=== PATIENT | male | born 1970 | race Hispanic/Latino ===

== ENCOUNTER 2020-02-11 21:26 | Inpatient (IN) | payer OTHER, SELFPAY ==
--- NOTE | 2020-02-11 21:36 | Emergency Department Report ---
ED Shortness of Breath HPI - General Chief Complaint: Dyspnea/Respdistress Stated Complaint: CHF EXACERBATION Time Seen by Provider: 02/11/20 21:31 Source: patient, EMS Mode of arrival: Stretcher Limitations: Physical Limitation - History of Present Illness Initial Comments: Patient is a 49-year-old male that presents emergency room with complaints of s hortness of breath. Patient states that shortness of breath started last night. Patient states he was diagnosed with CHF 3 to 4 weeks ago. Patient states it has been difficult breathing since the diagnosis. Patient states that the shortness of breath is worse with laying flat, movement or exertion. Patient states the shortness of breath is better with rest and being upright. Patient denies chest pain. Patient denies fever and chills. Patient denies cough. Patient denies nausea and vomiting. Patient brought in by EMS. Report received from EMS. Patient denies recent travel. Patient denies recent international travel. Patient denies exposure to the novel coronavirus. Patient denies sick contacts. Patient denies fever and chills. Patient denies cough. Patient denies diarr hea. Patient denies coming in contact with anybody with symptoms of the novel coronavirus. MD Complaint: shortness of breath -: Sudden Severity: severe Consistency: constant Improves With: rest, upright position Worsens With: lying flat, exertion Known History Of: congestive heart failure Treatments Prior to Arrival: oxygen - Related Data Home Oxygen Therapy: No Home Medications Medication Instructions Recorded Confirmed Last Taken Citalopram Hydrobromide [Celexa] 40 mg PO DAILY 02/12/20 02/12/20 Unknown lisinopriL [Zestril TAB] 40 mg PO QDAY 02/12/20 02/12/20 Unknown Allergies Allergy/AdvReac Type Severity Reaction Status Date / Time No Known Allergies Allergy Unverified 02/11/20 21:33 ED Review of Systems ROS: Stated complaint: CHF EXACERBATION Other details as noted in HPI Constitutional: denies: chills, fever Eyes: denies: eye pain, eye discharge, vision change ENT: denies: ear pain, throat pain Respiratory: shortness of breath, SOB with exertion, SOB at rest. denies: cough, wheezing Cardiovascular: dyspnea on exertion, edema. denies: chest pain, palpitations Endocrine: no symptoms reported Gastrointestinal: denies: abdominal pain, nausea, diarrhea Genitourinary: denies: urgency, dysuria Musculoskeletal: denies: back pain, joint swelling, arthralgia Skin: denies: rash, lesions Neurological: denies: headache, weakness, paresthesias Psychiatric: denies: anxiety, depression Hematological/Lymphatic: denies: easy bleeding, easy bruising ED Past Medical Hx - Past Medical History Previous Medical History?: Yes Hx Hypertension: Yes Hx Congestive Heart Failure: Yes Hx Diabetes: No Hx Pulmonary Embolism: Yes (2019. ) Additional medical history: Morbid obesity - Surgical History Past Surgical History?: No - Family History Family history: no significant - Social History Smoking Status: Never Smoker Substance Use Type: None - Medications Home Medications: Home Medications Medication Instructions Recorded Confirmed Last Taken Type Citalopram Hydrobromide [Celexa] 40 mg PO DAILY 02/12/20 02/12/20 Unknown History lisinopriL [Zestril TAB] 40 mg PO QDAY 02/12/20 02/12/20 Unknown History ED Physical Exam - General Limitations: Physical Limitation General appearance: alert, in no apparent distress - Head Head exam: Present: atraumatic, normocephalic - Eye Eye exam: Present: normal appearance - ENT ENT exam: Present: mucous membranes moist - Neck Neck exam: Present: normal inspection - Respiratory Respiratory exam: Present: rales, decreased breath sounds - Cardiovascular Cardiovascular Exam: Present: regular rate, normal rhythm, normal heart sounds. Absent: systolic murmur, diastolic murmur, rubs, gallop - GI/Abdominal GI/Abdominal exam: Present: soft, normal bowel sounds - Rectal Rectal exam: Present: deferred - Extremities Exam Extremities exam: Present: normal capillary refill, pedal edema. Absent: calf tenderness - Back Exam Back exam: Present: normal inspection - Neurological Exam Neurological exam: Present: alert, oriented X3 - Psychiatric Psychiatric exam: Present: normal affect, normal mood - Skin Skin exam: Present: warm, dry, intact, normal color. Absent: rash ED Course Vital Signs 02/11/20 02/11/20 02/11/20 21:38 21:45 22:00 Temperature 98.1 F Pulse Rate 108 H 107 H 106 H Respiratory 23 24 37 H Rate Blood Pressure 157/82 174/90 Blood Pressure 157/82 [Right] O2 Sat by Pulse 100 100 100 Oximetry - Reevaluation(s) Reevaluation #1: Patient on oxygen and he states he is feeling better. 02/11/20 22:35 Reevaluation #2: Patient given Lasix. I discussed all results with patient. I discussed plan of care with patient. Patient agrees with plan of care and admission. Patient to be admitted to the hospitalist service. 02/11/20 23:35 - Consultations Consultation #1: Patient has an elevated d-dimer. And will need a CTA to rule out a PE. We will start consulting the local hospitals. 02/11/20 22:32 The patient is either too big in weight or in circumference for all of the local hospitals or the hospitals are on diversion. I am unable to find a hospital that can accept the patient to care for the patient. So the patient will be admitted to this hospital and a PE will have to be ruled out with ultrasound and echo. 02/11/20 23:34 Consultation #2: Hospitalist consulted for admission. Hospitalist to admit patient. 02/11/20 23:36 Consultation #3: Vascular surgery consult placed 02/11/20 23:47 ED Medical Decision Making - Lab Data Result diagrams: 02/11/20 21:38 02/11/20 21:38 - EKG Data -: EKG Interpreted by Me EKG shows normal: sinus rhythm, axis, intervals, QRS complexes, ST-T waves Rate: tachycardia - Radiology Data Radiology results: report reviewed, image reviewed interpreted by me: Chest x-ray: No pneumonia, no pneumothorax, no foreign body, no osseous findings, CHF changes noted. Cardiomegaly CHEST 1 VIEW 02/11/2020 9:35 PM INDICATION / CLINICAL INFORMATION: Dyspnea. COMPARISON: None available. FINDINGS: SUPPORT DEVICES: None. HEART / MEDIASTINUM: Mild cardiomegaly. LUNGS / PLEURA: Mild pulmonary vascular congestion. No pneumothorax. ADDITIONAL FINDINGS: No significant additional findings. IMPRESSION: 1. Mild cardiomegaly and mild pulmonary vascular congestion likely reflecting CHF. DUPLEX DOPPLER LOWER EXTREMITY VEINS, BILATERAL INDICATION / CLINICAL INFORMATION: elevated d-dimer.. TECHNIQUE: Duplex doppler imaging was performed through the veins of both lower extremities using venous compression and other maneuvers. COMPARISON: None available. FINDINGS: RIGHT COMMON FEMORAL VEIN: Negative. RIGHT FEMORAL VEIN: Negative. RIGHT POPLITEAL VEIN: Negative. RIGHT CALF VEINS: Negative. LEFT COMMON FEMORAL VEIN: Negative. LEFT FEMORAL VEIN: Negative. LEFT POPLITEAL VEIN: Negative. LEFT CALF VEINS: Negative. ADDITIONAL FINDINGS: None. IMPRESSION: 1. No sonographic evidence for DVT in either lower extremity. - Medical Decision Making Patient is a 49-year-old male that presents emergency room with complaints of shortness of breath and orthopnea. Patient had labs done which shows elevated BNP. Patient had a chest x-ray done which showed CHF changes. Patient given Lasix in the ER. Patient also found to have an elevated d-dimer. Due to the patient's need for CTA I attempted to transfer the patient however all of the hospitals in the critical access hospital were unable to care for the patient due to the patient's girth, circumference and weight. Patient was admitted to this hospital and the hospitalist will have to rule out a PE with the vascular surgery. Vascular surgery consulted. Patient admitted to the hospitalist service. Since the patient has a history of a PE in 2019, I will place the patient on a heparin drip until the risk can be quantified by the vascular surgeon and the hospitalist team. - Differential Diagnosis CHF exacerbation, shortness of breath, PE, ACS, pneumonia Critical Care Time: Yes Critical care time in (mins) excluding proc time.: 35 Critical care attestation.: If time is entered above; I have spent that time in minutes in the direct care of this critically ill patient, excluding procedure time. Critical Care Time: 35 minutes ED Disposition Clinical Impression: SOB (shortness of breath), MANN (dyspnea on exertion), Leg edema Acute exacerbation of CHF (congestive heart failure) Qualifiers: Heart failure type: unspecified Qualified Code(s): I50.9 - Heart failure, unspecified Disposition: OP ADMIT IP TO THIS HOSP Is pt being admited?: Yes Does the pt Need Aspirin: No Condition: Critical Time of Disposition: 23:48
[2020-02-11 22:00] LABS: Basophils % (Auto) 0.2 % (0.0-1.8); Eosinophils # (Auto) 0.2 K/mm3 (0.0-0.4); Eosinophils % (Auto) 1.6 % (0.0-4.3); Hematocrit 34.5 % (35.5-45.6); Hemoglobin 11.5 gm/dl (11.8-15.2); Lymphocytes # (Auto) 0.9 K/mm3 (1.2-5.4); Lymphocytes % (Auto) 8.3 % (13.4-35.0); Mean Corpuscular HGB Conc 33 % (32-34); Mean Corpuscular Volume 91 fl (84-94); Monocytes # (Auto) 0.7 K/mm3 (0.0-0.8); Monocytes % (Auto) 6.7 % (0.0-7.3); Platelet Count 387 K/mm3 (140-440); Red Blood Count 3.81 M/mm3 (3.65-5.03); Red Cell Distribution Width 17.5 % (13.2-15.2)
[2020-02-11 22:21] LABS: Creatine Kinase MB 1.3 ng/mL (0.0-4.0)
[2020-02-11 22:37] LABS: Alanine Aminotransferase 14 units/L (7-56); Albumin 2.8 g/dL (3.9-5); Blood Urea Nitrogen 14 mg/dL (9-20); Hemolysis Index 152
--- NOTE | 2020-02-11 22:39 | XRay Report ---
CHEST 1 VIEW 02/11/2020 9:35 PM INDICATION / CLINICAL INFORMATION: Dyspnea. COMPARISON: None available. FINDINGS: SUPPORT DEVICES: None. HEART / MEDIASTINUM: Mild cardiomegaly. LUNGS / PLEURA: Mild pulmonary vascular congestion. No pneumothorax. ADDITIONAL FINDINGS: No significant additional findings. IMPRESSION: 1. Mild cardiomegaly and mild pulmonary vascular congestion likely reflecting CHF. Signer Name: Krishna Marmolejo MD Signed: 02/11/2020 10:35 PM Workstation Name: [id number]
[2020-02-11 22:42] LABS: BUN/Creatinine Ratio 35
[2020-02-11] MEDS ORDERED: ACETAMINOPHEN 500 MG TAB ONE (22:58)
[2020-02-11] MEDS ORDERED: ACETAMINOPHEN 500 MG TAB PO ONE (23:00)
[2020-02-11] MEDS ORDERED: FUROSEMIDE 40 MG/4 ML INJ IV ONE (23:35)
[2020-02-11] MEDS ORDERED: HEPARIN 10,000 UNITS/10 ML VIAL IV ONE (23:58)
[2020-02-12] MEDS ORDERED: MORPHINE 2 MG/1 ML INJ IV PRN (00:23)
[2020-02-12] MEDS ORDERED: ONDANSETRON 4 MG/2 ML INJ IV PRN (00:23)
[2020-02-12] MEDS ORDERED: MAGNESIUM HYDROXIDE (MOM) ORAL LIQD UDC PO PRN (00:23)
--- NOTE | 2020-02-12 00:34 | History and Physical Report ---
History of Present Illness Date of examination: 02/12/20 Date of admission: 02/11/20 23:48 Chief complaint: Shortness of Breath History of present illness: 49-year-old white male with known history of hypertension, recently diagnosed congestive heart failure, pulmonary embolism in 2019 and morbid obesity presented to the emergency room today complaining of shortness of breath which started within the last 24 to 48 hours. He was brought in by EMS. Patient states he was diagnosed with congestive heart failure about 4 weeks ago and in the last 2 days has been getting short of breath especially on minimal exertion. He has had difficulty lying down flat. He had occasional chest discomfort especially in the substernal area. He denies any nausea or vomiting. He denies any headache or dizziness, no nausea or vomiting and no diarrhea. He has had some mild cough which is nonproductive. Patient states he has been bedbound lately and hardly ambulates. He has been having progressive swelling of his lower extremities. He denies any recent travel. Denies any sick contacts and no contact with anyone with COVID-19. He was treated with some antibiotics for lower extremity cellulitis some weeks ago but has noticed some redness over the right lower extremity. Upon evaluation in the emergency room patient was found to have elevated BNP, elevated d-dimer, chest x-ray reveals: Mild cardiomegaly and mild pulmonary vascular congestion likely reflecting CHF. Ultrasound of the lower extremities did not reveal any DVT. Patient has been started on diuretics for CHF exacerbation. CT angiogram could not be done because of patient's size and weight. [facility] was unable to transfer to an outside facility. Past History Past Medical History: heart failure, hypertension, other (H/O PE in 2019, Morbid Obesity,Depression/PTSD) Past Surgical History: Other (Nasal abscess drainage in the distant past.) Social history: no significant social history Medications and Allergies Allergies Allergy/AdvReac Type Severity Reaction Status Date / Time No Known Allergies Allergy Unverified 02/11/20 21:33 Home Medications Medication Instructions Recorded Confirmed Last Taken Type Citalopram Hydrobromide [Celexa] 40 mg PO DAILY 02/12/20 02/12/20 Unknown History lisinopriL [Zestril TAB] 40 mg PO QDAY 02/12/20 02/12/20 Unknown History Active Meds: Active Medications Heparin Sodium/Sodium Chloride (Heparin/ 0.45% Nacl-25,000 Unit/500 Ml) 25,000 unit in 500 mls @ 30 mls/hr IV TITR MICHAEL; Protocol Review of Systems Constitutional: no fever, no chills Ears, nose, mouth and throat: no nasal congestion, no sore throat Cardiovascular: chest pain, no palpitations Respiratory: cough, shortness of breath, no wheezing Gastrointestinal: no abdominal pain, no nausea, no vomiting, no diarrhea Genitourinary Male: no dysuria, no hematuria, no flank pain Musculoskeletal: no neck pain, no low back pain Integumentary: no rash, no pruritis Neurological: no headaches, no confusion Psychiatric: no anxiety, no depression Exam - Constitutional Vitals: Temp Pulse Resp BP Pulse Ox 98.1 F 106 H 37 H 174/90 100 02/11/20 21:38 02/11/20 22:00 02/11/20 22:00 02/11/20 22:00 02/11/20 22:00 General appearance: Present: no acute distress, well-nourished, obese (Morbidly obese.) - EENT Eyes: Present: PERRL, EOM intact ENT: hearing intact, clear oral mucosa, dentition normal - Neck Neck: Present: supple, normal ROM - Respiratory Respiratory effort: normal Respiratory: bilateral: diminished - Cardiovascular Rhythm: regular Heart Sounds: Present: S1 & S2. Absent: gallop, systolic murmur, diastolic murmur, rub - Extremities Extremities: no ischemia, pulses intact, pulses symmetrical, Full ROM, abnormal (redness and warmth on lower 1/3 of right leg.) Extremity abnormal: edema (2+ bilateral lower extremity edema) Peripheral Pulses: within normal limits - Abdominal General gastrointestinal: Present: soft, non-tender, distended, normal bowel sounds. Absent: mass - Integumentary Integumentary: Present: clear, warm, dry. Absent: rash - Musculoskeletal Musculoskeletal: strength equal bilaterally - Psychiatric Psychiatric: appropriate mood/affect, intact judgment & insight, memory intact, cooperative - Neurologic Neurologic: CNII-XII intact, no focal deficits, moves all extremities HEART Score - HEART Score Troponin: Troponin T < 0.010 ng/mL (0.00-0.029) 02/11/20 21:38 Results - Labs CBC & Chem 7: 02/11/20 21:38 02/11/20 21:38 Labs: Abnormal lab results 02/11/20 02/11/20 02/11/20 Range/Units 21:38 21:38 21:38 Hgb 11.5 L (11.8-15.2) gm/dl Hct 34.5 L (35.5-45.6) % RDW 17.5 H (13.2-15.2) % Lymph % (Auto) 8.3 L (13.4-35.0) % Lymph # (Auto) 0.9 L (1.2-5.4) K/mm3 Seg Neutrophils % 83.2 H (40.0-70.0) % Seg Neutrophils # 8.8 H (1.8-7.7) K/mm3 D-Dimer 684.16 H (0-234) ng/mlDDU Chloride 97.3 L (98-107) mmol/L Carbon Dioxide 32 H (22-30) mmol/L Creatinine 0.4 L (0.8-1.3) mg/dL Glucose 115 H (75-100) mg/dL Albumin 2.8 L (3.9-5) g/dL Assessment and Plan - Patient Problems (1) Acute exacerbation of CHF (congestive heart failure) Current Visit: Yes Status: Acute Qualifiers: Heart failure type: unspecified Qualified Code(s): I50.9 - Heart failure, unspecified Plan to address problem: Patient placed on diuretics. Will monitor inputs and output and also monitor daily weights. Patient will be scheduled for echocardiogram. We will place a consult to cardiology for evaluation. (2) Elevated d-dimer Current Visit: Yes Status: Acute Plan to address problem: Ultrasound of the lower extremities were negative for DVT. However patient is unable to undergo his CT angiogram because of his size and weight. He has known history of PE in 2019. He has had some mild chest discomfort over the past few days. Patient has been placed on anticoagulation meanwhile. We will appreciate inputs from vascular surgery. (3) Morbid obesity with BMI of 70 and over, adult Current Visit: Yes Status: Acute Plan to address problem: We will appreciate dietary evaluation. (4) Hypertension Current Visit: Yes Status: Acute Plan to address problem: Blood pressure stable we will continue routine home medications. Monitor vital signs (5) History of major depression Current Visit: Yes Status: Acute Plan to address problem: Patient on citalopram. (6) Cellulitis of lower extremity Current Visit: Yes Status: Acute Plan to address problem: Patient placed on empiric IV antibiotics. (7) DVT prophylaxis Current Visit: Yes Status: Acute Plan to address problem: Patient on anticoagulation. (8) Full code status Current Visit: Yes Status: Acute
[2020-02-12 00:58] LABS: INR 0.77 (0.87-1.13)
[2020-02-12] MEDS ORDERED: HEPARIN 10,000 UNITS/10 ML VIAL ONE (00:58)
[2020-02-12 00:59] LABS: Partial Thromboplastin Time 20.7 Sec. (24.2-36.6)
--- NOTE | 2020-02-12 01:04 | Vascular Lab Report ---
DUPLEX DOPPLER LOWER EXTREMITY VEINS, BILATERAL INDICATION / CLINICAL INFORMATION: elevated d-dimer.. TECHNIQUE: Duplex doppler imaging was performed through the veins of both lower extremities using venous francie tanisha and other maneuvers. COMPARISON: None available. FINDINGS: RIGHT COMMON FEMORAL VEIN: Negative. RIGHT FEMORAL VEIN: Negative. RIGHT POPLITEAL VEIN: Negative. RIGHT CALF VEINS: Negative. LEFT COMMON FEMORAL VEIN: Negative. LEFT FEMORAL VEIN: Negative. LEFT POPLITEAL VEIN: Negative. LEFT CALF VEINS: Negative. ADDITIONAL FINDINGS: None. IMPRESSION: 1. No sonographic evidence for DVT in either lower extremity. Signer Name: Krishna Marmolejo MD Signed: 02/12/2020 12:59 AM Workstation Name: [id number]
[2020-02-12] MEDS ORDERED: VANCOMYCIN PHARMACY TO DOSE IV SCH (02:00)
[2020-02-12] MEDS: HEPARIN/ 0.45% NACL DRIP 25,000 UNIT/500 ML BAG IV SCH ×2 (02:44→13:18)
[2020-02-12] MEDS ORDERED: VANCOMYCIN 2,000 MG in SODIUM CHLORIDE 0.9% 500 ML 500 ML IV ONE (04:00)
[2020-02-12] MEDS ORDERED: POTASSIUM CHLORIDE ER 20 MEQ TAB PO ONE (04:19)
[2020-02-12] MEDS: FUROSEMIDE 40 MG/4 ML INJ IV SCH ×2 (05:28→18:00)
[2020-02-12] MEDS: ACETAMINOPHEN 325 MG TAB PO PRN ×2 (05:30→16:06)
--- NOTE | 2020-02-12 10:15 | Consultation ---
History of Present Illness Consult date: 02/12/20 Requesting physician: STELLA DE PAZ Consult reason: congestive heart failure History of present illness: The pt is a 49-year-old morbidly obese male with a past medical history of HTN, HF, bilateral pulmonary embolism diagnosed at [facility] in 05/2018, suicide attempt via Coumadin overdose last year and thus has not been taking oral anticoagulation, depression, leg cellulitis. He is previously unknown to our practice. He reports he usually receives his medical care at [facility]. He presented with c/o progressively worsening SOB, orthopnea, BLE swelling, abdominal swelling for several days prior to arrival. Patient states he was diagnosed with congestive heart failure about 4 weeks ago at [facility]. Patient states he has been bedbound lately and hardly ambulates. He denies any chest pain, palpitations, n/v, diaphoresis, dizziness or syncope. Following arrival, pt found to have elevated d-dimer, CXR with mild cardiomegaly and mild pulmonary vascular congestion likely reflecting CHF. Ultrasound of the lower extremities did not reveal any DVT. Patient has been started on diuretics for CHF exacerbation and heparin gtt given h/o PE. CT angiogram could not be done because of patient's size and weight. ER physician was unable to transfer to an outside facility. Past History Past Medical History: heart failure, hypertension, other (H/O PE in 2019, Morbid Obesity,Depression/PTSD) Past Surgical History: Other (Nasal abscess drainage in the distant past.) Social history: no significant social history Medications and Allergies Allergies Allergy/AdvReac Type Severity Reaction Status Date / Time No Known Allergies Allergy Unverified 02/11/20 21:33 Home Medications Medication Instructions Recorded Confirmed Last Taken Type Citalopram Hydrobromide [Celexa] 40 mg PO DAILY 02/12/20 02/12/20 Unknown History lisinopriL [Zestril TAB] 40 mg PO QDAY 02/12/20 02/12/20 Unknown History Active Meds: Active Medications Acetaminophen (Tylenol) 650 mg PO Q4H PRN PRN Reason: Pain MILD(1-3)/Fever >100.5/LUIS Last Admin: 02/12/20 05:30 Dose: 650 mg Documented by: Furosemide (Lasix) 40 mg IV BID@0600,1800 MICHAEL Last Admin: 02/12/20 05:28 Dose: 40 mg Documented by: Heparin Sodium/Sodium Chloride (Heparin/ 0.45% Nacl-25,000 Unit/500 Ml) 25,000 unit in 500 mls @ 30 mls/hr IV TITR MICHAEL; Protocol Last Admin: 02/12/20 02:44 Dose: 1,500 units/hr, 30 mls/hr Documented by: Vancomycin HCl 2,000 mg/ (Sodium Chloride) 540 mls @ 250 mls/hr IV Q8H MICHAEL Magnesium Hydroxide (Milk Of Magnesia) 30 ml PO Q4H PRN PRN Reason: Constipation Morphine Sulfate (Morphine) 2 mg IV Q4H PRN PRN Reason: Pain, Moderate (4-6) Ondansetron HCl (Zofran) 4 mg IV Q8H PRN PRN Reason: Nausea And Vomiting Sodium Chloride (Sodium Chloride Flush Syringe 10 Ml) 10 ml IV BID MICHAEL Sodium Chloride (Sodium Chloride Flush Syringe 10 Ml) 10 ml IV PRN PRN PRN Reason: LINE FLUSH Review of Systems Constitutional: no fever, no chills, no sweats Ears, nose, mouth and throat: no ear pain, no nose pain, no sinus pressure, no sinus pain Cardiovascular: orthopnea, edema, shortness of breath, dyspnea on exertion, paroxysmal nocturnal dyspnea, high blood pressure, leg edema, decreased exercise tolerance, no chest pain, no palpitations, no rapid/irregular heart beat, no syncope, no lightheadedness Respiratory: shortness of breath, dyspnea on exertion, no cough, no congestion, no wheezing, no pain on inspiration Gastrointestinal: other (abdominal swelling), no abdominal pain, no nausea, no vomiting, no diarrhea, no constipation, no change in bowel habits Genitourinary Male: no dysuria, no hematuria, no flank pain, no discharge, no urinary frequency, no urinary hesitancy Musculoskeletal: no neck stiffness, no neck pain, no shooting arm pain, no arm numbness/tingling, no low back pain, no shooting leg pain Integumentary: no rash, no pruritis, no wounds Neurological: no head injury, no paralysis, no weakness, no parathesias, no numbness, no tingling, no seizures, no syncope Psychiatric: depression Endocrine: no cold intolerance, no heat intolerance Hematologic/Lymphatic: no easy bruising, no easy bleeding Allergic/Immunologic: no urticaria Physical Examination Vital Signs Temp Pulse Resp BP Pulse Ox 98.1 F 108 H 23 157/82 100 02/11/20 21:38 02/11/20 21:38 02/11/20 21:38 02/11/20 21:38 02/11/20 21:38 General appearance: no acute distress HEENT: Positive: PERRL, Normocephaly, Mucus Membranes Moist Neck: Positive: neck supple, trachea midline Cardiac: Positive: Reg Rate and Rhythm, S1/S2 Lungs: Positive: Decreased Breath Sounds Neuro: Positive: Grossly Intact Abdomen: Positive: Other (edematous abdomen). Negative: Tender Skin: Negative: Rash Extremities: Present: +3 Edema (BLE), Other (? BLE lymphedema) Results 02/11/20 21:38 02/11/20 21:38 Cardiac Enzymes 02/11/20 02/11/20 Range/Units 21:38 21:38 AST 24 (5-40) units/L CK-MB (CK-2) 1.3 (0.0-4.0) ng/mL Coagulation 02/12/20 Range/Units 00:16 PT 10.9 L (12.2-14.9) Sec. INR 0.77 L (0.87-1.13) APTT 20.7 L (24.2-36.6) Sec. CBC 02/11/20 Range/Units 21:38 WBC 10.6 (4.5-11.0) K/mm3 RBC 3.81 (3.65-5.03) M/mm3 Hgb 11.5 L (11.8-15.2) gm/dl Hct 34.5 L (35.5-45.6) % Plt Count 387 (140-440) K/mm3 Lymph # (Auto) 0.9 L (1.2-5.4) K/mm3 Johnston # (Auto) 0.7 (0.0-0.8) K/mm3 Eos # (Auto) 0.2 (0.0-0.4) K/mm3 Baso # (Auto) 0.0 (0.0-0.1) K/mm3 Comprehensive Metabolic Panel 02/11/20 Range/Units 21:38 Sodium 137 (137-145) mmol/L Potassium 5.0 (3.6-5.0) mmol/L Chloride 97.3 L (98-107) mmol/L Carbon Dioxide 32 H (22-30) mmol/L BUN 14 (9-20) mg/dL Creatinine 0.4 L (0.8-1.3) mg/dL Glucose 115 H (75-100) mg/dL Calcium 9.0 (8.4-10.2) mg/dL AST 24 (5-40) units/L ALT 14 (7-56) units/L Alkaline Phosphatase 86 (35-129) units/L Total Protein 6.6 (6.3-8.2) g/dL Albumin 2.8 L (3.9-5) g/dL - Imaging and Cardiology Echo: pending EKG: report reviewed, image reviewed EKG interpretations - Telemetry EKG Rhythm: Sinus Rhythm - EKG Sinus rhythms and dysrhythmias: sinus rhythm Assessment and Plan Agree with IV lasix. Pt was noted to have 15 beat run SVT on telemetry overnight - initiate BB. DDimer is elevated - Unable to proceed with chest CTA due to body habitus. Pt currently receiving heparin gtt due to h/o bilateral PE, consider conversion to NOAC per primary team. Additionally, unable to proceed with stress testing due to body habitus. ECG wiht NAF, Carissa negative for AMI x 1 set. Cont to trend Carissa and obtain echo. Will attempt to obtain medical records from [facility], although transfer to [facility] or another tertiary care facility is recommended as pt may require additional imaging/management which cannot be accomplished at [facility] due to body habitus. D/w primary team. Will follow. The patient has been seen in conjunction with Dr. Wright who agrees with the assessment and plan of care. - Patient Problems (1) Acute heart failure Current Visit: Yes Status: Acute (2) Morbid obesity with BMI of 70 and over, adult Current Visit: Yes Status: Chronic (3) Hypertension Current Visit: Yes Status: Chronic (4) Elevated d-dimer Current Visit: Yes Status: Acute (5) History of pulmonary embolism Current Visit: Yes Status: Chronic (6) History of major depression Current Visit: Yes Status: Chronic (7) SVT (supraventricular tachycardia) Current Visit: Yes Status: Acute Plan to address problem: transient episode x 1
[2020-02-12] MEDS: VANCOMYCIN 2,000 MG in SODIUM CHLORIDE 0.9% 500 ML 500 ML IV SCH ×2 (12:49→21:46)
[2020-02-12] MEDS ORDERED: HEPARIN 10,000 UNITS/10 ML VIAL IV NR (13:30)
--- NOTE | 2020-02-12 14:13 | Consultation ---
History of Present Illness - Reason for Consult Consult date: 02/12/20 Rule out Pulmonary Embolism Requesting physician: SAUNDRA SANABRIA III - History of Present Illness The patient is a 49-year-old male with a history of morbid obesity and bilateral submassive pulmonary emboli in 2019 for which he was treated with Coumadin therapy for 6 months. He states at the time he did not undergo any endovascular intervention to resolve the pulmonary emboli. He has been doing well until approximately 5 weeks ago when he began experiencing shortness of breath and presented to [facility] where he was diagnosed with pulmonary edema and congestive heart failure. He states that despite the diagnosis he was not started on any new medications and was discharged after a couple of days in the hospital. He presented to [facility] emergency department with complaints of continued shortness of breath that is no different to his complaints that led him to [place]. He denies any chest pain or new leg swelling. Upon arrival his labs revealed a slightly elevated BNP and a d-dimer that is slightly elevated in the 600 range. His oxygen saturations have been maintaining in the 90s on 2 L of nasal cannula. He had bilateral lower extremit y venous duplex that revealed no evidence of DVT. He is unable to have a CTA of his chest due to his size. Other than his shortness of breath he has been treated, with antibiotics, for cellulitis of bilateral lower extremities. He has no additional complaints at this time. Past History Past Medical History: heart failure, hypertension, other (Morbid obesity, PTSD, bilateral submassive pulmonary emboli in 2019) Past Surgical History: Other (Nasal abscess drainage in the distant past.) Social history: no significant social history Medications and Allergies Allergies Allergy/AdvReac Type Severity Reaction Status Date / Time No Known Allergies Allergy Unverified 02/11/20 21:33 Home Medications Medication Instructions Recorded Confirmed Last Taken Type Citalopram Hydrobromide [Celexa] 40 mg PO DAILY 02/12/20 02/12/20 Unknown History lisinopriL [Zestril TAB] 40 mg PO QDAY 02/12/20 02/12/20 Unknown History Active Meds: Active Medications Acetaminophen (Tylenol) 650 mg PO Q4H PRN PRN Reason: Pain MILD(1-3)/Fever >100.5/LUIS Last Admin: 02/12/20 05:30 Dose: 650 mg Documented by: Furosemide (Lasix) 40 mg IV BID@0600,1800 [facility] Last Admin: 02/12/20 05:28 Dose: 40 mg Documented by: Heparin Sodium (Porcine) (Heparin 10,000 Units/10 Ml) 10,000 unit IV ONCE NR Stop: 02/12/20 14:40 Last Admin: 02/12/20 13:23 Dose: 10,000 unit Documented by: Heparin Sodium/Sodium Chloride (Heparin/ 0.45% Nacl-25,000 Unit/500 Ml) 25,000 unit in 500 mls @ 30 mls/hr IV TITR MICHAEL; Protocol Last Admin: 02/12/20 13:18 Dose: 1,500 units/hr, 30 mls/hr Documented by: Vancomycin HCl 2,000 mg/ (Sodium Chloride) 540 mls @ 250 mls/hr IV Q8H [facility] Last Admin: 02/12/20 12:49 Dose: 250 mls/hr Documented by: Magnesium Hydroxide (Milk Of Magnesia) 30 ml PO Q4H PRN PRN Reason: Constipation Metoprolol Tartrate (Metoprolol) 25 mg PO BID MICHAEL Morphine Sulfate (Morphine) 2 mg IV Q4H PRN PRN Reason: Pain, Moderate (4-6) Ondansetron HCl (Zofran) 4 mg IV Q8H PRN PRN Reason: Nausea And Vomiting Sodium Chloride (Sodium Chloride Flush Syringe 10 Ml) 10 ml IV BID [facility] Sodium Chloride (Sodium Chloride Flush Syringe 10 Ml) 10 ml IV PRN PRN PRN Reason: LINE FLUSH Review of Systems All systems: negative Exam - Constitutional Vitals: Temp Pulse Resp BP Pulse Ox 98.0 F 89 20 131/71 96 02/12/20 11:38 02/12/20 11:38 02/12/20 11:38 02/12/20 11:38 02/12/20 11:38 General appearance: Present: no acute distress, obese - Neck Neck: Present: supple - Respiratory Respiratory effort: labored (With speaking) - Cardiovascular Rhythm: regular - Extremities Extremity abnormal: edema (Erythema of bilateral lower legs) - Abdominal General gastrointestinal: Present: soft, tender, other (Protuberant) - Rectal Rectal Exam: deferred Results - Labs CBC & Chem 7: 02/11/20 21:38 02/11/20 21:38 Labs: Abnormal lab results 02/11/20 02/11/20 02/11/20 Range/Units 21:38 21:38 21:38 Hgb 11.5 L (11.8-15.2) gm/dl Hct 34.5 L (35.5-45.6) % RDW 17.5 H (13.2-15.2) % Lymph % (Auto) 8.3 L (13.4-35.0) % Lymph # (Auto) 0.9 L (1.2-5.4) K/mm3 Seg Neutrophils % 83.2 H (40.0-70.0) % Seg Neutrophils # 8.8 H (1.8-7.7) K/mm3 PT (12.2-14.9) Sec. INR (0.87-1.13) APTT (24.2-36.6) Sec. D-Dimer 684.16 H (0-234) ng/mlDDU Heparin Anti-Xa Level (0.3-0.7) U.I./ml Chloride 97.3 L (98-107) mmol/L Carbon Dioxide 32 H (22-30) mmol/L Creatinine 0.4 L (0.8-1.3) mg/dL Glucose 115 H (75-100) mg/dL POC Glucose (70-105) Albumin 2.8 L (3.9-5) g/dL 02/12/20 02/12/20 02/12/20 Range/Units 00:16 11:16 11:53 Hgb (11.8-15.2) gm/dl Hct (35.5-45.6) % RDW (13.2-15.2) % Lymph % (Auto) (13.4-35.0) % Lymph # (Auto) (1.2-5.4) K/mm3 Seg Neutrophils % (40.0-70.0) % Seg Neutrophils # (1.8-7.7) K/mm3 PT 10.9 L (12.2-14.9) Sec. INR 0.77 L (0.87-1.13) APTT 20.7 L (24.2-36.6) Sec. D-Dimer (0-234) ng/mlDDU Heparin Anti-Xa Level < 0.10 L (0.3-0.7) U.I./ml Chloride (98-107) mmol/L Carbon Dioxide (22-30) mmol/L Creatinine (0.8-1.3) mg/dL Glucose (75-100) mg/dL POC Glucose 114 H (70-105) Albumin (3.9-5) g/dL - Imaging and Cardiology Chest x-ray: image reviewed Assessment and Plan The patient is a 49-year-old male with a history of bilateral submassive pulmonary emboli that was treated with 6 months of oral anticoagulation. He presents with a 5-week history of shortness of breath and a diagnosis of conge stive heart failure from an outside hospital. He has a mildly elevated d-dimer in the 600s range and a bilateral lower extremity venous duplex that is negative for DVT. D-dimer has a high sensitivity but low specificity for pulmonary embolism. The mildly elevated d-dimer could be secondary to his CHF, the bilateral lower extremity cellulitis, or the fact that he is morbidly obese and likely very sedentary. I suspect that his shortness of breath is due to his pulmonary edema and CHF which is a result of his untreated past pulmonary emboli resulting in right heart failure. It is very unlikely that the patient has a new pulmonary embolus causing his symptoms however if it is felt that the patient requires imaging to rule this out he should be transferred to a facility that could image him or if he is optimized to the point that he could be discharged he could be discharged on oral anticoagulation and have imaging performed on an outpatient basis and have his anticoagulation stopped if it is found that he does not have an acute pulmonary embolus. I do not feel that he would benefit from performing any vascular surgery procedures to attempt to diagnose or treat presumed pulmonary emboli.
--- NOTE | 2020-02-12 15:08 | Progress Note ---
Assessment and Plan -- Acute exacerbation of CHF (congestive heart failure) Patient placed on diuretics. Will monitor inputs and output and also monitor daily weights. Patient will be scheduled for echocardiogram. Cardiology consulted, continue to follow recommendation -- Elevated d-dimer Ultrasound of the lower extremities were negative for DVT. However patient is unable to undergo his CT angiogram because of his size and weight. He has known history of PE in 2019. He has had some mild chest discomfort over the past few days. Patient has been placed on anticoagulation meanwhile with IV heparin. Vascular surgery consulted for input and recommended that patient is likely negative for pulmonary embolism considering the lab work-up. But as we cannot rule out pulmonary embolism and patient is high risks we can continue to treat with anticoagulation, patient can get CTA chest at [place] or [place] following discharge to confirm the diagnosis -- Morbid obesity with BMI of 70 and over, adult Dietary consulted, continue cardiac diet for now --Acute respiratory failure due to CHF exacerbation and obesity hypoventilation syndrome Continue supplemental O2 and CPAP at bedtime -- Hypertension Blood pressure stable we will continue routine home medications. Monitor vital signs -- History of major depression Patient on citalopram. -- Cellulitis of lower extremity Patient placed on empiric IV antibiotics. -- DVT prophylaxis Patient on anticoagulation. -- Full code status Brief History; 49-year-old white male with known history of hypertension, recently diagnosed congestive heart failure, pulmonary embolism in 2019 and morbid obesity presented to the emergency room today complaining of shortness of breath which started in last 2 days. Patient states he has been bedbound lately and hardly ambulates. He has been having progressive swelling of his lower extremities. Upon evaluation in the emergency room patient was found to have elevated BNP, elevated d-dimer, chest x-ray reveals: Mild cardiomegaly and mild pulmonary vascular congestion likely reflecting CHF. Ultrasound of the lower extremities did not reveal any DVT. Patient has been started on diuretics for CHF exacerbation. CT angiogram could not be done because of patient's size and weight. ER physician was unable to transfer to an outside facility. 02/11; stop heparin drip, appreciate vascular surgery recommendation. will start on eliquis for now. Continue IV Lasix, monitor daily weight and ins and outs, follow 2D echo, cardiology following. Order for CPAP at bedtime Subjective Date of service: 02/12/20 Interval history: Patient seen and examined. Medical records and medication list reviewed. No acute event overnight noted by the RN. Morbidly obese patient complains of difficulty breathing even when speaking Discussed plan of care at bedside with patient. Objective - Exam Narrative Exam: General appearance: Present: no acute distress, well-nourished, obese (Morbidly obese.) - EENT Eyes: Present: PERRL, EOM intact ENT: hearing intact, clear oral mucosa, dentition normal - Neck Neck: Present: supple, normal ROM - Respiratory Respiratory effort: normal Respiratory: bilateral: diminished - Cardiovascular Rhythm: regular Heart Sounds: Present: S1 & S2. Absent: gallop, systolic murmur, diastolic murmur, rub - Extremities Extremities: no ischemia, pulses intact, pulses symmetrical, Full ROM, abnormal (redness and warmth on lower 1/3 of right leg.) Extremity abnormal: edema (2+ bilateral lower extremity edema) Peripheral Pulses: within normal limits - Abdominal General gastrointestinal: Present: soft, non-tender, distended, normal bowel sounds. Absent: mass - Integumentary Integumentary: Present: clear, warm, dry. Absent: rash - Musculoskeletal Musculoskeletal: strength equal bilaterally - Psychiatric Psychiatric: appropriate mood/affect, intact judgment & insight, memory intact, cooperative - Neurologic Neurologic: CNII-XII intact, no focal deficits, moves all extremities - Constitutional Vitals: Vital Signs - 12hr 02/12/20 02/12/20 02/12/20 03:58 04:29 07:30 Temperature 98.8 F 99.6 F Pulse Rate 98 H 101 H 94 H Respiratory 20 18 Rate Blood Pressure 123/55 128/64 O2 Sat by Pulse 96 96 Oximetry 02/12/20 02/12/20 07:50 11:38 Temperature 98.0 F Pulse Rate 89 Respiratory 20 Rate Blood Pressure 131/71 O2 Sat by Pulse 95 96 Oximetry - Labs CBC & Chem 7: 02/13/20 06:48 02/13/20 06:48 Labs: Abnormal lab results 02/11/20 02/11/20 02/11/20 Range/Units 21:38 21:38 21:38 Hgb 11.5 L (11.8-15.2) gm/dl Hct 34.5 L (35.5-45.6) % RDW 17.5 H (13.2-15.2) % Lymph % (Auto) 8.3 L (13.4-35.0) % Lymph # (Auto) 0.9 L (1.2-5.4) K/mm3 Seg Neutrophils % 83.2 H (40.0-70.0) % Seg Neutrophils # 8.8 H (1.8-7.7) K/mm3 PT (12.2-14.9) Sec. INR (0.87-1.13) APTT (24.2-36.6) Sec. D-Dimer 684.16 H (0-234) ng/mlDDU Heparin Anti-Xa Level (0.3-0.7) U.I./ml Chloride 97.3 L (98-107) mmol/L Carbon Dioxide 32 H (22-30) mmol/L Creatinine 0.4 L (0.8-1.3) mg/dL Glucose 115 H (75-100) mg/dL POC Glucose (70-105) Albumin 2.8 L (3.9-5) g/dL 02/12/20 02/12/20 02/12/20 Range/Units 00:16 11:16 11:53 Hgb (11.8-15.2) gm/dl Hct (35.5-45.6) % RDW (13.2-15.2) % Lymph % (Auto) (13.4-35.0) % Lymph # (Auto) (1.2-5.4) K/mm3 Seg Neutrophils % (40.0-70.0) % Seg Neutrophils # (1.8-7.7) K/mm3 PT 10.9 L (12.2-14.9) Sec. INR 0.77 L (0.87-1.13) APTT 20.7 L (24.2-36.6) Sec. D-Dimer (0-234) ng/mlDDU Heparin Anti-Xa Level < 0.10 L (0.3-0.7) U.I./ml Chloride (98-107) mmol/L Carbon Dioxide (22-30) mmol/L Creatinine (0.8-1.3) mg/dL Glucose (75-100) mg/dL POC Glucose 114 H (70-105) Albumin (3.9-5) g/dL HEART Score - HEART Score Troponin: Troponin T < 0.010 ng/mL (0.00-0.029) 02/11/20 21:38
[2020-02-12] MEDS: APIXABAN 5 MG TAB PO SCH ×2 (16:06→21:51)
[2020-02-12] MEDS: METOPROLOL TARTRATE 25 MG TAB PO SCH (21:47)
[2020-02-13] MEDS: ACETAMINOPHEN 325 MG TAB PO PRN ×2 (00:02→10:18)
[2020-02-13] MEDS ORDERED: ALPRAZolam 0.25 MG TAB PO ONE (00:15)
[2020-02-13] MEDS: VANCOMYCIN 2,000 MG in SODIUM CHLORIDE 0.9% 500 ML 500 ML IV SCH ×3 (05:19→21:30)
[2020-02-13] MEDS: FUROSEMIDE 40 MG/4 ML INJ IV SCH ×2 (05:19→18:27)
[2020-02-13 07:34] LABS: Basophils % (Auto) 0.1 % (0.0-1.8); Eosinophils # (Auto) 0.3 K/mm3 (0.0-0.4); Hematocrit 33.1 % (35.5-45.6); Hemoglobin 11.1 gm/dl (11.8-15.2); Lymphocytes % (Auto) 11.3 % (13.4-35.0); Mean Corpuscular HGB Conc 34 % (32-34); Mean Corpuscular Volume 90 fl (84-94); Monocytes # (Auto) 0.6 K/mm3 (0.0-0.8); Monocytes % (Auto) 6.8 % (0.0-7.3); Platelet Count 393 K/mm3 (140-440); Red Blood Count 3.69 M/mm3 (3.65-5.03); Red Cell Distribution Width 17.3 % (13.2-15.2)
[2020-02-13 07:55] LABS: INR 1.11 (0.87-1.13)
[2020-02-13 07:58] LABS: Blood Urea Nitrogen 13 mg/dL (9-20); Calcium 8.6 mg/dL (8.4-10.2); Hemolysis Index 2
[2020-02-13 08:00] LABS: BUN/Creatinine Ratio 26
[2020-02-13] MEDS: APIXABAN 5 MG TAB PO SCH ×2 (10:15→21:19)
[2020-02-13] MEDS: METOPROLOL TARTRATE 25 MG TAB PO SCH ×2 (10:15→21:20)
--- NOTE | 2020-02-13 11:43 | Progress Note ---
Assessment and Plan clinically improving recommend pulm eval - needs cpap/bipap cont iv lasix (likely net neg fluid balance, but not clear from charting) tte reviewed w/ pt cont systemic anticoagulation - Patient Problems (1) (HFpEF) heart failure with preserved ejection fraction Current Visit: Yes Status: Acute (2) Leg edema Current Visit: Yes Status: Acute (3) SOB (shortness of breath) Current Visit: Yes Status: Acute (4) History of major depression Current Visit: Yes Status: Chronic (5) History of pulmonary embolism Current Visit: Yes Status: Chronic (6) Hypertension Current Visit: Yes Status: Chronic (7) Morbid obesity with BMI of 70 and over, adult Current Visit: Yes Status: Chronic Subjective Date of service: 02/13/20 Interval history: feels better Objective Vital Signs Temp Pulse Resp BP BP Pulse Ox 02/13/20 10:58 99.9 F H 89 18 134/60 97 02/13/20 10:00 91 H 20 95 02/13/20 08:53 98.0 F 90 18 120/68 96 02/13/20 03:53 99.1 F 91 H 32 H 113/63 93 02/13/20 00:02 20 02/12/20 23:58 100.6 F H 85 28 H 142/71 99 02/12/20 21:08 98 02/12/20 20:00 91 H 02/12/20 19:45 98.2 F 92 H 28 H 147/69 96 02/12/20 15:37 98.6 F 91 H 20 153/65 96 - Physical Examination HEENT: Positive: PERRL, Normocephaly, Mucus Membranes Moist Neck: Positive: neck supple, trachea midline Neuro: Positive: Grossly Intact Abdomen: Positive: Other (edematous abdomen). Negative: Tender Skin: Negative: Rash Extremities: Present: +3 Edema (BLE), Other (? BLE lymphedema) - Labs and Meds Coagulation 02/13/20 Range/Units 06:48 PT 14.5 (12.2-14.9) Sec. INR 1.11 (0.87-1.13) CBC 02/13/20 Range/Units 06:48 WBC 8.7 (4.5-11.0) K/mm3 RBC 3.69 (3.65-5.03) M/mm3 Hgb 11.1 L (11.8-15.2) gm/dl Hct 33.1 L (35.5-45.6) % Plt Count 393 (140-440) K/mm3 Lymph # (Auto) 1.0 L (1.2-5.4) K/mm3 Esmeralda # (Auto) 0.6 (0.0-0.8) K/mm3 Eos # (Auto) 0.3 (0.0-0.4) K/mm3 Baso # (Auto) 0.0 (0.0-0.1) K/mm3 Comprehensive Metabolic Panel 02/13/20 Range/Units 06:48 Sodium 141 (137-145) mmol/L Potassium 3.8 D (3.6-5.0) mmol/L Chloride 96.6 L (98-107) mmol/L Carbon Dioxide 37 H (22-30) mmol/L BUN 13 (9-20) mg/dL Creatinine 0.5 L (0.8-1.3) mg/dL Glucose 95 (75-100) mg/dL Calcium 8.6 (8.4-10.2) mg/dL - Imaging and Cardiology EKG: report reviewed, image reviewed Echo: pending - EKG Sinus rhythms and dysrhythmias: sinus rhythm
--- NOTE | 2020-02-13 18:51 | Progress Note ---
Assessment and Plan -- Acute exacerbation of CHF (congestive heart failure) Patient placed on diuretics. Will monitor inputs and output and also monitor daily weights. Patient will be scheduled for echocardiogram. Cardiology consulted, continue to follow recommendation -- Elevated d-dimer Ultrasound of the lower extremities were negative for DVT. However patient is unable to undergo his CT angiogram because of his size and weight. He has known history of PE in 2019. He has had some mild chest discomfort over the past few days. Patient has been placed on anticoagulation meanwhile with IV heparin. Vascular surgery consulted for input and recommended that patient is likely negative for pulmonary embolism considering the lab work-up. But as we cannot rule out pulmonary embolism and patient is high risks we can continue to treat with anticoagulation, patient can get CTA chest at [place] or [place] following discharge to confirm the diagnosis -- Morbid obesity with BMI of 70 and over, adult Dietary consulted, continue cardiac diet for now --Acute respiratory failure due to CHF exacerbation and obesity hypoventilation syndrome Continue supplemental O2 and CPAP at bedtime Start on empiric nebulizer breathing treatment -- Hypertension Blood pressure stable we will continue routine home medications. Monitor vital signs -- History of major depression Patient on citalopram. -- Cellulitis of lower extremity Patient placed on empiric IV antibiotics. -- DVT prophylaxis Patient on anticoagulation. -- Full code status Brief History; 49-year-old white male with known history of hypertension, recently diagnosed congestive heart failure, pulmonary embolism in 2019 and morbid obesity presented to the emergency room today complaining of shortness of breath which started in last 2 days. Patient states he has been bedbound lately and hardly ambulates. He has been having progressive swelling of his lower extremities. Upon evaluation in the emergency room patient was found to have elevated BNP, elevated d-dimer, chest x-ray reveals: Mild cardiomegaly and mild pulmonary vascular congestion likely reflecting CHF. Ultrasound of the lower extremities did not reveal any DVT. Patient has been started on diuretics for CHF exacerbation. CT angiogram could not be done because of patient's size and weight. ER physician was unable to transfer to an outside facility. 02/11; stop heparin drip, appreciate vascular surgery recommendation. will start on eliquis for now. Continue IV Lasix, monitor daily weight and ins and outs, follow 2D echo, cardiology following. Order for CPAP at bedtime 02/12: Remains extensively short of breath even with resting. Continue IV Lasix supplemental oxygen and CPAP at bedtime. Also start on nebulizer breathing treatment. Subjective Date of service: 02/13/20 Interval history: Patient seen and examined. Medical records and medication list reviewed. No acute event overnight noted by the RN. Morbidly obese patient complains of difficulty breathing even when speaking Discussed plan of care at bedside with patient. Objective - Exam Narrative Exam: General appearance: Present: no acute distress, well-nourished, obese (Morbidly obese.) - EENT Eyes: Present: PERRL, EOM intact ENT: hearing intact, clear oral mucosa, dentition normal - Neck Neck: Present: supple, normal ROM - Respiratory Respiratory effort: normal Respiratory: bilateral: diminished - Cardiovascular Rhythm: regular Heart Sounds: Present: S1 & S2. Absent: gallop, systolic murmur, diastolic murmur, rub - Extremities Extremities: no ischemia, pulses intact, pulses symmetrical, Full ROM, abnormal (redness and warmth on lower 1/3 of right leg.) Extremity abnormal: edema (2+ bilateral lower extremity edema) Peripheral Pulses: within normal limits - Abdominal General gastrointestinal: Present: soft, non-tender, distended, normal bowel sounds. Absent: mass - Integumentary Integumentary: Present: clear, warm, dry. Absent: rash - Musculoskeletal Musculoskeletal: strength equal bilaterally - Psychiatric Psychiatric: appropriate mood/affect, intact judgment & insight, memory intact, cooperative - Neurologic Neurologic: CNII-XII intact, no focal deficits, moves all extremities - Constitutional Vitals: Vital Signs - 12hr 02/13/20 02/13/20 02/13/20 08:53 10:00 10:58 Temperature 98.0 F 99.9 F H Pulse Rate 90 91 H 89 Respiratory 18 20 18 Rate Blood Pressure 134/60 Blood Pressure 120/68 [Right] O2 Sat by Pulse 96 95 97 Oximetry 02/13/20 18:02 Temperature 98.4 F Pulse Rate 90 Respiratory 18 Rate Blood Pressure Blood Pressure 120/70 [Right] O2 Sat by Pulse 96 Oximetry - Labs CBC & Chem 7: 02/15/20 07:36 02/15/20 07:36 Labs: Abnormal lab results 02/12/20 02/12/20 02/13/20 Range/Units 15:50 19:04 06:48 Hgb 11.1 L (11.8-15.2) gm/dl Hct 33.1 L (35.5-45.6) % RDW 17.3 H (13.2-15.2) % Lymph % (Auto) 11.3 L (13.4-35.0) % Lymph # (Auto) 1.0 L (1.2-5.4) K/mm3 Seg Neutrophils % 77.8 H (40.0-70.0) % Heparin Anti-Xa Level 1.44 H (0.3-0.7) U.I./ml Chloride (98-107) mmol/L Carbon Dioxide (22-30) mmol/L Creatinine (0.8-1.3) mg/dL POC Glucose 135 H (70-105) 02/13/20 Range/Units 06:48 Hgb (11.8-15.2) gm/dl Hct (35.5-45.6) % RDW (13.2-15.2) % Lymph % (Auto) (13.4-35.0) % Lymph # (Auto) (1.2-5.4) K/mm3 Seg Neutrophils % (40.0-70.0) % Heparin Anti-Xa Level (0.3-0.7) U.I./ml Chloride 96.6 L (98-107) mmol/L Carbon Dioxide 37 H (22-30) mmol/L Creatinine 0.5 L (0.8-1.3) mg/dL POC Glucose (70-105) HEART Score - HEART Score Troponin: Troponin T < 0.010 ng/mL (0.00-0.029) 02/13/20 06:48
[2020-02-13] MEDS: IPRATROPIUM/ALBUTEROL SULFATE 3 ML AMPUL.NEB IH SCH (20:01)
[2020-02-14] MEDS: IPRATROPIUM/ALBUTEROL SULFATE 3 ML AMPUL.NEB IH SCH ×4 (02:20→21:34)
[2020-02-14] MEDS: VANCOMYCIN 2,000 MG in SODIUM CHLORIDE 0.9% 500 ML 500 ML IV SCH ×3 (05:56→21:14)
[2020-02-14] MEDS: FUROSEMIDE 40 MG/4 ML INJ IV SCH ×2 (05:56→17:39)
[2020-02-14] MEDS: ACETAMINOPHEN 325 MG TAB PO PRN (08:01)
[2020-02-14] MEDS: METOPROLOL TARTRATE 25 MG TAB PO SCH ×2 (10:06→21:14)
[2020-02-14] MEDS: APIXABAN 5 MG TAB PO SCH ×2 (10:06→21:13)
--- NOTE | 2020-02-14 10:14 | Progress Note ---
Assessment and Plan clinically improving cpap last night was helpful per pt cont iv lasix (likely net neg fluid balance, but not clear from charting) tte reviewed w/ pt cont systemic anticoagulation likely will need 3-5 days of diuresis - Patient Problems (1) (HFpEF) heart failure with preserved ejection fraction Current Visit: Yes Status: Acute (2) Leg edema Current Visit: Yes Status: Acute (3) SOB (shortness of breath) Current Visit: Yes Status: Acute (4) History of major depression Current Visit: Yes Status: Chronic (5) History of pulmonary embolism Current Visit: Yes Status: Chronic (6) Hypertension Current Visit: Yes Status: Chronic (7) Morbid obesity with BMI of 70 and over, adult Current Visit: Yes Status: Chronic Subjective Date of service: 02/14/20 Interval history: feels better Objective Vital Signs Temp Pulse Pulse Resp Resp BP BP 02/14/20 08:12 02/14/20 08:11 92 H 20 02/14/20 08:10 98.6 F 90 20 121/69 02/14/20 07:52 02/14/20 06:00 79 02/14/20 04:32 98.7 F 82 24 149/75 02/14/20 02:21 72 75 32 H 32 H 02/13/20 23:58 99.0 F 75 22 120/58 02/13/20 23:51 75 24 02/13/20 21:59 18 02/13/20 20:06 02/13/20 20:04 88 20 02/13/20 19:54 99.2 F 89 28 H 116/59 02/13/20 18:02 98.4 F 90 18 120/70 02/13/20 10:58 99.9 F H 89 18 134/60 Pulse Ox 02/14/20 08:12 96 02/14/20 08:11 02/14/20 08:10 96 02/14/20 07:52 97 02/14/20 06:00 02/14/20 04:32 99 02/14/20 02:21 98 02/13/20 23:58 97 02/13/20 23:51 99 02/13/20 21:59 98 02/13/20 20:06 97 02/13/20 20:04 02/13/20 19:54 95 02/13/20 18:02 96 02/13/20 10:58 97 - Physical Examination HEENT: Positive: PERRL, Normocephaly, Mucus Membranes Moist Neck: Positive: neck supple, trachea midline Neuro: Positive: Grossly Intact Abdomen: Positive: Other (edematous abdomen). Negative: Tender Skin: Negative: Rash Extremities: Present: +3 Edema (BLE), Other (? BLE lymphedema) - Imaging and Cardiology EKG: report reviewed, image reviewed Echo: pending - EKG Sinus rhythms and dysrhythmias: sinus rhythm
[2020-02-15] MEDS: FUROSEMIDE 40 MG/4 ML INJ IV SCH ×2 (05:43→17:45)
[2020-02-15] MEDS: VANCOMYCIN 2,000 MG in SODIUM CHLORIDE 0.9% 500 ML 500 ML IV SCH ×2 (05:43→13:46)
[2020-02-15] MEDS: ACETAMINOPHEN 325 MG TAB PO PRN ×2 (07:48→17:45)
[2020-02-15 08:08] LABS: Hematocrit 34.9 % (35.5-45.6); Hemoglobin 11.4 gm/dl (11.8-15.2)
[2020-02-15 08:20] LABS: Blood Urea Nitrogen 14 mg/dL (9-20); Calcium 8.4 mg/dL (8.4-10.2); Hemolysis Index 10
[2020-02-15 08:24] LABS: BUN/Creatinine Ratio 35
[2020-02-15] MEDS: IPRATROPIUM/ALBUTEROL SULFATE 3 ML AMPUL.NEB IH SCH ×3 (08:33→20:24)
--- NOTE | 2020-02-15 09:19 | Progress Note ---
Assessment and Plan -- Acute exacerbation of CHF (congestive heart failure) Patient placed on diuretics. Will monitor inputs and output and also monitor daily weights. Patient will be scheduled for echocardiogram. Cardiology consulted, continue to follow recommendation -- Elevated d-dimer Ultrasound of the lower extremities were negative for DVT. However patient is unable to undergo his CT angiogram because of his size and weight. He has known history of PE in 2019. He has had some mild chest discomfort over the past few days. Patient has been placed on anticoagulation meanwhile with IV heparin. Vascular surgery consulted for input and recommended that patient is likely negative for pulmonary embolism considering the lab work-up. But as we cannot rule out pulmonary embolism and patient is high risks we can continue to treat with anticoagulation, patient can get CTA chest at [place] or [place] following discharge to confirm the diagnosis -- Morbid obesity with BMI of 70 and over, adult Dietary consulted, continue cardiac diet for now --Acute respiratory failure due to CHF exacerbation and obesity hypoventilation syndrome Continue supplemental O2 and CPAP at bedtime Start on empiric nebulizer breathing treatment -- Hypertension Blood pressure stable we will continue routine home medications. Monitor vital signs -- History of major depression Patient on citalopram. -- Cellulitis of lower extremity and lower abdominal wall Patient placed on empiric IV antibiotics. -- DVT prophylaxis Patient on anticoagulation. -- Full code status Brief History; 49-year-old white male with known history of hypertension, recently diagnosed congestive heart failure, pulmonary embolism in 2019 and morbid obesity pr esented to the emergency room today complaining of shortness of breath which started in last 2 days. Patient states he has been bedbound lately and hardly ambulates. He has been having progressive swelling of his lower extremities. Upon evaluation in the emergency room patient was found to have elevated BNP, elevated d-dimer, chest x-ray reveals: Mild cardiomegaly and mild pulmonary vascular congestion likely reflecting CHF. Ultrasound of the lower extremities did not reveal any DVT. Patient has been started on diuretics for CHF exacerbation. CT angiogram could not be done because of patient's size and weight. ER physician was unable to transfer to an outside facility. 02/11; stop heparin drip, appreciate vascular surgery recommendation. will start on eliquis for now. Continue IV Lasix, monitor daily weight and ins and outs, follow 2D echo, cardiology following. Order for CPAP at bedtime 02/12: Remains extensively short of breath even with resting. Continue IV Lasix supplemental oxygen and CPAP at bedtime. Also start on nebulizer breathing treatment. 02/13: cont diuresis, follow 2d echo. PT consulted Subjective Date of service: 02/14/20 Interval history: Patient seen and examined. Medical records and medication list reviewed. No acute event overnight noted by the RN. Morbidly obese patient complains of difficulty breathing even when speaking Discussed plan of care at bedside with patient. Objective - Exam Narrative Exam: General appearance: Present: no acute distress, well-nourished, obese (Morbidly obese.) - EENT Eyes: Present: PERRL, EOM intact ENT: hearing intact, clear oral mucosa, dentition normal - Neck Neck: Present: supple, normal ROM - Respiratory Respiratory effort: normal Respiratory: bilateral: diminished - Cardiovascular Rhythm: regular Heart Sounds: Present: S1 & S2. Absent: gallop, systolic murmur, diastolic murmur, rub - Extremities Extremities: no ischemia, pulses intact, pulses symmetrical, Full ROM, abnormal (redness and warmth on lower 1/3 of right leg.) Extremity abnormal: edema (2+ bilateral lower extremity edema) Peripheral Pulses: within normal limits - Abdominal General gastrointestinal: Present: soft, non-tender, distended, normal bowel sounds. Absent: mass + erythema, + tenderness over the lowe abdominal wall - Integumentary Integumentary: Present: clear, warm, dry. Absent: rash - Musculoskeletal Musculoskeletal: strength equal bilaterally - Psychiatric Psychiatric: appropriate mood/affect, intact judgment & insight, memory intact, cooperative - Neurologic Neurologic: CNII-XII intact, no focal deficits, moves all extremities - Constitutional Vitals: Vital Signs - 12hr 02/14/20 02/14/20 02/14/20 21:36 21:38 23:07 Temperature 98.4 F Pulse Rate 74 Pulse Rate [ Apical] Pulse Rate [ 82 Bilateral Throughout] Pulse Rate [ From Monitor] Respiratory 22 Rate Respiratory 20 Rate [Bilateral Throughout] Blood Pressure 128/54 O2 Sat by Pulse 97 97 96 Oximetry 02/15/20 02/15/20 02/15/20 03:42 05:52 07:22 Temperature 98.7 F 99.1 F Pulse Rate 86 96 H 90 Pulse Rate [ Apical] Pulse Rate [ Bilateral Throughout] Pulse Rate [ From Monitor] Respiratory 24 20 Rate Respiratory Rate [Bilateral Throughout] Blood Pressure 132/57 151/71 O2 Sat by Pulse 95 95 Oximetry 02/15/20 02/15/20 07:48 08:14 Temperature Pulse Rate Pulse Rate [ 79 Apical] Pulse Rate [ Bilateral Throughout] Pulse Rate [ 79 From Monitor] Respiratory 0 L 17 Rate Respiratory Rate [Bilateral Throughout] Blood Pressure O2 Sat by Pulse 96 Oximetry - Labs CBC & Chem 7: 02/15/20 07:36 02/15/20 07:36 Labs: Abnormal lab results 02/15/20 02/15/20 Range/Units 07:36 07:36 Hgb 11.4 L (11.8-15.2) gm/dl Hct 34.9 L (35.5-45.6) % Chloride 95.9 L (98-107) mmol/L Carbon Dioxide 38 H (22-30) mmol/L Creatinine 0.4 L (0.8-1.3) mg/dL Glucose 126 H (75-100) mg/dL HEART Score - HEART Score Troponin: Troponin T < 0.010 ng/mL (0.00-0.029) 02/13/20 06:48
[2020-02-15] MEDS: METOPROLOL TARTRATE 25 MG TAB PO SCH ×2 (10:03→21:30)
[2020-02-15] MEDS: APIXABAN 5 MG TAB PO SCH ×2 (10:03→21:31)
--- NOTE | 2020-02-15 14:24 | Progress Note ---
Assessment and Plan tte reviewed - EF 50-55%, impaired relaxation, mild LVH. cont present cardiac management. The patient has been seen in conjunction with Dr. Inman who agrees with the assessment and plan of care. - Patient Problems (1) (HFpEF) heart failure with preserved ejection fraction Current Visit: Yes Status: Acute (2) Morbid obesity with BMI of 70 and over, adult Current Visit: Yes Status: Chronic (3) Hypertension Current Visit: Yes Status: Chronic (4) Elevated d-dimer Current Visit: Yes Status: Acute (5) History of pulmonary embolism Current Visit: Yes Status: Chronic (6) History of major depression Current Visit: Yes Status: Chronic (7) SVT (supraventricular tachycardia) Current Visit: Yes Status: Acute Plan to address problem: transient episode x 1 (8) GURPREET (obstructive sleep apnea) Current Visit: Yes Status: Suspected Subjective Date of service: 02/15/20 Principal diagnosis: HF Interval history: pt resting in bed, feeling a little better. in SR on tele HR 90s. Objective Last Vital Signs Temp 98.9 F 02/15/20 11:26 Pulse 86 02/15/20 11:26 Resp 20 02/15/20 11:26 BP 156/71 02/15/20 11:26 Pulse Ox 94 02/15/20 11:26 - Physical Examination General: No Apparent Distress HEENT: Positive: PERRL, Normocephaly, Mucus Membranes Moist Neck: Positive: neck supple, trachea midline Cardiac: Positive: Reg Rate and Rhythm, S1/S2 Lungs: Positive: Decreased Breath Sounds Neuro: Positive: Grossly Intact Abdomen: Positive: Other (edematous abdomen). Negative: Tender Skin: Negative: Rash Extremities: Present: +3 Edema (BLE), Other (? BLE lymphedema) - Labs and Meds CBC 02/15/20 Range/Units 07:36 Hgb 11.4 L (11.8-15.2) gm/dl Hct 34.9 L (35.5-45.6) % Plt Count 407 (140-440) K/mm3 Comprehensive Metabolic Panel 02/15/20 Range/Units 07:36 Sodium 140 (137-145) mmol/L Potassium 3.6 (3.6-5.0) mmol/L Chloride 95.9 L (98-107) mmol/L Carbon Dioxide 38 H (22-30) mmol/L BUN 14 (9-20) mg/dL Creatinine 0.4 L (0.8-1.3) mg/dL Glucose 126 H (75-100) mg/dL Calcium 8.4 (8.4-10.2) mg/dL - Imaging and Cardiology EKG: report reviewed, image reviewed Echo: pending - EKG Sinus rhythms and dysrhythmias: sinus rhythm
--- NOTE | 2020-02-15 16:08 | Progress Note ---
Assessment and Plan -- Acute exacerbation of CHF (congestive heart failure) Patient placed on diuretics. Will monitor inputs and output and also monitor daily weights. Patient will be scheduled for echocardiogram. Cardiology consulted, continue to follow recommendation -- Elevated d-dimer Ultrasound of the lower extremities were negative for DVT. However patient is unable to undergo his CT angiogram because of his size and weight. He has known history of PE in 2019. He has had some mild chest discomfort over the past few days. Patient has been placed on anticoagulation meanwhile with IV heparin. Vascular surgery consulted for input and recommended that patient is likely negative for pulmonary embolism considering the lab work-up. But as we cannot rule out pulmonary embolism and patient is high risks we can continue to treat with anticoagulation, patient can get CTA chest at [place] or [place] following discharge to confirm the diagnosis -- Morbid obesity with BMI of 70 and over, adult Dietary consulted, continue cardiac diet for now --Acute respiratory failure due to CHF exacerbation and obesity hypoventilation syndrome Continue supplemental O2 and CPAP at bedtime Start on empiric nebulizer breathing treatment -- Hypertension Blood pressure stable we will continue routine home medications. Monitor vital signs -- History of major depression Patient on citalopram. -- Cellulitis of lower extremity and lower abdominal wall Patient placed on empiric IV antibiotics. -- DVT prophylaxis Patient on anticoagulation. -- Full code status Brief History; 49-year-old white male with known history of hypertension, recently diagnosed congestive heart failure, pulmonary embolism in 2019 and morbid obesity pr esented to the emergency room today complaining of shortness of breath which started in last 2 days. Patient states he has been bedbound lately and hardly ambulates. He has been having progressive swelling of his lower extremities. Upon evaluation in the emergency room patient was found to have elevated BNP, elevated d-dimer, chest x-ray reveals: Mild cardiomegaly and mild pulmonary vascular congestion likely reflecting CHF. Ultrasound of the lower extremities did not reveal any DVT. Patient has been started on diuretics for CHF exacerbation. CT angiogram could not be done because of patient's size and weight. ER physician was unable to transfer to an outside facility. 02/11; stop heparin drip, appreciate vascular surgery recommendation. will start on eliquis for now. Continue IV Lasix, monitor daily weight and ins and outs, follow 2D echo, cardiology following. Order for CPAP at bedtime 02/12: Remains extensively short of breath even with resting. Continue IV Lasix supplemental oxygen and CPAP at bedtime. Also start on nebulizer breathing treatment. 02/13: cont diuresis, follow 2d echo. PT consulted 02/14: cont supportive care, patient unable to get out of bed, pending PT eval. cont current mx. follow pulmonary recommendation Subjective Date of service: 02/15/20 Principal diagnosis: HF Interval history: Patient seen and examined. Medical records and medication list reviewed. No acute event overnight noted by the RN. Morbidly obese patient complains of difficulty breathing even when speaking Discussed plan of care at bedside with patient. Objective - Exam Narrative Exam: General appearance: Present: no acute distress, well-nourished, obese (Morbidly obese.) - EENT Eyes: Present: PERRL, EOM intact ENT: hearing intact, clear oral mucosa, dentition normal - Neck Neck: Present: supple, normal ROM - Respiratory Respiratory effort: normal Respiratory: bilateral: diminished - Cardiovascular Rhythm: regular Heart Sounds: Present: S1 & S2. Absent: gallop, systolic murmur, diastolic murmur, rub - Extremities Extremities: no ischemia, pulses intact, pulses symmetrical, Full ROM, abnormal (redness and warmth on lower 1/3 of right leg.) Extremity abnormal: edema (2+ bilateral lower extremity edema) Peripheral Pulses: within normal limits - Abdominal General gastrointestinal: Present: soft, non-tender, distended, normal bowel sounds. Absent: mass + erythema, + tenderness over the lowe abdominal wall - Integumentary Integumentary: Present: clear, warm, dry. Absent: rash - Musculoskeletal Musculoskeletal: strength equal bilaterally - Psychiatric Psychiatric: appropriate mood/affect, intact judgment & insight, memory intact, cooperative - Neurologic Neurologic: CNII-XII intact, no focal deficits, moves all extremities - Constitutional Vitals: Vital Signs - 12hr 02/15/20 02/15/20 02/15/20 05:52 07:22 07:48 Temperature 99.1 F Pulse Rate 96 H 90 Pulse Rate [ Apical] Pulse Rate [ From Monitor] Respiratory 20 0 L Rate Blood Pressure 151/71 O2 Sat by Pulse 95 Oximetry 02/15/20 02/15/20 02/15/20 08:14 08:48 10:03 Temperature Pulse Rate 91 H Pulse Rate [ 79 Apical] Pulse Rate [ 79 From Monitor] Respiratory 17 0 L Rate Blood Pressure 141/70 O2 Sat by Pulse 96 Oximetry 02/15/20 11:26 Temperature 98.9 F Pulse Rate 86 Pulse Rate [ Apical] Pulse Rate [ From Monitor] Respiratory 20 Rate Blood Pressure 156/71 O2 Sat by Pulse 94 Oximetry - Labs CBC & Chem 7: 02/15/20 07:36 02/16/20 10:51 Labs: Abnormal lab results 02/15/20 02/15/20 Range/Units 07:36 07:36 Hgb 11.4 L (11.8-15.2) gm/dl Hct 34.9 L (35.5-45.6) % Chloride 95.9 L (98-107) mmol/L Carbon Dioxide 38 H (22-30) mmol/L Creatinine 0.4 L (0.8-1.3) mg/dL Glucose 126 H (75-100) mg/dL HEART Score - HEART Score Troponin: Troponin T < 0.010 ng/mL (0.00-0.029) 02/13/20 06:48
--- NOTE | 2020-02-15 19:18 | Consultation ---
History of Present Illness Consult date: 02/15/20 Reason for consult: dyspnea, other (CHF) History of present illness: Patient is a 49-year-old male that presents emergency room with complaints of shortness of breath. Patient states that shortness of breath started last night. Patient states he was diagnosed with CHF 3 to 4 weeks ago. Patient states it has been difficult breathing since the diagnosis. Patient states that the shortness of breath is worse with laying flat, movement or exertion. Patient states the shortness of breath is better with rest and being upright. Patient denies chest pain. Patient denies fever and chills. Patient denies cough. Patient denies nausea and vomiting. Patient brought in by EMS. Report received from EMS. Patient denies recent travel. Patient denies recent international travel. Patient denies exposure to the novel coronavirus. Patient denies sick contacts. Patient denies fever and chills. Patient denies diarrhea. Patient denies coming in contact with anybody with symptoms of the novel coronavirus. Patient awake and is on 4 litres O2. O2 saturation 96%. Patient complaining some shortness of breath and non productive cough. Patient has history of CHF , and Pulmonary edema. Patient worked for [employer] before retired. No known drug allergies. Patient has no history of smoking, alcohol or drug abuse. Patient not , Children 1. Patient afebrile. No leukocytosis. Chest xray 02/11/20 reported Mild cardiomegaly and mild pulmonary vascular congestion likely reflecting CHF. Recommend ABGs on room air. Patient morbidly Obese. Recommend sleep study as out patient. BIPAP during night time. Past History Past Medical History: heart failure, hypertension, other (Morbid obesity, PTSD, bilateral submassive pulmonary emboli in 2019) Past Surgical History: Other (Nasal abscess drainage in the distant past.) Social history: no significant social history Medications and Allergies Allergies Allergy/AdvReac Type Severity Reaction Status Date / Time No Known Allergies Allergy Unverified 02/11/20 21:33 Home Medications Medication Instructions Recorded Confirmed Last Taken Type Citalopram Hydrobromide [Celexa] 40 mg PO DAILY 02/12/20 02/12/20 Unknown History lisinopriL [Zestril TAB] 40 mg PO QDAY 02/12/20 02/12/20 Unknown History Active Meds: Active Medications Acetaminophen (Tylenol) 650 mg PO Q4H PRN PRN Reason: Pain MILD(1-3)/Fever >100.5/LUIS Last Admin: 02/15/20 17:45 Dose: 650 mg Documented by: Albuterol/Ipratropium (Duoneb *Not For Prn Use*) 1 ampul IH TIDRT [facility] Last Admin: 02/15/20 15:16 Dose: 1 ampul Documented by: Apixaban (Eliquis) 10 mg PO Q12HR [facility]; Protocol Stop: 02/18/20 22:01 Last Admin: 02/15/20 10:03 Dose: 10 mg Documented by: Apixaban (Eliquis) 5 mg PO Q12HR [facility] Furosemide (Lasix) 40 mg IV BID@0600,1800 [facility] Last Admin: 02/15/20 17:45 Dose: 40 mg Documented by: Ceftriaxone Sodium (Rocephin/Ns 1 Gm/50 Ml) 1 gm in 50 mls @ 100 mls/hr IV Q24HR [facility]; Protocol Magnesium Hydroxide (Milk Of Magnesia) 30 ml PO Q4H PRN PRN Reason: Constipation Metoprolol Tartrate (Metoprolol) 25 mg PO BID [facility] Last Admin: 02/15/20 10:03 Dose: 25 mg Documented by: Morphine Sulfate (Morphine) 2 mg IV Q4H PRN PRN Reason: Pain, Moderate (4-6) Ondansetron HCl (Zofran) 4 mg IV Q8H PRN PRN Reason: Nausea And Vomiting Sodium Chloride (Sodium Chloride Flush Syringe 10 Ml) 10 ml IV BID [facility] Last Admin: 02/15/20 10:04 Dose: 10 ml Documented by: Sodium Chloride (Sodium Chloride Flush Syringe 10 Ml) 10 ml IV PRN PRN PRN Reason: LINE FLUSH Review of Systems All systems: negative Physical Examination Vital signs: Vital Signs Temp Pulse Resp BP Pulse Ox 98.1 F 108 H 23 157/82 100 02/11/20 21:38 02/11/20 21:38 02/11/20 21:38 02/11/20 21:38 02/11/20 21:38 General appearance: no acute distress, alert, appears uncomfortable Eyes: non-icteric ENT: oropharynx moist Neck: supple, no JVD Effort: mildly labored Ascultation: Bilateral: rales Cardiovascular: regular rate and rhythm Gastrointestinal: normoactive bowel sounds, soft, non-tender Integumentary: normal Extremities: no cyanosis, no edema Musculoskeletal: no deformities Gait: other (Patient Morbidly Obese. Patient is in Bed.) normal mental status, non-focal exam, pupils equal and round, CN II-XII normal mood appropriate Results - Laboratory Findings CBC and BMP: 02/15/20 07:36 02/15/20 07:36 PT/INR, D-dimer PT 14.5 Sec. (12.2-14.9) 02/13/20 06:48 INR 1.11 (0.87-1.13) 02/13/20 06:48 D-Dimer 684.16 ng/mlDDU (0-234) H 02/11/20 21:38 Abnormal lab findings: Abnormal Labs 02/11/20 02/11/20 02/11/20 21:38 21:38 21:38 Hgb 11.5 L Hct 34.5 L RDW 17.5 H Lymph % (Auto) 8.3 L Lymph # (Auto) 0.9 L Seg Neutrophils % 83.2 H Seg Neutrophils # 8.8 H PT INR APTT D-Dimer 684.16 H Heparin Anti-Xa Level Chloride 97.3 L Carbon Dioxide 32 H Creatinine 0.4 L Glucose 115 H POC Glucose Albumin 2.8 L 02/12/20 02/12/20 02/12/20 00:16 11:16 11:53 Hgb Hct RDW Lymph % (Auto) Lymph # (Auto) Seg Neutrophils % Seg Neutrophils # PT 10.9 L INR 0.77 L APTT 20.7 L D-Dimer Heparin Anti-Xa Level < 0.10 L Chloride Carbon Dioxide Creatinine Glucose POC Glucose 114 H Albumin 02/12/20 02/12/20 02/13/20 15:50 19:04 06:48 Hgb 11.1 L Hct 33.1 L RDW 17.3 H Lymph % (Auto) 11.3 L Lymph # (Auto) 1.0 L Seg Neutrophils % 77.8 H Seg Neutrophils # PT INR APTT D-Dimer Heparin Anti-Xa Level 1.44 H Chloride Carbon Dioxide Creatinine Glucose POC Glucose 135 H Albumin 02/13/20 02/15/20 02/15/20 06:48 07:36 07:36 Hgb 11.4 L Hct 34.9 L RDW Lymph % (Auto) Lymph # (Auto) Seg Neutrophils % Seg Neutrophils # PT INR APTT D-Dimer Heparin Anti-Xa Level Chloride 96.6 L 95.9 L Carbon Dioxide 37 H 38 H Creatinine 0.5 L 0.4 L Glucose 126 H POC Glucose Albumin - Diagnostic Findings Chest x-ray: report reviewed, image reviewed Additional studies: CHEST 1 VIEW 02/11/2020 9:35 PM INDICATION / CLINICAL INFORMATION: Dyspnea. COMPARISON: None available. FINDINGS: SUPPORT DEVICES: None. HEART / MEDIASTINUM: Mild cardiomegaly. LUNGS / PLEURA: Mild pulmonary vascular congestion. No pneumothorax. ADDITIONAL FINDINGS: No significant additional findings. IMPRESSION: 1. Mild cardiomegaly and mild pulmonary vascular congestion likely reflecting CHF. Assessment and Plan Patient is a 49-year-old male that presents emergency room with complaints of shortness of breath. Patient states that shortness of breath started last night. Patient states he was diagnosed with CHF 3 to 4 weeks ago. Patient states it has been difficult breathing since the diagnosis. Patient states that the shortness of breath is worse with laying flat, movement or exertion. Patient states the shortness of breath is better with rest and being upright. Patient denies chest pain. Patient denies fever and chills. Patient denies cough. Patient denies nausea and vomiting. Patient brought in by EMS. Report received from EMS. Patient denies recent travel. Patient denies recent international travel. Patient denies exposure to the novel coronavirus. Patient denies sick contacts. Patient denies fever and chills. Patient denies diarrhea. Patient denies coming in contact with anybody with symptoms of the novel coronavirus. Patient awake and is on 4 litres O2. O2 saturation 96%. Patient complaining some shortness of breath and non productive cough. Patient has history of CHF , and Pulmonary edema. Patient worked for [employer] before retired. No known drug allergies. Patient has no history of smoking, alcohol or drug abuse. Patient not , Children 1. Patient afebrile. No leukocytosis. Chest xray 02/11/20 reported Mild cardiomegaly and mild pulmonary vascular congestion likely r eflecting CHF. Recommend ABGs on room air. Patient morbidly Obese. Recommend sleep study as out patient. BIPAP during night time. I spent critical care time of 45 minutes on this patient, reviewing the chart, examining the patient, review labs, chest xray, talking to the nursing staff and respiratory therapy and work out plan of treatment in this critically ill patient. - Patient Problems (1) Acute exacerbation of CHF (congestive heart failure) Current Visit: Yes Status: Acute Qualifiers: Heart failure type: unspecified Qualified Code(s): I50.9 - Heart failure, unspecified Plan to address problem: Patient is on Lasix. Management as per cardiology. (2) Cellulitis of lower extremity Current Visit: Yes Status: Acute Plan to address problem: Patient is on ceftriaxone. Management as per Primary care and infectious diseases. (3) Elevated d-dimer Current Visit: Yes Status: Acute Plan to address problem: Patient is on APIXABAN (4) History of pulmonary embolism Current Visit: Yes Status: Chronic Plan to address problem: Patient is on APIXABAN. (5) Hypertension Current Visit: Yes Status: Chronic Plan to address problem: Management as per primary care. (6) Morbid obesity with BMI of 70 and over, adult Current Visit: Yes Status: Chronic Plan to address problem: Recommend to loose weight. Diet and exercise. Recommend sleep study as out patient. (7) GURPREET (obstructive sleep apnea) Current Visit: Yes Status: Suspected Plan to address problem: BIPAP during night time. ABGs on room air.
[2020-02-16] MEDS: FUROSEMIDE 40 MG/4 ML INJ IV SCH ×2 (06:19→18:12)
[2020-02-16] MEDS: IPRATROPIUM/ALBUTEROL SULFATE 3 ML AMPUL.NEB IH SCH ×3 (09:01→22:21)
[2020-02-16] MEDS: APIXABAN 5 MG TAB PO SCH ×2 (09:20→21:30)
[2020-02-16] MEDS: ACETAMINOPHEN 325 MG TAB PO PRN (09:21)
[2020-02-16] MEDS: METOPROLOL TARTRATE 25 MG TAB PO SCH ×2 (09:21→21:30)
[2020-02-16] MEDS: cefTRIAXone/NS 1 GM/50 ML 1 GM/50 ML BAG IV SCH (09:21)
[2020-02-16] MEDS: CITALOPRAM 20 MG TAB PO SCH (10:29)
[2020-02-16 11:38] LABS: Blood Urea Nitrogen 12 mg/dL (9-20); Calcium 8.6 mg/dL (8.4-10.2); Hemolysis Index 9
[2020-02-16 11:42] LABS: BUN/Creatinine Ratio 30
--- NOTE | 2020-02-16 12:05 | Progress Note ---
Assessment and Plan Patient is a 49-year-old male that presents emergency room with complaints of shortness of breath. Patient states that shortness of breath started last night. Patient states he was diagnosed with CHF 3 to 4 weeks ago. Patient states it has been difficult breathing since the diagnosis. Patient states that the shortness of breath is worse with laying flat, movement or exertion. Patient states the shortness of breath is better with rest and being upright. Patient denies chest pain. Patient denies fever and chills. Patient denies cough. Patient denies nausea and vomiting. Patient brought in by EMS. Report received from EMS. Patient denies recent travel. Patient denies recent international travel. Patient denies exposure to the novel coronavirus. Patient denies sick contacts. Patient denies fever and chills. Patient denies diarrhea. Patient denies coming in contact with anybody with symptoms of the novel coronavirus. Patient awake and is on 4 litres O2. O2 saturation 96%. Patient complaining some shortness of breath and non productive cough. Patient has history of CHF , and Pulmonary edema. Patient worked for [employer] before retired. No known drug allergies. Patient has no history of smoking, alcohol or drug abuse. Patient not , Children 1. Patient afebrile. No leukocytosis. Chest xray 02/11/20 r eported Mild cardiomegaly and mild pulmonary vascular congestion likely reflecting CHF. Recommend ABGs on room air. Patient morbidly Obese. Recommend sleep study as out patient. BIPAP during night time. 02/16/20. Patient sleeping at this time on CPAP, 8 cm H2O pressure and 40% FIO2. O2 saturation 98%. Patient tolerating CPAP good. Patient afebrile. No leukocytosis. Patient is on ceftriaxone. Patient also on APIXABAN. - Patient Problems (1) Acute exacerbation of CHF (congestive heart failure) Current Visit: Yes Status: Acute Qualifiers: Heart failure type: unspecified Qualified Code(s): I50.9 - Heart failure, unspecified Plan to address problem: Patient is on Lasix. Management as per cardiology. (2) Cellulitis of lower extremity Current Visit: Yes Status: Acute Plan to address problem: Patient is on ceftriaxone. Management as per Primary care and infectious diseases. (3) Elevated d-dimer Current Visit: Yes Status: Acute Plan to address problem: Patient is on APIXABAN (4) History of pulmonary embolism Current Visit: Yes Status: Chronic Plan to address problem: Patient is on APIXABAN. (5) Hypertension Current Visit: Yes Status: Chronic Plan to address problem: Management as per primary care. (6) Morbid obesity with BMI of 70 and over, adult Current Visit: Yes Status: Chronic Plan to address problem: Recommend to loose weight. Diet and exercise. Recommend sleep study as out patient. (7) GURPREET (obstructive sleep apnea) Current Visit: Yes Status: Suspected Plan to address problem: BIPAP during night time. ABGs on room air. Subjective Date of service: 02/16/20 Principal diagnosis: HF Interval history: Patient sleeping at this time on CPAP, 8 cm H2O pressure and 40% FIO2. O2 saturation 98%. Patient tolerating CPAP good. Patient afebrile. No leukocytosis. Patient is on ceftriaxone. Patient also on APIXABAN. Objective Vital Signs - 12hr 02/16/20 02/16/20 02/16/20 01:59 03:56 07:28 Temperature 97.4 F L 98.5 F Pulse Rate 87 77 91 H Pulse Rate [ Apical] Pulse Rate [ Bilateral Throughout] Pulse Rate [ From Monitor] Respiratory 24 20 Rate Respiratory Rate [Bilateral Throughout] Blood Pressure 138/55 133/65 O2 Sat by Pulse 97 90 94 Oximetry 02/16/20 02/16/20 02/16/20 08:15 08:18 09:01 Temperature Pulse Rate 86 Pulse Rate [ 79 Apical] Pulse Rate [ 94 H Bilateral Throughout] Pulse Rate [ 79 From Monitor] Respiratory 17 Rate Respiratory 22 Rate [Bilateral Throughout] Blood Pressure O2 Sat by Pulse 96 Oximetry 02/16/20 09:07 Temperature Pulse Rate Pulse Rate [ Apical] Pulse Rate [ Bilateral Throughout] Pulse Rate [ From Monitor] Respiratory Rate Respiratory Rate [Bilateral Throughout] Blood Pressure O2 Sat by Pulse 96 Oximetry Constitutional: no acute distress, alert, appears uncomfortable Eyes: non-icteric ENT: oropharynx moist Neck: supple, no JVD Effort: mildly labored Ascultation: Bilateral: rales Cardiovascular: regular rate and rhythm Gastrointestinal: normoactive bowel sounds, soft, non-tender Integumentary: normal Extremities: no cyanosis, no edema Neurologic: normal mental status, non-focal exam, pupils equal and round, CN II- XII normal Psychiatric: mood appropriate CBC and BMP: 02/15/20 07:36 02/16/20 10:51 ABG, PT/INR, D-dimer: PT/INR, D-dimer PT 14.5 Sec. (12.2-14.9) 02/13/20 06:48 INR 1.11 (0.87-1.13) 02/13/20 06:48 D-Dimer 684.16 ng/mlDDU (0-234) H 02/11/20 21:38 Abnormal lab findings: Abnormal Labs 02/11/20 02/11/20 02/11/20 21:38 21:38 21:38 Hgb 11.5 L Hct 34.5 L RDW 17.5 H Lymph % (Auto) 8.3 L Lymph # (Auto) 0.9 L Seg Neutrophils % 83.2 H Seg Neutrophils # 8.8 H PT INR APTT D-Dimer 684.16 H Heparin Anti-Xa Level Chloride 97.3 L Carbon Dioxide 32 H Creatinine 0.4 L Glucose 115 H POC Glucose Albumin 2.8 L 02/12/20 02/12/20 02/12/20 00:16 11:16 11:53 Hgb Hct RDW Lymph % (Auto) Lymph # (Auto) Seg Neutrophils % Seg Neutrophils # PT 10.9 L INR 0.77 L APTT 20.7 L D-Dimer Heparin Anti-Xa Level < 0.10 L Chloride Carbon Dioxide Creatinine Glucose POC Glucose 114 H Albumin 02/12/20 02/12/20 02/13/20 15:50 19:04 06:48 Hgb 11.1 L Hct 33.1 L RDW 17.3 H Lymph % (Auto) 11.3 L Lymph # (Auto) 1.0 L Seg Neutrophils % 77.8 H Seg Neutrophils # PT INR APTT D-Dimer Heparin Anti-Xa Level 1.44 H Chloride Carbon Dioxide Creatinine Glucose POC Glucose 135 H Albumin 02/13/20 02/15/20 02/15/20 06:48 07:36 07:36 Hgb 11.4 L Hct 34.9 L RDW Lymph % (Auto) Lymph # (Auto) Seg Neutrophils % Seg Neutrophils # PT INR APTT D-Dimer Heparin Anti-Xa Level Chloride 96.6 L 95.9 L Carbon Dioxide 37 H 38 H Creatinine 0.5 L 0.4 L Glucose 126 H POC Glucose Albumin 02/16/20 10:51 Hgb Hct RDW Lymph % (Auto) Lymph # (Auto) Seg Neutrophils % Seg Neutrophils # PT INR APTT D-Dimer Heparin Anti-Xa Level Chloride 95.4 L Carbon Dioxide 37 H Creatinine 0.4 L Glucose POC Glucose Albumin Prior PFT's, U/S of legs: report reviewed, image reviewed Additional Studies: Ultrasound of legs 02/11/20 reported No sonographic evidence of DVT.
--- NOTE | 2020-02-16 13:57 | Progress Note ---
Assessment and Plan tte reviewed - EF 50-55%, impaired relaxation, mild LVH. Currently stable cardiac status. Pt may discharge from cardiology standpoint. At discharge, recommend PO lasix 40mg daily. Cont all other present cardiac management. Recommend pt follow up with [facility] within 2 weeks of discharge. The patient has been seen in conjunction with Dr. Inman who agrees with the assessment and plan of care. - Patient Problems (1) (HFpEF) heart failure with preserved ejection fraction Current Visit: Yes Status: Acute (2) Morbid obesity with BMI of 70 and over, adult Current Visit: Yes Status: Chronic (3) Hypertension Current Visit: Yes Status: Chronic (4) Elevated d-dimer Current Visit: Yes Status: Acute (5) History of pulmonary embolism Current Visit: Yes Status: Chronic (6) History of major depression Current Visit: Yes Status: Chronic (7) SVT (supraventricular tachycardia) Current Visit: Yes Status: Acute (8) GURPREET (obstructive sleep apnea) Current Visit: Yes Status: Suspected Subjective Date of service: 02/16/20 Principal diagnosis: HF Interval history: pt resting in bed, feeling a little better. in SR on tele HR 90s. Objective Last Vital Signs Temp 98.9 F 02/16/20 12:30 Pulse 87 02/16/20 12:30 Resp 20 02/16/20 12:30 BP 139/59 02/16/20 12:30 Pulse Ox 95 02/16/20 12:30 - Physical Examination General: No Apparent Distress HEENT: Positive: PERRL, Normocephaly, Mucus Membranes Moist Neck: Positive: neck supple, trachea midline Cardiac: Positive: Reg Rate and Rhythm, S1/S2 Lungs: Positive: Decreased Breath Sounds Neuro: Positive: Grossly Intact Abdomen: Positive: Other (edematous abdomen). Negative: Tender Skin: Negative: Rash Extremities: Present: +3 Edema (BLE), Other (? BLE lymphedema) - Labs and Meds Comprehensive Metabolic Panel 02/16/20 Range/Units 10:51 Sodium 143 (137-145) mmol/L Potassium 4.4 D (3.6-5.0) mmol/L Chloride 95.4 L (98-107) mmol/L Carbon Dioxide 37 H (22-30) mmol/L BUN 12 (9-20) mg/dL Creatinine 0.4 L (0.8-1.3) mg/dL Glucose 98 (75-100) mg/dL Calcium 8.6 (8.4-10.2) mg/dL - Imaging and Cardiology EKG: report reviewed, image reviewed Echo: report reviewed (EF 50-55%, impaired relaxation, mild LVH.) - Telemetry EKG Rhythm: Sinus Rhythm - EKG Sinus rhythms and dysrhythmias: sinus rhythm
--- NOTE | 2020-02-16 15:07 | Progress Note ---
Assessment and Plan -- Acute exacerbation of CHF (congestive heart failure) Patient placed on diuretics. Will monitor inputs and output and also monitor daily weights. Patient will be scheduled for echocardiogram. Cardiology consulted, continue to follow recommendation -- Elevated d-dimer Ultrasound of the lower extremities were negative for DVT. However patient is unable to undergo his CT angiogram because of his size and weight. He has known history of PE in 2019. He has had some mild chest discomfort over the past few days. Patient has been placed on anticoagulation meanwhile with IV heparin. Vascular surgery consulted for input and recommended that patient is likely negative for pulmonary embolism considering the lab work-up. But as we cannot rule out pulmonary embolism and patient is high risks we can continue to treat with anticoagulation, patient can get CTA chest at [place] or [facility] following discharge to confirm the diagnosis. started on eliquis -- Morbid obesity with BMI of 70 and over, adult Dietary consulted, continue cardiac diet for now --Acute respiratory failure due to CHF exacerbation and obesity hypoventilation syndrome Continue supplemental O2 and CPAP at bedtime Start on empiric nebulizer breathing treatment -- Hypertension Blood pressure stable we will continue routine home medications. Monitor vital signs -- History of major depression Patient on citalopram. -- Cellulitis of lower extremity and lower abdominal wall Patient placed on empiric IV antibiotics. -- DVT prophylaxis Patient on anticoagulation. -- Full code status Brief History; 49-year-old white male with known history of hypertension, recently diagnosed congestive heart failure, pulmonary embolism in 2019 and morbid obesity presented to the emergency room today complaining of shortness of breath which started in last 2 days. Patient states he has been bedbound lately and hardly ambulates. He has been having progressive swelling of his lower extremities. Upon evaluation in the emergency room patient was found to have elevated BNP, elevated d-dimer, chest x-ray reveals: Mild cardiomegaly and mild pulmonary vascular congestion likely reflecting CHF. Ultrasound of the lower extremities did not reveal any DVT. Patient has been started on diuretics for CHF exacerbation. CT angiogram could not be done because of patient's size and weight. ER physician was unable to transfer to an outside facility. 02/11; stop heparin drip, appreciate vascular surgery recommendation. will start on eliquis for now. Continue IV Lasix, monitor daily weight and ins and outs, follow 2D echo, cardiology following. Order for CPAP at bedtime 10/03: Remains extensively short of breath even with resting. Continue IV Lasix supplemental oxygen and CPAP at bedtime. Also start on nebulizer breathing treatment. 02/13: cont diuresis, follow 2d echo. PT consulted 02/14: cont supportive care, patient unable to get out of bed, pending PT eval. cont current mx. follow pulmonary recommendation. Preserved Ef on 2d echo 02/15: Pt recommended HH, wheel chair, patient also need home O2 before d/c - CM notified Subjective Date of service: 02/16/20 Principal diagnosis: HF Interval history: Patient seen and examined. Medical records and medication list reviewed. No acute event overnight noted by the RN. Morbidly obese patient complains of difficulty breathing on minimal exertion Discussed plan of care at bedside with patient. Objective - Exam Narrative Exam: General appearance: Present: no acute distress, well-nourished, obese (Morbidly obese.) - EENT Eyes: Present: PERRL, EOM intact ENT: hearing intact, clear oral mucosa, dentition normal - Neck Neck: Present: supple, normal ROM - Respiratory Respiratory effort: normal Respiratory: bilateral: diminished - Cardiovascular Rhythm: regular Heart Sounds: Present: S1 & S2. Absent: gallop, systolic murmur, diastolic murmur, rub - Extremities Extremities: no ischemia, pulses intact, pulses symmetrical, Full ROM, abnormal (redness and warmth on lower 1/3 of right leg.) Extremity abnormal: edema (2+ bilateral lower extremity edema) Peripheral Pulses: within normal limits - Abdominal General gastrointestinal: Present: soft, non-tender, distended, normal bowel sounds. Absent: mass + erythema, + tenderness over the lowe abdominal wall - Integumentary Integumentary: Present: clear, warm, dry. Absent: rash - Musculoskeletal Musculoskeletal: strength equal bilaterally - Psychiatric Psychiatric: appropriate mood/affect, intact judgment & insight, memory intact, cooperative - Neurologic Neurologic: CNII-XII intact, no focal deficits, moves all extremities - Constitutional Vitals: Vital Signs - 12hr 02/16/20 02/16/20 02/16/20 03:56 07:28 08:15 Temperature 97.4 F L 98.5 F Pulse Rate 77 91 H 86 Pulse Rate [ Apical] Pulse Rate [ Bilateral Throughout] Pulse Rate [ From Monitor] Respiratory 24 20 Rate Respiratory Rate [Bilateral Throughout] Blood Pressure 138/55 133/65 O2 Sat by Pulse 90 94 Oximetry 02/16/20 02/16/20 02/16/20 08:18 09:01 09:07 Temperature Pulse Rate Pulse Rate [ 79 Apical] Pulse Rate [ 94 H Bilateral Throughout] Pulse Rate [ 79 From Monitor] Respiratory 17 Rate Respiratory 22 Rate [Bilateral Throughout] Blood Pressure O2 Sat by Pulse 96 96 Oximetry 02/16/20 02/16/20 12:30 14:35 Temperature 98.9 F Pulse Rate 87 Pulse Rate [ Apical] Pulse Rate [ 92 H Bilateral Throughout] Pulse Rate [ From Monitor] Respiratory 20 Rate Respiratory 18 Rate [Bilateral Throughout] Blood Pressure 139/59 O2 Sat by Pulse 95 Oximetry - Labs CBC & Chem 7: 02/17/20 05:49 02/16/20 10:51 Labs: Abnormal lab results 02/16/20 Range/Units 10:51 Chloride 95.4 L (98-107) mmol/L Carbon Dioxide 37 H (22-30) mmol/L Creatinine 0.4 L (0.8-1.3) mg/dL HEART Score - HEART Score Troponin: Troponin T < 0.010 ng/mL (0.00-0.029) 02/13/20 06:48
[2020-02-17 06:36] LABS: Hematocrit 34.7 % (35.5-45.6); Hemoglobin 11.4 gm/dl (11.8-15.2)
[2020-02-17] MEDS: FUROSEMIDE 40 MG/4 ML INJ IV SCH ×2 (06:38→18:43)
[2020-02-17] MEDS: cefTRIAXone/NS 1 GM/50 ML 1 GM/50 ML BAG IV SCH (09:08)
[2020-02-17] MEDS: METOPROLOL TARTRATE 25 MG TAB PO SCH ×2 (09:09→21:59)
[2020-02-17] MEDS: APIXABAN 5 MG TAB PO SCH ×2 (09:10→21:59)
[2020-02-17] MEDS: CITALOPRAM 20 MG TAB PO SCH (09:11)
[2020-02-17] MEDS: IPRATROPIUM/ALBUTEROL SULFATE 3 ML AMPUL.NEB IH SCH ×3 (09:56→21:43)
--- NOTE | 2020-02-17 10:37 | Discharge Summary ---
Providers - Providers Date of Admission: 02/11/20 23:48 Date of discharge: 02/17/20 Attending physician: MARIA DEL ROSARIO RODRIGES 02/11/20 23:47 Consult to Physician [CONS] Routine Comment: Consulting Provider: MARILEE MEDINA Physician Instructions: Reason For Exam: sob. el dimer 02/12/20 03:58 Consult to Wound/ET Nurse [CONS] Routine Reason For Exam: wound eval 02/12/20 04:10 Consult to Physician [CONS] Routine Comment: Consulting Provider: JOHANNA DUMONT Physician Instructions: Reason For Exam: CHF exacerbation 02/14/20 11:20 Physical Therapy Evaluation and Treat [CONS] Routine Comment: Reason For Exam: placement 02/15/20 14:26 Consult to Physician [CONS] Routine Comment: Consulting Provider: HENRIETTA BUSTAMANTE Physician Instructions: Reason For Exam: possible PE Primary care physician: [employer] Hospitalization Condition: Critical Disposition: [id number]/[place]-06 HOME UNDER [facility] Time spent for discharge: 34 minutes Core Measure Documentation - Palliative Care Palliative Care/ Comfort Measures: Not Applicable - Core Measures Any of the following diagnoses?: none Exam - Physical Exam Narrative exam: General appearance: Present: no acute distress, well-nourished, obese (Morbidly obese.) - EENT Eyes: Present: PERRL, EOM intact ENT: hearing intact, clear oral mucosa, dentition normal - Neck Neck: Present: supple, normal ROM - Respiratory Respiratory effort: normal Respiratory: bilateral: diminished - Cardiovascular Rhythm: regular Heart Sounds: Present: S1 & S2. Absent: gallop, systolic murmur, diastolic murmur, rub - Extremities Extremities: no ischemia, pulses intact, pulses symmetrical, Full ROM, abnormal (redness and warmth on lower 1/3 of right leg.) Extremity abnormal: edema (2+ bilateral lower extremity edema) Peripheral Pulses: within normal limits - Abdominal General gastrointestinal: Present: soft, non-tender, distended, normal bowel sounds. Absent: mass + erythema, + tenderness over the lowe abdominal wall - Integumentary Integumentary: Present: clear, warm, dry. Absent: rash - Musculoskeletal Musculoskeletal: strength equal bilaterally - Psychiatric Psychiatric: appropriate mood/affect, intact judgment & insight, memory intact, cooperative - Neurologic Neurologic: CNII-XII intact, no focal deficits, moves all extremities - Constitutional Vitals: Temp Pulse Resp BP Pulse Ox 98.5 F 84 24 135/68 98 02/17/20 07:23 02/17/20 09:09 02/17/20 07:23 02/17/20 09:09 02/17/20 07:23 Plan Activity: fall precautions Weight Bearing Status: Weight Bear as Tolerated Diet: low fat, low salt Special Instructions: home oxygen via (4L n/c) Follow up with: PRIMARY CARE, [Primary Care Provider] - 7 Days Prescriptions: Apixaban [Eliquis] 5 mg PO Q12HR #60 tablet Potassium Chloride [K-Dur] 10 meq PO QDAY #30 tablet Furosemide [Lasix TAB] 40 mg PO QDAY #30 tablet Metoprolol [Lopressor TAB] 25 mg PO BID #60 tablet Ipratropium/Albuterol Sulfate [DUONEB *Not for PRN Use*] 1 ampul IH TIDRT #30 ampul.neb
--- NOTE | 2020-02-17 13:47 | Progress Note ---
Assessment and Plan Patient alert, awake . Resting on 3 litres O2 and O2 saturation running 96%. Patient goes on CPAP during night time.. Patient afebrile. No leukocytosis. Patient is on ceftriaxone. Patient also on APIXABAN. - Patient Problems (1) Acute exacerbation of CHF (congestive heart failure) Current Visit: Yes Status: Acute Qualifiers: Heart failure type: unspecified Qualified Code(s): I50.9 - Heart failure, unspecified Plan to address problem: Patient is on Lasix. Management as per cardiology. (2) Cellulitis of lower extremity Current Visit: Yes Status: Acute Plan to address problem: Patient is on ceftriaxone. Management as per Primary care and infectious diseases. (3) Elevated d-dimer Current Visit: Yes Status: Acute Plan to address problem: Patient is on APIXABAN (4) History of pulmonary embolism Current Visit: Yes Status: Chronic Plan to address problem: Patient is on APIXABAN. (5) Hypertension Current Visit: Yes Status: Chronic Plan to address problem: Management as per primary care. (6) Morbid obesity with BMI of 70 and over, adult Current Visit: Yes Status: Chronic Plan to address problem: Recommend to loose weight. Diet and exercise. Recommend sleep study as out patient. (7) GURPREET (obstructive sleep apnea) Current Visit: Yes Status: Suspected Plan to address problem: BIPAP during night time. ABGs on room air. Subjective Date of service: 02/17/20 Principal diagnosis: HF Interval history: Patient alert, awake . Resting on 3 litres O2 and O2 saturation running 96%. Patient goes on CPAP during night time.. Patient afebrile. No leukocytosis. Patient is on ceftriaxone. Patient also on APIXABAN. Objective Vital Signs - 12hr 02/17/20 02/17/20 02/17/20 03:24 07:23 09:09 Temperature 98.0 F 98.5 F Pulse Rate 75 77 84 Respiratory 18 24 Rate Blood Pressure 143/59 149/62 135/68 O2 Sat by Pulse 95 98 Oximetry 02/17/20 10:46 Temperature 97.2 F L Pulse Rate 75 Respiratory 20 Rate Blood Pressure 125/60 O2 Sat by Pulse 96 Oximetry Constitutional: no acute distress, alert Eyes: non-icteric ENT: oropharynx moist Neck: supple, no JVD Effort: mildly labored Ascultation: Bilateral: rales Cardiovascular: regular rate and rhythm Gastrointestinal: normoactive bowel sounds, soft, non-tender Integumentary: normal Extremities: no cyanosis, no edema Neurologic: normal mental status, non-focal exam, pupils equal and round, CN II- XII normal Psychiatric: mood appropriate CBC and BMP: 02/17/20 05:49 02/16/20 10:51 ABG, PT/INR, D-dimer: PT/INR, D-dimer PT 14.5 Sec. (12.2-14.9) 02/13/20 06:48 INR 1.11 (0.87-1.13) 02/13/20 06:48 D-Dimer 684.16 ng/mlDDU (0-234) H 02/11/20 21:38 Abnormal lab findings: Abnormal Labs 02/11/20 02/11/20 02/11/20 21:38 21:38 21:38 Hgb 11.5 L Hct 34.5 L RDW 17.5 H Plt Count Lymph % (Auto) 8.3 L Lymph # (Auto) 0.9 L Seg Neutrophils % 83.2 H Seg Neutrophils # 8.8 H PT INR APTT D-Dimer 684.16 H Heparin Anti-Xa Level Chloride 97.3 L Carbon Dioxide 32 H Creatinine 0.4 L Glucose 115 H POC Glucose Albumin 2.8 L 02/12/20 02/12/20 02/12/20 00:16 11:16 11:53 Hgb Hct RDW Plt Count Lymph % (Auto) Lymph # (Auto) Seg Neutrophils % Seg Neutrophils # PT 10.9 L INR 0.77 L APTT 20.7 L D-Dimer Heparin Anti-Xa Level < 0.10 L Chloride Carbon Dioxide Creatinine Glucose POC Glucose 114 H Albumin 02/12/20 02/12/20 02/13/20 15:50 19:04 06:48 Hgb 11.1 L Hct 33.1 L RDW 17.3 H Plt Count Lymph % (Auto) 11.3 L Lymph # (Auto) 1.0 L Seg Neutrophils % 77.8 H Seg Neutrophils # PT INR APTT D-Dimer Heparin Anti-Xa Level 1.44 H Chloride Carbon Dioxide Creatinine Glucose POC Glucose 135 H Albumin 02/13/20 02/15/20 02/15/20 06:48 07:36 07:36 Hgb 11.4 L Hct 34.9 L RDW Plt Count Lymph % (Auto) Lymph # (Auto) Seg Neutrophils % Seg Neutrophils # PT INR APTT D-Dimer Heparin Anti-Xa Level Chloride 96.6 L 95.9 L Carbon Dioxide 37 H 38 H Creatinine 0.5 L 0.4 L Glucose 126 H POC Glucose Albumin 02/16/20 02/17/20 10:51 05:49 Hgb 11.4 L Hct 34.7 L RDW Plt Count 445 H Lymph % (Auto) Lymph # (Auto) Seg Neutrophils % Seg Neutrophils # PT INR APTT D-Dimer Heparin Anti-Xa Level Chloride 95.4 L Carbon Dioxide 37 H Creatinine 0.4 L Glucose POC Glucose Albumin
[2020-02-17] MEDS: ACETAMINOPHEN 325 MG TAB PO PRN (21:59)
--- NOTE | 2020-02-18 00:58 | Progress Note ---
Assessment and Plan -- Acute exacerbation of CHFpEF (congestive heart failure) Patient placed on diuretics. Will monitor inputs and output and also monitor d aily weights. echocardiogram showed preserved EF Cardiology consulted, continue to follow recommendation -- Elevated d-dimer Ultrasound of the lower extremities were negative for DVT. However patient is unable to undergo his CT angiogram because of his size and weight. He has known history of PE in 2019. He has had some mild chest discomfort over the past few days. Patient has been placed on anticoagulation meanwhile with IV heparin. Vascular surgery consulted for input and recommended that patient is likely negative for pulmonary embolism considering the lab work-up. But as we cannot rule out pulmonary embolism and patient is high risks we can continue to treat with anticoagulation, patient can get CTA chest at [place] or [place] following discharge to confirm the diagnosis. started on eliquis -- Morbid obesity with BMI of 70 and over, adult Dietary consulted, continue cardiac diet for now --Acute respiratory failure due to CHF exacerbation and obesity hypoventilation syndrome Continue supplemental O2 and BiPAP at bedtime Start on empiric nebulizer breathing treatment -- Hypertension Blood pressure stable we will continue routine home medications. Monitor vital signs -- History of major depression Patient on citalopram. -- Cellulitis of lower extremity and lower abdominal wall Patient placed on empiric IV antibiotics. -- DVT prophylaxis Patient on anticoagulation. -- Full code status Brief History; 49-year-old white male with known history of hypertension, recently diagnosed congestive heart failure, pulmonary embolism in 2019 and morbid obesity presented to the emergency room complaining of shortness of breath which started in last 2 days. Patient states he has been bedbound lately and hardly ambulates. He has been having progressive swelling of his lower extremities. Upon evaluation in the emergency room patient was found to have elevated BNP, elevated d-dimer, chest x-ray reveals: Mild cardiomegaly and mild pulmonary vasc ular congestion likely reflecting CHF. Ultrasound of the lower extremities did not reveal any DVT. Patient has been started on diuretics for CHF exacerbation. CT angiogram could not be done because of patient's size and weight. ER physician was unable to transfer to an outside facility. 02/11; stop heparin drip, appreciate vascular surgery recommendation. will start on eliquis for now. Continue IV Lasix, monitor daily weight and ins and outs, follow 2D echo, cardiology following. Order for CPAP at bedtime 02/12: Remains extensively short of breath even with resting. Continue IV Lasix supplemental oxygen and CPAP at bedtime. Also start on nebulizer breathing treatment. 02/13: cont diuresis, follow 2d echo. PT consulted 02/14: cont supportive care, patient unable to get out of bed, pending PT eval. cont current mx. follow pulmonary recommendation. Preserved Ef on 2d echo 02/15: Pt recommended HH, wheel chair, patient also need home O2 before d/c - CM notified 02/16: planned for d/c but patient currently homeless and staying in hotel, he is unfunded w/o any income. need home O2 and wheel chair on discharge - CM following Subjective Date of service: 02/17/20 Principal diagnosis: HF Interval history: Patient seen and examined. Medical records and medication list reviewed. No acute event overnight noted by the RN. Morbidly obese patient complains of difficulty breathing on minimal exertion Discussed plan of care at bedside with patient. Objective - Exam Narrative Exam: General appearance: Present: no acute distress, well-nourished, obese (Morbidly obese.) - EENT Eyes: Present: PERRL, EOM intact ENT: hearing intact, clear oral mucosa, dentition normal - Neck Neck: Present: supple, normal ROM - Respiratory Respiratory effort: normal Respiratory: bilateral: diminished - Cardiovascular Rhythm: regular Heart Sounds: Present: S1 & S2. Absent: gallop, systolic murmur, diastolic murmur, rub - Extremities Extremities: no ischemia, pulses intact, pulses symmetrical, Full ROM, abnormal (redness and warmth on lower 1/3 of right leg.) Extremity abnormal: edema (2+ bilateral lower extremity edema) Peripheral Pulses: within normal limits - Abdominal General gastrointestinal: Present: soft, non-tender, distended, normal bowel sounds. Absent: mass + erythema, + tenderness over the lowe abdominal wall - Integumentary Integumentary: Present: clear, warm, dry. Absent: rash - Musculoskeletal Musculoskeletal: strength equal bilaterally - Psychiatric Psychiatric: appropriate mood/affect, intact judgment & insight, memory intact, cooperative - Neurologic Neurologic: CNII-XII intact, no focal deficits, moves all extremities - Constitutional Vitals: Vital Signs - 12hr 02/17/20 02/17/20 02/17/20 13:35 15:23 20:02 Temperature 98.9 F 98.8 F Pulse Rate 78 86 Pulse Rate [ 96 H Bilateral Throughout] Pulse Rate [ From Monitor] Respiratory 30 H 20 Rate Respiratory 18 Rate [Bilateral Throughout] Blood Pressure 118/54 129/59 O2 Sat by Pulse 96 93 Oximetry 02/17/20 02/17/20 21:46 22:00 Temperature Pulse Rate Pulse Rate [ 88 Bilateral Throughout] Pulse Rate [ 78 From Monitor] Respiratory Rate Respiratory 18 Rate [Bilateral Throughout] Blood Pressure O2 Sat by Pulse 98 Oximetry - Labs CBC & Chem 7: 02/17/20 05:49 02/16/20 10:51 Labs: Abnormal lab results 02/17/20 Range/Units 05:49 Hgb 11.4 L (11.8-15.2) gm/dl Hct 34.7 L (35.5-45.6) % Plt Count 445 H (140-440) K/mm3 HEART Score - HEART Score Troponin: Troponin T < 0.010 ng/mL (0.00-0.029) 02/13/20 06:48
[2020-02-18] MEDS: FUROSEMIDE 40 MG/4 ML INJ IV SCH ×2 (05:04→18:01)
[2020-02-18] MEDS: cefTRIAXone/NS 1 GM/50 ML 1 GM/50 ML BAG IV SCH (09:20)
[2020-02-18] MEDS: APIXABAN 5 MG TAB PO SCH ×2 (09:21→21:19)
[2020-02-18] MEDS: CITALOPRAM 20 MG TAB PO SCH (09:21)
[2020-02-18] MEDS: METOPROLOL TARTRATE 25 MG TAB PO SCH ×2 (09:21→21:19)
[2020-02-18] MEDS: IPRATROPIUM/ALBUTEROL SULFATE 3 ML AMPUL.NEB IH SCH ×3 (09:27→21:48)
--- NOTE | 2020-02-18 09:28 | Progress Note ---
Assessment and Plan Assessment and plan: -- Acute exacerbation of CHFpEF (congestive heart failure) Patient placed on diuretics. Will monitor inputs and output and also monitor daily weights. echocardiogram showed preserved EF Cardiology consulted, continue to follow recommendation -- Elevated d-dimer Ultrasound of the lower extremities were negative for DVT. However patient is unable to undergo his CT angiogram because of his size and weight. He has known history of PE in 2019. He has had some mild chest discomfort over the past few days. Patient has been placed on anticoagulation meanwhile with IV heparin. Vascular surgery consulted for input and recommended that patient is likely negative for pulmonary embolism considering the lab work-up. But as we cannot rule out pulmonary embolism and patient is high risks we can continue to treat with anticoagulation, patient can get CTA chest at [place] or [place] following discharge to confirm the diagnosis. started on eliquis -- Morbid obesity with BMI of 70 and over, adult Dietary consulted, continue cardiac diet for now --Acute respiratory failure due to CHF exacerbation and obesity hypoventilation syndrome Continue supplemental O2 and BiPAP at bedtime Start on empiric nebulizer breathing treatment -- Hypertension Blood pressure stable we will continue routine home medications. Monitor vital signs -- History of major depression Patient on citalopram. -- Cellulitis of lower extremity and lower abdominal wall Patient placed on empiric IV antibiotics. -- DVT prophylaxis Patient on anticoagulation. -- Full code status Brief History; 49-year-old white male with known history of hypertension, recently diagnosed congestive heart failure, pulmonary embolism in 2019 and morbid obesity presented to the emergency room complaining of shortness of breath which started in last 2 days. Patient states he has been bedbound lately and hardly am bulates. He has been having progressive swelling of his lower extremities. Upon evaluation in the emergency room patient was found to have elevated BNP, elevated d-dimer, chest x-ray reveals: Mild cardiomegaly and mild pulmonary vascular congestion likely reflecting CHF. Ultrasound of the lower extremities did not reveal any DVT. Patient has been started on diuretics for CHF exacerbation. CT angiogram could not be done because of patient's size and weight. ER physician was unable to transfer to an outside facility. 02/11; stop heparin drip, appreciate vascular surgery recommendation. will start on eliquis for now. Continue IV Lasix, monitor daily weight and ins and outs, follow 2D echo, cardiology following. Order for CPAP at bedtime 02/12: Remains extensively short of breath even with resting. Continue IV Lasix supplemental oxygen and CPAP at bedtime. Also start on nebulizer breathing treatment. 02/13: cont diuresis, follow 2d echo. PT consulted 02/14: cont supportive care, patient unable to get out of bed, pending PT eval. cont current mx. follow pulmonary recommendation. Preserved Ef on 2d echo 02/15: Pt recommended HH, wheel chair, patient also need home O2 before d/c - CM notified 02/16: planned for d/c but patient currently homeless and staying in hotel, he is unfunded w/o any income. need home O2 and wheel chair on discharge - CM following 02/17: planned for d/c but patient currently homeless and staying in hotel, he is unfunded w/o any income. need home O2 and wheel chair on discharge - CM following. Patient with complaints of shortness of breath today. History Interval history: Patient was seen and evaluated this morning Patient is complaining some shortness of breath Hospitalist Physical - Physical exam Narrative exam: Not in cardiopulmonary distress. The patient is morbidly obese. Vital signs as documented. Head exam is unremarkable. No scleral icterus . Neck is without jugular venous distension, thyromegaly, or carotid bruits. Lungs are clear to auscultation. Cardiac exam reveals regular rate and Rhythm. Abdominal exam reveals normal bowel sounds, nontender, no organomegaly. Extremities are nonedematous and both femoral and pedal pulses are normal. [employer] AD[employer]ISING [employer]ING [employer]ENT: Alert and oriented 3. No focal weakness. - Constitutional Vitals: Temp Pulse Resp BP Pulse Ox 98.9 F 82 20 123/65 95 02/18/20 09:09 02/18/20 09:21 02/18/20 09:09 02/18/20 09:21 02/18/20 09:09 General appearance: Present: no acute distress, obese HEART Score - HEART Score Troponin: Troponin T < 0.010 ng/mL (0.00-0.029) 02/13/20 06:48 Results - Labs CBC & Chem 7: 02/17/20 05:49 02/16/20 10:51 Labs: Laboratory Last Values WBC 8.7 K/mm3 (4.5-11.0) 02/13/20 06:48 RBC 3.69 M/mm3 (3.65-5.03) 02/13/20 06:48 Hgb 11.4 gm/dl (11.8-15.2) L 02/17/20 05:49 Hct 34.7 % (35.5-45.6) L 02/17/20 05:49 MCV 90 fl (84-94) 02/13/20 06:48 MCH 30 pg (28-32) 02/13/20 06:48 MCHC 34 % (32-34) 02/13/20 06:48 RDW 17.3 % (13.2-15.2) H 02/13/20 06:48 Plt Count 445 K/mm3 (140-440) H 02/17/20 05:49 Lymph % (Auto) 11.3 % (13.4-35.0) L 02/13/20 06:48 [place] % (Auto) 6.8 % (0.0-7.3) 02/13/20 06:48 Eos % (Auto) 4.0 % (0.0-4.3) 02/13/20 06:48 Baso % (Auto) 0.1 % (0.0-1.8) 02/13/20 06:48 Lymph # (Auto) 1.0 K/mm3 (1.2-5.4) L 02/13/20 06:48 [place] # (Auto) 0.6 K/mm3 (0.0-0.8) 02/13/20 06:48 Eos # (Auto) 0.3 K/mm3 (0.0-0.4) 02/13/20 06:48 Baso # (Auto) 0.0 K/mm3 (0.0-0.1) 02/13/20 06:48 Seg Neutrophils % 77.8 % (40.0-70.0) H 02/13/20 06:48 Seg Neutrophils # 6.7 K/mm3 (1.8-7.7) 02/13/20 06:48 PT 14.5 Sec. (12.2-14.9) 02/13/20 06:48 INR 1.11 (0.87-1.13) 02/13/20 06:48 APTT 20.7 Sec. (24.2-36.6) L 02/12/20 00:16 D-Dimer 684.16 ng/mlDDU (0-234) H 02/11/20 21:38 Heparin Anti-Xa Level 1.44 U.I./ml (0.3-0.7) H 02/12/20 19:04 Sodium 143 mmol/L (137-145) 02/16/20 10:51 Potassium 4.4 mmol/L (3.6-5.0) D 02/16/20 10:51 Chloride 95.4 mmol/L (98-107) L 02/16/20 10:51 Carbon Dioxide 37 mmol/L (22-30) H 02/16/20 10:51 Anion Gap 15 mmol/L 02/16/20 10:51 BUN 12 mg/dL (9-20) 02/16/20 10:51 Creatinine 0.4 mg/dL (0.8-1.3) L 02/16/20 10:51 Estimated GFR > 60 ml/min 02/16/20 10:51 BUN/Creatinine Ratio 30 % 02/16/20 10:51 Glucose 98 mg/dL (75-100) 02/16/20 10:51 POC Glucose 135 (70-105) H 02/12/20 15:50 Calcium 8.6 mg/dL (8.4-10.2) 02/16/20 10:51 Total Bilirubin 0.20 mg/dL (0.1-1.2) 02/11/20 21:38 AST 24 units/L (5-40) 02/11/20 21:38 ALT 14 units/L (7-56) 02/11/20 21:38 Alkaline Phosphatase 86 units/L (35-129) 02/11/20 21:38 Total Creatine Kinase 71 units/L (55-170) 02/11/20 21:38 CK-MB (CK-2) 1.3 ng/mL (0.0-4.0) 02/11/20 21:38 CK-MB (CK-2) Rel Index 1.8 (0-4) 02/11/20 21:38 Troponin T < 0.010 ng/mL (0.00-0.029) 02/13/20 06:48 NT-Pro-B Natriuret Pep 464.7 pg/mL (0-900) 02/11/20 21:38 Total Protein 6.6 g/dL (6.3-8.2) 02/11/20 21:38 Albumin 2.8 g/dL (3.9-5) L 02/11/20 21:38 Albumin/Globulin Ratio 0.7 % 02/11/20 21:38 Vancomycin Trough 12.3 ug/mL (5.0-20.0) 02/13/20 13:16 - Diagnostic Impressions Diagnostic Impressions: Echocardiogram 02/12/20 00:26 Transthoracic Echocardiogram Indication: SOB BP: 128/64 HR: 88 Conclusions *Mild concentric left ventricular hypertrophy is observed. *Global left ventricular wall motion and contractility are within normal limits. *The estimated ejection fraction is 50-55%. *Abnormal left ventricular diastolic filling is observed, consistent with impaired relaxation. *There is no pericardial effusion. Findings Left Ventricle: The left ventricular chamber size is normal. Mild concentric left ventricular hypertrophy is observed. Global left ventricular wall motion and contractility are within normal limits. Global left ventricular systolic function is normal. The estimated ejection fraction is 50-55%. Abnormal left ventricular diastolic filling is observed, consistent with impaired relaxation. Right Ventricle: The right ventricle is not well visualized. Right Atrium: The right atrium is not well visualized. Aortic Valve: The aortic valve structure is normal. Mitral Valve: The mitral valve leaflets are mildly thickened. There is no evidence of mitral regurgitation. Tricuspid Valve: The tricuspid valve leaflets are normal. There is trace tricuspid regurgitation. The right ventricular systolic pressure is calculated at 30 mmHg. Pulmonic Valve: The pulmonic valve appears normal. Pericardium: There is no pericardial effusion. Aorta: The aorta appears normal. Venous: The inferior vena cava is not visualized. Contrast: Intravenous contrast was used to enhance endocardial border definition. Measurements Chambers 2D Name Value Normal Range IVSd (2D) 1.32 cm (0.6 - 1.1) LVPWd (2D) 1.37 cm (0.6 - 1.1) LVIDd (2D) 4.95 cm (3.7 - 5.6) LVIDs (2D) 3.75 cm (2 - 3.8) LV FS (2D) 24.3 % - EF Teichholz (2D) 48.13 % - Ao root diameter (2D) 3.62 cm (2 - 3.7) Diastolic/Systolic Function Name Value Normal Range MV E-wave Vmax 0.91 m/sec - MV deceleration time 174.88 msec - MV A-wave Vmax 0.54 m/sec - MV E:A ratio 1.7 ratio - Aortic Valve Name Value Normal Range AV Vmax 1.62 m/sec - AV VTI 35.52 cm - AV peak gradient 10.49 mmHg - AV mean gradient 7.64 mmHg - LVOT diameter 2.16 cm - LVOT Vmax 1.42 m/sec - LVOT VTI 23.46 cm - LVOT peak gradient 8.11 mmHg - LVOT mean gradient 5.79 mmHg - SV LVOT 86.16 ml - IRENE (continuity Vmax) 3.23 cm2 - IRENE (continuity VTI) 2.43 cm2 - Tricuspid Valve Name Value Normal Range TR Vmax 2.62 m/sec - TR peak gradient 27 mmHg - RAP 3 mmHg - RVSP 30 mmHg - Pulmonic Valve/Qp:Qs Name Value Normal Range PV Vmax 1.23 m/sec - PV peak gradient 6 mmHg - PV acceleration time 91.34 msec - Peral[place]/IV: Voiding Method External Female Catheter IV Catheter Type [Left Forearm INT / Saline Lock ] IV Catheter Type [Left Upper INT / Saline Lock arm] Active Medications - Current Medications Current Medications: Generic Name Dose Route Start Last Admin Trade Name Freq PRN Reason Stop Dose Admin Acetaminophen 650 mg 02/12/20 00:23 02/17/20 21:59 Tylenol PO 650 mg Q4H PRN Administration Pain MILD(1-3)/Fever >100.5/LUIS Albuterol/Ipratropium 1 ampul 02/15/20 08:00 02/17/20 21:43 Duoneb *Not For Prn Use* IH 1 ampul TIDRT MICHAEL Administration Apixaban 10 mg 02/12/20 16:00 02/18/20 09:21 Eliquis PO 02/18/20 22:01 10 mg Q12HR MICHAEL Administration Protocol Apixaban 5 mg 02/19/20 10:00 Eliquis PO Q12HR MICHAEL Citalopram Hydrobromide 40 mg 02/16/20 11:00 02/18/20 09:21 Celexa PO 40 mg QDAY MICHAEL Administration Furosemide 40 mg 02/12/20 06:00 02/18/20 05:04 Lasix IV 40 mg BID@0600,1800 MICHAEL Administration Ceftriaxone Sodium 1 gm in 50 mls @ 100 mls/hr 02/16/20 10:00 02/18/20 09:20 Rocephin/Ns 1 Gm/50 Ml IV 100 mls/hr Q24HR MICHAEL Administration Protocol Magnesium Hydroxide 30 ml 02/12/20 00:23 Milk Of Magnesia PO Q4H PRN Constipation Metoprolol Tartrate 25 mg 02/12/20 22:00 02/18/20 09:21 Metoprolol PO 25 mg BID MICHAEL Administration Morphine Sulfate 2 mg 02/12/20 00:23 Morphine IV Q4H PRN Pain, Moderate (4-6) Ondansetron HCl 4 mg 02/12/20 00:23 Zofran IV Q8H PRN Nausea And Vomiting Sodium Chloride 10 ml 02/12/20 10:00 02/18/20 09:26 Sodium Chloride Flush Syringe 10 Ml IV 10 ml BID MICHAEL Administration Sodium Chloride 10 ml 02/12/20 00:23 02/17/20 06:38 Sodium Chloride Flush Syringe 10 Ml IV 10 ml PRN PRN Administration LINE FLUSH Nutrition/Malnutrition Assess - Dietary Evaluation Nutrition/Malnutrition Findings: Nutrition Notes Start: 02/12/20 13: 57 Freq: Status: Active Protocol: Document 02/17/20 13:52 CARLOS (Rec: 02/17/20 14:46 CARLOS [id number]) Co-Sign 02/17/20 13:52 NHALL Nutrition Notes Initial or Follow up Reassessment Current Diagnosis Hypertension,Heart Failure Other Pertinent Diagnosis obstructive sleep apnea Current Diet Cardiac Labs/Tests Reviewed Pertinent Medications Lasix Height 6 ft Weight 193.18 kg Usual Body Weight 193.18 kg [place] Body Weight (kg) 80.90 BMI 57.7 Weight change and time frame Pt reported UBW 425lb (193. 18kg). Pt may weigh more during adm due to volume overload. Weight Status Morbidly Obese Subjective/Other Information F/u full assessment and wt. Pt had no nutritional questions but complained of dry mouth. Noted fluid restriction. Discussed ways to keep mouth moist without adding more fluid intake. TRAIN BRAKEMAN, pt reports eating normally and uses Boost as needed if exhausted. Burn Absent Trauma Absent GI Symptoms None Current % PO Good (75-100%) Minimum of two criteria No Fluid Accumulation Moderate to Severe (severe) #1 Nutrition Diagnosis Increased nutrient needs ( specify in comment below) As Evidenced by Signs and Symptoms WOC noted lower extremity erythema and stasis dermatitis . Diagnosis Progress(for reassessment Resolved documentation) Is patient on ventilator? No Is Patient Ambulatory and/or Out of Bed No REE-([place]-St. Jeor-confined to bed) 3392.340 Kcal/Kg value to use for calculation 11 Approximate Energy Requirements Using 2125 kcal/Kg Calculation Used for Recommendations Kcal/kg Additional Notes Protein using 0.8-1g/kg of AdBW 137k-137g Fluid 1500ml (MD order) Nutrition Intervention Change Diet Order: continue Anticipated Discharge Needs: cardiac diet with fluid monitoring Revisit per MD consult or patient Sign Off request:
[2020-02-18 10:49] LABS: ABG Base Excess 11.9 mmol/L (-2.0-3.0); ABG HCO3 38.8 mmol/L (20.0-26.0); ABG Methemoglobin 0.4 % (0.0-1.5); ABG Oxygen Saturation 95.9 % (95.0-99.0); ABG PCO2 62.7 mm Hg; ABG PH 7.409 pH Units (7.350-7.450); ABG PO2 69.3 mm Hg (80.0-90.0)
[2020-02-19 06:41] LABS: Hematocrit 34.1 % (35.5-45.6); Hemoglobin 11.5 gm/dl (11.8-15.2)
[2020-02-19] MEDS: FUROSEMIDE 40 MG/4 ML INJ IV SCH ×2 (06:44→18:00)
[2020-02-19] MEDS: IPRATROPIUM/ALBUTEROL SULFATE 3 ML AMPUL.NEB IH SCH ×3 (08:14→20:57)
--- NOTE | 2020-02-19 08:23 | Progress Note ---
Assessment and Plan Assessment and plan: -- Acute exacerbation of CHFpEF (congestive heart failure) Patient placed on diuretics. Will monitor inputs and output and also monitor daily weights. echocardiogram showed preserved EF Cardiology consulted, continue to follow recommendation -- Elevated d-dimer Ultrasound of the lower extremities were negative for DVT. However patient is unable to undergo his CT angiogram because of his size and weight. He has known history of PE in 2019. He has had some mild chest discomfort over the past few days. Patient has been placed on anticoagulation meanwhile with IV heparin. Vascular surgery consulted for input and recommended that patient is likely negative for pulmonary embolism considering the lab work-up. But as we cannot rule out pulmonary embolism and patient is high risks we can continue to treat with anticoagulation, patient can get CTA chest at [facility] or [place] following discharge to confirm the diagnosis. started on eliquis -- Morbid obesity with BMI of 70 and over, adult Dietary consulted, continue cardiac diet for now --Acute respiratory failure due to CHF exacerbation and obesity hypoventilation syndrome Continue supplemental O2 and BiPAP at bedtime Start on empiric nebulizer breathing treatment -- Hypertension Blood pressure stable we will continue routine home medications. Monitor vital signs -- History of major depression Patient on citalopram. -- Cellulitis of lower extremity and lower abdominal wall Patient placed on empiric IV antibiotics. -- DVT prophylaxis Patient on anticoagulation. -- Full code status Brief History; 49-year-old white male with known history of hypertension, recently diagnosed congestive heart failure, pulmonary embolism in 2019 and morbid obesity presented to the emergency room complaining of shortness of breath which started in last 2 days. Patient states he has been bedbound lately and hardly am bulates. He has been having progressive swelling of his lower extremities. Upon evaluation in the emergency room patient was found to have elevated BNP, elevated d-dimer, chest x-ray reveals: Mild cardiomegaly and mild pulmonary vascular congestion likely reflecting CHF. Ultrasound of the lower extremities did not reveal any DVT. Patient has been started on diuretics for CHF exacerbation. CT angiogram could not be done because of patient's size and weight. ER physician was unable to transfer to an outside facility. 02/11; stop heparin drip, appreciate vascular surgery recommendation. will start on eliquis for now. Continue IV Lasix, monitor daily weight and ins and outs, follow 2D echo, cardiology following. Order for CPAP at bedtime 02/12: Remains extensively short of breath even with resting. Continue IV Lasix supplemental oxygen and CPAP at bedtime. Also start on nebulizer breathing treatment. 02/13: cont diuresis, follow 2d echo. PT consulted 02/14: cont supportive care, patient unable to get out of bed, pending PT eval. cont current mx. follow pulmonary recommendation. Preserved Ef on 2d echo 02/15: Pt recommended HH, wheel chair, patient also need home O2 before d/c - CM notified 02/16: planned for d/c but patient currently homeless and staying in hotel, he is unfunded w/o any income. need home O2 and wheel chair on discharge - CM following 02/17: planned for d/c but patient currently homeless and staying in hotel, he is unfunded w/o any income. need home O2 and wheel chair on discharge - CM following. Patient with complaints of shortness of breath today. 02/18: planned for d/c but patient currently homeless and staying in hotel, he is unfunded w/o any income. need home O2 and wheel chair on discharge - CM following. Patient with complaints of shortness of breath today. History Interval history: Patient was seen and evaluated this morning Patient is complaining some shortness of breath Hospitalist Physical - Physical exam Narrative exam: Not in cardiopulmonary distress. The patient is morbidly obese. Vital signs as documented. Head exam is unremarkable. No scleral icterus . Neck is without jugular venous distension, thyromegaly, or carotid bruits. Lungs are clear to auscultation. Cardiac exam reveals regular rate and Rhythm. Abdominal exam reveals normal bowel sounds, nontender, no organomegaly. Extremities are nonedematous and both femoral and pedal pulses are normal. ORTHOPEDICS PEDIATRIC PHYSICIAN: Alert and oriented 3. No focal weakness. - Constitutional Vitals: Temp Pulse Resp BP Pulse Ox 97.9 F 69 18 126/53 97 02/19/20 04:22 02/19/20 04:22 02/19/20 04:22 02/19/20 04:22 02/19/20 04:22 General appearance: Present: no acute distress, obese HEART Score - HEART Score Troponin: Troponin T < 0.010 ng/mL (0.00-0.029) 02/13/20 06:48 Results - Labs CBC & Chem 7: 02/19/20 04:44 02/16/20 10:51 Labs: Laboratory Last Values WBC 8.7 K/mm3 (4.5-11.0) 02/13/20 06:48 RBC 3.69 M/mm3 (3.65-5.03) 02/13/20 06:48 Hgb 11.5 gm/dl (11.8-15.2) L 02/19/20 04:44 Hct 34.1 % (35.5-45.6) L 02/19/20 04:44 MCV 90 fl (84-94) 02/13/20 06:48 MCH 30 pg (28-32) 02/13/20 06:48 MCHC 34 % (32-34) 02/13/20 06:48 RDW 17.3 % (13.2-15.2) H 02/13/20 06:48 Plt Count 415 K/mm3 (140-440) 02/19/20 04:44 Lymph % (Auto) 11.3 % (13.4-35.0) L 02/13/20 06:48 [place] % (Auto) 6.8 % (0.0-7.3) 02/13/20 06:48 Eos % (Auto) 4.0 % (0.0-4.3) 02/13/20 06:48 Baso % (Auto) 0.1 % (0.0-1.8) 02/13/20 06:48 Lymph # (Auto) 1.0 K/mm3 (1.2-5.4) L 02/13/20 06:48 [place] # (Auto) 0.6 K/mm3 (0.0-0.8) 02/13/20 06:48 Eos # (Auto) 0.3 K/mm3 (0.0-0.4) 02/13/20 06:48 Baso # (Auto) 0.0 K/mm3 (0.0-0.1) 02/13/20 06:48 Seg Neutrophils % 77.8 % (40.0-70.0) H 02/13/20 06:48 Seg Neutrophils # 6.7 K/mm3 (1.8-7.7) 02/13/20 06:48 PT 14.5 Sec. (12.2-14.9) 02/13/20 06:48 INR 1.11 (0.87-1.13) 02/13/20 06:48 APTT 20.7 Sec. (24.2-36.6) L 02/12/20 00:16 D-Dimer 684.16 ng/mlDDU (0-234) H 02/11/20 21:38 Heparin Anti-Xa Level 1.44 U.I./ml (0.3-0.7) H 02/12/20 19:04 ABG pH 7.409 pH Units (7.350-7.450) 02/18/20 10:10 ABG pCO2 62.7 mm Hg 02/18/20 10:10 ABG pO2 69.3 mm Hg (80.0-90.0) L 02/18/20 10:10 ABG HCO3 38.8 mmol/L (20.0-26.0) H 02/18/20 10:10 ABG O2 Saturation 95.9 % (95.0-99.0) 02/18/20 10:10 ABG O2 Content 15.7 (0.0-44) 02/18/20 10:10 ABG Base Excess 11.9 mmol/L (-2.0-3.0) H 02/18/20 10:10 ABG Hemoglobin 11.9 gm/dl (14.0-18.0) L 02/18/20 10:10 ABG Carboxyhemoglobin 1.7 % (0.0-5.0) 02/18/20 10:10 ABG Methemoglobin 0.4 % (0.0-1.5) 02/18/20 10:10 Oxyhemoglobin 93.9 % (95.0-99.0) L 02/18/20 10:10 FiO2 21 % 02/18/20 10:10 Sodium 143 mmol/L (137-145) 02/16/20 10:51 Potassium 4.4 mmol/L (3.6-5.0) D 02/16/20 10:51 Chloride 95.4 mmol/L (98-107) L 02/16/20 10:51 Carbon Dioxide 37 mmol/L (22-30) H 02/16/20 10:51 Anion Gap 15 mmol/L 02/16/20 10:51 BUN 12 mg/dL (9-20) 02/16/20 10:51 Creatinine 0.4 mg/dL (0.8-1.3) L 02/16/20 10:51 Estimated GFR > 60 ml/min 02/16/20 10:51 BUN/Creatinine Ratio 30 % 02/16/20 10:51 Glucose 98 mg/dL (75-100) 02/16/20 10:51 POC Glucose 135 (70-105) H 02/12/20 15:50 Calcium 8.6 mg/dL (8.4-10.2) 02/16/20 10:51 Total Bilirubin 0.20 mg/dL (0.1-1.2) 02/11/20 21:38 AST 24 units/L (5-40) 02/11/20 21:38 ALT 14 units/L (7-56) 02/11/20 21:38 Alkaline Phosphatase 86 units/L (35-129) 02/11/20 21:38 Total Creatine Kinase 71 units/L (55-170) 02/11/20 21:38 CK-MB (CK-2) 1.3 ng/mL (0.0-4.0) 02/11/20 21:38 CK-MB (CK-2) Rel Index 1.8 (0-4) 02/11/20 21:38 Troponin T < 0.010 ng/mL (0.00-0.029) 02/13/20 06:48 NT-Pro-B Natriuret Pep 464.7 pg/mL (0-900) 02/11/20 21:38 Total Protein 6.6 g/dL (6.3-8.2) 02/11/20 21:38 Albumin 2.8 g/dL (3.9-5) L 02/11/20 21:38 Albumin/Globulin Ratio 0.7 % 02/11/20 21:38 Vancomycin Trough 12.3 ug/mL (5.0-20.0) 02/13/20 13:16 - Diagnostic Impressions Diagnostic Impressions: Echocardiogram 02/12/20 00:26 Transthoracic Echocardiogram Indication: SOB BP: 128/64 HR: 88 Conclusions *Mild concentric left ventricular hypertrophy is observed. *Global left ventricular wall motion and contractility are within normal limits. *The estimated ejection fraction is 50-55%. *Abnormal left ventricular diastolic filling is observed, consistent with impaired relaxation. *There is no pericardial effusion. Findings Left Ventricle: The left ventricular chamber size is normal. Mild concentric left ventricular hypertrophy is observed. Global left ventricular wall motion and contractility are within normal limits. Global left ventricular systolic function is normal. The estimated ejection fraction is 50-55%. Abnormal left ventricular diastolic filling is observed, consistent with impaired relaxation. Right Ventricle: The right ventricle is not well visualized. Right Atrium: The right atrium is not well visualized. Aortic Valve: The aortic valve structure is normal. Mitral Valve: The mitral valve leaflets are mildly thickened. There is no evidence of mitral regurgitation. Tricuspid Valve: The tricuspid valve leaflets are normal. There is trace tricuspid regurgitation. The right ventricular systolic pressure is calculated at 30 mmHg. Pulmonic Valve: The pulmonic valve appears normal. Pericardium: There is no pericardial effusion. Aorta: The aorta appears normal. Venous: The inferior vena cava is not visualized. Contrast: Intravenous contrast was used to enhance endocardial border definition. Measurements Chambers 2D Name Value Normal Range IVSd (2D) 1.32 cm (0.6 - 1.1) LVPWd (2D) 1.37 cm (0.6 - 1.1) LVIDd (2D) 4.95 cm (3.7 - 5.6) LVIDs (2D) 3.75 cm (2 - 3.8) LV FS (2D) 24.3 % - EF Teichholz (2D) 48.13 % - Ao root diameter (2D) 3.62 cm (2 - 3.7) Diastolic/Systolic Function Name Value Normal Range MV E-wave Vmax 0.91 m/sec - MV deceleration time 174.88 msec - MV A-wave Vmax 0.54 m/sec - MV E:A ratio 1.7 ratio - Aortic Valve Name Value Normal Range AV Vmax 1.62 m/sec - AV VTI 35.52 cm - AV peak gradient 10.49 mmHg - AV mean gradient 7.64 mmHg - LVOT diameter 2.16 cm - LVOT Vmax 1.42 m/sec - LVOT VTI 23.46 cm - LVOT peak gradient 8.11 mmHg - LVOT mean gradient 5.79 mmHg - SV LVOT 86.16 ml - IRENE (continuity Vmax) 3.23 cm2 - IRENE (continuity VTI) 2.43 cm2 - Tricuspid Valve Name Value Normal Range TR Vmax 2.62 m/sec - TR peak gradient 27 mmHg - RAP 3 mmHg - RVSP 30 mmHg - Pulmonic Valve/Qp:Qs Name Value Normal Range PV Vmax 1.23 m/sec - PV peak gradient 6 mmHg - PV acceleration time 91.34 msec - [place]/IV: Voiding Method External Female Catheter IV Catheter Type [Left Forearm INT / Saline Lock ] IV Catheter Type [Left Upper INT / Saline Lock arm] Active Medications - Current Medications Current Medications: Generic Name Dose Route Start Last Admin Trade Name Freq PRN Reason Stop Dose Admin Acetaminophen 650 mg 02/12/20 00:23 10 21:59 Tylenol PO 650 mg Q4H PRN Administration Pain MILD(1-3)/Fever >100.5/LUIS Albuterol/Ipratropium 1 ampul 02/15/20 08:00 02/19/20 08:14 Duoneb *Not For Prn Use* IH 1 ampul TIDRT MICHAEL Administration Apixaban 5 mg 02/19/20 10:00 Eliquis PO Q12HR MICHAEL Citalopram Hydrobromide 40 mg 02/16/20 11:00 02/18/20 09:21 Celexa PO 40 mg QDAY MICHAEL Administration Furosemide 40 mg 02/12/20 06:00 02/19/20 06:44 Lasix IV 40 mg BID@0600,1800 MICHAEL Administration Ceftriaxone Sodium 1 gm in 50 mls @ 100 mls/hr 02/16/20 10:00 02/18/20 09:20 Rocephin/Ns 1 Gm/50 Ml IV 100 mls/hr Q24HR MICHAEL Administration Protocol Magnesium Hydroxide 30 ml 02/12/20 00:23 Milk Of Magnesia PO Q4H PRN Constipation Metoprolol Tartrate 25 mg 02/12/20 22:00 02/18/20 21:19 Metoprolol PO 25 mg BID MICHAEL Administration Morphine Sulfate 2 mg 02/12/20 00:23 Morphine IV Q4H PRN Pain, Moderate (4-6) Ondansetron HCl 4 mg 02/12/20 00:23 Zofran IV Q8H PRN Nausea And Vomiting Sodium Chloride 10 ml 02/12/20 10:00 02/18/20 21:20 Sodium Chloride Flush Syringe 10 Ml IV 10 ml BID MICHAEL Administration Sodium Chloride 10 ml 02/12/20 00:23 02/19/20 06:47 Sodium Chloride Flush Syringe 10 Ml IV 10 ml PRN PRN Administration LINE FLUSH Nutrition/Malnutrition Assess - Dietary Evaluation Nutrition/Malnutrition Findings: Nutrition Notes Start: 02/12/20 13:57 Freq: Status: Active Protocol: Document 02/18/20 07:25 LP (Rec: 02/19/20 07:26 LP [email or web address]) Nutrition Notes Need for Assessment generated from: LOS Initial or Follow up Brief Note Subjective/Other Information Screen for LOS. Pt consuming 100% of meals. Nutrition Intervention Revisit per MD consult or patient Sign Off request:
[2020-02-19] MEDS: CITALOPRAM 20 MG TAB PO SCH (09:33)
[2020-02-19] MEDS: APIXABAN 5 MG TAB PO SCH ×2 (09:33→21:39)
[2020-02-19] MEDS: METOPROLOL TARTRATE 25 MG TAB PO SCH ×2 (09:33→21:39)
[2020-02-19] MEDS: cefTRIAXone/NS 1 GM/50 ML 1 GM/50 ML BAG IV SCH (09:34)
--- NOTE | 2020-02-19 10:40 | Discharge Summary ---
Providers - Providers Date of Admission: 02/11/20 23:48 Date of discharge: 02/19/20 Attending physician: TAE WELLS MD 02/11/20 23:47 Consult to Physician [CONS] Routine Comment: Consulting Provider: MARILEE MEDINA Physician Instructions: Reason For Exam: sob. el dimer 02/12/20 03:58 Consult to Wound/ET Nurse [CONS] Routine Reason For Exam: wound eval 02/14/20 11:20 Physical Therapy Evaluation and Treat [CONS] Routine Comment: Reason For Exam: placement 02/15/20 14:26 Consult to Physician [CONS] Routine Comment: Consulting Provider: HENRIETTA BUSTAMANTE Physician Instructions: Reason For Exam: possible PE Primary care physician: MICHAEL MADDEN MD Hospitalization Condition: Fair Disposition: DC/[place]-06 HOME UNDER HOME HL[facility] Time spent for discharge: 32 minutes - Discharge Diagnoses (1) (HFpEF) heart failure with preserved ejection fraction Status: Acute (2) Acute exacerbation of CHF (congestive heart failure) Status: Acute Qualifiers: Heart failure type: unspecified Qualified Code(s): I50.9 - Heart failure, unspecified (3) Cellulitis of lower extremity Status: Acute (4) MANN (dyspnea on exertion) Status: Acute (5) Elevated d-dimer Status: Acute Core Measure Documentation - Palliative Care Palliative Care/ Comfort Measures: Not Applicable - Core Measures Any of the following diagnoses?: none Exam - Physical Exam Narrative exam: Not in cardiopulmonary distress. The patient is morbidly obese. Vital signs as documented. Head exam is unremarkable. No scleral icterus . Neck is without jugular venous distension, thyromegaly, or carotid bruits. Lungs are clear to auscultation. Cardiac exam reveals regular rate and Rhythm. Abdominal exam reveals normal bowel sounds, nontender, no organomegaly. Extremities are nonedematous and both femoral and pedal pulses are normal. CO OP: Alert and oriented 3. No focal weakness. - Constitutional Vitals: Temp Pulse Resp BP Pulse Ox 98.0 F 86 20 129/62 96 02/19/20 08:57 02/19/20 08:57 02/19/20 08:57 02/19/20 08:57 02/19/20 09:08 Plan Activity: no restrictions Weight Bearing Status: Full Weight Bearing Diet: regular Follow up with: MICHAEL MADDEN MD [Primary Care Provider] - 7 Days Prescriptions: Apixaban [Eliquis] 5 mg PO Q12HR #60 tablet Potassium Chloride [K-Dur] 10 meq PO QDAY #30 tablet cephALEXin [Keflex] 500 mg PO Q12HR #10 cap Furosemide [Lasix TAB] 40 mg PO QDAY #30 tablet Metoprolol [Lopressor TAB] 25 mg PO BID #60 tablet Ipratropium/Albuterol Sulfate [DUONEB *Not for PRN Use*] 1 ampul IH TIDRT #30 ampul.neb
--- NOTE | 2020-02-19 20:14 | Event Note ---
Date: 02/19/20 Patient was stablw for discharge for the last few days. He was saying he will go to the hotel, the yesterday he changed the story and said he will go to friends house and claimed he will pick him up at 2PM today when it is 2 pm the friend didn't show up and when the patient was told he has to go he is medically cleared he claimed he is suicidal. Need psych clearance before discharge.
[2020-02-20] MEDS: FUROSEMIDE 40 MG/4 ML INJ IV SCH ×2 (06:10→17:48)
--- NOTE | 2020-02-20 08:11 | Progress Note ---
Assessment and Plan Assessment and plan: -- Acute exacerbation of CHFpEF (congestive heart failure) Patient placed on diuretics. Will monitor inputs and output and also monitor daily weights. echocardiogram showed preserved EF Cardiology consulted, continue to follow recommendation -- Elevated d-dimer Ultrasound of the lower extremities were negative for DVT. However patient is unable to undergo his CT angiogram because of his size and weight. He has known history of PE in 2019. He has had some mild chest discomfort over the past few days. Patient has been placed on anticoagulation meanwhile with IV heparin. Vascular surgery consulted for input and recommended that patient is likely negative for pulmonary embolism considering the lab work-up. But as we cannot rule out pulmonary embolism and patient is high risks we can continue to treat with anticoagulation, patient can get CTA chest at [place] or [place] following discharge to confirm the diagnosis. started on eliquis -- Morbid obesity with BMI of 70 and over, adult Dietary consulted, continue cardiac diet for now --Acute respiratory failure due to CHF exacerbation and obesity hypoventilation syndrome Continue supplemental O2 and BiPAP at bedtime Start on empiric nebulizer breathing treatment -- Hypertension Blood pressure stable we will continue routine home medications. Monitor vital signs -- History of major depression Patient on citalopram. -- Cellulitis of lower extremity and lower abdominal wall Patient placed on empiric IV antibiotics. -- DVT prophylaxis Patient on anticoagulation. -- Full code status Brief History; 49-year-old white male with known history of hypertension, recently diagnosed congestive heart failure, pulmonary embolism in 2019 and morbid obesity presented to the emergency room complaining of shortness of breath which started in last 2 days. Patient states he has been bedbound lately and hardly am bulates. He has been having progressive swelling of his lower extremities. Upon evaluation in the emergency room patient was found to have elevated BNP, elevated d-dimer, chest x-ray reveals: Mild cardiomegaly and mild pulmonary vascular congestion likely reflecting CHF. Ultrasound of the lower extremities did not reveal any DVT. Patient has been started on diuretics for CHF exacerbation. CT angiogram could not be done because of patient's size and weight. ER physician was unable to transfer to an outside facility. 02/11; stop heparin drip, appreciate vascular surgery recommendation. will start on eliquis for now. Continue IV Lasix, monitor daily weight and ins and outs, follow 2D echo, cardiology following. Order for CPAP at bedtime 02/12: Remains extensively short of breath even with resting. Continue IV Lasix supplemental oxygen and CPAP at bedtime. Also start on nebulizer breathing treatment. 02/13: cont diuresis, follow 2d echo. PT consulted 02/14: cont supportive care, patient unable to get out of bed, pending PT eval. cont current mx. follow pulmonary recommendation. Preserved Ef on 2d echo 02/15: Pt recommended HH, wheel chair, patient also need home O2 before d/c - CM notified 02/16: planned for d/c but patient currently homeless and staying in hotel, he is unfunded w/o any income. need home O2 and wheel chair on discharge - CM following 02/17: planned for d/c but patient currently homeless and staying in hotel, he is unfunded w/o any income. need home O2 and wheel chair on discharge - CM following. Patient with complaints of shortness of breath today. 02/18: planned for d/c but patient currently homeless and staying in hotel, he is unfunded w/o any income. need home O2 and wheel chair on discharge - CM following. Patient with complaints of shortness of breath today. 02/19; patient was ready to discharge yesterday but after everything is ready; patient claims that he has suicidal thoughts. Patient stated he is suicidal patient currently. Will follow psych recommendation. - Patient Problems (1) (HFpEF) heart failure with preserved ejection fraction Current Visit: Yes Status: Acute (2) Acute exacerbation of CHF (congestive heart failure) Current Visit: Yes Status: Acute Qualifiers: Heart failure type: unspecified Qualified Code(s): I50.9 - Heart failure, unspecified (3) Cellulitis of lower extremity Current Visit: Yes Status: Acute (4) MANN (dyspnea on exertion) Current Visit: Yes Status: Acute (5) Elevated d-dimer Current Visit: Yes Status: Acute History Interval history: Patient was seen and evaluated this morning Patient stated he has previous history of suicidal attempt and currently he has suicidal ideation Hospitalist Physical - Physical exam Narrative exam: Not in cardiopulmonary distress. The patient is morbidly obese. Vital signs as documented. Head exam is unremarkable. No scleral icterus . Neck is without jugular venous distension, thyromegaly, or carotid bruits. Lungs are clear to auscultation. Cardiac exam reveals regular rate and Rhythm. Abdominal exam reveals normal bowel sounds, nontender, no organomegaly. Extremities are nonedematous and both femoral and pedal pulses are normal. STRIP POLISHER: Alert and oriented 3. No focal weakness. - Constitutional Vitals: Temp Pulse Resp BP Pulse Ox 98.2 F 72 20 104/47 95 02/20/20 07:33 02/20/20 07:33 02/20/20 07:33 02/20/20 07:33 02/20/20 07:33 General appearance: Present: no acute distress, obese HEART Score - HEART Score Troponin: Troponin T < 0.010 ng/mL (0.00-0.029) 02/13/20 06:48 Results - Labs CBC & Chem 7: 02/19/20 04:44 02/16/20 10:51 Labs: Laboratory Last Values WBC 8.7 K/mm3 (4.5-11.0) 02/13/20 06:48 RBC 3.69 M/mm3 (3.65-5.03) 02/13/20 06:48 Hgb 11.5 gm/dl (11.8-15.2) L 02/19/20 04:44 Hct 34.1 % (35.5-45.6) L 02/19/20 04:44 MCV 90 fl (84-94) 02/13/20 06:48 MCH 30 pg (28-32) 02/13/20 06:48 MCHC 34 % (32-34) 02/13/20 06:48 RDW 17.3 % (13.2-15.2) H 02/13/20 06:48 Plt Count 415 K/mm3 (140-440) 02/19/20 04:44 Lymph % (Auto) 11.3 % (13.4-35.0) L 02/13/20 06:48 [place] % (Auto) 6.8 % (0.0-7.3) 02/13/20 06:48 Eos % (Auto) 4.0 % (0.0-4.3) 02/13/20 06:48 Baso % (Auto) 0.1 % (0.0-1.8) 02/13/20 06:48 Lymph # (Auto) 1.0 K/mm3 (1.2-5.4) L 02/13/20 06:48 [place] # (Auto) 0.6 K/mm3 (0.0-0.8) 02/13/20 06:48 Eos # (Auto) 0.3 K/mm3 (0.0-0.4) 02/13/20 06:48 Baso # (Auto) 0.0 K/mm3 (0.0-0.1) 02/13/20 06:48 Seg Neutrophils % 77.8 % (40.0-70.0) H 02/13/20 06:48 Seg Neutrophils # 6.7 K/mm3 (1.8-7.7) 02/13/20 06:48 PT 14.5 Sec. (12.2-14.9) 02/13/20 06:48 INR 1.11 (0.87-1.13) 02/13/20 06:48 APTT 20.7 Sec. (24.2-36.6) L 02/12/20 00:16 D-Dimer 684.16 ng/mlDDU (0-234) H 02/11/20 21:38 Heparin Anti-Xa Level 1.44 U.I./ml (0.3-0.7) H 02/12/20 19:04 ABG pH 7.409 pH Units (7.350-7.450) 02/18/20 10:10 ABG pCO2 62.7 mm Hg 02/18/20 10:10 ABG pO2 69.3 mm Hg (80.0-90.0) L 02/18/20 10:10 ABG HCO3 38.8 mmol/L (20.0-26.0) H 02/18/20 10:10 ABG O2 Saturation 95.9 % (95.0-99.0) 02/18/20 10:10 ABG O2 Content 15.7 (0.0-44) 02/18/20 10:10 ABG Base Excess 11.9 mmol/L (-2.0-3.0) H 02/18/20 10:10 ABG Hemoglobin 11.9 gm/dl (14.0-18.0) L 02/18/20 10:10 ABG Carboxyhemoglobin 1.7 % (0.0-5.0) 02/18/20 10:10 ABG Methemoglobin 0.4 % (0.0-1.5) 02/18/20 10:10 Oxyhemoglobin 93.9 % (95.0-99.0) L 02/18/20 10:10 FiO2 21 % 02/18/20 10:10 Sodium 143 mmol/L (137-145) 02/16/20 10:51 Potassium 4.4 mmol/L (3.6-5.0) D 02/16/20 10:51 Chloride 95.4 mmol/L (98-107) L 02/16/20 10:51 Carbon Dioxide 37 mmol/L (22-30) H 02/16/20 10:51 Anion Gap 15 mmol/L 02/16/20 10:51 BUN 12 mg/dL (9-20) 02/16/20 10:51 Creatinine 0.4 mg/dL (0.8-1.3) L 02/16/20 10:51 Estimated GFR > 60 ml/min 02/16/20 10:51 BUN/Creatinine Ratio 30 % 02/16/20 10:51 Glucose 98 mg/dL (75-100) 02/16/20 10:51 POC Glucose 135 (70-105) H 02/12/20 15:50 Calcium 8.6 mg/dL (8.4-10.2) 02/16/20 10:51 Total Bilirubin 0.20 mg/dL (0.1-1.2) 02/11/20 21:38 AST 24 units/L (5-40) 02/11/20 21:38 ALT 14 units/L (7-56) 02/11/20 21:38 Alkaline Phosphatase 86 units/L (35-129) 02/11/20 21:38 Total Creatine Kinase 71 units/L (55-170) 02/11/20 21:38 CK-MB (CK-2) 1.3 ng/mL (0.0-4.0) 02/11/20 21:38 CK-MB (CK-2) Rel Index 1.8 (0-4) 02/11/20 21:38 Troponin T < 0.010 ng/mL (0.00-0.029) 02/13/20 06:48 NT-Pro-B Natriuret Pep 464.7 pg/mL (0-900) 02/11/20 21:38 Total Protein 6.6 g/dL (6.3-8.2) 02/11/20 21:38 Albumin 2.8 g/dL (3.9-5) L 02/11/20 21:38 Albumin/Globulin Ratio 0.7 % 02/11/20 21:38 Vancomycin Trough 12.3 ug/mL (5.0-20.0) 02/13/20 13:16 - Diagnostic Impressions Diagnostic Impressions: Echocardiogram 02/12/20 00:26 Transthoracic Echocardiogram Indication: SOB BP: 128/64 HR: 88 Conclusions *Mild concentric left ventricular hypertrophy is observed. *Global left ventricular wall motion and contractility are within normal limits. *The estimated ejection fraction is 50-55%. *Abnormal left ventricular diastolic filling is observed, consistent with impaired relaxation. *There is no pericardial effusion. Findings Left Ventricle: The left ventricular chamber size is normal. Mild concentric left ventricular hypertrophy is observed. Global left ventricular wall motion and contractility are within normal limits. Global left ventricular systolic function is normal. The estimated ejection fraction is 50-55%. Abnormal left ventricular diastolic filling is observed, consistent with impaired relaxation. Right Ventricle: The right ventricle is not well visualized. Right Atrium: The right atrium is not well visualized. Aortic Valve: The aortic valve structure is normal. Mitral Valve: The mitral valve leaflets are mildly thickened. There is no evidence of mitral regurgitation. Tricuspid Valve: The tricuspid valve leaflets are normal. There is trace tricuspid regurgitation. The right ventricular systolic pressure is calculated at 30 mmHg. Pulmonic Valve: The pulmonic valve appears normal. Pericardium: There is no pericardial effusion. Aorta: The aorta appears normal. Venous: The inferior vena cava is not visualized. Contrast: Intravenous contrast was used to enhance endocardial border definition. Measurements Chambers 2D Name Value Normal Range IVSd (2D) 1.32 cm (0.6 - 1.1) LVPWd (2D) 1.37 cm (0.6 - 1.1) LVIDd (2D) 4.95 cm (3.7 - 5.6) LVIDs (2D) 3.75 cm (2 - 3.8) LV FS (2D) 24.3 % - EF Teichholz (2D) 48.13 % - Ao root diameter (2D) 3.62 cm (2 - 3.7) Diastolic/Systolic Function Name Value Normal Range MV E-wave Vmax 0.91 m/sec - MV deceleration time 174.88 msec - MV A-wave Vmax 0.54 m/sec - MV E:A ratio 1.7 ratio - Aortic Valve Name Value Normal Range AV Vmax 1.62 m/sec - AV VTI 35.52 cm - AV peak gradient 10.49 mmHg - AV mean gradient 7.64 mmHg - LVOT diameter 2.16 cm - LVOT Vmax 1.42 m/sec - LVOT VTI 23.46 cm - LVOT peak gradient 8.11 mmHg - LVOT mean gradient 5.79 mmHg - SV LVOT 86.16 ml - IRENE (continuity Vmax) 3.23 cm2 - IRENE (continuity VTI) 2.43 cm2 - Tricuspid Valve Name Value Normal Range TR Vmax 2.62 m/sec - TR peak gradient 27 mmHg - RAP 3 mmHg - RVSP 30 mmHg - Pulmonic Valve/Qp:Qs Name Value Normal Range PV Vmax 1.23 m/sec - PV peak gradient 6 mmHg - PV acceleration time 91.34 msec - Peralta/IV: Voiding Method External Female Catheter IV Catheter Type [Left Forearm INT / Saline Lock ] IV Catheter Type [Left Upper INT / Saline Lock arm] Active Medications - Current Medications Current Medications: Generic Name Dose Route Start Last Admin Trade Name Freq PRN Reason Stop Dose Admin Acetaminophen 650 mg 02/12/20 00:23 02/17/20 21:59 Tylenol PO 650 mg Q4H PRN Administration Pain MILD(1-3)/Fever >100.5/LUIS Albuterol/Ipratropium 1 ampul 02/15/20 08:00 02/19/20 20:57 Duoneb *Not For Prn Use* IH 1 ampul TIDRT MICHAEL Administration Apixaban 5 mg 02/19/20 10:00 02/19/20 21:39 Eliquis PO 5 mg Q12HR MICHAEL Administration Citalopram Hydrobromide 40 mg 02/16/20 11:00 02/19/20 09:33 Celexa PO 40 mg QDAY MICHAEL Administration Furosemide 40 mg 02/12/20 06:00 02/20/20 06:10 Lasix IV 40 mg BID@0600,1800 MICHAEL Administration Ceftriaxone Sodium 1 gm in 50 mls @ 100 mls/hr 02/16/20 10:00 02/19/20 09:34 Rocephin/Ns 1 Gm/50 Ml IV 02/22/20 12:00 100 mls/hr Q24HR MICHAEL Administration Protocol Magnesium Hydroxide 30 ml 02/12/20 00:23 Milk Of Magnesia PO Q4H PRN Constipation Metoprolol Tartrate 25 mg 02/12/20 22:00 02/19/20 21:39 Metoprolol PO 25 mg BID MICHAEL Administration Ondansetron HCl 4 mg 02/12/20 00:23 Zofran IV Q8H PRN Nausea And Vomiting Sodium Chloride 10 ml 02/12/20 10:00 02/19/20 21:39 Sodium Chloride Flush Syringe 10 Ml IV 10 ml BID MICHAEL Administration Sodium Chloride 10 ml 02/12/20 00:23 02/20/20 06:10 Sodium Chloride Flush Syringe 10 Ml IV 10 ml PRN PRN Administration LINE FLUSH Nutrition/Malnutrition Assess - Dietary Evaluation Nutrition/Malnutrition Findings: Nutrition Notes Start: 02/12/20 13:57 Freq: Status: Active Protocol: Document 02/18/20 07:25 LP (Rec: 02/19/20 07:26 LP [email or web address]) Nutrition Notes Need for Assessment generated from: LOS Initial or Follow up Brief Note Subjective/Other Information Screen for LOS. Pt consuming 100% of meals. Nutrition Intervention Revisit per MD consult or patient Sign Off request:
[2020-02-20] MEDS: METOPROLOL TARTRATE 25 MG TAB PO SCH ×2 (09:09→21:15)
[2020-02-20] MEDS: APIXABAN 5 MG TAB PO SCH ×2 (09:09→21:15)
[2020-02-20] MEDS: cefTRIAXone/NS 1 GM/50 ML 1 GM/50 ML BAG IV SCH (09:09)
[2020-02-20] MEDS: CITALOPRAM 20 MG TAB PO SCH (09:09)
[2020-02-20] MEDS: IPRATROPIUM/ALBUTEROL SULFATE 3 ML AMPUL.NEB IH SCH ×3 (09:27→20:57)
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
[2020-02-20] MEDS ORDERED: CITALOPRAM 20 MG TAB PO SCH (14:00)
[2020-02-21] MEDS: FUROSEMIDE 40 MG/4 ML INJ IV SCH ×2 (05:48→21:34)
[2020-02-21] MEDS: IPRATROPIUM/ALBUTEROL SULFATE 3 ML AMPUL.NEB IH SCH ×3 (09:48→20:04)
--- NOTE | 2020-02-21 10:59 | Progress Note ---
Subjective - Reason for Consult Consult date: 02/21/20 Reason for consult: MHE Requesting physician: TAE WELLS - Chief Complaint Chief complaint: Psych Progress Patient seen this AM, says is suicidal but admits to social issues being his number 1 priority such as getting SSI processed, and getting placed in a personal [facility]. Patient needs were relayed to nurse and patient agrees that if those situation were addressed, his suicidal thoughts would be resolved. REVIEW OF SYSTEMS Constitutional: Negative for weight loss ENT: Negative for stridor Respiratory: Negative for cough or hemoptysis All other systems reviewed and are negative MENTAL STATUS EXAMINATION General Appearance and Behavior: Age appropriate, good hygiene, wearing appropriate clothes, lying in bed, good eye contact, cooperative polite with questioning. Cooperation: Participating/engaged Psychomotor Behavior: unremarkable and within normal limits Mood: Depressed Affect and affective range: decreased range, depressed, Thought Process: Fluent/Logical Thought Content: Hopelessness, Helplessness Speech: Normal volume, Regular rate and rhythm, Intellectual Functioning: Average Suicidal Ideation: Suicidal Homicidal Ideation: Denies HI Impulse Control: Unimpaired Insight and Judgment: Normal insight and judgment Memory: Normal Attention: Normal Orientation: Alert, oriented Assessment and Plan - Psychiatric problem (1) Major depression Current Visit: Yes Status: Acute Treatment Plan MEDICATIONS: Risks, benefits and alternatives of medications discussed with the patient, questions answered and consent obtained from patient. PSYCHOTHERAPY: Supportive psychotherapy provided MEDICAL: Per primary team DELIRIUM PRECAUTIONS: Please re-orient patient frequently, keep lights on during the day, and minimize benzodiazepines and opiates as these medications could worsen patient's confusion. PYTHON DEVELOPER: DISPOSITION: Do Recommend acute inpatient psychiatric hospitalization at this time LEGAL STATUS: 1013 FOLLOW-UP: Will follow Thank you for the consult. Please contact with any questions and/or concerns. Mental Status Exam - Vital signs Last Vital Signs Temp 98.5 F 02/21/20 04:03 Pulse 74 02/21/20 09:48 Resp 20 02/21/20 09:48 BP 111/52 02/21/20 04:03 Pulse Ox 96 02/21/20 09:47 Assessment and Plan - Patient Problems (1) Major depression Current Visit: Yes Status: Acute
[2020-02-21] MEDS: METOPROLOL TARTRATE 25 MG TAB PO SCH ×2 (11:25→21:30)
[2020-02-21] MEDS: cefTRIAXone/NS 1 GM/50 ML 1 GM/50 ML BAG IV SCH (11:26)
[2020-02-21] MEDS: APIXABAN 5 MG TAB PO SCH ×2 (11:26→21:30)
[2020-02-21] MEDS: CITALOPRAM 20 MG TAB PO SCH (11:26)
--- NOTE | 2020-02-21 14:17 | Progress Note ---
Assessment and Plan [place] exacerbation of CHFpEF (congestive heart failure) Patient placed on diuretics. Will monitor inputs and output and also monitor daily weights. echocardiogram showed preserved EF Pt breathing much better exacerbation hs resolved Cardiology consulted, continue to follow recommendation -- Elevated d-dimer Ultrasound of the lower extremities were negative for DVT. However patient is unable to undergo his CT angiogram because of his size and weight. He has known history of PE in 2019. He has had some mild chest discomfort over the past few days. Patient has been placed on anticoagulation meanwhile with IV heparin. Vascular surgery consulted for input and recommended that patient is likely negative for pulmonary embolism considering the lab work-up. But as we cannot rule out pulmonary embolism and patient is high risks we can continue to treat with anticoagulation, patient can get CTA chest at [place] or [place] following disc harge to confirm the diagnosis. started on eliquis -- Morbid obesity with BMI of 70 and over, adult Dietary consulted, continue cardiac diet for now. pt is willing to change diet --Acute respiratory failure due to CHF exacerbation and obesity hypoventilation syndrome Continue supplemental O2 and BiPAP at bedtime Start on empiric nebulizer breathing treatment -- Hypertension Blood pressure stable with metoprolol 25 bid vital signs stable -- History of major depression Patient on citalopram. remains depreesed psych following -- Cellulitis of lower extremity and lower abdominal wall Patient placed on empiric IV antibiotics. -- DVT prophylaxis Patient on anticoagulation. -- Full code status Subjective Date of service: 02/21/20 Principal diagnosis: HF Interval history: 49-year-old white male with known history of hypertension, recently diagnosed congestive heart failure, pulmonary embolism in 2019 and morbid obesity presented to the emergency room complaining of shortness of breath which started in last 2 days. Patient states he has been bedbound lately and hardly ambulates. He has been having progressive swelling of his lower extremities. Upon evaluation in the emergency room patient was found to have elevated BNP, elevated d-dimer, chest x-ray reveals: Mild cardiomegaly and mild pulmonary vascular congestion likely reflecting CHF. Ultrasound of the lower extremities did not reveal any DVT. Patient has been started on diuretics for CHF exacerbation. CT angiogram could not be done because of patient's size and weight. ER physician was unable to transfer to an outside facility. 02/11; stop heparin drip, appreciate vascular surgery recommendation. will start on eliquis for now. Continue IV Lasix, monitor daily weight and ins and outs, follow 2D echo, cardiology following. Order for CPAP at bedtime 02/12: Remains extensively short of breath even with resting. Continue IV Lasix supplemental oxygen and CPAP at bedtime. Also start on nebulizer breathing treatment. 02/13: cont diuresis, follow 2d echo. PT consulted 02/14: cont supportive care, patient unable to get out of bed, pending PT eval. cont current mx. follow pulmonary recommendation. Preserved Ef on 2d echo 02/15: Pt recommended HH, wheel chair, patient also need home O2 before d/c - CM notified 02/16: planned for d/c but patient currently homeless and staying in hotel, he is unfunded w/o any income. need home O2 and wheel chair on discharge - CM following 02/17: planned for d/c but patient currently homeless and staying in hotel, he is unfunded w/o any income. need home O2 and wheel chair on discharge - CM following. Patient with complaints of shortness of breath today. 02/18: planned for d/c but patient currently homeless and staying in hotel, he is unfunded w/o any income. need home O2 and wheel chair on discharge - CM following. Patient with complaints of shortness of breath today. 02/19; patient was ready to discharge yesterday but after everything is ready; patient claims that he has suicidal thoughts. Patient stated he is suicidal patient currently. Will follow psych recommendation. patient was evaluated by psychiatry. There were thoughts that he did not have a safe discharge plan. Patient was homeless. Stated he no longer had his whole tail. Plans will be made by case management. Patient wants placement in personal skilled nursing. Objective - Constitutional Vitals: Vital Signs - 12hr 02/21/20 02/21/20 02/21/20 04:03 09:47 09:48 Temperature 98.5 F Pulse Rate 67 Pulse Rate [ 74 Bilateral Throughout] Respiratory 20 Rate Respiratory 20 Rate [Bilateral Throughout] Blood Pressure 111/52 O2 Sat by Pulse 96 96 Oximetry General appearance: Present: no acute distress - EENT Eyes: PERRL, EOM intact ENT: hearing intact, clear oral mucosa - Respiratory Respiratory: bilateral: diminished (Obese) - Cardiovascular Rhythm: regular Heart Sounds: Present: S1 & S2. Absent: gallop, rub Extremity abnormal: other (Limited range of motion secondary to morbid obesity) - Gastrointestinal General gastrointestinal: Present: soft, non-tender, normal bowel sounds, other (Morbidly obese) - Musculoskeletal Musculoskeletal: generalized weakness - Neurologic Neurologic: moves all extremities - Psychiatric Psychiatric: appropriate mood/affect, intact judgment & insight, memory intact - Labs CBC & Chem 7: 02/19/20 04:44 02/16/20 10:51 HEART Score - HEART Score Troponin: Troponin T < 0.010 ng/mL (0.00-0.029) 02/13/20 06:48
[2020-02-21] MEDS: ACETAMINOPHEN 325 MG TAB PO PRN (21:30)
[2020-02-22] MEDS: FUROSEMIDE 40 MG/4 ML INJ IV SCH ×2 (05:45→17:41)
[2020-02-22] MEDS: IPRATROPIUM/ALBUTEROL SULFATE 3 ML AMPUL.NEB IH SCH ×3 (08:14→22:02)
[2020-02-22] MEDS: CITALOPRAM 20 MG TAB PO SCH (10:24)
[2020-02-22] MEDS: APIXABAN 5 MG TAB PO SCH ×2 (10:24→21:27)
[2020-02-22] MEDS: METOPROLOL TARTRATE 25 MG TAB PO SCH ×2 (10:24→21:27)
[2020-02-22] MEDS: cefTRIAXone/NS 1 GM/50 ML 1 GM/50 ML BAG IV SCH (10:24)
--- NOTE | 2020-02-22 12:09 | Progress Note ---
Subjective - Reason for Consult Consult date: 02/22/20 Reason for consult: SI - Chief Complaint Chief complaint: During my interview with the patient this morning, he is lying in bed, awake. A sitter is at bedside. The patient is a/o x 3. He reports feeling suicidal, and states "I feel like no one care." He says "I've been there for everyone but no one has been there for me." The patient says "when I tell my cousins, and aunts that I'm depressed they say, we all get down." He denies hallucinations of any kind. The patient "I just started back on my celexa, I hope that helps me." REVIEW OF SYSTEMS Constitutional: Negative for weight loss ENT: Negative for stridor Respiratory: Negative for cough or hemoptysis All other systems reviewed and are negative MENTAL STATUS EXAMINATION General Appearance and Behavior: Age appropriate, good hygiene, wearing appropriate clothes, lying in bed, good eye contact, cooperative polite with questioning. Cooperation: Participating/engaged Psychomotor Behavior: unremarkable and within normal limits Mood: Depressed Affect and affective range: decreased range, depressed, Thought Process: Fluent/Logical Thought Content: Hopelessness, Helplessness Speech: Normal volume, Regular rate and rhythm, Intellectual Functioning: Average Suicidal Ideation: Denies Homicidal Ideation: Denies HI Impulse Control: Unimpaired Insight and Judgment: Normal insight and judgment Memory: Normal Attention: Normal Orientation: Alert, oriented Assessment and Plan (1) Major depression Current Visit: Yes Status: Acute Treatment Plan MEDICATIONS: Start abilify 5mg po daily Risks, benefits and alternatives of medications discussed with the patient, questions answered and consent obtained from patient. PSYCHOTHERAPY: Supportive psychotherapy provided MEDICAL: Per primary team DELIRIUM PRECAUTIONS: Please re-orient patient frequently, keep lights on during the day, and minimize benzodiazepines and opiates as these medications could worsen patient's confusion. 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 Please contact with any questions and/or concerns. Mental Status Exam - Vital signs Last Vital Signs Temp 98.0 F 02/21/20 18:45 Pulse 72 02/22/20 08:10 Resp 14 02/22/20 08:10 BP 119/46 02/21/20 21:30 Pulse Ox 99 02/22/20 09:55
[2020-02-22] MEDS: ARIPiprazole 5 MG TAB PO SCH (13:02)
[2020-02-22] MEDS ORDERED: HYDROCORTISONE 1% CREAM 28.4GM TP ONE (14:00)
--- NOTE | 2020-02-22 14:00 | Progress Note ---
Assessment and Plan [place] exacerbation of CHFpEF (congestive heart failure) Patient placed on diuretics. Will monitor inputs and output and also monitor daily weights. echocardiogram showed preserved EF Pt breathing much better exacerbation hs resolved Cardiology consulted, continue to follow recommendation -- Elevated d-dimer Ultrasound of the lower extremities were negative for DVT. However patient is unable to undergo his CT angiogram because of his size and weight. He has known history of PE in 2019. He has had some mild chest discomfort over the past few days. Patient has been placed on anticoagulation meanwhile with IV heparin. Vascular surgery consulted for input and recommended that patient is likely negative for pulmonary embolism considering the lab work-up. But as we cannot rule out pulmonary embolism and patient is high risks we can continue to treat with anticoagulation, patient can get CTA chest at [place] or [place] following disc harge to confirm the diagnosis. started on eliquis -- Morbid obesity with BMI of 70 and over, adult Dietary consulted, continue cardiac diet for now. pt is willing to change diet --Acute respiratory failure due to CHF exacerbation and obesity hypoventilation syndrome Continue supplemental O2 and BiPAP at bedtime Start on empiric nebulizer breathing treatment -- Hypertension Blood pressure stable with metoprolol 25 bid vital signs stable -- History of major depression Patient on citalopram. remains depreesed psych following -- Cellulitis of lower extremity and lower abdominal wall Patient placed on empiric IV antibiotics. -- DVT prophylaxis Patient on anticoagulation. Pruritus will give hydrocortisone cream. Disposition social service evaluating patient for possible transfer to inpatient psychiatry versus personal prison depending on further psychiatric evaluation. -- Full code status Subjective Date of service: 02/22/20 Principal diagnosis: HF Interval history: 49-year-old white male with known history of hypertension, recently diagnosed congestive heart failure, pulmonary embolism in 2019 and morbid obesity presented to the emergency room complaining of shortness of breath which started in last 2 days. Patient states he has been bedbound lately and hardly ambulates. He has been having progressive swelling of his lower extremities. Upon evaluation in the emergency room patient was found to have elevated BNP, elevated d-dimer, chest x-ray reveals: Mild cardiomegaly and mild pulmonary vascular congestion likely reflecting CHF. Ultrasound of the lower extremities d id not reveal any DVT. Patient has been started on diuretics for CHF exacerbation. CT angiogram could not be done because of patient's size and weight. ER physician was unable to transfer to an outside facility. 02/11; stop heparin drip, appreciate vascular surgery recommendation. will start on eliquis for now. Continue IV Lasix, monitor daily weight and ins and outs, follow 2D echo, cardiology following. Order for CPAP at bedtime 02/12: Remains extensively short of breath even with resting. Continue IV Lasix supplemental oxygen and CPAP at bedtime. Also start on nebulizer breathing perry atment. 02/13: cont diuresis, follow 2d echo. PT consulted 02/14: cont supportive care, patient unable to get out of bed, pending PT eval. cont current mx. follow pulmonary recommendation. Preserved Ef on 2d echo 02/15: Pt recommended HH, wheel chair, patient also need home O2 before d/c - CM notified 02/16: planned for d/c but patient currently homeless and staying in hotel, he is unfunded w/o any income. need home O2 and wheel chair on discharge - CM following 02/17: planned for d/c but patient currently homeless and staying in hotel, he is unfunded w/o any income. need home O2 and wheel chair on discharge - CM following. Patient with complaints of shortness of breath today. 02/18: planned for d/c but patient currently homeless and staying in hotel, he is unfunded w/o any income. need home O2 and wheel chair on discharge - CM following. Patient with complaints of shortness of breath today. 02/19; patient was ready to discharge yesterday but after everything is ready; patient claims that he has suicidal thoughts. Patient stated he is suicidal patient currently. Will follow psych recommendation. patient was evaluated by psychiatry. There were thoughts that he did not have a safe discharge plan. Patient was homeless. Stated he no longer had his whole tail. Plans will be made by case management. Patient wants placement in personal prison. February 22, 2020. Patient complains of suicidal ideations. Being seen by psychiatry. Patient also complains today of itching pruritus. Will awaiting case management evaluation for discharge planning to potential personal prison. Objective - Constitutional Vitals: Vital Signs - 12hr 02/22/20 02/22/20 02/22/20 03:58 08:10 09:55 Temperature 96.6 F L Pulse Rate Pulse Rate [ 72 Bilateral Throughout] Respiratory 20 Rate Respiratory 14 Rate [Bilateral Throughout] Blood Pressure 131/51 Blood Pressure [Right] O2 Sat by Pulse 99 Oximetry 02/22/20 12:48 Temperature 98.1 F Pulse Rate 74 Pulse Rate [ Bilateral Throughout] Respiratory 20 Rate Respiratory Rate [Bilateral Throughout] Blood Pressure Blood Pressure 152/63 [Right] O2 Sat by Pulse 98 Oximetry General appearance: Present: obese - EENT Eyes: PERRL, EOM intact ENT: hearing intact, clear oral mucosa, hearing decreased, other (Decreased hearing in left ear.) - Neck Neck: supple, normal ROM, other (Obese) - Respiratory Respiratory: bilateral: diminished, negative: rhonchi - Breasts Breasts: normal, other (Obese nontender.) - Cardiovascular Rhythm: regular - Gastrointestinal General gastrointestinal: Present: soft, non-tender, non-distended, normal bowel sounds - Musculoskeletal Musculoskeletal: generalized weakness, other (Morbidly obese.) - Neurologic Neurologic: moves all extremities - Psychiatric Psychiatric: appropriate mood/affect, intact judgment & insight, memory intact, depressed - Labs CBC & Chem 7: 02/19/20 04:44 02/16/20 10:51 HEART Score - HEART Score Troponin: Troponin T < 0.010 ng/mL (0.00-0.029) 02/13/20 06:48
--- NOTE | 2020-02-22 16:28 | Progress Note ---
Assessment and Plan Patient alert, awake . Resting on 3 litres O2 and O2 saturation running 98%. Patient goes on CPAP during night time.. Patient afebrile. No leukocytosis. Patient is on APIXABAN. Patient finished course of ceftriaxone to day. - Patient Problems (1) Acute exacerbation of CHF (congestive heart failure) Current Visit: Yes Status: Acute Qualifiers: Heart failure type: unspecified Qualified Code(s): I50.9 - Heart failure, unspecified Plan to address problem: Patient is on Lasix. Management as per cardiology. (2) Cellulitis of lower extremity Current Visit: Yes Status: Acute Plan to address problem: Patient finished couse of ceftriaxone to day. Management as per Primary care and infectious diseases. (3) Elevated d-dimer Current Visit: Yes Status: Acute Plan to address problem: Patient is on APIXABAN (4) History of pulmonary embolism Current Visit: Yes Status: Chronic Plan to address problem: Patient is on APIXABAN. (5) Hypertension Current Visit: Yes Status: Chronic Plan to address problem: Management as per primary care. (6) Morbid obesity with BMI of 70 and over, adult Current Visit: Yes Status: Chronic Plan to address problem: Recommend to loose weight. Diet and exercise. Recommend sleep study as out patient. (7) GURPREET (obstructive sleep apnea) Current Visit: Yes Status: Suspected Plan to address problem: BIPAP during night time. Subjective Date of service: 02/22/20 Principal diagnosis: HF Interval history: Patient alert, awake . Resting on 3 litres O2 and O2 saturation running 98%. Patient goes on CPAP during night time.. Patient afebrile. No leukocytosis. Patient is on APIXABAN. Patient finished course of ceftriaxone to day. Objective Vital Signs - 12hr 02/22/20 02/22/20 02/22/20 08:10 09:55 12:48 Temperature 98.1 F Pulse Rate 74 Pulse Rate [ 72 Bilateral Throughout] Respiratory 20 Rate Respiratory 14 Rate [Bilateral Throughout] Blood Pressure 152/63 [Right] O2 Sat by Pulse 99 98 Oximetry 02/22/20 14:27 Temperature Pulse Rate Pulse Rate [ 75 Bilateral Throughout] Respiratory Rate Respiratory 20 Rate [Bilateral Throughout] Blood Pressure [Right] O2 Sat by Pulse Oximetry Constitutional: no acute distress, alert Eyes: non-icteric ENT: oropharynx moist Neck: supple, no JVD Effort: mildly labored Ascultation: Bilateral: rales Cardiovascular: regular rate and rhythm Gastrointestinal: normoactive bowel sounds, soft, non-tender Integumentary: normal Extremities: no cyanosis, no edema Neurologic: normal mental status, non-focal exam, pupils equal and round, CN II- XII normal Psychiatric: mood appropriate CBC and BMP: 02/19/20 04:44 02/16/20 10:51 ABG, PT/INR, D-dimer: ABG ABG pH 7.409 pH Units (7.350-7.450) 02/18/20 10:10 ABG pCO2 62.7 mm Hg 02/18/20 10:10 ABG pO2 69.3 mm Hg (80.0-90.0) L 02/18/20 10:10 ABG O2 Saturation 95.9 % (95.0-99.0) 02/18/20 10:10 PT/INR, D-dimer PT 14.5 Sec. (12.2-14.9) 02/13/20 06:48 INR 1.11 (0.87-1.13) 02/13/20 06:48 D-Dimer 684.16 ng/mlDDU (0-234) H 02/11/20 21:38 Abnormal lab findings: Abnormal Labs 02/11/20 02/11/20 02/11/20 21:38 21:38 21:38 Hgb 11.5 L Hct 34.5 L RDW 17.5 H Plt Count Lymph % (Auto) 8.3 L Lymph # (Auto) 0.9 L Seg Neutrophils % 83.2 H Seg Neutrophils # 8.8 H PT INR APTT D-Dimer 684.16 H Heparin Anti-Xa Level ABG pO2 ABG HCO3 ABG Base Excess ABG Hemoglobin Oxyhemoglobin Chloride 97.3 L Carbon Dioxide 32 H Creatinine 0.4 L Glucose 115 H POC Glucose Albumin 2.8 L 02/12/20 02/12/20 02/12/20 00:16 11:16 11:53 Hgb Hct RDW Plt Count Lymph % (Auto) Lymph # (Auto) Seg Neutrophils % Seg Neutrophils # PT 10.9 L INR 0.77 L APTT 20.7 L D-Dimer Heparin Anti-Xa Level < 0.10 L ABG pO2 ABG HCO3 ABG Base Excess ABG Hemoglobin Oxyhemoglobin Chloride Carbon Dioxide Creatinine Glucose POC Glucose 114 H Albumin 02/12/20 02/12/20 02/13/20 15:50 19:04 06:48 Hgb 11.1 L Hct 33.1 L RDW 17.3 H Plt Count Lymph % (Auto) 11.3 L Lymph # (Auto) 1.0 L Seg Neutrophils % 77.8 H Seg Neutrophils # PT INR APTT D-Dimer Heparin Anti-Xa Level 1.44 H ABG pO2 ABG HCO3 ABG Base Excess ABG Hemoglobin Oxyhemoglobin Chloride Carbon Dioxide Creatinine Glucose POC Glucose 135 H Albumin 02/13/20 02/15/20 02/15/20 06:48 07:36 07:36 Hgb 11.4 L Hct 34.9 L RDW Plt Count Lymph % (Auto) Lymph # (Auto) Seg Neutrophils % Seg Neutrophils # PT INR APTT D-Dimer Heparin Anti-Xa Level ABG pO2 ABG HCO3 ABG Base Excess ABG Hemoglobin Oxyhemoglobin Chloride 96.6 L 95.9 L Carbon Dioxide 37 H 38 H Creatinine 0.5 L 0.4 L Glucose 126 H POC Glucose Albumin 02/16/20 02/17/20 02/18/20 10:51 05:49 10:10 Hgb 11.4 L Hct 34.7 L RDW Plt Count 445 H Lymph % (Auto) Lymph # (Auto) Seg Neutrophils % Seg Neutrophils # PT INR APTT D-Dimer Heparin Anti-Xa Level ABG pO2 69.3 L ABG HCO3 38.8 H ABG Base Excess 11.9 H ABG Hemoglobin 11.9 L Oxyhemoglobin 93.9 L Chloride 95.4 L Carbon Dioxide 37 H Creatinine 0.4 L Glucose POC Glucose Albumin 02/19/20 04:44 Hgb 11.5 L Hct 34.1 L RDW Plt Count Lymph % (Auto) Lymph # (Auto) Seg Neutrophils % Seg Neutrophils # PT INR APTT D-Dimer Heparin Anti-Xa Level ABG pO2 ABG HCO3 ABG Base Excess ABG Hemoglobin Oxyhemoglobin Chloride Carbon Dioxide Creatinine Glucose POC Glucose Albumin
[2020-02-23] MEDS: FUROSEMIDE 40 MG/4 ML INJ IV SCH ×3 (05:51→18:12)
[2020-02-23] MEDS: IPRATROPIUM/ALBUTEROL SULFATE 3 ML AMPUL.NEB IH SCH ×3 (08:09→21:17)
--- NOTE | 2020-02-23 10:41 | Progress Note ---
Assessment and Plan Patient alert, awake . Resting on 2 litres O2 and O2 saturation running 94%. Patient goes on CPAP during night time. Patient afebrile. No leukocytosis. Patient is on APIXABAN. Patient finished course of ceftriaxone . - Patient Problems (1) Acute exacerbation of CHF (congestive heart failure) Current Visit: Yes Status: Acute Qualifiers: Heart failure type: unspecified Qualified Code(s): I50.9 - Heart failure, unspecified Plan to address problem: Patient is on Lasix. Management as per cardiology. (2) Cellulitis of lower extremity Current Visit: Yes Status: Acute Plan to address problem: Patient finished couse of ceftriaxone . Management as per Primary care and infectious diseases. (3) Elevated d-dimer Current Visit: Yes Status: Acute Plan to address problem: Patient is on APIXABAN (4) History of pulmonary embolism Current Visit: Yes Status: Chronic Plan to address problem: Patient is on APIXABAN. (5) Hypertension Current Visit: Yes Status: Chronic Plan to address problem: Management as per primary care. (6) Morbid obesity with BMI of 70 and over, adult Current Visit: Yes Status: Chronic Plan to address problem: Recommend to loose weight. Diet and exercise. Recommend sleep study as out patient. (7) GURPREET (obstructive sleep apnea) Current Visit: Yes Status: Suspected Plan to address problem: BIPAP during night time. Subjective Date of service: 02/23/20 Principal diagnosis: HF Interval history: Patient alert, awake . Resting on 2 litres O2 and O2 saturation running 94%. Patient goes on CPAP during night time. Patient afebrile. No leukocytosis. Patient is on APIXABAN. Patient finished course of ceftriaxone . Objective Vital Signs - 12hr 02/22/20 02/23/20 02/23/20 23:04 00:49 04:07 Temperature 98.6 F 98.6 F Pulse Rate 77 86 68 Pulse Rate [ Bilateral Throughout] Respiratory 18 23 18 Rate Respiratory Rate [Bilateral Throughout] Blood Pressure 130/50 126/57 O2 Sat by Pulse 94 98 91 Oximetry 02/23/20 02/23/20 02/23/20 08:08 08:09 08:30 Temperature 98.4 F Pulse Rate 76 Pulse Rate [ 75 Bilateral Throughout] Respiratory 18 Rate Respiratory 18 Rate [Bilateral Throughout] Blood Pressure 124/49 O2 Sat by Pulse 96 94 Oximetry Constitutional: no acute distress, alert Eyes: non-icteric ENT: oropharynx moist Neck: supple, no JVD Effort: mildly labored Ascultation: Bilateral: rales Cardiovascular: regular rate and rhythm Gastrointestinal: normoactive bowel sounds, soft, non-tender Integumentary: normal Extremities: no cyanosis, no edema Neurologic: normal mental status, non-focal exam, pupils equal and round, CN II- XII normal Psychiatric: mood appropriate CBC and BMP: 02/19/20 04:44 02/16/20 10:51 ABG, PT/INR, D-dimer: ABG ABG pH 7.409 pH Units (7.350-7.450) 02/18/20 10:10 ABG pCO2 62.7 mm Hg 02/18/20 10:10 ABG pO2 69.3 mm Hg (80.0-90.0) L 02/18/20 10:10 ABG O2 Saturation 95.9 % (95.0-99.0) 02/18/20 10:10 PT/INR, D-dimer PT 14.5 Sec. (12.2-14.9) 02/13/20 06:48 INR 1.11 (0.87-1.13) 02/13/20 06:48 D-Dimer 684.16 ng/mlDDU (0-234) H 02/11/20 21:38 Abnormal lab findings: Abnormal Labs 02/11/20 02/11/20 02/11/20 21:38 21:38 21:38 Hgb 11.5 L Hct 34.5 L RDW 17.5 H Plt Count Lymph % (Auto) 8.3 L Lymph # (Auto) 0.9 L Seg Neutrophils % 83.2 H Seg Neutrophils # 8.8 H PT INR APTT D-Dimer 684.16 H Heparin Anti-Xa Level ABG pO2 ABG HCO3 ABG Base Excess ABG Hemoglobin Oxyhemoglobin Chloride 97.3 L Carbon Dioxide 32 H Creatinine 0.4 L Glucose 115 H POC Glucose Albumin 2.8 L 02/12/20 02/12/20 02/12/20 00:16 11:16 11:53 Hgb Hct RDW Plt Count Lymph % (Auto) Lymph # (Auto) Seg Neutrophils % Seg Neutrophils # PT 10.9 L INR 0.77 L APTT 20.7 L D-Dimer Heparin Anti-Xa Level < 0.10 L ABG pO2 ABG HCO3 ABG Base Excess ABG Hemoglobin Oxyhemoglobin Chloride Carbon Dioxide Creatinine Glucose POC Glucose 114 H Albumin 02/12/20 02/12/20 02/13/20 15:50 19:04 06:48 Hgb 11.1 L Hct 33.1 L RDW 17.3 H Plt Count Lymph % (Auto) 11.3 L Lymph # (Auto) 1.0 L Seg Neutrophils % 77.8 H Seg Neutrophils # PT INR APTT D-Dimer Heparin Anti-Xa Level 1.44 H ABG pO2 ABG HCO3 ABG Base Excess ABG Hemoglobin Oxyhemoglobin Chloride Carbon Dioxide Creatinine Glucose POC Glucose 135 H Albumin 02/13/20 02/15/20 02/15/20 06:48 07:36 07:36 Hgb 11.4 L Hct 34.9 L RDW Plt Count Lymph % (Auto) Lymph # (Auto) Seg Neutrophils % Seg Neutrophils # PT INR APTT D-Dimer Heparin Anti-Xa Level ABG pO2 ABG HCO3 ABG Base Excess ABG Hemoglobin Oxyhemoglobin Chloride 96.6 L 95.9 L Carbon Dioxide 37 H 38 H Creatinine 0.5 L 0.4 L Glucose 126 H POC Glucose Albumin 02/16/20 02/17/20 02/18/20 10:51 05:49 10:10 Hgb 11.4 L Hct 34.7 L RDW Plt Count 445 H Lymph % (Auto) Lymph # (Auto) Seg Neutrophils % Seg Neutrophils # PT INR APTT D-Dimer Heparin Anti-Xa Level ABG pO2 69.3 L ABG HCO3 38.8 H ABG Base Excess 11.9 H ABG Hemoglobin 11.9 L Oxyhemoglobin 93.9 L Chloride 95.4 L Carbon Dioxide 37 H Creatinine 0.4 L Glucose POC Glucose Albumin 02/19/20 04:44 Hgb 11.5 L Hct 34.1 L RDW Plt Count Lymph % (Auto) Lymph # (Auto) Seg Neutrophils % Seg Neutrophils # PT INR APTT D-Dimer Heparin Anti-Xa Level ABG pO2 ABG HCO3 ABG Base Excess ABG Hemoglobin Oxyhemoglobin Chloride Carbon Dioxide Creatinine Glucose POC Glucose Albumin
--- NOTE | 2020-02-23 10:45 | Progress Note ---
Assessment and Plan Assessment and plan: Acute exacerbation of HFpEF Continue on diuretics. Will monitor inputs and output and also monitor daily weights. echocardiogram showed preserved EF Cardiology consulted, continue to follow recommendation -- Elevated d-dimer Ultrasound of the lower extremities were negative for DVT. However patient is unable to undergo his CT angiogram because of his size and weight. He has known history of PE in 2019. He has had some mild chest discomfort over the past few days. Patient has been placed on anticoagulation meanwhile with IV heparin. Vascular surgery consulted for input and recommended that patient is likely negative for pulmonary embolism considering the lab work-up. But as we cannot rule out pulmonary embolism and patient is high risks we can continue to treat with anticoagulation, patient can get CTA chest at [facility] or [place] following discharge to confirm the diagnosis. started on eliquis -- Morbid obesity with BMI of 70 and over, adult Dietary consulted, continue cardiac diet for now. pt is willing to change diet --Acute hypoxic respiratory failure Etiology secondary to CHF exacerbation and obesity hypoventilation syndrome Continue supplemental O2 and BiPAP at bedtime Start on empiric nebulizer breathing treatment -- Hypertension Blood pressure stable with metoprolol 25 bid vital signs stable -- History of major depression Patient on citalopram. remains depressed psych following -- Cellulitis of lower extremity and lower abdominal wall Patient placed on empiric IV antibiotics. -- DVT prophylaxis Patient on anticoagulation. -- Disposition social service evaluating patient for possible transfer to inpatient psychiatry versus personal half-way depending on further psychiatric evaluation. -- Full code status History Interval history: No new issues overnight. Hospitalist Physical - Constitutional Vitals: Temp Pulse Resp BP Pulse Ox 98.4 F 76 18 124/49 94 02/23/20 08:30 02/23/20 08:30 02/23/20 08:30 02/23/20 08:30 02/23/20 08:30 General appearance: Present: obese - EENT Eyes: Present: PERRL, EOM intact ENT: hearing intact, clear oral mucosa, dentition normal - Neck Neck: Present: supple, normal ROM - Respiratory Respiratory effort: normal Respiratory: bilateral: CTA - Cardiovascular Rhythm: regular Heart Sounds: Present: S1 & S2. Absent: gallop, rub - Extremities Extremities: no ischemia, No edema, Full ROM - Abdominal General gastrointestinal: soft, non-tender, non-distended, normal bowel sounds - Integumentary Integumentary: Present: clear, warm, dry - Neurologic Neurologic: CNII-XII intact, moves all extremities HEART Score - HEART Score Troponin: Troponin T < 0.010 ng/mL (0.00-0.029) 02/13/20 06:48 Results - Labs CBC & Chem 7: 02/19/20 04:44 02/16/20 10:51 Labs: Laboratory Last Values WBC 8.7 K/mm3 (4.5-11.0) 02/13/20 06:48 RBC 3.69 M/mm3 (3.65-5.03) 02/13/20 06:48 Hgb 11.5 gm/dl (11.8-15.2) L 02/19/20 04:44 Hct 34.1 % (35.5-45.6) L 02/19/20 04:44 MCV 90 fl (84-94) 02/13/20 06:48 MCH 30 pg (28-32) 02/13/20 06:48 MCHC 34 % (32-34) 02/13/20 06:48 RDW 17.3 % (13.2-15.2) H 02/13/20 06:48 Plt Count 415 K/mm3 (140-440) 02/19/20 04:44 Lymph % (Auto) 11.3 % (13.4-35.0) L 02/13/20 06:48 Bates % (Auto) 6.8 % (0.0-7.3) 02/13/20 06:48 Eos % (Auto) 4.0 % (0.0-4.3) 02/13/20 06:48 Baso % (Auto) 0.1 % (0.0-1.8) 02/13/20 06:48 Lymph # (Auto) 1.0 K/mm3 (1.2-5.4) L 02/13/20 06:48 Bates # (Auto) 0.6 K/mm3 (0.0-0.8) 02/13/20 06:48 Eos # (Auto) 0.3 K/mm3 (0.0-0.4) 02/13/20 06:48 Baso # (Auto) 0.0 K/mm3 (0.0-0.1) 02/13/20 06:48 Seg Neutrophils % 77.8 % (40.0-70.0) H 02/13/20 06:48 Seg Neutrophils # 6.7 K/mm3 (1.8-7.7) 02/13/20 06:48 PT 14.5 Sec. (12.2-14.9) 02/13/20 06:48 INR 1.11 (0.87-1.13) 02/13/20 06:48 APTT 20.7 Sec. (24.2-36.6) L 02/12/20 00:16 D-Dimer 684.16 ng/mlDDU (0-234) H 02/11/20 21:38 Heparin Anti-Xa Level 1.44 U.I./ml (0.3-0.7) H 02/12/20 19:04 ABG pH 7.409 pH Units (7.350-7.450) 02/18/20 10:10 ABG pCO2 62.7 mm Hg 02/18/20 10:10 ABG pO2 69.3 mm Hg (80.0-90.0) L 02/18/20 10:10 ABG HCO3 38.8 mmol/L (20.0-26.0) H 02/18/20 10:10 ABG O2 Saturation 95.9 % (95.0-99.0) 02/18/20 10:10 ABG O2 Content 15.7 (0.0-44) 02/18/20 10:10 ABG Base Excess 11.9 mmol/L (-2.0-3.0) H 02/18/20 10:10 ABG Hemoglobin 11.9 gm/dl (14.0-18.0) L 02/18/20 10:10 ABG Carboxyhemoglobin 1.7 % (0.0-5.0) 02/18/20 10:10 ABG Methemoglobin 0.4 % (0.0-1.5) 02/18/20 10:10 Oxyhemoglobin 93.9 % (95.0-99.0) L 02/18/20 10:10 FiO2 21 % 02/18/20 10:10 Sodium 143 mmol/L (137-145) 02/16/20 10:51 Potassium 4.4 mmol/L (3.6-5.0) D 02/16/20 10:51 Chloride 95.4 mmol/L (98-107) L 02/16/20 10:51 Carbon Dioxide 37 mmol/L (22-30) H 02/16/20 10:51 Anion Gap 15 mmol/L 02/16/20 10:51 BUN 12 mg/dL (9-20) 02/16/20 10:51 Creatinine 0.4 mg/dL (0.8-1.3) L 02/16/20 10:51 Estimated GFR > 60 ml/min 02/16/20 10:51 BUN/Creatinine Ratio 30 % 02/16/20 10:51 Glucose 98 mg/dL (75-100) 02/16/20 10:51 POC Glucose 135 (70-105) H 02/12/20 15:50 Calcium 8.6 mg/dL (8.4-10.2) 02/16/20 10:51 Total Bilirubin 0.20 mg/dL (0.1-1.2) 02/11/20 21:38 AST 24 units/L (5-40) 02/11/20 21:38 ALT 14 units/L (7-56) 02/11/20 21:38 Alkaline Phosphatase 86 units/L (35-129) 02/11/20 21:38 Total Creatine Kinase 71 units/L (55-170) 02/11/20 21:38 CK-MB (CK-2) 1.3 ng/mL (0.0-4.0) 02/11/20 21:38 CK-MB (CK-2) Rel Index 1.8 (0-4) 02/11/20 21:38 Troponin T < 0.010 ng/mL (0.00-0.029) 02/13/20 06:48 NT-Pro-B Natriuret Pep 464.7 pg/mL (0-900) 02/11/20 21:38 Total Protein 6.6 g/dL (6.3-8.2) 02/11/20 21:38 Albumin 2.8 g/dL (3.9-5) L 02/11/20 21:38 Albumin/Globulin Ratio 0.7 % 02/11/20 21:38 Vancomycin Trough 12.3 ug/mL (5.0-20.0) 02/13/20 13:16 - Diagnostic Impressions Diagnostic Impressions: Echocardiogram 02/12/20 00:26 Transthoracic Echocardiogram Indication: SOB BP: 128/64 HR: 88 Conclusions *Mild concentric left ventricular hypertrophy is observed. *Global left ventricular wall motion and contractility are within normal limits. *The estimated ejection fraction is 50-55%. *Abnormal left ventricular diastolic filling is observed, consistent with impaired relaxation. *There is no pericardial effusion. Findings Left Ventricle: The left ventricular chamber size is normal. Mild concentric left ventricular hypertrophy is observed. Global left ventricular wall motion and contractility are within normal limits. Global left ventricular systolic function is normal. The estimated ejection fraction is 50-55%. Abnormal left ventricular diastolic filling is observed, consistent with impaired relaxation. Right Ventricle: The right ventricle is not well visualized. Right Atrium: The right atrium is not well visualized. Aortic Valve: The aortic valve structure is normal. Mitral Valve: The mitral valve leaflets are mildly thickened. There is no evidence of mitral regurgitation. Tricuspid Valve: The tricuspid valve leaflets are normal. There is trace tricuspid regurgitation. The right ventricular systolic pressure is calculated at 30 mmHg. Pulmonic Valve: The pulmonic valve appears normal. Pericardium: There is no pericardial effusion. Aorta: The aorta appears normal. Venous: The inferior vena cava is not visualized. Contrast: Intravenous contrast was used to enhance endocardial border definition. Measurements Chambers 2D Name Value Normal Range IVSd (2D) 1.32 cm (0.6 - 1.1) LVPWd (2D) 1.37 cm (0.6 - 1.1) LVIDd (2D) 4.95 cm (3.7 - 5.6) LVIDs (2D) 3.75 cm (2 - 3.8) LV FS (2D) 24.3 % - EF Teichholz (2D) 48.13 % - Ao root diameter (2D) 3.62 cm (2 - 3.7) Diastolic/Systolic Function Name Value Normal Range MV E-wave Vmax 0.91 m/sec - MV deceleration time 174.88 msec - MV A-wave Vmax 0.54 m/sec - MV E:A ratio 1.7 ratio - Aortic Valve Name Value Normal Range AV Vmax 1.62 m/sec - AV VTI 35.52 cm - AV peak gradient 10.49 mmHg - AV mean gradient 7.64 mmHg - LVOT diameter 2.16 cm - LVOT Vmax 1.42 m/sec - LVOT VTI 23.46 cm - LVOT peak gradient 8.11 mmHg - LVOT mean gradient 5.79 mmHg - SV LVOT 86.16 ml - IRENE (continuity Vmax) 3.23 cm2 - IRENE (continuity VTI) 2.43 cm2 - Tricuspid Valve Name Value Normal Range TR Vmax 2.62 m/sec - TR peak gradient 27 mmHg - RAP 3 mmHg - RVSP 30 mmHg - Pulmonic Valve/Qp:Qs Name Value Normal Range PV Vmax 1.23 m/sec - PV peak gradient 6 mmHg - PV acceleration time 91.34 msec - Peralta/IV: Voiding Method External Female Catheter IV Catheter Type [Left Forearm INT / Saline Lock ] IV Catheter Type [Left Upper INT / Saline Lock arm] Active Medications - Current Medications Current Medications: Generic Name Dose Route Start Last Admin Trade Name Freq PRN Reason Stop Dose Admin Acetaminophen 650 mg 02/12/20 00:23 02/21/20 21:30 Tylenol PO 650 mg Q4H PRN Administration Pain MILD(1-3)/Fever >100.5/LUIS Albuterol/Ipratropium 1 ampul 02/15/20 08:00 02/23/20 08:09 Duoneb *Not For Prn Use* IH 1 ampul TIDRT MICHAEL Administration Apixaban 5 mg 02/19/20 10:00 02/22/20 21:27 Eliquis PO 5 mg Q12HR MICHAEL Administration Aripiprazole 5 mg 02/22/20 13:00 02/22/20 13:02 Aripiprazole PO 5 mg QDAY MICHAEL Administration Citalopram Hydrobromide 40 mg 02/16/20 11:00 02/22/20 10:24 Celexa PO 40 mg QDAY MICHAEL Administration Furosemide 40 mg 02/12/20 06:00 02/23/20 05:51 Lasix IV 40 mg BID@0600,1800 MICHAEL Administration Magnesium Hydroxide 30 ml 02/12/20 00:23 Milk Of Magnesia PO Q4H PRN Constipation Metoprolol Tartrate 25 mg 02/12/20 22:00 02/22/20 21:27 Metoprolol PO 25 mg BID MICHAEL Administration Ondansetron HCl 4 mg 02/12/20 00:23 Zofran IV Q8H PRN Nausea And Vomiting Sodium Chloride 10 ml 10/02/20 10:00 02/22/20 21:27 Sodium Chloride Flush Syringe 10 Ml IV 10 ml BID MICHAEL Administration Sodium Chloride 10 ml 02/12/20 00:23 02/22/20 05:45 Sodium Chloride Flush Syringe 10 Ml IV 10 ml PRN PRN Administration LINE FLUSH Nutrition/Malnutrition Assess - Dietary Evaluation Nutrition/Malnutrition Findings: Nutrition Notes Start: 02/12/20 13:57 Freq: Status: Active Protocol: Document 02/18/20 07:25 LP (Rec: 02/19/20 07:26 LP [id number]) Nutrition Notes Need for Assessment generated from: LOS Initial or Follow up Brief Note Subjective/Other Information Screen for LOS. Pt consuming 100% of meals. Nutrition Intervention Revisit per MD consult or patient Sign Off request:
[2020-02-23] MEDS: APIXABAN 5 MG TAB PO SCH ×2 (10:47→21:37)
[2020-02-23] MEDS: ARIPiprazole 5 MG TAB PO SCH (10:47)
[2020-02-23] MEDS: METOPROLOL TARTRATE 25 MG TAB PO SCH ×2 (10:47→21:36)
[2020-02-23] MEDS: CITALOPRAM 20 MG TAB PO SCH (10:47)
--- NOTE | 2020-02-23 11:25 | Progress Note ---
Subjective - Reason for Consult Consult date: 02/23/20 Reason for consult: SI - Chief Complaint Chief complaint: During my interview with the patient this morning, he is lying in bed, awake. A sitter is at bedside. The patient is a/o x 3. The patient states he is "feeling no different than yesterday." He says, "I'm just hopeless and done with everything." He says, "I'm just struggling with it all and I don't like feeling like this." REVIEW OF SYSTEMS Constitutional: Negative for weight loss ENT: Negative for stridor Respiratory: Negative for cough or hemoptysis All other systems reviewed and are negative MENTAL STATUS EXAMINATION General Appearance and Behavior: Age appropriate, good hygiene, wearing appropriate clothes, lying in bed, good eye contact, cooperative polite with questioning. Cooperation: Participating/engaged Psychomotor Behavior: unremarkable and within normal limits Mood: Depressed Affect and affective range: Restricted Thought Process: Fluent/Logical Thought Content: Hopelessness, Helplessness Speech: Normal volume, Regular rate and rhythm, Intellectual Functioning: Average Suicidal Ideation: Denies Homicidal Ideation: Denies HI Impulse Control: Unimpaired Insight and Judgment: Normal insight and judgment Memory: Normal Attention: Normal Orientation: Alert, oriented Assessment and Plan (1) Major depression Current Visit: Yes Status: Acute Treatment Plan MEDICATIONS: Increase abilify 10mg po daily Risks, benefits and alternatives of medications discussed with the patient, questions answered and consent obtained from patient. PSYCHOTHERAPY: Supportive psychotherapy provided MEDICAL: Per primary team DELIRIUM PRECAUTIONS: Please re-orient patient frequently, keep lights on during the day, and minimize benzodiazepines and opiates as these medications could worsen patient's confusion. ADMINISTRATIVE SUPPORT TECHNICIAN: DISPOSITION: Recommend acute inpatient psychiatric hospitalization LEGAL STATUS: 1013 FOLLOW-UP: Will follow Thank you for the consult. Please contact with any questions and/or concerns. Mental Status Exam - Vital signs Last Vital Signs Temp 98.4 F 02/23/20 08:30 Pulse 76 02/23/20 10:47 Resp 18 02/23/20 08:30 BP 124/49 02/23/20 10:47 Pulse Ox 94 02/23/20 08:30
[2020-02-24] MEDS: FUROSEMIDE 40 MG/4 ML INJ IV SCH ×2 (05:21→18:37)
--- NOTE | 2020-02-24 09:13 | Progress Note ---
Assessment and Plan Assessment and plan: Acute exacerbation of HFpEF Continue on diuretics. Will monitor inputs and output and also monitor daily weights. echocardiogram showed preserved EF Cardiology consulted, continue to follow recommendation -- Elevated d-dimer Ultrasound of the lower extremities were negative for DVT. However patient is unable to undergo his CT angiogram because of his size and weight. He has known history of PE in 2019. He has had some mild chest discomfort over the past few days. Patient has been placed on anticoagulation meanwhile with IV heparin. Vascular surgery consulted for input and recommended that patient is likely negative for pulmonary embolism considering the lab work-up. But as we cannot rule out pulmonary embolism and patient is high risks we can continue to treat with anticoagulation, patient can get CTA chest at [facility] [place] or [facility] following discharge to confirm the diagnosis. started on eliquis -- Morbid obesity with BMI of 70 and over, adult Dietary consulted, continue cardiac diet for now. pt is willing to change diet --Acute hypoxic respiratory failure Etiology secondary to CHF exacerbation and obesity hypoventilation syndrome Continue supplemental O2 and BiPAP at bedtime Start on empiric nebulizer breathing treatment -- Hypertension Blood pressure stable with metoprolol 25 bid vital signs stable -- History of major depression Patient on citalopram. remains depressed psych following -- Cellulitis of lower extremity and lower abdominal wall Patient placed on empiric IV antibiotics. -- DVT prophylaxis Patient on anticoagulation. -- Disposition social service evaluating patient for possible transfer to inpatient psychiatry versus personal group home depending on further psychiatric evaluation. -- Full code status 02/24/2020. Continue to evaluate for possible inpatient psychiatry per recommendations. Continue 1013. History Interval history: No new issues overnight. Hospitalist Physical - Constitutional Vitals: Temp Pulse Resp BP Pulse Ox 98.1 F 72 18 117/61 96 02/24/20 08:06 02/24/20 08:06 02/24/20 08:06 02/24/20 08:06 02/24/20 08:06 General appearance: Present: obese - EENT Eyes: Present: PERRL, EOM intact ENT: hearing intact, clear oral mucosa, dentition normal - Neck Neck: Present: supple, normal ROM - Respiratory Respiratory effort: normal Respiratory: bilateral: CTA - Cardiovascular Rhythm: regular Heart Sounds: Present: S1 & S2. Absent: gallop, rub - Extremities Extremities: no ischemia, No edema, Full ROM - Abdominal General gastrointestinal: soft, non-tender, non-distended, normal bowel sounds - Integumentary Integumentary: Present: clear, warm, dry - Neurologic Neurologic: CNII-XII intact, moves all extremities HEART Score - HEART Score Troponin: Troponin T < 0.010 ng/mL (0.00-0.029) 02/13/20 06:48 Results - Labs CBC & Chem 7: 02/19/20 04:44 02/16/20 10:51 Labs: Laboratory Last Values WBC 8.7 K/mm3 (4.5-11.0) 02/13/20 06:48 RBC 3.69 M/mm3 (3.65-5.03) 02/13/20 06:48 Hgb 11.5 gm/dl (11.8-15.2) L 02/19/20 04:44 Hct 34.1 % (35.5-45.6) L 02/19/20 04:44 MCV 90 fl (84-94) 02/13/20 06:48 MCH 30 pg (28-32) 02/13/20 06:48 MCHC 34 % (32-34) 02/13/20 06:48 RDW 17.3 % (13.2-15.2) H 02/13/20 06:48 Plt Count 415 K/mm3 (140-440) 02/19/20 04:44 Lymph % (Auto) 11.3 % (13.4-35.0) L 02/13/20 06:48 [place] % (Auto) 6.8 % (0.0-7.3) 02/13/20 06:48 Eos % (Auto) 4.0 % (0.0-4.3) 02/13/20 06:48 Baso % (Auto) 0.1 % (0.0-1.8) 02/13/20 06:48 Lymph # (Auto) 1.0 K/mm3 (1.2-5.4) L 02/13/20 06:48 [place] # (Auto) 0.6 K/mm3 (0.0-0.8) 02/13/20 06:48 Eos # (Auto) 0.3 K/mm3 (0.0-0.4) 02/13/20 06:48 Baso # (Auto) 0.0 K/mm3 (0.0-0.1) 02/13/20 06:48 Seg Neutrophils % 77.8 % (40.0-70.0) H 02/13/20 06:48 Seg Neutrophils # 6.7 K/mm3 (1.8-7.7) 02/13/20 06:48 PT 14.5 Sec. (12.2-14.9) 02/13/20 06:48 INR 1.11 (0.87-1.13) 02/13/20 06:48 APTT 20.7 Sec. (24.2-36.6) L 02/12/20 00:16 D-Dimer 684.16 ng/mlDDU (0-234) H 02/11/20 21:38 Heparin Anti-Xa Level 1.44 U.I./ml (0.3-0.7) H 02/12/20 19:04 ABG pH 7.409 pH Units (7.350-7.450) 02/18/20 10:10 ABG pCO2 62.7 mm Hg 02/18/20 10:10 ABG pO2 69.3 mm Hg (80.0-90.0) L 02/18/20 10:10 ABG HCO3 38.8 mmol/L (20.0-26.0) H 02/18/20 10:10 ABG O2 Saturation 95.9 % (95.0-99.0) 02/18/20 10:10 ABG O2 Content 15.7 (0.0-44) 02/18/20 10:10 ABG Base Excess 11.9 mmol/L (-2.0-3.0) H 02/18/20 10:10 ABG Hemoglobin 11.9 gm/dl (14.0-18.0) L 02/18/20 10:10 ABG Carboxyhemoglobin 1.7 % (0.0-5.0) 02/18/20 10:10 ABG Methemoglobin 0.4 % (0.0-1.5) 02/18/20 10:10 Oxyhemoglobin 93.9 % (95.0-99.0) L 02/18/20 10:10 FiO2 21 % 02/18/20 10:10 Sodium 143 mmol/L (137-145) 02/16/20 10:51 Potassium 4.4 mmol/L (3.6-5.0) D 02/16/20 10:51 Chloride 95.4 mmol/L (98-107) L 02/16/20 10:51 Carbon Dioxide 37 mmol/L (22-30) H 02/16/20 10:51 Anion Gap 15 mmol/L 02/16/20 10:51 BUN 12 mg/dL (9-20) 02/16/20 10:51 Creatinine 0.4 mg/dL (0.8-1.3) L 02/16/20 10:51 Estimated GFR > 60 ml/min 02/16/20 10:51 BUN/Creatinine Ratio 30 % 02/16/20 10:51 Glucose 98 mg/dL (75-100) 02/16/20 10:51 POC Glucose 135 (70-105) H 02/12/20 15:50 Calcium 8.6 mg/dL (8.4-10.2) 02/16/20 10:51 Total Bilirubin 0.20 mg/dL (0.1-1.2) 02/11/20 21:38 AST 24 units/L (5-40) 02/11/20 21:38 ALT 14 units/L (7-56) 02/11/20 21:38 Alkaline Phosphatase 86 units/L (35-129) 02/11/20 21:38 Total Creatine Kinase 71 units/L (55-170) 02/11/20 21:38 CK-MB (CK-2) 1.3 ng/mL (0.0-4.0) 02/11/20 21:38 CK-MB (CK-2) Rel Index 1.8 (0-4) 02/11/20 21:38 Troponin T < 0.010 ng/mL (0.00-0.029) 02/13/20 06:48 NT-Pro-B Natriuret Pep 464.7 pg/mL (0-900) 02/11/20 21:38 Total Protein 6.6 g/dL (6.3-8.2) 02/11/20 21:38 Albumin 2.8 g/dL (3.9-5) L 02/11/20 21:38 Albumin/Globulin Ratio 0.7 % 02/11/20 21:38 Vancomycin Trough 12.3 ug/mL (5.0-20.0) 02/13/20 13:16 - Diagnostic Impressions Diagnostic Impressions: Echocardiogram 02/12/20 00:26 Transthoracic Echocardiogram Indication: SOB BP: 128/64 HR: 88 Conclusions *Mild concentric left ventricular hypertrophy is observed. *Global left ventricular wall motion and contractility are within normal limits. *The estimated ejection fraction is 50-55%. *Abnormal left ventricular diastolic filling is observed, consistent with impaired relaxation. *There is no pericardial effusion. Findings Left Ventricle: The left ventricular chamber size is normal. Mild concentric left ventricular hypertrophy is observed. Global left ventricular wall motion and contractility are within normal limits. Global left ventricular systolic function is normal. The estimated ejection fraction is 50-55%. Abnormal left ventricular diastolic filling is observed, consistent with impaired relaxation. Right Ventricle: The right ventricle is not well visualized. Right Atrium: The right atrium is not well visualized. Aortic Valve: The aortic valve structure is normal. Mitral Valve: The mitral valve leaflets are mildly thickened. There is no evidence of mitral regurgitation. Tricuspid Valve: The tricuspid valve leaflets are normal. There is trace tricuspid regurgitation. The right ventricular systolic pressure is calculated at 30 mmHg. Pulmonic Valve: The pulmonic valve appears normal. Pericardium: There is no pericardial effusion. Aorta: The aorta appears normal. Venous: The inferior vena cava is not visualized. Contrast: Intravenous contrast was used to enhance endocardial border definition. Measurements Chambers 2D Name Value Normal Range IVSd (2D) 1.32 cm (0.6 - 1.1) LVPWd (2D) 1.37 cm (0.6 - 1.1) LVIDd (2D) 4.95 cm (3.7 - 5.6) LVIDs (2D) 3.75 cm (2 - 3.8) LV FS (2D) 24.3 % - EF Teichholz (2D) 48.13 % - Ao root diameter (2D) 3.62 cm (2 - 3.7) Diastolic/Systolic Function Name Value Normal Range MV E-wave Vmax 0.91 m/sec - MV deceleration time 174.88 msec - MV A-wave Vmax 0.54 m/sec - MV E:A ratio 1.7 ratio - Aortic Valve Name Value Normal Range AV Vmax 1.62 m/sec - AV VTI 35.52 cm - AV peak gradient 10.49 mmHg - AV mean gradient 7.64 mmHg - LVOT diameter 2.16 cm - LVOT Vmax 1.42 m/sec - LVOT VTI 23.46 cm - LVOT peak gradient 8.11 mmHg - LVOT mean gradient 5.79 mmHg - SV LVOT 86.16 ml - IRENE (continuity Vmax) 3.23 cm2 - IRENE (continuity VTI) 2.43 cm2 - Tricuspid Valve Name Value Normal Range TR Vmax 2.62 m/sec - TR peak gradient 27 mmHg - RAP 3 mmHg - RVSP 30 mmHg - Pulmonic Valve/Qp:Qs Name Value Normal Range PV Vmax 1.23 m/sec - PV peak gradient 6 mmHg - PV acceleration time 91.34 msec - [place]/IV: Voiding Method Incontinent IV Catheter Type [Left Forearm INT / Saline Lock ] IV Catheter Type [Left Upper INT / Saline Lock arm] Active Medications - Current Medications Current Medications: Generic Name Dose Route Start Last Admin Trade Name Freq PRN Reason Stop Dose Admin Acetaminophen 650 mg 02/12/20 00:23 02/21/20 21:30 Tylenol PO 650 mg Q4H PRN Administration Pain MILD(1-3)/Fever >100.5/LUIS Albuterol/Ipratropium 1 ampul 02/15/20 08:00 02/23/20 21:17 Duoneb *Not For Prn Use* IH 1 ampul TIDRT MICHAEL Administration Apixaban 5 mg 02/19/20 10:00 02/23/20 21:37 Eliquis PO 5 mg Q12HR MICHAEL Administration Aripiprazole 10 mg 02/24/20 10:00 Aripiprazole PO QDAY MICHAEL Citalopram Hydrobromide 40 mg 02/16/20 11:00 02/23/20 10:47 Celexa PO 40 mg QDAY MICHAEL Administration Furosemide 40 mg 02/12/20 06:00 02/24/20 05:21 Lasix IV 40 mg BID@0600,1800 MICHAEL Administration Magnesium Hydroxide 30 ml 02/12/20 00:23 Milk Of Magnesia PO Q4H PRN Constipation Metoprolol Tartrate 25 mg 02/12/20 22:00 02/23/20 21:36 Metoprolol PO 25 mg BID MICHAEL Administration Ondansetron HCl 4 mg 02/12/20 00:23 Zofran IV Q8H PRN Nausea And Vomiting Sodium Chloride 10 ml 02/12/20 10:00 02/23/20 21:37 Sodium Chloride Flush Syringe 10 Ml IV 10 ml BID MICHAEL Administration Sodium Chloride 10 ml 02/12/20 00:23 02/22/20 05:45 Sodium Chloride Flush Syringe 10 Ml IV 10 ml PRN PRN Administration LINE FLUSH Nutrition/Malnutrition Assess - Dietary Evaluation Nutrition/Malnutrition Findings: Nutrition Notes Start: 02/12/20 13:57 Freq: Status: Active Protocol: Document 02/18/20 07:25 LP (Rec: 02/19/20 07:26 LP [id number]) Nutrition Notes Need for Assessment generated from: LOS Initial or Follow up Brief Note Subjective/Other Information Screen for LOS. Pt consuming 100% of meals. Nutrition Intervention Revisit per MD consult or patient Sign Off request:
[2020-02-24] MEDS: APIXABAN 5 MG TAB PO SCH ×2 (10:05→21:46)
[2020-02-24] MEDS: ARIPiprazole 10 MG TAB PO SCH (10:05)
[2020-02-24] MEDS: CITALOPRAM 20 MG TAB PO SCH (10:05)
[2020-02-24] MEDS: METOPROLOL TARTRATE 25 MG TAB PO SCH ×2 (10:05→21:46)
[2020-02-24] MEDS: IPRATROPIUM/ALBUTEROL SULFATE 3 ML AMPUL.NEB IH SCH ×3 (10:35→20:59)
--- NOTE | 2020-02-24 14:28 | Progress Note ---
Subjective - Reason for Consult Consult date: 02/24/20 Reason for consult: SI - Chief Complaint Chief complaint: During my interview with the patient this morning, he is lying in bed, awake. A sitter is at bedside. The patient is a/o x 3. The patient says he feels "better." He says "I'm coming to terms with everything." He says "I'm nowhere as near depressed as I was." The patient is talking about his family going on with their lives and how lonely he gets sometimes. Advised the patient to call his family and tell them how he feels. The patient says that made him feel better because he never thought about that. He says his social issues are the biggest reason for his depression. REVIEW OF SYSTEMS Constitutional: Negative for weight loss ENT: Negative for stridor Respiratory: Negative for cough or hemoptysis All other systems reviewed and are negative MENTAL STATUS EXAMINATION General Appearance and Behavior: Age appropriate, good hygiene, wearing appropriate clothes, lying in bed, good eye contact, cooperative polite with questioning. Cooperation: Participating/engaged Psychomotor Behavior: unremarkable and within normal limits Mood: "better" Affect and affective range: [place] Thought Process: Goal directed Thought Content: Speech: Normal volume, Regular rate and rhythm, Intellectual Functioning: Average Suicidal Ideation: Denies Homicidal Ideation: Denies HI Delusions: None elicited Impulse Control: Unimpaired Insight and Judgment: Normal insight and judgment Memory: Normal Attention: Normal Orientation: Alert, oriented Assessment and Plan (1) Major depression Current Visit: Yes Status: Acute Treatment Plan D/c 1013 MEDICATIONS: Continue current meds Risks, benefits and alternatives of medications discussed with the patient, questions answered and consent obtained from patient. PSYCHOTHERAPY: Supportive psychotherapy provided MEDICAL: Per primary team DELIRIUM PRECAUTIONS: Please re-orient patient frequently, keep lights on during the day, and minimize benzodiazepines and opiates as these medications could worsen patient's confusion. UNDERWRITING INTERN: per primary DISPOSITION: Do not recommend acute psychiatric inpatient treatment at this time. The patient understands that if he becomes suicidal at any point to seek immediate assistance. Electrical Engineering Professor to further discuss safety plan, and give resources for outpatient services, and cognitive behavior therapy The patient is to follow up with outpatient psych in 7 to 14 days upon discharge FOLLOW-UP: sign off. Please re-consult if needed in the future. Thank you for the consult. Please contact with any questions and/or concerns. Mental Status Exam - Vital signs Last Vital Signs Temp 98.4 F 02/24/20 12:25 Pulse 70 02/24/20 12:25 Resp 18 02/24/20 12:25 BP 126/69 02/24/20 12:25 Pulse Ox 95 02/24/20 12:25
--- NOTE | 2020-02-24 17:10 | Progress Note ---
Assessment and Plan Patient alert, awake . Resting on 3 litres O2 and O2 saturation running 97%. Patient goes on CPAP during night time. Patient afebrile. No leukocytosis. Patient chest tightness is better. Patient is on APIXABAN. Patient finished course of ceftriaxone . - Patient Problems (1) Acute exacerbation of CHF (congestive heart failure) Current Visit: Yes Status: Acute Qualifiers: Heart failure type: unspecified Qualified Code(s): I50.9 - Heart failure, unspecified Plan to address problem: Patient is on Lasix. Management as per cardiology. (2) Cellulitis of lower extremity Current Visit: Yes Status: Acute Plan to address problem: Patient finished couse of ceftriaxone . Management as per Primary care and infectious diseases. (3) Elevated d-dimer Current Visit: Yes Status: Acute Plan to address problem: Patient is on APIXABAN (4) History of pulmonary embolism Current Visit: Yes Status: Chronic Plan to address problem: Patient is on APIXABAN. (5) Hypertension Current Visit: Yes Status: Chronic Plan to address problem: Management as per primary care. (6) Morbid obesity with BMI of 70 and over, adult Current Visit: Yes Status: Chronic Plan to address problem: Recommend to loose weight. Diet and exercise. Recommend sleep study as out patient. (7) GURPREET (obstructive sleep apnea) Current Visit: Yes Status: Suspected Plan to address problem: BIPAP during night time. Subjective Date of service: 02/24/20 Principal diagnosis: HF Interval history: Patient alert, awake . Resting on 3 litres O2 and O2 saturation running 97%. Patient goes on CPAP during night time. Patient afebrile. No leukocytosis. Patient says chest tightness is better. Patient is on APIXABAN. Patient finished course of ceftriaxone . Objective Vital Signs - 12hr 02/24/20 02/24/20 02/24/20 08:06 12:25 16:08 Temperature 98.1 F 98.4 F 98.1 F Pulse Rate 72 70 69 Respiratory 18 18 18 Rate Blood Pressure 117/61 126/69 118/61 O2 Sat by Pulse 96 95 95 Oximetry Constitutional: no acute distress, alert Eyes: non-icteric ENT: oropharynx moist Neck: supple, no JVD Effort: mildly labored Ascultation: Bilateral: rales Cardiovascular: regular rate and rhythm Gastrointestinal: normoactive bowel sounds, soft, non-tender Integumentary: normal Extremities: no cyanosis, no edema Neurologic: normal mental status, non-focal exam, pupils equal and round, CN II- XII normal Psychiatric: mood appropriate CBC and BMP: 02/19/20 04:44 02/16/20 10:51 ABG, PT/INR, D-dimer: ABG ABG pH 7.409 pH Units (7.350-7.450) 02/18/20 10:10 ABG pCO2 62.7 mm Hg 02/18/20 10:10 ABG pO2 69.3 mm Hg (80.0-90.0) L 02/18/20 10:10 ABG O2 Saturation 95.9 % (95.0-99.0) 02/18/20 10:10 PT/INR, D-dimer PT 14.5 Sec. (12.2-14.9) 02/13/20 06:48 INR 1.11 (0.87-1.13) 02/13/20 06:48 D-Dimer 684.16 ng/mlDDU (0-234) H 02/11/20 21:38 Abnormal lab findings: Abnormal Labs 02/11/20 02/11/20 02/11/20 21:38 21:38 21:38 Hgb 11.5 L Hct 34.5 L RDW 17.5 H Plt Count Lymph % (Auto) 8.3 L Lymph # (Auto) 0.9 L Seg Neutrophils % 83.2 H Seg Neutrophils # 8.8 H PT INR APTT D-Dimer 684.16 H Heparin Anti-Xa Level ABG pO2 ABG HCO3 ABG Base Excess ABG Hemoglobin Oxyhemoglobin Chloride 97.3 L Carbon Dioxide 32 H Creatinine 0.4 L Glucose 115 H POC Glucose Albumin 2.8 L 02/12/20 02/12/20 02/12/20 00:16 11:16 11:53 Hgb Hct RDW Plt Count Lymph % (Auto) Lymph # (Auto) Seg Neutrophils % Seg Neutrophils # PT 10.9 L INR 0.77 L APTT 20.7 L D-Dimer Heparin Anti-Xa Level < 0.10 L ABG pO2 ABG HCO3 ABG Base Excess ABG Hemoglobin Oxyhemoglobin Chloride Carbon Dioxide Creatinine Glucose POC Glucose 114 H Albumin 02/12/20 02/12/20 02/13/20 15:50 19:04 06:48 Hgb 11.1 L Hct 33.1 L RDW 17.3 H Plt Count Lymph % (Auto) 11.3 L Lymph # (Auto) 1.0 L Seg Neutrophils % 77.8 H Seg Neutrophils # PT INR APTT D-Dimer Heparin Anti-Xa Level 1.44 H ABG pO2 ABG HCO3 ABG Base Excess ABG Hemoglobin Oxyhemoglobin Chloride Carbon Dioxide Creatinine Glucose POC Glucose 135 H Albumin 02/13/20 02/15/20 02/15/20 06:48 07:36 07:36 Hgb 11.4 L Hct 34.9 L RDW Plt Count Lymph % (Auto) Lymph # (Auto) Seg Neutrophils % Seg Neutrophils # PT INR APTT D-Dimer Heparin Anti-Xa Level ABG pO2 ABG HCO3 ABG Base Excess ABG Hemoglobin Oxyhemoglobin Chloride 96.6 L 95.9 L Carbon Dioxide 37 H 38 H Creatinine 0.5 L 0.4 L Glucose 126 H POC Glucose Albumin 02/16/20 02/17/20 02/18/20 10:51 05:49 10:10 Hgb 11.4 L Hct 34.7 L RDW Plt Count 445 H Lymph % (Auto) Lymph # (Auto) Seg Neutrophils % Seg Neutrophils # PT INR APTT D-Dimer Heparin Anti-Xa Level ABG pO2 69.3 L ABG HCO3 38.8 H ABG Base Excess 11.9 H ABG Hemoglobin 11.9 L Oxyhemoglobin 93.9 L Chloride 95.4 L Carbon Dioxide 37 H Creatinine 0.4 L Glucose POC Glucose Albumin 02/19/20 04:44 Hgb 11.5 L Hct 34.1 L RDW Plt Count Lymph % (Auto) Lymph # (Auto) Seg Neutrophils % Seg Neutrophils # PT INR APTT D-Dimer Heparin Anti-Xa Level ABG pO2 ABG HCO3 ABG Base Excess ABG Hemoglobin Oxyhemoglobin Chloride Carbon Dioxide Creatinine Glucose POC Glucose Albumin
[2020-02-25] MEDS: FUROSEMIDE 40 MG/4 ML INJ IV SCH ×2 (05:47→18:04)
[2020-02-25] MEDS: IPRATROPIUM/ALBUTEROL SULFATE 3 ML AMPUL.NEB IH SCH ×3 (07:53→21:30)
--- NOTE | 2020-02-25 08:30 | Progress Note ---
Assessment and Plan Assessment and plan: Acute exacerbation of HFpEF Continue on diuretics. Will monitor inputs and output and also monitor daily weights. echocardiogram showed preserved EF Cardiology consulted, continue to follow recommendation -- Elevated d-dimer Ultrasound of the lower extremities were negative for DVT. However patient is unable to undergo his CT angiogram because of his size and weight. He has known history of PE in 2019. He has had some mild chest discomfort over the past few days. Patient has been placed on anticoagulation meanwhile with IV heparin. Vascular surgery consulted for input and recommended that patient is likely negative for pulmonary embolism considering the lab work-up. But as we cannot rule out pulmonary embolism and patient is high risks we can continue to treat with anticoagulation, patient can get CTA chest at [place] or [place] following discharge to confirm the diagnosis. started on eliquis -- Morbid obesity with BMI of 70 and over, adult Dietary consulted, continue cardiac diet for now. pt is willing to change diet --Acute hypoxic respiratory failure Etiology secondary to CHF exacerbation and obesity hypoventilation syndrome Continue supplemental O2 and BiPAP at bedtime Start on empiric nebulizer breathing treatment -- Hypertension Blood pressure stable with metoprolol 25 bid vital signs stable -- History of major depression Patient on citalopram. remains depressed psych following -- Cellulitis of lower extremity and lower abdominal wall Patient placed on empiric IV antibiotics. -- DVT prophylaxis Patient on anticoagulation. -- Disposition social service evaluating patient for possible transfer to inpatient psychiatry versus personal long term depending on further psychiatric evaluation. -- Full code status 02/24/2020. Continue to evaluate for possible inpatient psychiatry per recommendations. Continue 1013. 02/25/2020. Psychiatry discontinued 1013 yesterday and does not recommend acute psychiatric inpatient treatment at this time. The patient understands that if he becomes suicidal at any point to seek immediate assistance. The patient is to follow up with outpatient psych in 7 to 14 days upon discharge. Case management to arrange for discharge planning ? Personal-long term History Interval history: No new issues overnight. Hospitalist Physical - Constitutional Vitals: Temp Pulse Resp BP Pulse Ox 97.9 F 69 18 136/67 99 02/24/20 23:33 02/24/20 23:40 02/24/20 23:33 02/24/20 23:33 02/24/20 23:40 General appearance: Present: obese - EENT Eyes: Present: PERRL, EOM intact ENT: hearing intact, clear oral mucosa, dentition normal - Neck Neck: Present: supple, normal ROM - Respiratory Respiratory effort: normal Respiratory: bilateral: CTA - Cardiovascular Rhythm: regular Heart Sounds: Present: S1 & S2. Absent: gallop, rub - Extremities Extremities: no ischemia, No edema, Full ROM - Abdominal General gastrointestinal: soft, non-tender, non-distended, normal bowel sounds - Integumentary Integumentary: Present: clear, warm, dry - Neurologic Neurologic: CNII-XII intact, moves all extremities HEART Score - HEART Score Troponin: Troponin T < 0.010 ng/mL (0.00-0.029) 02/13/20 06:48 Results - Labs CBC & Chem 7: 02/19/20 04:44 02/16/20 10:51 Labs: Laboratory Last Values WBC 8.7 K/mm3 (4.5-11.0) 02/13/20 06:48 RBC 3.69 M/mm3 (3.65-5.03) 02/13/20 06:48 Hgb 11.5 gm/dl (11.8-15.2) L 02/19/20 04:44 Hct 34.1 % (35.5-45.6) L 02/19/20 04:44 MCV 90 fl (84-94) 02/13/20 06:48 MCH 30 pg (28-32) 02/13/20 06:48 MCHC 34 % (32-34) 02/13/20 06:48 RDW 17.3 % (13.2-15.2) H 02/13/20 06:48 Plt Count 415 K/mm3 (140-440) 02/19/20 04:44 Lymph % (Auto) 11.3 % (13.4-35.0) L 02/13/20 06:48 [place] % (Auto) 6.8 % (0.0-7.3) 02/13/20 06:48 Eos % (Auto) 4.0 % (0.0-4.3) 02/13/20 06:48 Baso % (Auto) 0.1 % (0.0-1.8) 02/13/20 06:48 Lymph # (Auto) 1.0 K/mm3 (1.2-5.4) L 02/13/20 06:48 [place] # (Auto) 0.6 K/mm3 (0.0-0.8) 02/13/20 06:48 Eos # (Auto) 0.3 K/mm3 (0.0-0.4) 02/13/20 06:48 Baso # (Auto) 0.0 K/mm3 (0.0-0.1) 02/13/20 06:48 Seg Neutrophils % 77.8 % (40.0-70.0) H 02/13/20 06:48 Seg Neutrophils # 6.7 K/mm3 (1.8-7.7) 02/13/20 06:48 PT 14.5 Sec. (12.2-14.9) 02/13/20 06:48 INR 1.11 (0.87-1.13) 02/13/20 06:48 APTT 20.7 Sec. (24.2-36.6) L 02/12/20 00:16 D-Dimer 684.16 ng/mlDDU (0-234) H 02/11/20 21:38 Heparin Anti-Xa Level 1.44 U.I./ml (0.3-0.7) H 02/12/20 19:04 ABG pH 7.409 pH Units (7.350-7.450) 02/18/20 10:10 ABG pCO2 62.7 mm Hg 02/18/20 10:10 ABG pO2 69.3 mm Hg (80.0-90.0) L 02/18/20 10:10 ABG HCO3 38.8 mmol/L (20.0-26.0) H 02/18/20 10:10 ABG O2 Saturation 95.9 % (95.0-99.0) 02/18/20 10:10 ABG O2 Content 15.7 (0.0-44) 02/18/20 10:10 ABG Base Excess 11.9 mmol/L (-2.0-3.0) H 02/18/20 10:10 ABG Hemoglobin 11.9 gm/dl (14.0-18.0) L 02/18/20 10:10 ABG Carboxyhemoglobin 1.7 % (0.0-5.0) 02/18/20 10:10 ABG Methemoglobin 0.4 % (0.0-1.5) 02/18/20 10:10 Oxyhemoglobin 93.9 % (95.0-99.0) L 02/18/20 10:10 FiO2 21 % 02/18/20 10:10 Sodium 143 mmol/L (137-145) 02/16/20 10:51 Potassium 4.4 mmol/L (3.6-5.0) D 02/16/20 10:51 Chloride 95.4 mmol/L (98-107) L 02/16/20 10:51 Carbon Dioxide 37 mmol/L (22-30) H 02/16/20 10:51 Anion Gap 15 mmol/L 02/16/20 10:51 BUN 12 mg/dL (9-20) 02/16/20 10:51 Creatinine 0.4 mg/dL (0.8-1.3) L 02/16/20 10:51 Estimated GFR > 60 ml/min 02/16/20 10:51 BUN/Creatinine Ratio 30 % 02/16/20 10:51 Glucose 98 mg/dL (75-100) 02/16/20 10:51 POC Glucose 135 (70-105) H 02/12/20 15:50 Calcium 8.6 mg/dL (8.4-10.2) 02/16/20 10:51 Total Bilirubin 0.20 mg/dL (0.1-1.2) 02/11/20 21:38 AST 24 units/L (5-40) 02/11/20 21:38 ALT 14 units/L (7-56) 02/11/20 21:38 Alkaline Phosphatase 86 units/L (35-129) 02/11/20 21:38 Total Creatine Kinase 71 units/L (55-170) 02/11/20 21:38 CK-MB (CK-2) 1.3 ng/mL (0.0-4.0) 02/11/20 21:38 CK-MB (CK-2) Rel Index 1.8 (0-4) 02/11/20 21:38 Troponin T < 0.010 ng/mL (0.00-0.029) 02/13/20 06:48 NT-Pro-B Natriuret Pep 464.7 pg/mL (0-900) 02/11/20 21:38 Total Protein 6.6 g/dL (6.3-8.2) 02/11/20 21:38 Albumin 2.8 g/dL (3.9-5) L 02/11/20 21:38 Albumin/Globulin Ratio 0.7 % 02/11/20 21:38 Vancomycin Trough 12.3 ug/mL (5.0-20.0) 02/13/20 13:16 - Diagnostic Impressions Diagnostic Impressions: Echocardiogram 02/12/20 00:26 Transthoracic Echocardiogram Indication: SOB BP: 128/64 HR: 88 Conclusions *Mild concentric left ventricular hypertrophy is observed. *Global left ventricular wall motion and contractility are within normal limits. *The estimated ejection fraction is 50-55%. *Abnormal left ventricular diastolic filling is observed, consistent with impaired relaxation. *There is no pericardial effusion. Findings Left Ventricle: The left ventricular chamber size is normal. Mild concentric left ventricular hypertrophy is observed. Global left ventricular wall motion and contractility are within normal limits. Global left ventricular systolic function is normal. The estimated ejection fraction is 50-55%. Abnormal left ventricular diastolic filling is observed, consistent with impaired relaxation. Right Ventricle: The right ventricle is not well visualized. Right Atrium: The right atrium is not well visualized. Aortic Valve: The aortic valve structure is normal. Mitral Valve: The mitral valve leaflets are mildly thickened. There is no evidence of mitral regurgitation. Tricuspid Valve: The tricuspid valve leaflets are normal. There is trace tricuspid regurgitation. The right ventricular systolic pressure is calculated at 30 mmHg. Pulmonic Valve: The pulmonic valve appears normal. Pericardium: There is no pericardial effusion. Aorta: The aorta appears normal. Venous: The inferior vena cava is not visualized. Contrast: Intravenous contrast was used to enhance endocardial border definition. Measurements Chambers 2D Name Value Normal Range IVSd (2D) 1.32 cm (0.6 - 1.1) LVPWd (2D) 1.37 cm (0.6 - 1.1) LVIDd (2D) 4.95 cm (3.7 - 5.6) LVIDs (2D) 3.75 cm (2 - 3.8) LV FS (2D) 24.3 % - EF Teichholz (2D) 48.13 % - Ao root diameter (2D) 3.62 cm (2 - 3.7) Diastolic/Systolic Function Name Value Normal Range MV E-wave Vmax 0.91 m/sec - MV deceleration time 174.88 msec - MV A-wave Vmax 0.54 m/sec - MV E:A ratio 1.7 ratio - Aortic Valve Name Value Normal Range AV Vmax 1.62 m/sec - AV VTI 35.52 cm - AV peak gradient 10.49 mmHg - AV mean gradient 7.64 mmHg - LVOT diameter 2.16 cm - LVOT Vmax 1.42 m/sec - LVOT VTI 23.46 cm - LVOT peak gradient 8.11 mmHg - LVOT mean gradient 5.79 mmHg - SV LVOT 86.16 ml - IRENE (continuity Vmax) 3.23 cm2 - IRENE (continuity VTI) 2.43 cm2 - Tricuspid Valve Name Value Normal Range TR Vmax 2.62 m/sec - TR peak gradient 27 mmHg - RAP 3 mmHg - RVSP 30 mmHg - Pulmonic Valve/Qp:Qs Name Value Normal Range PV Vmax 1.23 m/sec - PV peak gradient 6 mmHg - PV acceleration time 91.34 msec - [place]/IV: Voiding Method Incontinent IV Catheter Type [Left Forearm INT / Saline Lock ] IV Catheter Type [Left Upper INT / Saline Lock arm] Active Medications - Current Medications Current Medications: Generic Name Dose Route Start Last Admin Trade Name Freq PRN Reason Stop Dose Admin Acetaminophen 650 mg 02/12/20 00:23 02/21/20 21:30 Tylenol PO 650 mg Q4H PRN Administration Pain MILD(1-3)/Fever >100.5/LUIS Albuterol/Ipratropium 1 ampul 02/15/20 08:00 02/25/20 07:53 Duoneb *Not For Prn Use* IH 1 ampul TIDRT MICHAEL Administration Apixaban 5 mg 02/19/20 10:00 02/24/20 21:46 Eliquis PO 5 mg Q12HR MICHAEL Administration Aripiprazole 10 mg 02/24/20 10:00 02/24/20 10:05 Aripiprazole PO 10 mg QDAY MICHAEL Administration Citalopram Hydrobromide 40 mg 02/16/20 11:00 02/24/20 10:05 Celexa PO 40 mg QDAY MICHAEL Administration Furosemide 40 mg 02/12/20 06:00 02/25/20 05:47 Lasix IV 40 mg BID@0600,1800 MICHAEL Administration Magnesium Hydroxide 30 ml 02/12/20 00:23 Milk Of Magnesia PO Q4H PRN Constipation Metoprolol Tartrate 25 mg 02/12/20 22:00 02/24/20 21:46 Metoprolol PO 25 mg BID MICHAEL Administration Ondansetron HCl 4 mg 02/12/20 00:23 Zofran IV Q8H PRN Nausea And Vomiting Sodium Chloride 10 ml 02/12/20 10:00 02/24/20 21:46 Sodium Chloride Flush Syringe 10 Ml IV 10 ml BID MICHAEL Administration Sodium Chloride 10 ml 02/12/20 00:23 02/22/20 05:45 Sodium Chloride Flush Syringe 10 Ml IV 10 ml PRN PRN Administration LINE FLUSH Nutrition/Malnutrition Assess - Dietary Evaluation Nutrition/Malnutrition Findings: Nutrition Notes Start: 02/12/20 13:57 Freq: Status: Active Protocol: Document 02/18/20 07:25 LP (Rec: 02/19/20 07:26 LP [id number]) Nutrition Notes Need for Assessment generated from: LOS Initial or Follow up Brief Note Subjective/Other Information Screen for LOS. Pt consuming 100% of meals. Nutrition Intervention Revisit per MD consult or patient Sign Off request:
[2020-02-25] MEDS: APIXABAN 5 MG TAB PO SCH ×2 (10:24→21:19)
[2020-02-25] MEDS: CITALOPRAM 20 MG TAB PO SCH (10:24)
[2020-02-25] MEDS: ARIPiprazole 10 MG TAB PO SCH (10:24)
[2020-02-25] MEDS: METOPROLOL TARTRATE 25 MG TAB PO SCH ×2 (10:25→21:19)
[2020-02-26] MEDS: FUROSEMIDE 40 MG/4 ML INJ IV SCH ×2 (05:55→17:02)
[2020-02-26] MEDS: ARIPiprazole 10 MG TAB PO SCH (09:11)
[2020-02-26] MEDS: CITALOPRAM 20 MG TAB PO SCH (09:11)
[2020-02-26] MEDS: METOPROLOL TARTRATE 25 MG TAB PO SCH ×2 (09:11→21:00)
[2020-02-26] MEDS: APIXABAN 5 MG TAB PO SCH ×2 (09:11→21:00)
[2020-02-26] MEDS: IPRATROPIUM/ALBUTEROL SULFATE 3 ML AMPUL.NEB IH SCH ×4 (10:06→23:31)
--- NOTE | 2020-02-26 12:25 | Progress Note ---
Assessment and Plan Assessment and plan: Acute exacerbation of HFpEF Continue on diuretics. Will monitor inputs and output and also monitor daily weights. echocardiogram showed preserved EF Cardiology consulted, continue to follow recommendation -- Elevated d-dimer Ultrasound of the lower extremities were negative for DVT. However patient is unable to undergo his CT angiogram because of his size and weight. He has known history of PE in 2019. He has had some mild chest discomfort over the past few days. Patient has been placed on anticoagulation meanwhile with IV heparin. Vascular surgery consulted for input and recommended that patient is likely negative for pulmonary embolism considering the lab work-up. But as we cannot rule out pulmonary embolism and patient is high risks we can continue to treat with anticoagulation, patient can get CTA chest at [place] or [place] following discharge to confirm the diagnosis. started on eliquis -- Morbid obesity with BMI of 70 and over, adult Dietary consulted, continue cardiac diet for now. pt is willing to change diet --Acute hypoxic respiratory failure Etiology secondary to CHF exacerbation and obesity hypoventilation syndrome Continue supplemental O2 and BiPAP at bedtime Start on empiric nebulizer breathing treatment -- Hypertension Blood pressure stable with metoprolol 25 bid vital signs stable -- History of major depression Patient on citalopram. remains depressed psych following -- Cellulitis of lower extremity and lower abdominal wall Patient placed on empiric IV antibiotics. -- DVT prophylaxis Patient on anticoagulation. -- Disposition social service evaluating patient for possible transfer to inpatient psychiatry versus personal nursing home depending on further psychiatric evaluation. -- Full code status 02/24/2020. Continue to evaluate for possible inpatient psychiatry per recommendations. Continue 1013. 02/25/2020. Psychiatry discontinued 1013 yesterday and does not recommend acute psychiatric inpatient treatment at this time. The patient understands that if he becomes suicidal at any point to seek immediate assistance. The patient is to follow up with outpatient psych in 7 to 14 days upon discharge. Case management to arrange for discharge planning ? Personal-nursing home 02/26/2020. Await physical therapy evaluation for discharge planning. History Interval history: No new issues overnight. Hospitalist Physical - Constitutional Vitals: Temp Pulse Resp BP Pulse Ox 96.9 F L 64 19 130/51 98 02/26/20 11:12 02/26/20 11:12 02/26/20 11:12 02/26/20 11:12 02/26/20 11:12 General appearance: Present: obese - EENT Eyes: Present: PERRL, EOM intact ENT: hearing intact, clear oral mucosa, dentition normal - Neck Neck: Present: supple, normal ROM - Respiratory Respiratory effort: normal Respiratory: bilateral: CTA - Cardiovascular Rhythm: regular Heart Sounds: Present: S1 & S2. Absent: gallop, rub - Extremities Extremities: no ischemia, No edema, Full ROM - Abdominal General gastrointestinal: soft, non-tender, non-distended, normal bowel sounds - Integumentary Integumentary: Present: clear, warm, dry - Neurologic Neurologic: CNII-XII intact, moves all extremities HEART Score - HEART Score Troponin: Troponin T < 0.010 ng/mL (0.00-0.029) 02/13/20 06:48 Results - Labs CBC & Chem 7: 02/19/20 04:44 02/16/20 10:51 Labs: Laboratory Last Values WBC 8.7 K/mm3 (4.5-11.0) 02/13/20 06:48 RBC 3.69 M/mm3 (3.65-5.03) 02/13/20 06:48 Hgb 11.5 gm/dl (11.8-15.2) L 02/19/20 04:44 Hct 34.1 % (35.5-45.6) L 02/19/20 04:44 MCV 90 fl (84-94) 02/13/20 06:48 MCH 30 pg (28-32) 02/13/20 06:48 MCHC 34 % (32-34) 02/13/20 06:48 RDW 17.3 % (13.2-15.2) H 02/13/20 06:48 Plt Count 415 K/mm3 (140-440) 02/19/20 04:44 Lymph % (Auto) 11.3 % (13.4-35.0) L 02/13/20 06:48 [place] % (Auto) 6.8 % (0.0-7.3) 02/13/20 06:48 Eos % (Auto) 4.0 % (0.0-4.3) 02/13/20 06:48 Baso % (Auto) 0.1 % (0.0-1.8) 02/13/20 06:48 Lymph # (Auto) 1.0 K/mm3 (1.2-5.4) L 02/13/20 06:48 [place] # (Auto) 0.6 K/mm3 (0.0-0.8) 02/13/20 06:48 Eos # (Auto) 0.3 K/mm3 (0.0-0.4) 02/13/20 06:48 Baso # (Auto) 0.0 K/mm3 (0.0-0.1) 02/13/20 06:48 Seg Neutrophils % 77.8 % (40.0-70.0) H 02/13/20 06:48 Seg Neutrophils # 6.7 K/mm3 (1.8-7.7) 02/13/20 06:48 PT 14.5 Sec. (12.2-14.9) 02/13/20 06:48 INR 1.11 (0.87-1.13) 02/13/20 06:48 APTT 20.7 Sec. (24.2-36.6) L 02/12/20 00:16 D-Dimer 684.16 ng/mlDDU (0-234) H 02/11/20 21:38 Heparin Anti-Xa Level 1.44 U.I./ml (0.3-0.7) H 02/12/20 19:04 ABG pH 7.409 pH Units (7.350-7.450) 02/18/20 10:10 ABG pCO2 62.7 mm Hg 02/18/20 10:10 ABG pO2 69.3 mm Hg (80.0-90.0) L 02/18/20 10:10 ABG HCO3 38.8 mmol/L (20.0-26.0) H 02/18/20 10:10 ABG O2 Saturation 95.9 % (95.0-99.0) 02/18/20 10:10 ABG O2 Content 15.7 (0.0-44) 02/18/20 10:10 ABG Base Excess 11.9 mmol/L (-2.0-3.0) H 02/18/20 10:10 ABG Hemoglobin 11.9 gm/dl (14.0-18.0) L 02/18/20 10:10 ABG Carboxyhemoglobin 1.7 % (0.0-5.0) 02/18/20 10:10 ABG Methemoglobin 0.4 % (0.0-1.5) 02/18/20 10:10 Oxyhemoglobin 93.9 % (95.0-99.0) L 02/18/20 10:10 FiO2 21 % 02/18/20 10:10 Sodium 143 mmol/L (137-145) 02/16/20 10:51 Potassium 4.4 mmol/L (3.6-5.0) D 02/16/20 10:51 Chloride 95.4 mmol/L (98-107) L 02/16/20 10:51 Carbon Dioxide 37 mmol/L (22-30) H 02/16/20 10:51 Anion Gap 15 mmol/L 02/16/20 10:51 BUN 12 mg/dL (9-20) 02/16/20 10:51 Creatinine 0.4 mg/dL (0.8-1.3) L 02/16/20 10:51 Estimated GFR > 60 ml/min 02/16/20 10:51 BUN/Creatinine Ratio 30 % 02/16/20 10:51 Glucose 98 mg/dL (75-100) 02/16/20 10:51 POC Glucose 135 (70-105) H 02/12/20 15:50 Calcium 8.6 mg/dL (8.4-10.2) 02/16/20 10:51 Total Bilirubin 0.20 mg/dL (0.1-1.2) 02/11/20 21:38 AST 24 units/L (5-40) 02/11/20 21:38 ALT 14 units/L (7-56) 02/11/20 21:38 Alkaline Phosphatase 86 units/L (35-129) 02/11/20 21:38 Total Creatine Kinase 71 units/L (55-170) 02/11/20 21:38 CK-MB (CK-2) 1.3 ng/mL (0.0-4.0) 02/11/20 21:38 CK-MB (CK-2) Rel Index 1.8 (0-4) 02/11/20 21:38 Troponin T < 0.010 ng/mL (0.00-0.029) 02/13/20 06:48 NT-Pro-B Natriuret Pep 464.7 pg/mL (0-900) 02/11/20 21:38 Total Protein 6.6 g/dL (6.3-8.2) 02/11/20 21:38 Albumin 2.8 g/dL (3.9-5) L 02/11/20 21:38 Albumin/Globulin Ratio 0.7 % 02/11/20 21:38 Vancomycin Trough 12.3 ug/mL (5.0-20.0) 02/13/20 13:16 - Diagnostic Impressions Diagnostic Impressions: Echocardiogram 02/12/20 00:26 Transthoracic Echocardiogram Indication: SOB BP: 128/64 HR: 88 Conclusions *Mild concentric left ventricular hypertrophy is observed. *Global left ventricular wall motion and contractility are within normal limits. *The estimated ejection fraction is 50-55%. *Abnormal left ventricular diastolic filling is observed, consistent with impaired relaxation. *There is no pericardial effusion. Findings Left Ventricle: The left ventricular chamber size is normal. Mild concentric left ventricular hypertrophy is observed. Global left ventricular wall motion and contractility are within normal limits. Global left ventricular systolic function is normal. The estimated ejection fraction is 50-55%. Abnormal left ventricular diastolic filling is observed, consistent with impaired relaxation. Right Ventricle: The right ventricle is not well visualized. Right Atrium: The right atrium is not well visualized. Aortic Valve: The aortic valve structure is normal. Mitral Valve: The mitral valve leaflets are mildly thickened. There is no evidence of mitral regurgitation. Tricuspid Valve: The tricuspid valve leaflets are normal. There is trace tricuspid regurgitation. The right ventricular systolic pressure is calculated at 30 mmHg. Pulmonic Valve: The pulmonic valve appears normal. Pericardium: There is no pericardial effusion. Aorta: The aorta appears normal. Venous: The inferior vena cava is not visualized. Contrast: Intravenous contrast was used to enhance endocardial border definition. Measurements Chambers 2D Name Value Normal Range IVSd (2D) 1.32 cm (0.6 - 1.1) LVPWd (2D) 1.37 cm (0.6 - 1.1) LVIDd (2D) 4.95 cm (3.7 - 5.6) LVIDs (2D) 3.75 cm (2 - 3.8) LV FS (2D) 24.3 % - EF Teichholz (2D) 48.13 % - Ao root diameter (2D) 3.62 cm (2 - 3.7) Diastolic/Systolic Function Name Value Normal Range MV E-wave Vmax 0.91 m/sec - MV deceleration time 174.88 msec - MV A-wave Vmax 0.54 m/sec - MV E:A ratio 1.7 ratio - Aortic Valve Name Value Normal Range AV Vmax 1.62 m/sec - AV VTI 35.52 cm - AV peak gradient 10.49 mmHg - AV mean gradient 7.64 mmHg - LVOT diameter 2.16 cm - LVOT Vmax 1.42 m/sec - LVOT VTI 23.46 cm - LVOT peak gradient 8.11 mmHg - LVOT mean gradient 5.79 mmHg - SV LVOT 86.16 ml - IRENE (continuity Vmax) 3.23 cm2 - IRENE (continuity VTI) 2.43 cm2 - Tricuspid Valve Name Value Normal Range TR Vmax 2.62 m/sec - TR peak gradient 27 mmHg - RAP 3 mmHg - RVSP 30 mmHg - Pulmonic Valve/Qp:Qs Name Value Normal Range PV Vmax 1.23 m/sec - PV peak gradient 6 mmHg - PV acceleration time 91.34 msec - [place]/IV: Voiding Method Incontinent IV Catheter Type [Left Forearm INT / Saline Lock ] IV Catheter Type [Left Upper INT / Saline Lock arm] Active Medications - Current Medications Current Medications: Generic Name Dose Route Start Last Admin Trade Name Freq PRN Reason Stop Dose Admin Acetaminophen 650 mg 02/12/20 00:23 02/21/20 21:30 Tylenol PO 650 mg Q4H PRN Administration Pain MILD(1-3)/Fever >100.5/LUIS Albuterol/Ipratropium 1 ampul 02/15/20 08:00 02/26/20 10:06 Duoneb *Not For Prn Use* IH 1 ampul TIDRT MICHAEL Administration Apixaban 5 mg 02/19/20 10:00 02/26/20 09:11 Eliquis PO 5 mg Q12HR MICHAEL Administration Aripiprazole 10 mg 02/24/20 10:00 02/26/20 09:11 Aripiprazole PO 10 mg QDAY MICHAEL Administration Citalopram Hydrobromide 40 mg 02/16/20 11:00 02/26/20 09:11 Celexa PO 40 mg QDAY MICHAEL Administration Furosemide 40 mg 02/12/20 06:00 02/26/20 05:55 Lasix IV 40 mg BID@0600,1800 MICHAEL Administration Magnesium Hydroxide 30 ml 02/12/20 00:23 Milk Of Magnesia PO Q4H PRN Constipation Metoprolol Tartrate 25 mg 02/12/20 22:00 02/26/20 09:11 Metoprolol PO 25 mg BID MICHAEL Administration Ondansetron HCl 4 mg 02/12/20 00:23 Zofran IV Q8H PRN Nausea And Vomiting Sodium Chloride 10 ml 02/12/20 10:00 02/26/20 09:11 Sodium Chloride Flush Syringe 10 Ml IV 10 ml BID MICHAEL Administration Sodium Chloride 10 ml 02/12/20 00:23 02/22/20 05:45 Sodium Chloride Flush Syringe 10 Ml IV 10 ml PRN PRN Administration LINE FLUSH Nutrition/Malnutrition Assess - Dietary Evaluation Nutrition/Malnutrition Findings: Nutrition Notes Start: 02/12/20 13:57 Freq: Status: Active Protocol: Document 02/18/20 07:25 LP (Rec: 02/19/20 07:26 LP [id number]) Nutrition Notes Need for Assessment generated from: LOS Initial or Follow up Brief Note Subjective/Other Information Screen for LOS. Pt consuming 100% of meals. Nutrition Intervention Revisit per MD consult or patient Sign Off request:
[2020-02-26] MEDS: ACETAMINOPHEN 325 MG TAB PO PRN (12:58)
--- NOTE | 2020-02-26 14:06 | Progress Note ---
Assessment and Plan Patient alert, awake . Resting on 3 litres O2 and O2 saturation running 95%. Patient goes on CPAP during night time. Patient afebrile. No leukocytosis. Patient chest still has tightness . Patient is on APIXABAN. Patient finished course of ceftriaxone . - Patient Problems (1) Acute exacerbation of CHF (congestive heart failure) Current Visit: Yes Status: Acute Qualifiers: Heart failure type: unspecified Qualified Code(s): I50.9 - Heart failure, unspecified Plan to address problem: Patient is on Lasix. Management as per cardiology. (2) Cellulitis of lower extremity Current Visit: Yes Status: Acute Plan to address problem: Patient finished couse of ceftriaxone . Management as per Primary care and infectious diseases. (3) Elevated d-dimer Current Visit: Yes Status: Acute Plan to address problem: Patient is on APIXABAN (4) History of pulmonary embolism Current Visit: Yes Status: Chronic Plan to address problem: Patient is on APIXABAN. (5) Hypertension Current Visit: Yes Status: Chronic Plan to address problem: Management as per primary care. (6) Morbid obesity with BMI of 70 and over, adult Current Visit: Yes Status: Chronic Plan to address problem: Recommend to loose weight. Diet and exercise. Recommend sleep study as out patient. (7) GURPREET (obstructive sleep apnea) Current Visit: Yes Status: Suspected Plan to address problem: BIPAP during night time. Subjective Date of service: 02/26/20 Principal diagnosis: HF Interval history: Patient alert, awake . Resting on 2 litres O2 and O2 saturation running 95%. Patient goes on CPAP during night time. Patient afebrile. No leukocytosis. Patient says still has chest tightness . Patient is on APIXABAN. Patient finished course of ceftriaxone . Objective Vital Signs - 12hr 02/26/20 02/26/20 02/26/20 02:30 03:44 08:00 Temperature 98.2 F 97.1 F L Pulse Rate 74 62 69 Respiratory 22 16 19 Rate Blood Pressure 123/60 Blood Pressure 116/56 [Right] O2 Sat by Pulse 99 97 99 Oximetry 02/26/20 11:12 Temperature 96.9 F L Pulse Rate 64 Respiratory 19 Rate Blood Pressure Blood Pressure 130/51 [Right] O2 Sat by Pulse 98 Oximetry Constitutional: no acute distress, alert Eyes: non-icteric ENT: oropharynx moist Neck: supple, no JVD Effort: mildly labored Ascultation: Bilateral: rales Cardiovascular: regular rate and rhythm Gastrointestinal: normoactive bowel sounds, soft, non-tender Integumentary: normal Extremities: no cyanosis, no edema Neurologic: normal mental status, non-focal exam, pupils equal and round, CN II- XII normal Psychiatric: mood appropriate CBC and BMP: 02/19/20 04:44 02/16/20 10:51 ABG, PT/INR, D-dimer: ABG ABG pH 7.409 pH Units (7.350-7.450) 02/18/20 10:10 ABG pCO2 62.7 mm Hg 02/18/20 10:10 ABG pO2 69.3 mm Hg (80.0-90.0) L 02/18/20 10:10 ABG O2 Saturation 95.9 % (95.0-99.0) 02/18/20 10:10 PT/INR, D-dimer PT 14.5 Sec. (12.2-14.9) 02/13/20 06:48 INR 1.11 (0.87-1.13) 02/13/20 06:48 D-Dimer 684.16 ng/mlDDU (0-234) H 02/11/20 21:38 Abnormal lab findings: Abnormal Labs 02/11/20 02/11/20 02/11/20 21:38 21:38 21:38 Hgb 11.5 L Hct 34.5 L RDW 17.5 H Plt Count Lymph % (Auto) 8.3 L Lymph # (Auto) 0.9 L Seg Neutrophils % 83.2 H Seg Neutrophils # 8.8 H PT INR APTT D-Dimer 684.16 H Heparin Anti-Xa Level ABG pO2 ABG HCO3 ABG Base Excess ABG Hemoglobin Oxyhemoglobin Chloride 97.3 L Carbon Dioxide 32 H Creatinine 0.4 L Glucose 115 H POC Glucose Albumin 2.8 L 02/12/20 02/12/20 02/12/20 00:16 11:16 11:53 Hgb Hct RDW Plt Count Lymph % (Auto) Lymph # (Auto) Seg Neutrophils % Seg Neutrophils # PT 10.9 L INR 0.77 L APTT 20.7 L D-Dimer Heparin Anti-Xa Level < 0.10 L ABG pO2 ABG HCO3 ABG Base Excess ABG Hemoglobin Oxyhemoglobin Chloride Carbon Dioxide Creatinine Glucose POC Glucose 114 H Albumin 02/12/20 02/12/20 02/13/20 15:50 19:04 06:48 Hgb 11.1 L Hct 33.1 L RDW 17.3 H Plt Count Lymph % (Auto) 11.3 L Lymph # (Auto) 1.0 L Seg Neutrophils % 77.8 H Seg Neutrophils # PT INR APTT D-Dimer Heparin Anti-Xa Level 1.44 H ABG pO2 ABG HCO3 ABG Base Excess ABG Hemoglobin Oxyhemoglobin Chloride Carbon Dioxide Creatinine Glucose POC Glucose 135 H Albumin 02/13/20 02/15/20 02/15/20 06:48 07:36 07:36 Hgb 11.4 L Hct 34.9 L RDW Plt Count Lymph % (Auto) Lymph # (Auto) Seg Neutrophils % Seg Neutrophils # PT INR APTT D-Dimer Heparin Anti-Xa Level ABG pO2 ABG HCO3 ABG Base Excess ABG Hemoglobin Oxyhemoglobin Chloride 96.6 L 95.9 L Carbon Dioxide 37 H 38 H Creatinine 0.5 L 0.4 L Glucose 126 H POC Glucose Albumin 02/16/20 02/17/20 02/18/20 10:51 05:49 10:10 Hgb 11.4 L Hct 34.7 L RDW Plt Count 445 H Lymph % (Auto) Lymph # (Auto) Seg Neutrophils % Seg Neutrophils # PT INR APTT D-Dimer Heparin Anti-Xa Level ABG pO2 69.3 L ABG HCO3 38.8 H ABG Base Excess 11.9 H ABG Hemoglobin 11.9 L Oxyhemoglobin 93.9 L Chloride 95.4 L Carbon Dioxide 37 H Creatinine 0.4 L Glucose POC Glucose Albumin 02/19/20 04:44 Hgb 11.5 L Hct 34.1 L RDW Plt Count Lymph % (Auto) Lymph # (Auto) Seg Neutrophils % Seg Neutrophils # PT INR APTT D-Dimer Heparin Anti-Xa Level ABG pO2 ABG HCO3 ABG Base Excess ABG Hemoglobin Oxyhemoglobin Chloride Carbon Dioxide Creatinine Glucose POC Glucose Albumin
[2020-02-27] MEDS: FUROSEMIDE 40 MG/4 ML INJ IV SCH ×2 (05:32→17:54)
[2020-02-27] MEDS: IPRATROPIUM/ALBUTEROL SULFATE 3 ML AMPUL.NEB IH SCH ×2 (07:41→20:10)
--- NOTE | 2020-02-27 09:29 | Progress Note ---
Assessment and Plan Assessment and plan: Acute exacerbation of HFpEF Continue on diuretics. Will monitor inputs and output and also monitor daily weights. echocardiogram showed preserved EF Cardiology consulted, continue to follow recommendation -- Elevated d-dimer Ultrasound of the lower extremities were negative for DVT. However patient is unable to undergo his CT angiogram because of his size and weight. He has known history of PE in 2019. He has had some mild chest discomfort over the past few days. Patient has been placed on anticoagulation meanwhile with IV heparin. Vascular surgery consulted for input and recommended that patient is likely negative for pulmonary embolism considering the lab work-up. But as we cannot rule out pulmonary embolism and patient is high risks we can continue to treat with anticoagulation, patient can get CTA chest at [place] or [place] following discharge to confirm the diagnosis. started on eliquis -- Morbid obesity with BMI of 70 and over, adult Dietary consulted, continue cardiac diet for now. pt is willing to change diet --Acute hypoxic respiratory failure Etiology secondary to CHF exacerbation and obesity hypoventilation syndrome Continue supplemental O2 and BiPAP at bedtime Start on empiric nebulizer breathing treatment -- Hypertension Blood pressure stable with metoprolol 25 bid vital signs stable -- History of major depression Patient on citalopram. remains depressed psych following -- Cellulitis of lower extremity and lower abdominal wall Patient placed on empiric IV antibiotics. -- DVT prophylaxis Patient on anticoagulation. -- Disposition social service evaluating patient for possible transfer to inpatient psychiatry versus personal retirement depending on further psychiatric evaluation. -- Full code status 02/24/2020. Continue to evaluate for possible inpatient psychiatry per recommendations. Continue 1013. 02/25/2020. Psychiatry discontinued 1013 yesterday and does not recommend acute psychiatric inpatient treatment at this time. The patient understands that if he becomes suicidal at any point to seek immediate assistance. The patient is to follow up with outpatient psych in 7 to 14 days upon discharge. Case management to arrange for discharge planning ? Personal-retirement 02/26/2020. Await physical therapy evaluation for discharge planning. 02/27/2020. Patient had a PT/OT evaluation yesterday and was recommended for home health PT. Patient reports he is able to discharge with a friend but needs a negative Covid test. Anticipate discharge in 1 to 2 days. History Interval history: No new issues overnight. Hospitalist Physical - Constitutional Vitals: Temp Pulse Resp BP Pulse Ox 98.0 F 75 20 154/65 98 10/17/20 08:05 02/27/20 08:05 02/27/20 08:05 02/27/20 08:05 02/27/20 08:05 General appearance: Present: obese - EENT Eyes: Present: PERRL, EOM intact ENT: hearing intact, clear oral mucosa, dentition normal - Neck Neck: Present: supple, normal ROM - Respiratory Respiratory effort: normal Respiratory: bilateral: CTA - Cardiovascular Rhythm: regular Heart Sounds: Present: S1 & S2. Absent: gallop, rub - Extremities Extremities: no ischemia, No edema, Full ROM - Abdominal General gastrointestinal: soft, non-tender, non-distended, normal bowel sounds - Integumentary Integumentary: Present: clear, warm, dry - Neurologic Neurologic: CNII-XII intact, moves all extremities HEART Score - HEART Score Troponin: Troponin T < 0.010 ng/mL (0.00-0.029) 02/13/20 06:48 Results - Labs CBC & Chem 7: 02/19/20 04:44 02/16/20 10:51 Labs: Laboratory Last Values WBC 8.7 K/mm3 (4.5-11.0) 02/13/20 06:48 RBC 3.69 M/mm3 (3.65-5.03) 02/13/20 06:48 Hgb 11.5 gm/dl (11.8-15.2) L 02/19/20 04:44 Hct 34.1 % (35.5-45.6) L 02/19/20 04:44 MCV 90 fl (84-94) 02/13/20 06:48 MCH 30 pg (28-32) 02/13/20 06:48 MCHC 34 % (32-34) 02/13/20 06:48 RDW 17.3 % (13.2-15.2) H 02/13/20 06:48 Plt Count 415 K/mm3 (140-440) 02/19/20 04:44 Lymph % (Auto) 11.3 % (13.4-35.0) L 02/13/20 06:48 [place] % (Auto) 6.8 % (0.0-7.3) 02/13/20 06:48 Eos % (Auto) 4.0 % (0.0-4.3) 02/13/20 06:48 Baso % (Auto) 0.1 % (0.0-1.8) 02/13/20 06:48 Lymph # (Auto) 1.0 K/mm3 (1.2-5.4) L 02/13/20 06:48 [place] # (Auto) 0.6 K/mm3 (0.0-0.8) 02/13/20 06:48 Eos # (Auto) 0.3 K/mm3 (0.0-0.4) 02/13/20 06:48 Baso # (Auto) 0.0 K/mm3 (0.0-0.1) 02/13/20 06:48 Seg Neutrophils % 77.8 % (40.0-70.0) H 02/13/20 06:48 Seg Neutrophils # 6.7 K/mm3 (1.8-7.7) 02/13/20 06:48 PT 14.5 Sec. (12.2-14.9) 02/13/20 06:48 INR 1.11 (0.87-1.13) 02/13/20 06:48 APTT 20.7 Sec. (24.2-36.6) L 02/12/20 00:16 D-Dimer 684.16 ng/mlDDU (0-234) H 02/11/20 21:38 Heparin Anti-Xa Level 1.44 U.I./ml (0.3-0.7) H 02/12/20 19:04 ABG pH 7.409 pH Units (7.350-7.450) 02/18/20 10:10 ABG pCO2 62.7 mm Hg 02/18/20 10:10 ABG pO2 69.3 mm Hg (80.0-90.0) L 02/18/20 10:10 ABG HCO3 38.8 mmol/L (20.0-26.0) H 02/18/20 10:10 ABG O2 Saturation 95.9 % (95.0-99.0) 02/18/20 10:10 ABG O2 Content 15.7 (0.0-44) 02/18/20 10:10 ABG Base Excess 11.9 mmol/L (-2.0-3.0) H 02/18/20 10:10 ABG Hemoglobin 11.9 gm/dl (14.0-18.0) L 02/18/20 10:10 ABG Carboxyhemoglobin 1.7 % (0.0-5.0) 02/18/20 10:10 ABG Methemoglobin 0.4 % (0.0-1.5) 02/18/20 10:10 Oxyhemoglobin 93.9 % (95.0-99.0) L 02/18/20 10:10 FiO2 21 % 02/18/20 10:10 Sodium 143 mmol/L (137-145) 02/16/20 10:51 Potassium 4.4 mmol/L (3.6-5.0) D 02/16/20 10:51 Chloride 95.4 mmol/L (98-107) L 02/16/20 10:51 Carbon Dioxide 37 mmol/L (22-30) H 02/16/20 10:51 Anion Gap 15 mmol/L 02/16/20 10:51 BUN 12 mg/dL (9-20) 02/16/20 10:51 Creatinine 0.4 mg/dL (0.8-1.3) L 02/16/20 10:51 Estimated GFR > 60 ml/min 02/16/20 10:51 BUN/Creatinine Ratio 30 % 02/16/20 10:51 Glucose 98 mg/dL (75-100) 02/16/20 10:51 POC Glucose 135 (70-105) H 02/12/20 15:50 Calcium 8.6 mg/dL (8.4-10.2) 02/16/20 10:51 Total Bilirubin 0.20 mg/dL (0.1-1.2) 02/11/20 21:38 AST 24 units/L (5-40) 02/11/20 21:38 ALT 14 units/L (7-56) 02/11/20 21:38 Alkaline Phosphatase 86 units/L (35-129) 02/11/20 21:38 Total Creatine Kinase 71 units/L (55-170) 02/11/20 21:38 CK-MB (CK-2) 1.3 ng/mL (0.0-4.0) 02/11/20 21:38 CK-MB (CK-2) Rel Index 1.8 (0-4) 10/01/20 21:38 Troponin T < 0.010 ng/mL (0.00-0.029) 02/13/20 06:48 NT-Pro-B Natriuret Pep 464.7 pg/mL (0-900) 02/11/20 21:38 Total Protein 6.6 g/dL (6.3-8.2) 02/11/20 21:38 Albumin 2.8 g/dL (3.9-5) L 02/11/20 21:38 Albumin/Globulin Ratio 0.7 % 02/11/20 21:38 Vancomycin Trough 12.3 ug/mL (5.0-20.0) 02/13/20 13:16 - Diagnostic Impressions Diagnostic Impressions: Echocardiogram 02/12/20 00:26 Transthoracic Echocardiogram Indication: SOB BP: 128/64 HR: 88 Conclusions *Mild concentric left ventricular hypertrophy is observed. *Global left ventricular wall motion and contractility are within normal limits. *The estimated ejection fraction is 50-55%. *Abnormal left ventricular diastolic filling is observed, consistent with impaired relaxation. *There is no pericardial effusion. Findings Left Ventricle: The left ventricular chamber size is normal. Mild concentric left ventricular hypertrophy is observed. Global left ventricular wall motion and contractility are within normal limits. Global left ventricular systolic function is normal. The estimated ejection fraction is 50-55%. Abnormal left ventricular diastolic filling is observed, consistent with impaired relaxation. Right Ventricle: The right ventricle is not well visualized. Right Atrium: The right atrium is not well visualized. Aortic Valve: The aortic valve structure is normal. Mitral Valve: The mitral valve leaflets are mildly thickened. There is no evidence of mitral regurgitation. Tricuspid Valve: The tricuspid valve leaflets are normal. There is trace tricuspid regurgitation. The right ventricular systolic pressure is calculated at 30 mmHg. Pulmonic Valve: The pulmonic valve appears normal. Pericardium: There is no pericardial effusion. Aorta: The aorta appears normal. Venous: The inferior vena cava is not visualized. Contrast: Intravenous contrast was used to enhance endocardial border definition. Measurements Chambers 2D Name Value Normal Range IVSd (2D) 1.32 cm (0.6 - 1.1) LVPWd (2D) 1.37 cm (0.6 - 1.1) LVIDd (2D) 4.95 cm (3.7 - 5.6) LVIDs (2D) 3.75 cm (2 - 3.8) LV FS (2D) 24.3 % - EF Teichholz (2D) 48.13 % - Ao root diameter (2D) 3.62 cm (2 - 3.7) Diastolic/Systolic Function Name Value Normal Range MV E-wave Vmax 0.91 m/sec - MV deceleration time 174.88 msec - MV A-wave Vmax 0.54 m/sec - MV E:A ratio 1.7 ratio - Aortic Valve Name Value Normal Range AV Vmax 1.62 m/sec - AV VTI 35.52 cm - AV peak gradient 10.49 mmHg - AV mean gradient 7.64 mmHg - LVOT diameter 2.16 cm - LVOT Vmax 1.42 m/sec - LVOT VTI 23.46 cm - LVOT peak gradient 8.11 mmHg - LVOT mean gradient 5.79 mmHg - SV LVOT 86.16 ml - IRENE (continuity Vmax) 3.23 cm2 - IRENE (continuity VTI) 2.43 cm2 - Tricuspid Valve Name Value Normal Range TR Vmax 2.62 m/sec - TR peak gradient 27 mmHg - RAP 3 mmHg - RVSP 30 mmHg - Pulmonic Valve/Qp:Qs Name Value Normal Range PV Vmax 1.23 m/sec - PV peak gradient 6 mmHg - PV acceleration time 91.34 msec - [place]/IV: Voiding Method Incontinent IV Catheter Type [Left Forearm INT / Saline Lock ] IV Catheter Type [Left Upper INT / Saline Lock arm] Active Medications - Current Medications Current Medications: Generic Name Dose Route Start Last Admin Trade Name Woodyq PRN Reason Stop Dose Admin Acetaminophen 650 mg 02/12/20 00:23 02/26/20 12:58 Tylenol PO 650 mg Q4H PRN Administration Pain MILD(1-3)/Fever >100.5/LUIS Albuterol/Ipratropium 1 ampul 02/27/20 20:00 Duoneb *Not For Prn Use* IH BIDRT MICHAEL Apixaban 5 mg 02/19/20 10:00 02/26/20 21:00 Eliquis PO 5 mg Q12HR MICHAEL Administration Aripiprazole 10 mg 02/24/20 10:00 02/26/20 09:11 Aripiprazole PO 10 mg QDAY MICHAEL Administration Citalopram Hydrobromide 40 mg 02/16/20 11:00 02/26/20 09:11 Celexa PO 40 mg QDAY MICHAEL Administration Furosemide 40 mg 02/12/20 06:00 02/27/20 05:32 Lasix IV 40 mg BID@0600,1800 MICHAEL Administration Magnesium Hydroxide 30 ml 02/12/20 00:23 Milk Of Magnesia PO Q4H PRN Constipation Metoprolol Tartrate 25 mg 02/12/20 22:00 02/26/20 21:00 Metoprolol PO 25 mg BID MICHAEL Administration Ondansetron HCl 4 mg 02/12/20 00:23 Zofran IV Q8H PRN Nausea And Vomiting Sodium Chloride 10 ml 02/12/20 10:00 02/26/20 21:01 Sodium Chloride Flush Syringe 10 Ml IV 10 ml BID MICHAEL Administration Sodium Chloride 10 ml 02/12/20 00:23 02/22/20 05:45 Sodium Chloride Flush Syringe 10 Ml IV 10 ml PRN PRN Administration LINE FLUSH Nutrition/Malnutrition Assess - Dietary Evaluation Nutrition/Malnutrition Findings: Nutrition Notes Start: 02/12/20 13:57 Freq: Status: Active Protocol: Document 02/18/20 07:25 LP (Rec: 02/19/20 07:26 LP [email or web address]) Nutrition Notes Need for Assessment generated from: LOS Initial or Follow up Brief Note Subjective/Other Information Screen for LOS. Pt consuming 100% of meals. Nutrition Intervention Revisit per MD consult or patient Sign Off request:
[2020-02-27] MEDS: ARIPiprazole 10 MG TAB PO SCH (10:01)
[2020-02-27] MEDS: CITALOPRAM 20 MG TAB PO SCH (10:01)
[2020-02-27] MEDS: METOPROLOL TARTRATE 25 MG TAB PO SCH ×2 (10:02→21:10)
[2020-02-27] MEDS: APIXABAN 5 MG TAB PO SCH ×2 (10:02→21:10)
--- NOTE | 2020-02-27 21:20 | Progress Note ---
Assessment and Plan Patient alert, awake . Resting on 3 litres O2 and O2 saturation running 95%. Patient goes on CPAP during night time. Patient afebrile. No leukocytosis. Patient still has some chest tightness . Patient is on APIXABAN. Patient finished course of ceftriaxone . - Patient Problems (1) Acute exacerbation of CHF (congestive heart failure) Current Visit: Yes Status: Acute Qualifiers: Heart failure type: unspecified Qualified Code(s): I50.9 - Heart failure, unspecified Plan to address problem: Patient is on Lasix. Management as per cardiology. (2) Cellulitis of lower extremity Current Visit: Yes Status: Acute Plan to address problem: Patient finished couse of ceftriaxone . Management as per Primary care and infectious diseases. (3) Elevated d-dimer Current Visit: Yes Status: Acute Plan to address problem: Patient is on APIXABAN (4) History of pulmonary embolism Current Visit: Yes Status: Chronic Plan to address problem: Patient is on APIXABAN. (5) Hypertension Current Visit: Yes Status: Chronic Plan to address problem: Management as per primary care. (6) Morbid obesity with BMI of 70 and over, adult Current Visit: Yes Status: Chronic Plan to address problem: Recommend to loose weight. Diet and exercise. Recommend sleep study as out patient. (7) GURPREET (obstructive sleep apnea) Current Visit: Yes Status: Suspected Plan to address problem: BIPAP during night time. Subjective Date of service: 02/27/20 Principal diagnosis: HF Interval history: Patient alert, awake . Resting on 3 litres O2 and O2 saturation running 95%. Patient goes on CPAP during night time. Patient afebrile. No leukocytosis. Patient says still has some chest tightness . Patient is on APIXABAN. Patient finished course of ceftriaxone . Objective Vital Signs - 12hr 02/27/20 02/27/20 02/27/20 09:59 10:00 10:02 Temperature Pulse Rate 75 70 Pulse Rate [ Bilateral Throughout] Pulse Rate [ 75 Left Dorsalis Pedis] Pulse Rate [ 75 Right Dorsalis Pedis] Pulse Rate [ 75 Right Posterior Tibial] Respiratory 21 Rate Respiratory Rate [Bilateral Throughout] Blood Pressure 135/64 135/64 O2 Sat by Pulse 96 Oximetry 02/27/20 02/27/20 02/27/20 11:22 15:46 19:11 Temperature 97.9 F 98.1 F 98.7 F Pulse Rate 73 67 66 Pulse Rate [ Bilateral Throughout] Pulse Rate [ Left Dorsalis Pedis] Pulse Rate [ Right Dorsalis Pedis] Pulse Rate [ Right Posterior Tibial] Respiratory 20 20 20 Rate Respiratory Rate [Bilateral Throughout] Blood Pressure 149/66 137/63 132/55 O2 Sat by Pulse 98 96 94 Oximetry 02/27/20 02/27/20 20:11 20:12 Temperature Pulse Rate Pulse Rate [ 75 Bilateral Throughout] Pulse Rate [ Left Dorsalis Pedis] Pulse Rate [ Right Dorsalis Pedis] Pulse Rate [ Right Posterior Tibial] Respiratory Rate Respiratory 18 Rate [Bilateral Throughout] Blood Pressure O2 Sat by Pulse 95 Oximetry Constitutional: no acute distress, alert Eyes: non-icteric ENT: oropharynx moist Neck: supple, no JVD Effort: mildly labored Ascultation: Bilateral: rales Cardiovascular: regular rate and rhythm Gastrointestinal: normoactive bowel sounds, soft, non-tender Integumentary: normal Extremities: no cyanosis, no edema Neurologic: normal mental status, non-focal exam, pupils equal and round, CN II- XII normal Psychiatric: mood appropriate CBC and BMP: 02/19/20 04:44 02/16/20 10:51 ABG, PT/INR, D-dimer: ABG ABG pH 7.409 pH Units (7.350-7.450) 02/18/20 10:10 ABG pCO2 62.7 mm Hg 02/18/20 10:10 ABG pO2 69.3 mm Hg (80.0-90.0) L 02/18/20 10:10 ABG O2 Saturation 95.9 % (95.0-99.0) 02/18/20 10:10 PT/INR, D-dimer PT 14.5 Sec. (12.2-14.9) 02/13/20 06:48 INR 1.11 (0.87-1.13) 02/13/20 06:48 D-Dimer 684.16 ng/mlDDU (0-234) H 02/11/20 21:38 Abnormal lab findings: Abnormal Labs 02/11/20 02/11/20 02/11/20 21:38 21:38 21:38 Hgb 11.5 L Hct 34.5 L RDW 17.5 H Plt Count Lymph % (Auto) 8.3 L Lymph # (Auto) 0.9 L Seg Neutrophils % 83.2 H Seg Neutrophils # 8.8 H PT INR APTT D-Dimer 684.16 H Heparin Anti-Xa Level ABG pO2 ABG HCO3 ABG Base Excess ABG Hemoglobin Oxyhemoglobin Chloride 97.3 L Carbon Dioxide 32 H Creatinine 0.4 L Glucose 115 H POC Glucose Albumin 2.8 L 02/12/20 02/12/20 02/12/20 00:16 11:16 11:53 Hgb Hct RDW Plt Count Lymph % (Auto) Lymph # (Auto) Seg Neutrophils % Seg Neutrophils # PT 10.9 L INR 0.77 L APTT 20.7 L D-Dimer Heparin Anti-Xa Level < 0.10 L ABG pO2 ABG HCO3 ABG Base Excess ABG Hemoglobin Oxyhemoglobin Chloride Carbon Dioxide Creatinine Glucose POC Glucose 114 H Albumin 02/12/20 02/12/20 02/13/20 15:50 19:04 06:48 Hgb 11.1 L Hct 33.1 L RDW 17.3 H Plt Count Lymph % (Auto) 11.3 L Lymph # (Auto) 1.0 L Seg Neutrophils % 77.8 H Seg Neutrophils # PT INR APTT D-Dimer Heparin Anti-Xa Level 1.44 H ABG pO2 ABG HCO3 ABG Base Excess ABG Hemoglobin Oxyhemoglobin Chloride Carbon Dioxide Creatinine Glucose POC Glucose 135 H Albumin 02/13/20 02/15/20 02/15/20 06:48 07:36 07:36 Hgb 11.4 L Hct 34.9 L RDW Plt Count Lymph % (Auto) Lymph # (Auto) Seg Neutrophils % Seg Neutrophils # PT INR APTT D-Dimer Heparin Anti-Xa Level ABG pO2 ABG HCO3 ABG Base Excess ABG Hemoglobin Oxyhemoglobin Chloride 96.6 L 95.9 L Carbon Dioxide 37 H 38 H Creatinine 0.5 L 0.4 L Glucose 126 H POC Glucose Albumin 02/16/20 02/17/20 02/18/20 10:51 05:49 10:10 Hgb 11.4 L Hct 34.7 L RDW Plt Count 445 H Lymph % (Auto) Lymph # (Auto) Seg Neutrophils % Seg Neutrophils # PT INR APTT D-Dimer Heparin Anti-Xa Level ABG pO2 69.3 L ABG HCO3 38.8 H ABG Base Excess 11.9 H ABG Hemoglobin 11.9 L Oxyhemoglobin 93.9 L Chloride 95.4 L Carbon Dioxide 37 H Creatinine 0.4 L Glucose POC Glucose Albumin 02/19/20 04:44 Hgb 11.5 L Hct 34.1 L RDW Plt Count Lymph % (Auto) Lymph # (Auto) Seg Neutrophils % Seg Neutrophils # PT INR APTT D-Dimer Heparin Anti-Xa Level ABG pO2 ABG HCO3 ABG Base Excess ABG Hemoglobin Oxyhemoglobin Chloride Carbon Dioxide Creatinine Glucose POC Glucose Albumin
[2020-02-28] MEDS: FUROSEMIDE 40 MG/4 ML INJ IV SCH ×2 (05:05→18:06)
[2020-02-28] MEDS: IPRATROPIUM/ALBUTEROL SULFATE 3 ML AMPUL.NEB IH SCH ×2 (07:35→20:50)
--- NOTE | 2020-02-28 09:30 | Progress Note ---
Assessment and Plan Assessment and plan: Acute exacerbation of HFpEF Continue on diuretics. Will monitor inputs and output and also monitor daily weights. echocardiogram showed preserved EF Cardiology consulted, continue to follow recommendation -- Elevated d-dimer Ultrasound of the lower extremities were negative for DVT. However patient is unable to undergo his CT angiogram because of his size and weight. He has known history of PE in 2019. He has had some mild chest discomfort over the past few days. Patient has been placed on anticoagulation meanwhile with IV heparin. Vascular surgery consulted for input and recommended that patient is likely negative for pulmonary embolism considering the lab work-up. But as we cannot rule out pulmonary embolism and patient is high risks we can continue to treat with anticoagulation, patient can get CTA chest at [place] or [place] following discharge to confirm the diagnosis. started on eliquis -- Morbid obesity with BMI of 70 and over, adult Dietary consulted, continue cardiac diet for now. pt is willing to change diet --Acute hypoxic respiratory failure Etiology secondary to CHF exacerbation and obesity hypoventilation syndrome Continue supplemental O2 and BiPAP at bedtime Start on empiric nebulizer breathing treatment -- Hypertension Blood pressure stable with metoprolol 25 bid vital signs stable -- History of major depression Patient on citalopram. remains depressed psych following -- Cellulitis of lower extremity and lower abdominal wall Patient placed on empiric IV antibiotics. -- DVT prophylaxis Patient on anticoagulation. -- Disposition social service evaluating patient for possible transfer to inpatient psychiatry versus personal retirement depending on further psychiatric evaluation. -- Full code status 02/24/2020. Continue to evaluate for possible inpatient psychiatry per recommendations. Continue 1013. 02/25/2020. Psychiatry discontinued 1013 yesterday and does not recommend acute psychiatric inpatient treatment at this time. The patient understands that if he becomes suicidal at any point to seek immediate assistance. The patient is to follow up with outpatient psych in 7 to 14 days upon discharge. Case management to arrange for discharge planning ? Personal-retirement 02/26/2020. Await physical therapy evaluation for discharge planning. 02/27/2020. Patient had a PT/OT evaluation yesterday and was recommended for home health PT. Patient reports he is able to discharge with a friend but needs a negative Covid test. Anticipate discharge in 1 to 2 days. 02/28/2020. Patient will discharge to a friend's home. Covid testing negative. Physical therapy recommends home health PT. Patient will need home O2 assessment prior to discharge. Anticipate discharge later today or in a.m. History Interval history: No new issues overnight. Hospitalist Physical - Constitutional Vitals: Temp Pulse Resp BP Pulse Ox 97.6 F 71 20 148/56 100 02/28/20 07:50 02/28/20 07:50 02/28/20 07:50 02/28/20 07:50 02/28/20 07:50 General appearance: Present: obese - EENT Eyes: Present: PERRL, EOM intact ENT: hearing intact, clear oral mucosa, dentition normal - Neck Neck: Present: supple, normal ROM - Respiratory Respiratory effort: normal Respiratory: bilateral: CTA - Cardiovascular Rhythm: regular Heart Sounds: Present: S1 & S2. Absent: gallop, rub - Extremities Extremities: no ischemia, No edema, Full ROM - Abdominal General gastrointestinal: soft, non-tender, non-distended, normal bowel sounds - Integumentary Integumentary: Present: clear, warm, dry - Neurologic Neurologic: CNII-XII intact, moves all extremities HEART Score - HEART Score Troponin: Troponin T < 0.010 ng/mL (0.00-0.029) 02/13/20 06:48 Results - Labs CBC & Chem 7: 02/19/20 04:44 02/16/20 10:51 Labs: Laboratory Last Values WBC 8.7 K/mm3 (4.5-11.0) 02/13/20 06:48 RBC 3.69 M/mm3 (3.65-5.03) 02/13/20 06:48 Hgb 11.5 gm/dl (11.8-15.2) L 02/19/20 04:44 Hct 34.1 % (35.5-45.6) L 02/19/20 04:44 MCV 90 fl (84-94) 02/13/20 06:48 MCH 30 pg (28-32) 02/13/20 06:48 MCHC 34 % (32-34) 02/13/20 06:48 RDW 17.3 % (13.2-15.2) H 02/13/20 06:48 Plt Count 415 K/mm3 (140-440) 02/19/20 04:44 Lymph % (Auto) 11.3 % (13.4-35.0) L 02/13/20 06:48 [place] % (Auto) 6.8 % (0.0-7.3) 02/13/20 06:48 Eos % (Auto) 4.0 % (0.0-4.3) 02/13/20 06:48 Baso % (Auto) 0.1 % (0.0-1.8) 02/13/20 06:48 Lymph # (Auto) 1.0 K/mm3 (1.2-5.4) L 02/13/20 06:48 [place] # (Auto) 0.6 K/mm3 (0.0-0.8) 02/13/20 06:48 Eos # (Auto) 0.3 K/mm3 (0.0-0.4) 02/13/20 06:48 Baso # (Auto) 0.0 K/mm3 (0.0-0.1) 02/13/20 06:48 Seg Neutrophils % 77.8 % (40.0-70.0) H 02/13/20 06:48 Seg Neutrophils # 6.7 K/mm3 (1.8-7.7) 02/13/20 06:48 PT 14.5 Sec. (12.2-14.9) 02/13/20 06:48 INR 1.11 (0.87-1.13) 02/13/20 06:48 APTT 20.7 Sec. (24.2-36.6) L 02/12/20 00:16 D-Dimer 684.16 ng/mlDDU (0-234) H 02/11/20 21:38 Heparin Anti-Xa Level 1.44 U.I./ml (0.3-0.7) H 02/12/20 19:04 ABG pH 7.409 pH Units (7.350-7.450) 02/18/20 10:10 ABG pCO2 62.7 mm Hg 02/18/20 10:10 ABG pO2 69.3 mm Hg (80.0-90.0) L 02/18/20 10:10 ABG HCO3 38.8 mmol/L (20.0-26.0) H 02/18/20 10:10 ABG O2 Saturation 95.9 % (95.0-99.0) 02/18/20 10:10 ABG O2 Content 15.7 (0.0-44) 02/18/20 10:10 ABG Base Excess 11.9 mmol/L (-2.0-3.0) H 02/18/20 10:10 ABG Hemoglobin 11.9 gm/dl (14.0-18.0) L 02/18/20 10:10 ABG Carboxyhemoglobin 1.7 % (0.0-5.0) 02/18/20 10:10 ABG Methemoglobin 0.4 % (0.0-1.5) 02/18/20 10:10 Oxyhemoglobin 93.9 % (95.0-99.0) L 02/18/20 10:10 FiO2 21 % 02/18/20 10:10 Sodium 143 mmol/L (137-145) 02/16/20 10:51 Potassium 4.4 mmol/L (3.6-5.0) D 02/16/20 10:51 Chloride 95.4 mmol/L (98-107) L 02/16/20 10:51 Carbon Dioxide 37 mmol/L (22-30) H 02/16/20 10:51 Anion Gap 15 mmol/L 02/16/20 10:51 BUN 12 mg/dL (9-20) 02/16/20 10:51 Creatinine 0.4 mg/dL (0.8-1.3) L 02/16/20 10:51 Estimated GFR > 60 ml/min 02/16/20 10:51 BUN/Creatinine Ratio 30 % 02/16/20 10:51 Glucose 98 mg/dL (75-100) 02/16/20 10:51 POC Glucose 135 (70-105) H 02/12/20 15:50 Calcium 8.6 mg/dL (8.4-10.2) 02/16/20 10:51 Total Bilirubin 0.20 mg/dL (0.1-1.2) 02/11/20 21:38 AST 24 units/L (5-40) 02/11/20 21:38 ALT 14 units/L (7-56) 02/11/20 21:38 Alkaline Phosphatase 86 units/L (35-129) 02/11/20 21:38 Total Creatine Kinase 71 units/L (55-170) 02/11/20 21:38 CK-MB (CK-2) 1.3 ng/mL (0.0-4.0) 02/11/20 21:38 CK-MB (CK-2) Rel Index 1.8 (0-4) 02/11/20 21:38 Troponin T < 0.010 ng/mL (0.00-0.029) 02/13/20 06:48 NT-Pro-B Natriuret Pep 464.7 pg/mL (0-900) 02/11/20 21:38 Total Protein 6.6 g/dL (6.3-8.2) 02/11/20 21:38 Albumin 2.8 g/dL (3.9-5) L 02/11/20 21:38 Albumin/Globulin Ratio 0.7 % 02/11/20 21:38 Vancomycin Trough 12.3 ug/mL (5.0-20.0) 02/13/20 13:16 Coronavirus (PCR) Negative (Negative) 02/27/20 10:39 - Diagnostic Impressions Diagnostic Impressions: Echocardiogram 02/12/20 00:26 Transthoracic Echocardiogram Indication: SOB BP: 128/64 HR: 88 Conclusions *Mild concentric left ventricular hypertrophy is observed. *Global left ventricular wall motion and contractility are within normal limits. *The estimated ejection fraction is 50-55%. *Abnormal left ventricular diastolic filling is observed, consistent with impaired relaxation. *There is no pericardial effusion. Findings Left Ventricle: The left ventricular chamber size is normal. Mild concentric left ventricular hypertrophy is observed. Global left ventricular wall motion and contractility are within normal limits. Global left ventricular systolic function is normal. The estimated ejection fraction is 50-55%. Abnormal left ventricular diastolic filling is observed, consistent with impaired relaxation. Right Ventricle: The right ventricle is not well visualized. Right Atrium: The right atrium is not well visualized. Aortic Valve: The aortic valve structure is normal. Mitral Valve: The mitral valve leaflets are mildly thickened. There is no evidence of mitral regurgitation. Tricuspid Valve: The tricuspid valve leaflets are normal. There is trace tricuspid regurgitation. The right ventricular systolic pressure is calculated at 30 mmHg. Pulmonic Valve: The pulmonic valve appears normal. Pericardium: There is no pericardial effusion. Aorta: The aorta appears normal. Venous: The inferior vena cava is not visualized. Contrast: Intravenous contrast was used to enhance endocardial border definition. Measurements Chambers 2D Name Value Normal Range IVSd (2D) 1.32 cm (0.6 - 1.1) LVPWd (2D) 1.37 cm (0.6 - 1.1) LVIDd (2D) 4.95 cm (3.7 - 5.6) LVIDs (2D) 3.75 cm (2 - 3.8) LV FS (2D) 24.3 % - EF Teichholz (2D) 48.13 % - Ao root diameter (2D) 3.62 cm (2 - 3.7) Diastolic/Systolic Function Name Value Normal Range MV E-wave Vmax 0.91 m/sec - MV deceleration time 174.88 msec - MV A-wave Vmax 0.54 m/sec - MV E:A ratio 1.7 ratio - Aortic Valve Name Value Normal Range AV Vmax 1.62 m/sec - AV VTI 35.52 cm - AV peak gradient 10.49 mmHg - AV mean gradient 7.64 mmHg - LVOT diameter 2.16 cm - LVOT Vmax 1.42 m/sec - LVOT VTI 23.46 cm - LVOT peak gradient 8.11 mmHg - LVOT mean gradient 5.79 mmHg - SV LVOT 86.16 ml - IRENE (continuity Vmax) 3.23 cm2 - IRENE (continuity VTI) 2.43 cm2 - Tricuspid Valve Name Value Normal Range TR Vmax 2.62 m/sec - TR peak gradient 27 mmHg - RAP 3 mmHg - RVSP 30 mmHg - Pulmonic Valve/Qp:Qs Name Value Normal Range PV Vmax 1.23 m/sec - PV peak gradient 6 mmHg - PV acceleration time 91.34 msec - [place]/IV: Voiding Method Incontinent IV Catheter Type [Left Forearm INT / Saline Lock ] IV Catheter Type [Left Upper INT / Saline Lock arm] Active Medications - Current Medications Current Medications: Generic Name Dose Route Start Last Admin Trade Name Freq PRN Reason Stop Dose Admin Acetaminophen 650 mg 02/12/20 00:23 02/26/20 12:58 Tylenol PO 650 mg Q4H PRN Administration Pain MILD(1-3)/Fever >100.5/LUIS Albuterol/Ipratropium 1 ampul 02/27/20 20:00 02/28/20 07:35 Duoneb *Not For Prn Use* IH 1 ampul BIDRT MICHAEL Administration Apixaban 5 mg 02/19/20 10:00 02/27/20 21:10 Eliquis PO 5 mg Q12HR MICHAEL Administration Aripiprazole 10 mg 02/24/20 10:00 02/27/20 10:01 Aripiprazole PO 10 mg QDAY MICHAEL Administration Citalopram Hydrobromide 40 mg 02/16/20 11:00 02/27/20 10:01 Celexa PO 40 mg QDAY MICHAEL Administration Furosemide 40 mg 02/12/20 06:00 02/28/20 05:05 Lasix IV 40 mg BID@0600,1800 MICHAEL Administration Magnesium Hydroxide 30 ml 02/12/20 00:23 Milk Of Magnesia PO Q4H PRN Constipation Metoprolol Tartrate 25 mg 02/12/20 22:00 02/27/20 21:10 Metoprolol PO 25 mg BID MICHAEL Administration Ondansetron HCl 4 mg 02/12/20 00:23 Zofran IV Q8H PRN Nausea And Vomiting Sodium Chloride 10 ml 02/12/20 10:00 02/27/20 21:10 Sodium Chloride Flush Syringe 10 Ml IV 10 ml BID MICHAEL Administration Sodium Chloride 10 ml 02/12/20 00:23 02/22/20 05:45 Sodium Chloride Flush Syringe 10 Ml IV 10 ml PRN PRN Administration LINE FLUSH Nutrition/Malnutrition Assess - Dietary Evaluation Nutrition/Malnutrition Findings: Nutrition Notes Start: 02/12/20 13:57 Freq: Status: Active Protocol: Document 02/18/20 07:25 LP (Rec: 02/19/20 07:26 LP [id number]) Nutrition Notes Need for Assessment generated from: LOS Initial or Follow up Brief Note Subjective/Other Information Screen for LOS. Pt consuming 100% of meals. Nutrition Intervention Revisit per MD consult or patient Sign Off request:
[2020-02-28] MEDS: METOPROLOL TARTRATE 25 MG TAB PO SCH ×2 (09:58→21:17)
[2020-02-28] MEDS: CITALOPRAM 20 MG TAB PO SCH (09:58)
[2020-02-28] MEDS: ARIPiprazole 10 MG TAB PO SCH (09:58)
[2020-02-28] MEDS: APIXABAN 5 MG TAB PO SCH ×2 (09:59→21:17)
--- NOTE | 2020-02-28 20:42 | Progress Note ---
Assessment and Plan Patient alert, awake . Receiving breathing treatment. Patient is on 3 litres O2 and O2 saturation running 97%. Patient goes on CPAP during night time. Patient afebrile. No leukocytosis. No complaint of chest tightness to day.. Patient is on APIXABAN. Patient finished course of ceftriaxone . - Patient Problems (1) Acute exacerbation of CHF (congestive heart failure) Current Visit: Yes Status: Acute Qualifiers: Heart failure type: unspecified Qualified Code(s): I50.9 - Heart failure, unspecified Plan to address problem: Patient is on Lasix. Management as per cardiology. (2) Cellulitis of lower extremity Current Visit: Yes Status: Acute Plan to address problem: Patient finished course of ceftriaxone . Management as per Primary care and infectious diseases. (3) Elevated d-dimer Current Visit: Yes Status: Acute Plan to address problem: Patient is on APIXABAN (4) History of pulmonary embolism Current Visit: Yes Status: Chronic Plan to address problem: Patient is on APIXABAN. (5) Hypertension Current Visit: Yes Status: Chronic Plan to address problem: Management as per primary care. (6) Morbid obesity with BMI of 70 and over, adult Current Visit: Yes Status: Chronic Plan to address problem: Recommend to loose weight. Diet and exercise. Recommend sleep study as out patient. (7) GURPREET (obstructive sleep apnea) Current Visit: Yes Status: Suspected Plan to address problem: BIPAP during night time. Subjective Date of service: 02/28/20 Principal diagnosis: HF Interval history: Patient alert, awake . Receiving breathing treatment. Patient is on 3 litres O2 and O2 saturation running 97%. Patient goes on CPAP during night time. Patient afebrile. No leukocytosis. No complaint of chest tightness to day.. Patient is on APIXABAN. Patient finished course of ceftriaxone . Objective Vital Signs - 12hr 02/28/20 02/28/20 02/28/20 09:52 09:58 10:00 Temperature Pulse Rate 74 74 Pulse Rate [ 71 Left Dorsalis Pedis] Pulse Rate [ 71 Right Dorsalis Pedis] Pulse Rate [ 71 Right Posterior Tibial] Respiratory 20 Rate Blood Pressure 133/70 133/70 O2 Sat by Pulse 99 Oximetry 02/28/20 02/28/20 02/28/20 11:44 17:18 19:30 Temperature 97.7 F 97.9 F 98.2 F Pulse Rate 68 66 66 Pulse Rate [ Left Dorsalis Pedis] Pulse Rate [ Right Dorsalis Pedis] Pulse Rate [ Right Posterior Tibial] Respiratory 20 20 20 Rate Blood Pressure 124/53 135/66 129/64 O2 Sat by Pulse 99 96 95 Oximetry Constitutional: no acute distress, alert Eyes: non-icteric ENT: oropharynx moist Neck: supple, no JVD Effort: mildly labored Ascultation: Bilateral: rales Cardiovascular: regular rate and rhythm Gastrointestinal: normoactive bowel sounds, soft, non-tender Integumentary: normal Extremities: no cyanosis, no edema Neurologic: normal mental status, non-focal exam, pupils equal and round, CN II- XII normal Psychiatric: mood appropriate CBC and BMP: 02/19/20 04:44 02/16/20 10:51 ABG, PT/INR, D-dimer: ABG ABG pH 7.409 pH Units (7.350-7.450) 02/18/20 10:10 ABG pCO2 62.7 mm Hg 02/18/20 10:10 ABG pO2 69.3 mm Hg (80.0-90.0) L 02/18/20 10:10 ABG O2 Saturation 95.9 % (95.0-99.0) 02/18/20 10:10 PT/INR, D-dimer PT 14.5 Sec. (12.2-14.9) 02/13/20 06:48 INR 1.11 (0.87-1.13) 02/13/20 06:48 D-Dimer 684.16 ng/mlDDU (0-234) H 02/11/20 21:38 Abnormal lab findings: Abnormal Labs 02/11/20 02/11/20 02/11/20 21:38 21:38 21:38 Hgb 11.5 L Hct 34.5 L RDW 17.5 H Plt Count Lymph % (Auto) 8.3 L Lymph # (Auto) 0.9 L Seg Neutrophils % 83.2 H Seg Neutrophils # 8.8 H PT INR APTT D-Dimer 684.16 H Heparin Anti-Xa Level ABG pO2 ABG HCO3 ABG Base Excess ABG Hemoglobin Oxyhemoglobin Chloride 97.3 L Carbon Dioxide 32 H Creatinine 0.4 L Glucose 115 H POC Glucose Albumin 2.8 L 10/07/0202/12/20 02/12/20 00:16 11:16 11:53 Hgb Hct RDW Plt Count Lymph % (Auto) Lymph # (Auto) Seg Neutrophils % Seg Neutrophils # PT 10.9 L INR 0.77 L APTT 20.7 L D-Dimer Heparin Anti-Xa Level < 0.10 L ABG pO2 ABG HCO3 ABG Base Excess ABG Hemoglobin Oxyhemoglobin Chloride Carbon Dioxide Creatinine Glucose POC Glucose 114 H Albumin 02/12/20 02/12/20 02/13/20 15:50 19:04 06:48 Hgb 11.1 L Hct 33.1 L RDW 17.3 H Plt Count Lymph % (Auto) 11.3 L Lymph # (Auto) 1.0 L Seg Neutrophils % 77.8 H Seg Neutrophils # PT INR APTT D-Dimer Heparin Anti-Xa Level 1.44 H ABG pO2 ABG HCO3 ABG Base Excess ABG Hemoglobin Oxyhemoglobin Chloride Carbon Dioxide Creatinine Glucose POC Glucose 135 H Albumin 02/13/20 02/15/20 02/15/20 06:48 07:36 07:36 Hgb 11.4 L Hct 34.9 L RDW Plt Count Lymph % (Auto) Lymph # (Auto) Seg Neutrophils % Seg Neutrophils # PT INR APTT D-Dimer Heparin Anti-Xa Level ABG pO2 ABG HCO3 ABG Base Excess ABG Hemoglobin Oxyhemoglobin Chloride 96.6 L 95.9 L Carbon Dioxide 37 H 38 H Creatinine 0.5 L 0.4 L Glucose 126 H POC Glucose Albumin 02/16/20 02/17/20 02/18/20 10:51 05:49 10:10 Hgb 11.4 L Hct 34.7 L RDW Plt Count 445 H Lymph % (Auto) Lymph # (Auto) Seg Neutrophils % Seg Neutrophils # PT INR APTT D-Dimer Heparin Anti-Xa Level ABG pO2 69.3 L ABG HCO3 38.8 H ABG Base Excess 11.9 H ABG Hemoglobin 11.9 L Oxyhemoglobin 93.9 L Chloride 95.4 L Carbon Dioxide 37 H Creatinine 0.4 L Glucose POC Glucose Albumin 02/19/20 04:44 Hgb 11.5 L Hct 34.1 L RDW Plt Count Lymph % (Auto) Lymph # (Auto) Seg Neutrophils % Seg Neutrophils # PT INR APTT D-Dimer Heparin Anti-Xa Level ABG pO2 ABG HCO3 ABG Base Excess ABG Hemoglobin Oxyhemoglobin Chloride Carbon Dioxide Creatinine Glucose POC Glucose Albumin
[2020-02-28] MEDS: ACETAMINOPHEN 325 MG TAB PO PRN (21:17)
[2020-02-29] MEDS: FUROSEMIDE 40 MG/4 ML INJ IV SCH ×2 (05:13→17:33)
[2020-02-29] MEDS: IPRATROPIUM/ALBUTEROL SULFATE 3 ML AMPUL.NEB IH SCH ×2 (07:22→20:26)
[2020-02-29] MEDS: APIXABAN 5 MG TAB PO SCH ×2 (09:16→21:21)
[2020-02-29] MEDS: ARIPiprazole 10 MG TAB PO SCH (09:16)
[2020-02-29] MEDS: ACETAMINOPHEN 325 MG TAB PO PRN ×2 (09:17→21:21)
[2020-02-29] MEDS: METOPROLOL TARTRATE 25 MG TAB PO SCH ×2 (09:17→21:22)
[2020-02-29] MEDS: CITALOPRAM 20 MG TAB PO SCH (09:18)
--- NOTE | 2020-02-29 10:47 | Progress Note ---
Assessment and Plan Assessment and plan: --Acute on chronic diastolic congestive heart failure; Continue on diuretics. Will monitor inputs and output and also monitor daily weights. echocardiogram showed preserved EF Cardiology consulted, continue to follow recommendation -- Elevated d-dimer Ultrasound of the lower extremities were negative for DVT. However patient is unable to undergo his CT angiogram because of his size and weight. He has known history of PE in 2019. He has had some mild chest discomfort over the past few days. Patient has been placed on anticoagulation meanwhile with IV heparin. Vascular surgery consulted for input and recommended that patient is likely negative for pulmonary embolism considering the lab work-up. But as we cannot rule out pulmonary embolism and patient is high risks we can continue to treat with anticoagulation, patient can get CTA chest at [place] or [place] following discharge to confirm the diagnosis. started on eliquis -- Morbid obesity with BMI of 57.9 adult Dietary consulted, continue cardiac diet for now. pt is willing to change diet --Acute hypoxic respiratory failure Etiology secondary to CHF exacerbation and obesity hypoventilation syndrome Continue supplemental O2 and BiPAP at bedtime Start on empiric nebulizer breathing treatment -- Hypertension Blood pressure stable with metoprolol 25 bid vital signs stable -- History of major depression Patient on citalopram. remains depressed psych following -- Cellulitis of lower extremity and lower abdominal wall Patient placed on empiric IV antibiotics. -- DVT prophylaxis Patient on anticoagulation. -- Disposition social service evaluating patient for possible transfer to inpatient psychiatry versus personal halfway depending on further psychiatric evaluation. -- Full code status 02/24/2020. Continue to evaluate for possible inpatient psychiatry per recommendations. Continue 1013. 02/25/2020. Psychiatry discontinued 1013 yesterday and does not recommend acute psychiatric inpatient treatment at this time. The patient understands that if he becomes suicidal at any point to seek immediate assistance. The patient is to follow up with outpatient psych in 7 to 14 days upon discharge. Case management to arrange for discharge planning ? Personal-halfway 02/26/2020. Await physical therapy evaluation for discharge planning. 02/27/2020. Patient had a PT/OT evaluation yesterday and was recommended for home health PT. Patient reports he is able to discharge with a friend but needs a negative Covid test. Anticipate discharge in 1 to 2 days. 02/28/2020. Patient will discharge to a friend's home. Covid testing negative. Physical therapy recommends home health PT. Patient will need home O2 assessment prior to discharge. Anticipate discharge later today or in a.m. 02/29/20; evaluate for home oxygen, resting room air/DC planning per case management Possible discharge tomorrow with home health History Interval history: I have seen and examined the patient at the bedside this morning patient's chart and medications reviewed Morbidly obese male patient, in mild distress Complains of constipation Vital signs reviewed Hospitalist Physical - Constitutional Vitals: Temp Pulse Resp BP Pulse Ox 97.6 F 74 20 133/66 99 02/29/20 07:52 02/29/20 09:17 02/29/20 09:17 02/29/20 09:17 02/29/20 07:52 General appearance: Present: mild distress, well-nourished, obese (Morbidly obese) - EENT Eyes: Present: PERRL, EOM intact - Neck Neck: Present: supple, normal ROM - Respiratory Respiratory effort: normal Respiratory: bilateral: diminished, rhonchi, negative: rales, wheezing - Cardiovascular Rhythm: regular Heart Sounds: Present: S1 & S2 - Extremities Extremities: no ischemia Extremity abnormal: edema - Abdominal General gastrointestinal: soft, non-tender, non-distended, normal bowel sounds - Integumentary Integumentary: Present: clear, warm - Psychiatric Psychiatric: appropriate mood/affect, cooperative - Neurologic Neurologic: moves all extremities HEART Score - HEART Score Troponin: Troponin T < 0.010 ng/mL (0.00-0.029) 02/13/20 06:48 Results - Labs CBC & Chem 7: 02/19/20 04:44 02/16/20 10:51 Labs: Laboratory Last Values WBC 8.7 K/mm3 (4.5-11.0) 02/13/20 06:48 RBC 3.69 M/mm3 (3.65-5.03) 02/13/20 06:48 Hgb 11.5 gm/dl (11.8-15.2) L 02/19/20 04:44 Hct 34.1 % (35.5-45.6) L 02/19/20 04:44 MCV 90 fl (84-94) 02/13/20 06:48 MCH 30 pg (28-32) 02/13/20 06:48 MCHC 34 % (32-34) 02/13/20 06:48 RDW 17.3 % (13.2-15.2) H 02/13/20 06:48 Plt Count 415 K/mm3 (140-440) 02/19/20 04:44 Lymph % (Auto) 11.3 % (13.4-35.0) L 02/13/20 06:48 [place] % (Auto) 6.8 % (0.0-7.3) 02/13/20 06:48 Eos % (Auto) 4.0 % (0.0-4.3) 02/13/20 06:48 Baso % (Auto) 0.1 % (0.0-1.8) 02/13/20 06:48 Lymph # (Auto) 1.0 K/mm3 (1.2-5.4) L 02/13/20 06:48 [place] # (Auto) 0.6 K/mm3 (0.0-0.8) 02/13/20 06:48 Eos # (Auto) 0.3 K/mm3 (0.0-0.4) 02/13/20 06:48 Baso # (Auto) 0.0 K/mm3 (0.0-0.1) 02/13/20 06:48 Seg Neutrophils % 77.8 % (40.0-70.0) H 02/13/20 06:48 Seg Neutrophils # 6.7 K/mm3 (1.8-7.7) 02/13/20 06:48 PT 14.5 Sec. (12.2-14.9) 02/13/20 06:48 INR 1.11 (0.87-1.13) 02/13/20 06:48 APTT 20.7 Sec. (24.2-36.6) L 02/12/20 00:16 D-Dimer 684.16 ng/mlDDU (0-234) H 02/11/20 21:38 Heparin Anti-Xa Level 1.44 U.I./ml (0.3-0.7) H 02/12/20 19:04 ABG pH 7.409 pH Units (7.350-7.450) 02/18/20 10:10 ABG pCO2 62.7 mm Hg 02/18/20 10:10 ABG pO2 69.3 mm Hg (80.0-90.0) L 02/18/20 10:10 ABG HCO3 38.8 mmol/L (20.0-26.0) H 02/18/20 10:10 ABG O2 Saturation 95.9 % (95.0-99.0) 02/18/20 10:10 ABG O2 Content 15.7 (0.0-44) 02/18/20 10:10 ABG Base Excess 11.9 mmol/L (-2.0-3.0) H 02/18/20 10:10 ABG Hemoglobin 11.9 gm/dl (14.0-18.0) L 02/18/20 10:10 ABG Carboxyhemoglobin 1.7 % (0.0-5.0) 02/18/20 10:10 ABG Methemoglobin 0.4 % (0.0-1.5) 02/18/20 10:10 Oxyhemoglobin 93.9 % (95.0-99.0) L 02/18/20 10:10 FiO2 21 % 02/18/20 10:10 Sodium 143 mmol/L (137-145) 02/16/20 10:51 Potassium 4.4 mmol/L (3.6-5.0) D 02/16/20 10:51 Chloride 95.4 mmol/L (98-107) L 02/16/20 10:51 Carbon Dioxide 37 mmol/L (22-30) H 02/16/20 10:51 Anion Gap 15 mmol/L 02/16/20 10:51 BUN 12 mg/dL (9-20) 02/16/20 10:51 Creatinine 0.4 mg/dL (0.8-1.3) L 02/16/20 10:51 Estimated GFR > 60 ml/min 02/16/20 10:51 BUN/Creatinine Ratio 30 % 02/16/20 10:51 Glucose 98 mg/dL (75-100) 02/16/20 10:51 POC Glucose 135 (70-105) H 02/12/20 15:50 Calcium 8.6 mg/dL (8.4-10.2) 02/16/20 10:51 Total Bilirubin 0.20 mg/dL (0.1-1.2) 02/11/20 21:38 AST 24 units/L (5-40) 02/11/20 21:38 ALT 14 units/L (7-56) 02/11/20 21:38 Alkaline Phosphatase 86 units/L (35-129) 02/11/20 21:38 Total Creatine Kinase 71 units/L (55-170) 02/11/20 21:38 CK-MB (CK-2) 1.3 ng/mL (0.0-4.0) 02/11/20 21:38 CK-MB (CK-2) Rel Index 1.8 (0-4) 02/11/20 21:38 Troponin T < 0.010 ng/mL (0.00-0.029) 02/13/20 06:48 NT-Pro-B Natriuret Pep 464.7 pg/mL (0-900) 02/11/20 21:38 Total Protein 6.6 g/dL (6.3-8.2) 02/11/20 21:38 Albumin 2.8 g/dL (3.9-5) L 02/11/20 21:38 Albumin/Globulin Ratio 0.7 % 02/11/20 21:38 Vancomycin Trough 12.3 ug/mL (5.0-20.0) 02/13/20 13:16 Coronavirus (PCR) Negative (Negative) 02/27/20 10:39 - Diagnostic Impressions Diagnostic Impressions: Echocardiogram 02/12/20 00:26 Transthoracic Echocardiogram Indication: SOB BP: 128/64 HR: 88 Conclusions *Mild concentric left ventricular hypertrophy is observed. *Global left ventricular wall motion and contractility are within normal limits. *The estimated ejection fraction is 50-55%. *Abnormal left ventricular diastolic filling is observed, consistent with impaired relaxation. *There is no pericardial effusion. Findings Left Ventricle: The left ventricular chamber size is normal. Mild concentric left ventricular hypertrophy is observed. Global left ventricular wall motion and contractility are within normal limits. Global left ventricular systolic function is normal. The estimated ejection fraction is 50-55%. Abnormal left ventricular diastolic filling is observed, consistent with impaired relaxation. Right Ventricle: The right ventricle is not well visualized. Right Atrium: The right atrium is not well visualized. Aortic Valve: The aortic valve structure is normal. Mitral Valve: The mitral valve leaflets are mildly thickened. There is no evidence of mitral regurgitation. Tricuspid Valve: The tricuspid valve leaflets are normal. There is trace tricuspid regurgitation. The right ventricular systolic pressure is calculated at 30 mmHg. Pulmonic Valve: The pulmonic valve appears normal. Pericardium: There is no pericardial effusion. Aorta: The aorta appears normal. Venous: The inferior vena cava is not visualized. Contrast: Intravenous contrast was used to enhance endocardial border definition. Measurements Chambers 2D Name Value Normal Range IVSd (2D) 1.32 cm (0.6 - 1.1) LVPWd (2D) 1.37 cm (0.6 - 1.1) LVIDd (2D) 4.95 cm (3.7 - 5.6) LVIDs (2D) 3.75 cm (2 - 3.8) LV FS (2D) 24.3 % - EF Teichholz (2D) 48.13 % - Ao root diameter (2D) 3.62 cm (2 - 3.7) Diastolic/Systolic Function Name Value Normal Range MV E-wave Vmax 0.91 m/sec - MV deceleration time 174.88 msec - MV A-wave Vmax 0.54 m/sec - MV E:A ratio 1.7 ratio - Aortic Valve Name Value Normal Range AV Vmax 1.62 m/sec - AV VTI 35.52 cm - AV peak gradient 10.49 mmHg - AV mean gradient 7.64 mmHg - LVOT diameter 2.16 cm - LVOT Vmax 1.42 m/sec - LVOT VTI 23.46 cm - LVOT peak gradient 8.11 mmHg - LVOT mean gradient 5.79 mmHg - SV LVOT 86.16 ml - IRENE (continuity Vmax) 3.23 cm2 - IRENE (continuity VTI) 2.43 cm2 - Tricuspid Valve Name Value Normal Range TR Vmax 2.62 m/sec - TR peak gradient 27 mmHg - RAP 3 mmHg - RVSP 30 mmHg - Pulmonic Valve/Qp:Qs Name Value Normal Range PV Vmax 1.23 m/sec - PV peak gradient 6 mmHg - PV acceleration time 91.34 msec - Peralta/IV: Voiding Method Incontinent IV Catheter Type [Left Forearm INT / Saline Lock ] IV Catheter Type [Left Upper INT / Saline Lock arm] Active Medications - Current Medications Current Medications: Generic Name Dose Route Start Last Admin Trade Name Freq PRN Reason Stop Dose Admin Acetaminophen 650 mg 02/12/20 00:23 02/29/20 09:17 Tylenol PO 650 mg Q4H PRN Administration Pain MILD(1-3)/Fever >100.5/LUIS Albuterol/Ipratropium 1 ampul 02/27/20 20:00 02/29/20 07:22 Duoneb *Not For Prn Use* IH 1 ampul BIDRT MICHAEL Administration Apixaban 5 mg 02/19/20 10:00 02/29/20 09:16 Eliquis PO 5 mg Q12HR MICHAEL Administration Aripiprazole 10 mg 02/24/20 10:00 02/29/20 09:16 Aripiprazole PO 10 mg QDAY MICHAEL Administration Citalopram Hydrobromide 40 mg 02/16/20 11:00 02/29/20 09:18 Celexa PO 40 mg QDAY MICHAEL Administration Furosemide 40 mg 02/12/20 06:00 02/29/20 05:13 Lasix IV 40 mg BID@0600,1800 MICHAEL Administration Magnesium Hydroxide 30 ml 02/12/20 00:23 Milk Of Magnesia PO Q4H PRN Constipation Metoprolol Tartrate 25 mg 02/12/20 22:00 02/29/20 09:17 Metoprolol PO 25 mg BID MICHAEL Administration Ondansetron HCl 4 mg 02/12/20 00:23 Zofran IV Q8H PRN Nausea And Vomiting Sodium Chloride 10 ml 02/12/20 10:00 02/29/20 09:18 Sodium Chloride Flush Syringe 10 Ml IV 10 ml BID MICHAEL Administration Sodium Chloride 10 ml 02/12/20 00:23 02/22/20 05:45 Sodium Chloride Flush Syringe 10 Ml IV 10 ml PRN PRN Administration LINE FLUSH Nutrition/Malnutrition Assess - Dietary Evaluation Nutrition/Malnutrition Findings: Nutrition Notes Start: 02/12/20 13:57 Freq: Status: Active Protocol: Document 02/18/20 07:25 LP (Rec: 02/19/20 07:26 LP [id number]) Nutrition Notes Need for Assessment generated from: LOS Initial or Follow up Brief Note Subjective/Other Information Screen for LOS. Pt consuming 100% of meals. Nutrition Intervention Revisit per MD consult or patient Sign Off request:
[2020-02-29] MEDS ORDERED: MAGNESIUM HYDROXIDE (MOM) ORAL LIQD UDC PO PRN (12:02)
--- NOTE | 2020-02-29 17:26 | Progress Note ---
Assessment and Plan Patient alert, awake . Patient is on 3 litres O2 and O2 saturation running 95%. Patient goes on CPAP during night time. Patient afebrile. No leukocytosis. No complaint of chest tightness to day.. Patient is on APIXABAN. Patient finished course of ceftriaxone . - Patient Problems (1) Acute exacerbation of CHF (congestive heart failure) Current Visit: Yes Status: Acute Qualifiers: Heart failure type: unspecified Qualified Code(s): I50.9 - Heart failure, unspecified Plan to address problem: Patient is on Lasix. Management as per cardiology. (2) Cellulitis of lower extremity Current Visit: Yes Status: Acute Plan to address problem: Patient finished course of ceftriaxone . Management as per Primary care and infectious diseases. (3) Elevated d-dimer Current Visit: Yes Status: Acute Plan to address problem: Patient is on APIXABAN (4) History of pulmonary embolism Current Visit: Yes Status: Chronic Plan to address problem: Patient is on APIXABAN. (5) Hypertension Current Visit: Yes Status: Chronic Plan to address problem: Management as per primary care. (6) Morbid obesity with BMI of 70 and over, adult Current Visit: Yes Status: Chronic Plan to address problem: Recommend to loose weight. Diet and exercise. Recommend sleep study as out patient. (7) GURPREET (obstructive sleep apnea) Current Visit: Yes Status: Suspected Plan to address problem: BIPAP during night time. Subjective Date of service: 02/29/20 Principal diagnosis: HF Interval history: Patient alert, awake . Patient is on 3 litres O2 and O2 saturation running 95%. Patient goes on CPAP during night time. Patient afebrile. No leukocytosis. No complaint of chest tightness to day.. Patient is on APIXABAN. Patient finished course of ceftriaxone . Objective Vital Signs - 12hr 02/29/20 02/29/20 02/29/20 07:24 07:25 07:52 Temperature 97.6 F Pulse Rate 74 Pulse Rate [ Apical] Pulse Rate [ 86 Posterior Bilateral Throughout] Respiratory 20 Rate Respiratory Rate [Head] Respiratory 18 Rate [Posterior Bilateral Throughout] Blood Pressure 133/66 O2 Sat by Pulse 95 99 Oximetry 02/29/20 02/29/20 02/29/20 09:17 10:00 10:17 Temperature Pulse Rate 74 Pulse Rate [ 80 Apical] Pulse Rate [ Posterior Bilateral Throughout] Respiratory 20 20 20 Rate Respiratory 20 Rate [Head] Respiratory Rate [Posterior Bilateral Throughout] Blood Pressure 133/66 O2 Sat by Pulse 99 Oximetry Constitutional: no acute distress, alert Eyes: non-icteric ENT: oropharynx moist Neck: supple, no JVD Effort: mildly labored Ascultation: Bilateral: rales Cardiovascular: regular rate and rhythm Gastrointestinal: normoactive bowel sounds, soft, non-tender Integumentary: normal Extremities: no cyanosis, no edema Neurologic: normal mental status, non-focal exam, pupils equal and round, CN II- XII normal Psychiatric: mood appropriate CBC and BMP: 02/19/20 04:44 02/16/20 10:51 ABG, PT/INR, D-dimer: ABG ABG pH 7.409 pH Units (7.350-7.450) 02/18/20 10:10 ABG pCO2 62.7 mm Hg 02/18/20 10:10 ABG pO2 69.3 mm Hg (80.0-90.0) L 02/18/20 10:10 ABG O2 Saturation 95.9 % (95.0-99.0) 02/18/20 10:10 PT/INR, D-dimer PT 14.5 Sec. (12.2-14.9) 02/13/20 06:48 INR 1.11 (0.87-1.13) 02/13/20 06:48 D-Dimer 684.16 ng/mlDDU (0-234) H 02/11/20 21:38 Abnormal lab findings: Abnormal Labs 02/11/20 02/11/20 02/11/20 21:38 21:38 21:38 Hgb 11.5 L Hct 34.5 L RDW 17.5 H Plt Count Lymph % (Auto) 8.3 L Lymph # (Auto) 0.9 L Seg Neutrophils % 83.2 H Seg Neutrophils # 8.8 H PT INR APTT D-Dimer 684.16 H Heparin Anti-Xa Level ABG pO2 ABG HCO3 ABG Base Excess ABG Hemoglobin Oxyhemoglobin Chloride 97.3 L Carbon Dioxide 32 H Creatinine 0.4 L Glucose 115 H POC Glucose Albumin 2.8 L 02/12/20 02/12/20 02/12/20 00:16 11:16 11:53 Hgb Hct RDW Plt Count Lymph % (Auto) Lymph # (Auto) Seg Neutrophils % Seg Neutrophils # PT 10.9 L INR 0.77 L APTT 20.7 L D-Dimer Heparin Anti-Xa Level < 0.10 L ABG pO2 ABG HCO3 ABG Base Excess ABG Hemoglobin Oxyhemoglobin Chloride Carbon Dioxide Creatinine Glucose POC Glucose 114 H Albumin 02/12/20 02/12/20 02/13/20 15:50 19:04 06:48 Hgb 11.1 L Hct 33.1 L RDW 17.3 H Plt Count Lymph % (Auto) 11.3 L Lymph # (Auto) 1.0 L Seg Neutrophils % 77.8 H Seg Neutrophils # PT INR APTT D-Dimer Heparin Anti-Xa Level 1.44 H ABG pO2 ABG HCO3 ABG Base Excess ABG Hemoglobin Oxyhemoglobin Chloride Carbon Dioxide Creatinine Glucose POC Glucose 135 H Albumin 02/13/20 02/15/20 02/15/20 06:48 07:36 07:36 Hgb 11.4 L Hct 34.9 L RDW Plt Count Lymph % (Auto) Lymph # (Auto) Seg Neutrophils % Seg Neutrophils # PT INR APTT D-Dimer Heparin Anti-Xa Level ABG pO2 ABG HCO3 ABG Base Excess ABG Hemoglobin Oxyhemoglobin Chloride 96.6 L 95.9 L Carbon Dioxide 37 H 38 H Creatinine 0.5 L 0.4 L Glucose 126 H POC Glucose Albumin 02/16/20 02/17/20 02/18/20 10:51 05:49 10:10 Hgb 11.4 L Hct 34.7 L RDW Plt Count 445 H Lymph % (Auto) Lymph # (Auto) Seg Neutrophils % Seg Neutrophils # PT INR APTT D-Dimer Heparin Anti-Xa Level ABG pO2 69.3 L ABG HCO3 38.8 H ABG Base Excess 11.9 H ABG Hemoglobin 11.9 L Oxyhemoglobin 93.9 L Chloride 95.4 L Carbon Dioxide 37 H Creatinine 0.4 L Glucose POC Glucose Albumin 02/19/20 04:44 Hgb 11.5 L Hct 34.1 L RDW Plt Count Lymph % (Auto) Lymph # (Auto) Seg Neutrophils % Seg Neutrophils # PT INR APTT D-Dimer Heparin Anti-Xa Level ABG pO2 ABG HCO3 ABG Base Excess ABG Hemoglobin Oxyhemoglobin Chloride Carbon Dioxide Creatinine Glucose POC Glucose Albumin
[2020-03-01] MEDS: FUROSEMIDE 40 MG/4 ML INJ IV SCH ×2 (06:22→17:20)
[2020-03-01] MEDS: IPRATROPIUM/ALBUTEROL SULFATE 3 ML AMPUL.NEB IH SCH ×2 (08:56→21:07)
[2020-03-01] MEDS: APIXABAN 5 MG TAB PO SCH ×2 (09:10→21:17)
[2020-03-01] MEDS: CITALOPRAM 20 MG TAB PO SCH (09:10)
[2020-03-01] MEDS: ACETAMINOPHEN 325 MG TAB PO PRN ×2 (09:10→17:46)
[2020-03-01] MEDS: ARIPiprazole 10 MG TAB PO SCH (09:10)
[2020-03-01] MEDS: METOPROLOL TARTRATE 25 MG TAB PO SCH ×2 (09:10→21:17)
--- NOTE | 2020-03-01 10:19 | Progress Note ---
Assessment and Plan atient sleeping on 3 litres O2 and O2 saturation running 99%. Patient goes on CPAP during night time. Patient afebrile. No leukocytosis. No acute respiratory distress. Patient is on APIXABAN. Patient finished course of ceftriaxone . - Patient Problems (1) Acute exacerbation of CHF (congestive heart failure) Current Visit: Yes Status: Acute Qualifiers: Heart failure type: unspecified Qualified Code(s): I50.9 - Heart failure, unspecified Plan to address problem: Patient is on Lasix. Management as per cardiology. (2) Cellulitis of lower extremity Current Visit: Yes Status: Acute Plan to address problem: Patient finished course of ceftriaxone . Management as per Primary care and infectious diseases. (3) Elevated d-dimer Current Visit: Yes Status: Acute Plan to address problem: Patient is on APIXABAN (4) History of pulmonary embolism Current Visit: Yes Status: Chronic Plan to address problem: Patient is on APIXABAN. (5) Hypertension Current Visit: Yes Status: Chronic Plan to address problem: Management as per primary care. (6) Morbid obesity with BMI of 70 and over, adult Current Visit: Yes Status: Chronic Plan to address problem: Recommend to loose weight. Diet and exercise. Recommend sleep study as out patient. (7) GURPREET (obstructive sleep apnea) Current Visit: Yes Status: Suspected Plan to address problem: BIPAP during night time. Subjective Date of service: 03/01/20 Principal diagnosis: HF Interval history: Patient sleeping on 3 litres O2 and O2 saturation running 99%. Patient goes on CPAP during night time. Patient afebrile. No leukocytosis. No acute respiratory distress. Patient is on APIXABAN. Patient finished course of ceftriaxone . Objective Vital Signs - 12hr 02/29/20 03/01/20 03/01/20 23:32 04:04 07:44 Temperature 97.9 F 97.4 F L 97.8 F Pulse Rate 73 68 67 Respiratory 19 19 18 Rate Blood Pressure 126/70 141/65 156/65 O2 Sat by Pulse 95 96 99 Oximetry Constitutional: no acute distress, alert Eyes: non-icteric ENT: oropharynx moist Neck: supple, no JVD Effort: mildly labored Ascultation: Bilateral: rales Cardiovascular: regular rate and rhythm Gastrointestinal: normoactive bowel sounds, soft, non-tender Integumentary: normal Extremities: no cyanosis, no edema Neurologic: normal mental status, non-focal exam, pupils equal and round, CN II- XII normal Psychiatric: mood appropriate CBC and BMP: 02/19/20 04:44 02/16/20 10:51 ABG, PT/INR, D-dimer: ABG ABG pH 7.409 pH Units (7.350-7.450) 02/18/20 10:10 ABG pCO2 62.7 mm Hg 02/18/20 10:10 ABG pO2 69.3 mm Hg (80.0-90.0) L 02/18/20 10:10 ABG O2 Saturation 95.9 % (95.0-99.0) 02/18/20 10:10 PT/INR, D-dimer PT 14.5 Sec. (12.2-14.9) 02/13/20 06:48 INR 1.11 (0.87-1.13) 02/13/20 06:48 D-Dimer 684.16 ng/mlDDU (0-234) H 02/11/20 21:38 Abnormal lab findings: Abnormal Labs 02/11/20 02/11/20 02/11/20 21:38 21:38 21:38 Hgb 11.5 L Hct 34.5 L RDW 17.5 H Plt Count Lymph % (Auto) 8.3 L Lymph # (Auto) 0.9 L Seg Neutrophils % 83.2 H Seg Neutrophils # 8.8 H PT INR APTT D-Dimer 684.16 H Heparin Anti-Xa Level ABG pO2 ABG HCO3 ABG Base Excess ABG Hemoglobin Oxyhemoglobin Chloride 97.3 L Carbon Dioxide 32 H Creatinine 0.4 L Glucose 115 H POC Glucose Albumin 2.8 L 02/12/20 02/12/20 02/12/20 00:16 11:16 11:53 Hgb Hct RDW Plt Count Lymph % (Auto) Lymph # (Auto) Seg Neutrophils % Seg Neutrophils # PT 10.9 L INR 0.77 L APTT 20.7 L D-Dimer Heparin Anti-Xa Level < 0.10 L ABG pO2 ABG HCO3 ABG Base Excess ABG Hemoglobin Oxyhemoglobin Chloride Carbon Dioxide Creatinine Glucose POC Glucose 114 H Albumin 02/12/20 02/12/20 02/13/20 15:50 19:04 06:48 Hgb 11.1 L Hct 33.1 L RDW 17.3 H Plt Count Lymph % (Auto) 11.3 L Lymph # (Auto) 1.0 L Seg Neutrophils % 77.8 H Seg Neutrophils # PT INR APTT D-Dimer Heparin Anti-Xa Level 1.44 H ABG pO2 ABG HCO3 ABG Base Excess ABG Hemoglobin Oxyhemoglobin Chloride Carbon Dioxide Creatinine Glucose POC Glucose 135 H Albumin 02/13/20 02/15/20 02/15/20 06:48 07:36 07:36 Hgb 11.4 L Hct 34.9 L RDW Plt Count Lymph % (Auto) Lymph # (Auto) Seg Neutrophils % Seg Neutrophils # PT INR APTT D-Dimer Heparin Anti-Xa Level ABG pO2 ABG HCO3 ABG Base Excess ABG Hemoglobin Oxyhemoglobin Chloride 96.6 L 95.9 L Carbon Dioxide 37 H 38 H Creatinine 0.5 L 0.4 L Glucose 126 H POC Glucose Albumin 02/16/20 02/17/20 02/18/20 10:51 05:49 10:10 Hgb 11.4 L Hct 34.7 L RDW Plt Count 445 H Lymph % (Auto) Lymph # (Auto) Seg Neutrophils % Seg Neutrophils # PT INR APTT D-Dimer Heparin Anti-Xa Level ABG pO2 69.3 L ABG HCO3 38.8 H ABG Base Excess 11.9 H ABG Hemoglobin 11.9 L Oxyhemoglobin 93.9 L Chloride 95.4 L Carbon Dioxide 37 H Creatinine 0.4 L Glucose POC Glucose Albumin 02/19/20 04:44 Hgb 11.5 L Hct 34.1 L RDW Plt Count Lymph % (Auto) Lymph # (Auto) Seg Neutrophils % Seg Neutrophils # PT INR APTT D-Dimer Heparin Anti-Xa Level ABG pO2 ABG HCO3 ABG Base Excess ABG Hemoglobin Oxyhemoglobin Chloride Carbon Dioxide Creatinine Glucose POC Glucose Albumin
--- NOTE | 2020-03-01 19:01 | Progress Note ---
Assessment and Plan Assessment and plan: --Acute on chronic diastolic congestive heart failure; Continue on diuretics. Will monitor inputs and output and also monitor daily weights. echocardiogram showed preserved EF Cardiology consulted, continue to follow recommendation -- Elevated d-dimer Ultrasound of the lower extremities were negative for DVT. However patient is unable to undergo his CT angiogram because of his size and weight. He has known history of PE in 2019. He has had some mild chest discomfort over the past few days. Patient has been placed on anticoagulation meanwhile with IV heparin. Vascular surgery consulted for input and recommended that patient is likely negative for pulmonary embolism considering the lab work-up. But as we cannot rule out pulmonary embolism and patient is high risks we can continue to treat with anticoagulation, patient can get CTA chest at [place] or [place] following discharge to confirm the diagnosis. started on eliquis -- Morbid obesity with BMI of 57.9 adult Dietary consulted, continue cardiac diet for now. pt is willing to change diet --Acute hypoxic respiratory failure Etiology secondary to CHF exacerbation and obesity hypoventilation syndrome Continue supplemental O2 and BiPAP at bedtime Start on empiric nebulizer breathing treatment -- Hypertension Blood pressure stable with metoprolol 25 bid vital signs stable -- History of major depression Patient on citalopram. remains depressed psych following -- Cellulitis of lower extremity and lower abdominal wall Patient placed on empiric IV antibiotics. -- DVT prophylaxis Patient on anticoagulation. -- Disposition social service evaluating patient for possible transfer to inpatient psychiatry versus personal prison depending on further psychiatric evaluation. -- Full code status 02/24/2020. Continue to evaluate for possible inpatient psychiatry per recommendations. Continue 1013. 02/25/2020. Psychiatry discontinued 1013 yesterday and does not recommend acute psychiatric inpatient treatment at this time. The patient understands that if he becomes suicidal at any point to seek immediate assistance. The patient is to follow up with outpatient psych in 7 to 14 days upon discharge. Case management to arrange for discharge planning ? Personal-prison 02/26/2020. Await physical therapy evaluation for discharge planning. 02/27/2020. Patient had a PT/OT evaluation yesterday and was recommended for home health PT. Patient reports he is able to discharge with a friend but needs a negative Covid test. Anticipate discharge in 1 to 2 days. 02/28/2020. Patient will discharge to a friend's home. Covid testing negative. Physical therapy recommends home health PT. Patient will need home O2 assessment prior to discharge. Anticipate discharge later today or in a.m. 02/29/20; evaluate for home oxygen, resting room air/DC planning per case management Possible discharge tomorrow with home health History Interval history: I have seen and examined the patient at the bedside Patient's chart and medications reviewed Patient feels slightly better Morbidly obese, Vital signs noted Hospitalist Physical - Constitutional Vitals: Temp Pulse Resp BP Pulse Ox 97.8 F 78 20 156/65 99 03/01/20 07:44 03/01/20 08:25 03/01/20 08:25 03/01/20 07:44 03/01/20 08:30 General appearance: Present: mild distress, well-nourished, obese (Morbidly obese) - EENT Eyes: Present: PERRL, EOM intact - Neck Neck: Present: supple, normal ROM - Respiratory Respiratory effort: normal Respiratory: bilateral: diminished, negative: rales, rhonchi, wheezing - Cardiovascular Rhythm: regular Heart Sounds: Present: S1 & S2 - Extremities Extremities: no ischemia, No edema - Abdominal General gastrointestinal: soft, non-tender, non-distended, normal bowel sounds - Integumentary Integumentary: Present: clear, warm - Psychiatric Psychiatric: appropriate mood/affect, cooperative - Neurologic Neurologic: moves all extremities HEART Score - HEART Score Troponin: Troponin T < 0.010 ng/mL (0.00-0.029) 02/13/20 06:48 Results - Labs CBC & Chem 7: 02/19/20 04:44 02/16/20 10:51 Labs: Laboratory Last Values WBC 8.7 K/mm3 (4.5-11.0) 02/13/20 06:48 RBC 3.69 M/mm3 (3.65-5.03) 02/13/20 06:48 Hgb 11.5 gm/dl (11.8-15.2) L 02/19/20 04:44 Hct 34.1 % (35.5-45.6) L 02/19/20 04:44 MCV 90 fl (84-94) 02/13/20 06:48 MCH 30 pg (28-32) 02/13/20 06:48 MCHC 34 % (32-34) 02/13/20 06:48 RDW 17.3 % (13.2-15.2) H 02/13/20 06:48 Plt Count 415 K/mm3 (140-440) 02/19/20 04:44 Lymph % (Auto) 11.3 % (13.4-35.0) L 02/13/20 06:48 Davis % (Auto) 6.8 % (0.0-7.3) 02/13/20 06:48 Eos % (Auto) 4.0 % (0.0-4.3) 02/13/20 06:48 Baso % (Auto) 0.1 % (0.0-1.8) 02/13/20 06:48 Lymph # (Auto) 1.0 K/mm3 (1.2-5.4) L 02/13/20 06:48 Davis # (Auto) 0.6 K/mm3 (0.0-0.8) 02/13/20 06:48 Eos # (Auto) 0.3 K/mm3 (0.0-0.4) 02/13/20 06:48 Baso # (Auto) 0.0 K/mm3 (0.0-0.1) 02/13/20 06:48 Seg Neutrophils % 77.8 % (40.0-70.0) H 02/13/20 06:48 Seg Neutrophils # 6.7 K/mm3 (1.8-7.7) 02/13/20 06:48 PT 14.5 Sec. (12.2-14.9) 02/13/20 06:48 INR 1.11 (0.87-1.13) 02/13/20 06:48 APTT 20.7 Sec. (24.2-36.6) L 02/12/20 00:16 D-Dimer 684.16 ng/mlDDU (0-234) H 02/11/20 21:38 Heparin Anti-Xa Level 1.44 U.I./ml (0.3-0.7) H 02/12/20 19:04 ABG pH 7.409 pH Units (7.350-7.450) 02/18/20 10:10 ABG pCO2 62.7 mm Hg 02/18/20 10:10 ABG pO2 69.3 mm Hg (80.0-90.0) L 02/18/20 10:10 ABG HCO3 38.8 mmol/L (20.0-26.0) H 02/18/20 10:10 ABG O2 Saturation 95.9 % (95.0-99.0) 02/18/20 10:10 ABG O2 Content 15.7 (0.0-44) 02/18/20 10:10 ABG Base Excess 11.9 mmol/L (-2.0-3.0) H 02/18/20 10:10 ABG Hemoglobin 11.9 gm/dl (14.0-18.0) L 02/18/20 10:10 ABG Carboxyhemoglobin 1.7 % (0.0-5.0) 02/18/20 10:10 ABG Methemoglobin 0.4 % (0.0-1.5) 02/18/20 10:10 Oxyhemoglobin 93.9 % (95.0-99.0) L 02/18/20 10:10 FiO2 21 % 02/18/20 10:10 Sodium 143 mmol/L (137-145) 02/16/20 10:51 Potassium 4.4 mmol/L (3.6-5.0) D 02/16/20 10:51 Chloride 95.4 mmol/L (98-107) L 02/16/20 10:51 Carbon Dioxide 37 mmol/L (22-30) H 02/16/20 10:51 Anion Gap 15 mmol/L 02/16/20 10:51 BUN 12 mg/dL (9-20) 02/16/20 10:51 Creatinine 0.4 mg/dL (0.8-1.3) L 02/16/20 10:51 Estimated GFR > 60 ml/min 02/16/20 10:51 BUN/Creatinine Ratio 30 % 02/16/20 10:51 Glucose 98 mg/dL (75-100) 02/16/20 10:51 POC Glucose 135 (70-105) H 02/12/20 15:50 Calcium 8.6 mg/dL (8.4-10.2) 02/16/20 10:51 Total Bilirubin 0.20 mg/dL (0.1-1.2) 02/11/20 21:38 AST 24 units/L (5-40) 02/11/20 21:38 ALT 14 units/L (7-56) 02/11/20 21:38 Alkaline Phosphatase 86 units/L (35-129) 02/11/20 21:38 Total Creatine Kinase 71 units/L (55-170) 02/11/20 21:38 CK-MB (CK-2) 1.3 ng/mL (0.0-4.0) 02/11/20 21:38 CK-MB (CK-2) Rel Index 1.8 (0-4) 02/11/20 21:38 Troponin T < 0.010 ng/mL (0.00-0.029) 02/13/20 06:48 NT-Pro-B Natriuret Pep 464.7 pg/mL (0-900) 02/11/20 21:38 Total Protein 6.6 g/dL (6.3-8.2) 02/11/20 21:38 Albumin 2.8 g/dL (3.9-5) L 02/11/20 21:38 Albumin/Globulin Ratio 0.7 % 02/11/20 21:38 Vancomycin Trough 12.3 ug/mL (5.0-20.0) 02/13/20 13:16 Coronavirus (PCR) Negative (Negative) 02/27/20 10:39 - Diagnostic Impressions Diagnostic Impressions: Echocardiogram 02/12/20 00:26 Transthoracic Echocardiogram Indication: SOB BP: 128/64 HR: 88 Conclusions *Mild concentric left ventricular hypertrophy is observed. *Global left ventricular wall motion and contractility are within normal limits. *The estimated ejection fraction is 50-55%. *Abnormal left ventricular diastolic filling is observed, consistent with impaired relaxation. *There is no pericardial effusion. Findings Left Ventricle: The left ventricular chamber size is normal. Mild concentric left ventricular hypertrophy is observed. Global left ventricular wall motion and contractility are within normal limits. Global left ventricular systolic function is normal. The estimated ejection fraction is 50-55%. Abnormal left ventricular diastolic filling is observed, consistent with impaired relaxation. Right Ventricle: The right ventricle is not well visualized. Right Atrium: The right atrium is not well visualized. Aortic Valve: The aortic valve structure is normal. Mitral Valve: The mitral valve leaflets are mildly thickened. There is no evidence of mitral regurgitation. Tricuspid Valve: The tricuspid valve leaflets are normal. There is trace tricuspid regurgitation. The right ventricular systolic pressure is calculated at 30 mmHg. Pulmonic Valve: The pulmonic valve appears normal. Pericardium: There is no pericardial effusion. Aorta: The aorta appears normal. Venous: The inferior vena cava is not visualized. Contrast: Intravenous contrast was used to enhance endocardial border definition. Measurements Chambers 2D Name Value Normal Range IVSd (2D) 1.32 cm (0.6 - 1.1) LVPWd (2D) 1.37 cm (0.6 - 1.1) LVIDd (2D) 4.95 cm (3.7 - 5.6) LVIDs (2D) 3.75 cm (2 - 3.8) LV FS (2D) 24.3 % - EF Teichholz (2D) 48.13 % - Ao root diameter (2D) 3.62 cm (2 - 3.7) Diastolic/Systolic Function Name Value Normal Range MV E-wave Vmax 0.91 m/sec - MV deceleration time 174.88 msec - MV A-wave Vmax 0.54 m/sec - MV E:A ratio 1.7 ratio - Aortic Valve Name Value Normal Range AV Vmax 1.62 m/sec - AV VTI 35.52 cm - AV peak gradient 10.49 mmHg - AV mean gradient 7.64 mmHg - LVOT diameter 2.16 cm - LVOT Vmax 1.42 m/sec - LVOT VTI 23.46 cm - LVOT peak gradient 8.11 mmHg - LVOT mean gradient 5.79 mmHg - SV LVOT 86.16 ml - IRENE (continuity Vmax) 3.23 cm2 - IRENE (continuity VTI) 2.43 cm2 - Tricuspid Valve Name Value Normal Range TR Vmax 2.62 m/sec - TR peak gradient 27 mmHg - RAP 3 mmHg - RVSP 30 mmHg - Pulmonic Valve/Qp:Qs Name Value Normal Range PV Vmax 1.23 m/sec - PV peak gradient 6 mmHg - PV acceleration time 91.34 msec - Peralta/IV: Voiding Method External Female Catheter IV Catheter Type [Left Forearm INT / Saline Lock ] IV Catheter Type [Left Upper INT / Saline Lock arm] Active Medications - Current Medications Current Medications: Generic Name Dose Route Start Last Admin Trade Name Freq PRN Reason Stop Dose Admin Acetaminophen 650 mg 02/12/20 00:23 03/01/20 17:46 Tylenol PO 650 mg Q4H PRN Administration Pain MILD(1-3)/Fever >100.5/LUIS Albuterol/Ipratropium 1 ampul 02/27/20 20:00 03/01/20 08:56 Duoneb *Not For Prn Use* IH 1 ampul BIDRT MICHAEL Administration Apixaban 5 mg 02/19/20 10:00 03/01/20 09:10 Eliquis PO 5 mg Q12HR MICHAEL Administration Aripiprazole 10 mg 02/24/20 10:00 03/01/20 09:10 Aripiprazole PO 10 mg QDAY MICHAEL Administration Citalopram Hydrobromide 40 mg 02/16/20 11:00 03/01/20 09:10 Celexa PO 40 mg QDAY MICHAEL Administration Furosemide 40 mg 02/12/20 06:00 03/01/20 17:20 Lasix IV 40 mg BID@0600,1800 MICHAEL Administration Magnesium Hydroxide 30 ml 02/12/20 00:23 02/29/20 17:34 Milk Of Magnesia PO 30 ml Q4H PRN Administration Constipation Magnesium Hydroxide 30 ml 02/29/20 12:02 Milk Of Magnesia PO Q4H PRN Constipation Metoprolol Tartrate 25 mg 02/12/20 22:00 03/01/20 09:10 Metoprolol PO 25 mg BID MICHAEL Administration Ondansetron HCl 4 mg 02/12/20 00:23 Zofran IV Q8H PRN Nausea And Vomiting Sodium Chloride 10 ml 02/12/20 10:00 03/01/20 09:11 Sodium Chloride Flush Syringe 10 Ml IV 10 ml BID MICHAEL Administration Sodium Chloride 10 ml 02/12/20 00:23 03/01/20 06:24 Sodium Chloride Flush Syringe 10 Ml IV 10 ml PRN PRN Administration LINE FLUSH Nutrition/Malnutrition Assess - Dietary Evaluation Nutrition/Malnutrition Findings: Nutrition Notes Start: 02/12/20 13:57 Freq: Status: Active Protocol: Document 02/18/20 07:25 LP (Rec: 02/19/20 07:26 LP [id number]) Nutrition Notes Need for Assessment generated from: LOS Initial or Follow up Brief Note Subjective/Other Information Screen for LOS. Pt consuming 100% of meals. Nutrition Intervention Revisit per MD consult or patient Sign Off request:
[2020-03-02] MEDS: FUROSEMIDE 40 MG/4 ML INJ IV SCH ×2 (06:32→17:50)
[2020-03-02] MEDS: IPRATROPIUM/ALBUTEROL SULFATE 3 ML AMPUL.NEB IH SCH ×2 (09:00→20:48)
[2020-03-02] MEDS: APIXABAN 5 MG TAB PO SCH ×2 (10:02→21:49)
[2020-03-02] MEDS: ARIPiprazole 10 MG TAB PO SCH (10:02)
[2020-03-02] MEDS: CITALOPRAM 20 MG TAB PO SCH (10:02)
[2020-03-02] MEDS: METOPROLOL TARTRATE 25 MG TAB PO SCH ×2 (10:03→21:49)
--- NOTE | 2020-03-02 13:40 | Discharge Summary ---
Providers - Providers Date of Admission: 02/11/20 23:48 Date of discharge: 03/02/20 Attending physician: KACY LEON 02/11/20 23:47 Consult to Physician [CONS] Routine Comment: Consulting Provider: MARILEE MEDINA Physician Instructions: Reason For Exam: sob. el dimer 02/12/20 03:58 Consult to Wound/ET Nurse [CONS] Routine Reason For Exam: wound eval 02/14/20 11:20 Physical Therapy Evaluation and Treat [CONS] Routine Comment: Reason For Exam: placement 02/15/20 14:26 Consult to Physician [CONS] Routine Comment: Consulting Provider: HENRIETTA BUSTAMANTE Physician Instructions: Reason For Exam: possible PE 02/19/20 14:19 Consult to Mental Health [CONS] Routine Reason For Exam: suicide thoughts 02/25/20 08:26 Physical Therapy Evaluation and Treat [CONS] Routine Comment: Reason For Exam: deconditioning Primary care physician: CLAIMS VICE PRESIDENT Hospitalization Condition: Fair Disposition: DC/[place]-06 HOME UNDER HOME [facility] Time spent for discharge: 32 min Core Measure Documentation - Palliative Care Palliative Care/ Comfort Measures: Not Applicable - Core Measures Any of the following diagnoses?: none Exam - Constitutional Vitals: Temp Pulse Resp BP Pulse Ox 97.8 F 70 18 137/69 98 03/02/20 03:48 03/02/20 10:03 03/02/20 10:00 03/02/20 10:03 03/02/20 10:00 Plan Activity: advance as tolerated, fall precautions Diet: other (Cardiac diet) Additional Instructions: Fall precautions. Ambulate as tolerated. Advised to follow with primary care physician in 3 to 5 days. Follow with [facility] in 3 to 5 days. Follow with [place] [facility] in 2 weeks Follow up with: PRIMARY CARE, [Primary Care Provider] - 7 Days Prescriptions: Ipratropium/Albuterol Sulfate [DUONEB *Not for PRN Use*] 1 ampul IH TIDRT #30 ampul.neb Apixaban [Eliquis] 5 mg PO Q12HR #60 tablet Potassium Chloride [K-Dur] 10 meq PO QDAY #30 tablet cephALEXin [Keflex] 500 mg PO Q12HR #10 cap Furosemide [Lasix TAB] 40 mg PO QDAY #30 tablet Metoprolol [Lopressor TAB] 25 mg PO BID #60 tablet
--- NOTE | 2020-03-02 13:58 | Progress Note ---
Assessment and Plan atient awake and resting on 2 litres O2 and O2 saturation running 96%. Patient goes on CPAP during night time. Patient afebrile. No leukocytosis. No acute respiratory distress. Recommend to check o2 saturation on room air. If O2 saturation below 89% on room air. Recommend home O2 2 to 3 litres via nasal canula. Patient is on APIXABAN. Patient finished course of ceftriaxone . - Patient Problems (1) Acute exacerbation of CHF (congestive heart failure) Current Visit: Yes Status: Acute Qualifiers: Heart failure type: unspecified Qualified Code(s): I50.9 - Heart failure, unspecified Plan to address problem: Patient is on Lasix. Management as per cardiology. (2) Cellulitis of lower extremity Current Visit: Yes Status: Acute Plan to address problem: Patient finished course of ceftriaxone . Management as per Primary care and infectious diseases. (3) Elevated d-dimer Current Visit: Yes Status: Acute Plan to address problem: Patient is on APIXABAN (4) History of pulmonary embolism Current Visit: Yes Status: Chronic Plan to address problem: Patient is on APIXABAN. (5) Hypertension Current Visit: Yes Status: Chronic Plan to address problem: Management as per primary care. (6) Morbid obesity with BMI of 70 and over, adult Current Visit: Yes Status: Chronic Plan to address problem: Recommend to loose weight. Diet and exercise. Recommend sleep study as out patient. (7) GURPREET (obstructive sleep apnea) Current Visit: Yes Status: Suspected Plan to address problem: BIPAP during night time. Subjective Date of service: 03/02/20 Principal diagnosis: HF Interval history: Patient awake and resting on 2 litres O2 and O2 saturation running 96%. Patient goes on CPAP during night time. Patient afebrile. No leukocytosis. No acute respiratory distress. Recommend to check o2 saturation on room air. If O2 saturation below 89% on room air. Recommend home O2 2 to 3 litres via nasal canula. Patient is on APIXABAN. Patient finished course of ceftriaxone . Objective Vital Signs - 12hr 03/02/20 03/02/20 03/02/20 03:48 09:00 09:40 Temperature 97.8 F Pulse Rate 58 L Pulse Rate [ Apical] Pulse Rate [ Left Dorsalis Pedis] Pulse Rate [ Left Posterior Tibial] Pulse Rate [ Left Radial] Pulse Rate [ 73 Posterior Bilateral Throughout] Pulse Rate [ Right Dorsalis Pedis] Pulse Rate [ Right Posterior Tibial] Pulse Rate [ Right Radial] Respiratory 19 Rate Respiratory 18 Rate [Posterior Bilateral Throughout] Blood Pressure 144/64 O2 Sat by Pulse 98 96 Oximetry 03/02/20 03/02/20 10:00 10:03 Temperature Pulse Rate 70 Pulse Rate [ 87 Apical] Pulse Rate [ 87 Left Dorsalis Pedis] Pulse Rate [ 87 Left Posterior Tibial] Pulse Rate [ 87 Left Radial] Pulse Rate [ Posterior Bilateral Throughout] Pulse Rate [ 87 Right Dorsalis Pedis] Pulse Rate [ 87 Right Posterior Tibial] Pulse Rate [ 87 Right Radial] Respiratory 18 Rate Respiratory Rate [Posterior Bilateral Throughout] Blood Pressure 137/69 O2 Sat by Pulse 98 Oximetry Constitutional: no acute distress, alert Eyes: non-icteric ENT: oropharynx moist Neck: supple, no JVD Effort: mildly labored Ascultation: Bilateral: rales Cardiovascular: regular rate and rhythm Gastrointestinal: normoactive bowel sounds, soft, non-tender Integumentary: normal Extremities: no cyanosis, no edema Neurologic: normal mental status, non-focal exam, pupils equal and round, CN II- XII normal Psychiatric: mood appropriate CBC and BMP: 02/19/20 04:44 02/16/20 10:51 ABG, PT/INR, D-dimer: ABG ABG pH 7.409 pH Units (7.350-7.450) 02/18/20 10:10 ABG pCO2 62.7 mm Hg 02/18/20 10:10 ABG pO2 69.3 mm Hg (80.0-90.0) L 02/18/20 10:10 ABG O2 Saturation 95.9 % (95.0-99.0) 02/18/20 10:10 PT/INR, D-dimer PT 14.5 Sec. (12.2-14.9) 02/13/20 06:48 INR 1.11 (0.87-1.13) 02/13/20 06:48 D-Dimer 684.16 ng/mlDDU (0-234) H 02/11/20 21:38 Abnormal lab findings: Abnormal Labs 02/11/20 02/11/20 02/11/20 21:38 21:38 21:38 Hgb 11.5 L Hct 34.5 L RDW 17.5 H Plt Count Lymph % (Auto) 8.3 L Lymph # (Auto) 0.9 L Seg Neutrophils % 83.2 H Seg Neutrophils # 8.8 H PT INR APTT D-Dimer 684.16 H Heparin Anti-Xa Level ABG pO2 ABG HCO3 ABG Base Excess ABG Hemoglobin Oxyhemoglobin Chloride 97.3 L Carbon Dioxide 32 H Creatinine 0.4 L Glucose 115 H POC Glucose Albumin 2.8 L 02/12/20 02/12/20 02/12/20 00:16 11:16 11:53 Hgb Hct RDW Plt Count Lymph % (Auto) Lymph # (Auto) Seg Neutrophils % Seg Neutrophils # PT 10.9 L INR 0.77 L APTT 20.7 L D-Dimer Heparin Anti-Xa Level < 0.10 L ABG pO2 ABG HCO3 ABG Base Excess ABG Hemoglobin Oxyhemoglobin Chloride Carbon Dioxide Creatinine Glucose POC Glucose 114 H Albumin 02/12/20 02/12/20 02/13/20 15:50 19:04 06:48 Hgb 11.1 L Hct 33.1 L RDW 17.3 H Plt Count Lymph % (Auto) 11.3 L Lymph # (Auto) 1.0 L Seg Neutrophils % 77.8 H Seg Neutrophils # PT INR APTT D-Dimer Heparin Anti-Xa Level 1.44 H ABG pO2 ABG HCO3 ABG Base Excess ABG Hemoglobin Oxyhemoglobin Chloride Carbon Dioxide Creatinine Glucose POC Glucose 135 H Albumin 02/13/20 02/15/20 02/15/20 06:48 07:36 07:36 Hgb 11.4 L Hct 34.9 L RDW Plt Count Lymph % (Auto) Lymph # (Auto) Seg Neutrophils % Seg Neutrophils # PT INR APTT D-Dimer Heparin Anti-Xa Level ABG pO2 ABG HCO3 ABG Base Excess ABG Hemoglobin Oxyhemoglobin Chloride 96.6 L 95.9 L Carbon Dioxide 37 H 38 H Creatinine 0.5 L 0.4 L Glucose 126 H POC Glucose Albumin 02/16/20 02/17/20 02/18/20 10:51 05:49 10:10 Hgb 11.4 L Hct 34.7 L RDW Plt Count 445 H Lymph % (Auto) Lymph # (Auto) Seg Neutrophils % Seg Neutrophils # PT INR APTT D-Dimer Heparin Anti-Xa Level ABG pO2 69.3 L ABG HCO3 38.8 H ABG Base Excess 11.9 H ABG Hemoglobin 11.9 L Oxyhemoglobin 93.9 L Chloride 95.4 L Carbon Dioxide 37 H Creatinine 0.4 L Glucose POC Glucose Albumin 02/19/20 04:44 Hgb 11.5 L Hct 34.1 L RDW Plt Count Lymph % (Auto) Lymph # (Auto) Seg Neutrophils % Seg Neutrophils # PT INR APTT D-Dimer Heparin Anti-Xa Level ABG pO2 ABG HCO3 ABG Base Excess ABG Hemoglobin Oxyhemoglobin Chloride Carbon Dioxide Creatinine Glucose POC Glucose Albumin
--- NOTE | 2020-03-02 18:58 | Progress Note ---
Assessment and Plan Assessment and plan: --Acute on chronic diastolic congestive heart failure; Continue on diuretics. Will monitor inputs and output and also monitor daily weights. echocardiogram showed preserved EF Cardiology consulted, continue to follow recommendation -- Elevated d-dimer Ultrasound of the lower extremities were negative for DVT. However patient is unable to undergo his CT angiogram because of his size and weight. He has known history of PE in 2019. He has had some mild chest discomfort over the past few days. Patient has been placed on anticoagulation meanwhile with IV heparin. Vascular surgery consulted for input and recommended that patient is likely negative for pulmonary embolism considering the lab work-up. But as we cannot rule out pulmonary embolism and patient is high risks we can continue to treat with anticoagulation, patient can get CTA chest at [facility] or [facility] following discharge to confirm the diagnosis. started on eliquis -- Morbid obesity with BMI of 57.9 adult Dietary consulted, continue cardiac diet for now. pt is willing to change diet --Acute hypoxic respiratory failure Etiology secondary to CHF exacerbation and obesity hypoventilation syndrome Continue supplemental O2 and BiPAP at bedtime Start on empiric nebulizer breathing treatment -- Hypertension Blood pressure stable with metoprolol 25 bid vital signs stable -- History of major depression Patient on citalopram. remains depressed psych following -- Cellulitis of lower extremity and lower abdominal wall Patient placed on empiric IV antibiotics. -- DVT prophylaxis Patient on anticoagulation. -- Disposition social service evaluating patient for possible transfer to inpatient psychiatry versus [facility] [place] [facility] depending on further psychiatric evaluation. -- Full code status 02/24/2020. Continue to evaluate for possible inpatient psychiatry per recommendations. Continue 1013. 02/25/2020. Psychiatry discontinued 1013 yesterday and does not recommend acute psychiatric inpatient treatment at this time. The patient understands that if he becomes suicidal at any point to seek immediate assistance. The patient is to follow up with outpatient psych in 7 to 14 days upon discharge. Case management to arrange for discharge planning ? [facility] [facility] 02/26/2020. Await physical therapy evaluation for discharge planning. 02/27/2020. Patient had a PT/OT evaluation yesterday and was recommended for home health PT. Patient reports he is able to discharge with a friend but needs a negative Covid test. Anticipate discharge in 1 to 2 days. 02/28/2020. Patient will discharge to a friend's home. Covid testing negative. Physical therapy recommends home health PT. Patient will need home O2 assessment prior to discharge. Anticipate discharge later today or in a.m. 02/29/20; evaluate for home oxygen, resting room air/DC planning per case management Possible discharge tomorrow with home health History Interval history: Patient was discharged initially this morning Patient's friend was supposed to pick him up However case management, patient's nurse unable to reach patient's friend Patient has no new complaints Vital signs noted Hospitalist Physical - Constitutional Vitals: Temp Pulse Resp BP Pulse Ox 98.2 F 70 18 128/60 95 03/02/20 16:18 03/02/20 16:18 03/02/20 16:18 03/02/20 16:18 03/02/20 16:18 General appearance: Present: mild distress, well-nourished, obese (Morbidly obese) - EENT Eyes: Present: PERRL, EOM intact - Neck Neck: Present: normal ROM - Respiratory Respiratory effort: normal Respiratory: bilateral: diminished, negative: rales, rhonchi, wheezing - Cardiovascular Rhythm: regular Heart Sounds: Present: S1 & S2 - Extremities Extremities: no ischemia, No edema - Abdominal General gastrointestinal: soft, non-tender, non-distended, normal bowel sounds - Integumentary Integumentary: Present: clear, warm - Psychiatric Psychiatric: appropriate mood/affect, cooperative - Neurologic Neurologic: CNII-XII intact, moves all extremities HEART Score - HEART Score Troponin: Troponin T < 0.010 ng/mL (0.00-0.029) 02/13/20 06:48 Results - Labs CBC & Chem 7: 02/19/20 04:44 02/16/20 10:51 Labs: Laboratory Last Values WBC 8.7 K/mm3 (4.5-11.0) 02/13/20 06:48 RBC 3.69 M/mm3 (3.65-5.03) 02/13/20 06:48 Hgb 11.5 gm/dl (11.8-15.2) L 02/19/20 04:44 Hct 34.1 % (35.5-45.6) L 02/19/20 04:44 MCV 90 fl (84-94) 02/13/20 06:48 MCH 30 pg (28-32) 02/13/20 06:48 MCHC 34 % (32-34) 02/13/20 06:48 RDW 17.3 % (13.2-15.2) H 02/13/20 06:48 Plt Count 415 K/mm3 (140-440) 02/19/20 04:44 Lymph % (Auto) 11.3 % (13.4-35.0) L 02/13/20 06:48 [place] % (Auto) 6.8 % (0.0-7.3) 02/13/20 06:48 Eos % (Auto) 4.0 % (0.0-4.3) 02/13/20 06:48 Baso % (Auto) 0.1 % (0.0-1.8) 02/13/20 06:48 Lymph # (Auto) 1.0 K/mm3 (1.2-5.4) L 02/13/20 06:48 [place] # (Auto) 0.6 K/mm3 (0.0-0.8) 02/13/20 06:48 Eos # (Auto) 0.3 K/mm3 (0.0-0.4) 02/13/20 06:48 Baso # (Auto) 0.0 K/mm3 (0.0-0.1) 02/13/20 06:48 Seg Neutrophils % 77.8 % (40.0-70.0) H 02/13/20 06:48 Seg Neutrophils # 6.7 K/mm3 (1.8-7.7) 02/13/20 06:48 PT 14.5 Sec. (12.2-14.9) 02/13/20 06:48 INR 1.11 (0.87-1.13) 02/13/20 06:48 APTT 20.7 Sec. (24.2-36.6) L 02/12/20 00:16 D-Dimer 684.16 ng/mlDDU (0-234) H 02/11/20 21:38 Heparin Anti-Xa Level 1.44 U.I./ml (0.3-0.7) H 02/12/20 19:04 ABG pH 7.409 pH Units (7.350-7.450) 02/18/20 10:10 ABG pCO2 62.7 mm Hg 02/18/20 10:10 ABG pO2 69.3 mm Hg (80.0-90.0) L 02/18/20 10:10 ABG HCO3 38.8 mmol/L (20.0-26.0) H 02/18/20 10:10 ABG O2 Saturation 95.9 % (95.0-99.0) 02/18/20 10:10 ABG O2 Content 15.7 (0.0-44) 02/18/20 10:10 ABG Base Excess 11.9 mmol/L (-2.0-3.0) H 02/18/20 10:10 ABG Hemoglobin 11.9 gm/dl (14.0-18.0) L 02/18/20 10:10 ABG Carboxyhemoglobin 1.7 % (0.0-5.0) 02/18/20 10:10 ABG Methemoglobin 0.4 % (0.0-1.5) 02/18/20 10:10 Oxyhemoglobin 93.9 % (95.0-99.0) L 02/18/20 10:10 FiO2 21 % 02/18/20 10:10 Sodium 143 mmol/L (137-145) 02/16/20 10:51 Potassium 4.4 mmol/L (3.6-5.0) D 02/16/20 10:51 Chloride 95.4 mmol/L (98-107) L 02/16/20 10:51 Carbon Dioxide 37 mmol/L (22-30) H 02/16/20 10:51 Anion Gap 15 mmol/L 02/16/20 10:51 BUN 12 mg/dL (9-20) 02/16/20 10:51 Creatinine 0.4 mg/dL (0.8-1.3) L 02/16/20 10:51 Estimated GFR > 60 ml/min 02/16/20 10:51 BUN/Creatinine Ratio 30 % 02/16/20 10:51 Glucose 98 mg/dL (75-100) 02/16/20 10:51 POC Glucose 135 (70-105) H 02/12/20 15:50 Calcium 8.6 mg/dL (8.4-10.2) 02/16/20 10:51 Total Bilirubin 0.20 mg/dL (0.1-1.2) 02/11/20 21:38 AST 24 units/L (5-40) 02/11/20 21:38 ALT 14 units/L (7-56) 02/11/20 21:38 Alkaline Phosphatase 86 units/L (35-129) 02/11/20 21:38 Total Creatine Kinase 71 units/L (55-170) 02/11/20 21:38 CK-MB (CK-2) 1.3 ng/mL (0.0-4.0) 02/11/20 21:38 CK-MB (CK-2) Rel Index 1.8 (0-4) 02/11/20 21:38 Troponin T < 0.010 ng/mL (0.00-0.029) 02/13/20 06:48 NT-Pro-B Natriuret Pep 464.7 pg/mL (0-900) 02/11/20 21:38 Total Protein 6.6 g/dL (6.3-8.2) 02/11/20 21:38 Albumin 2.8 g/dL (3.9-5) L 02/11/20 21:38 Albumin/Globulin Ratio 0.7 % 02/11/20 21:38 Vancomycin Trough 12.3 ug/mL (5.0-20.0) 02/13/20 13:16 Coronavirus (PCR) Negative (Negative) 02/27/20 10:39 - Diagnostic Impressions Diagnostic Impressions: Echocardiogram 02/12/20 00:26 Transthoracic Echocardiogram Indication: SOB BP: 128/64 HR: 88 Conclusions *Mild concentric left ventricular hypertrophy is observed. *Global left ventricular wall motion and contractility are within normal limits. *The estimated ejection fraction is 50-55%. *Abnormal left ventricular diastolic filling is observed, consistent with impaired relaxation. *There is no pericardial effusion. Findings Left Ventricle: The left ventricular chamber size is normal. Mild concentric left ventricular hypertrophy is observed. Global left ventricular wall motion and contractility are within normal limits. Global left ventricular systolic function is normal. The estimated ejection fraction is 50-55%. Abnormal left ventricular diastolic filling is observed, consistent with impaired relaxation. Right Ventricle: The right ventricle is not well visualized. Right Atrium: The right atrium is not well visualized. Aortic Valve: The aortic valve structure is normal. Mitral Valve: The mitral valve leaflets are mildly thickened. There is no evidence of mitral regurgitation. Tricuspid Valve: The tricuspid valve leaflets are normal. There is trace tricuspid regurgitation. The right ventricular systolic pressure is calculated at 30 mmHg. Pulmonic Valve: The pulmonic valve appears normal. Pericardium: There is no pericardial effusion. Aorta: The aorta appears normal. Venous: The inferior vena cava is not visualized. Contrast: Intravenous contrast was used to enhance endocardial border definition. Measurements Chambers 2D Name Value Normal Range IVSd (2D) 1.32 cm (0.6 - 1.1) LVPWd (2D) 1.37 cm (0.6 - 1.1) LVIDd (2D) 4.95 cm (3.7 - 5.6) LVIDs (2D) 3.75 cm (2 - 3.8) LV FS (2D) 24.3 % - EF Teichholz (2D) 48.13 % - Ao root diameter (2D) 3.62 cm (2 - 3.7) Diastolic/Systolic Function Name Value Normal Range MV E-wave Vmax 0.91 m/sec - MV deceleration time 174.88 msec - MV A-wave Vmax 0.54 m/sec - MV E:A ratio 1.7 ratio - Aortic Valve Name Value Normal Range AV Vmax 1.62 m/sec - AV VTI 35.52 cm - AV peak gradient 10.49 mmHg - AV mean gradient 7.64 mmHg - LVOT diameter 2.16 cm - LVOT Vmax 1.42 m/sec - LVOT VTI 23.46 cm - LVOT peak gradient 8.11 mmHg - LVOT mean gradient 5.79 mmHg - SV LVOT 86.16 ml - IRENE (continuity Vmax) 3.23 cm2 - IRENE (continuity VTI) 2.43 cm2 - Tricuspid Valve Name Value Normal Range TR Vmax 2.62 m/sec - TR peak gradient 27 mmHg - RAP 3 mmHg - RVSP 30 mmHg - Pulmonic Valve/Qp:Qs Name Value Normal Range PV Vmax 1.23 m/sec - PV peak gradient 6 mmHg - PV acceleration time 91.34 msec - Peralta/IV: Voiding Method External Female Catheter IV Catheter Type [Left Forearm INT / Saline Lock ] IV Catheter Type [Left Upper INT / Saline Lock arm] Active Medications - Current Medications Current Medications: Generic Name Dose Route Start Last Admin Trade Name Freq PRN Reason Stop Dose Admin Acetaminophen 650 mg 02/12/20 00:23 03/01/20 17:46 Tylenol PO 650 mg Q4H PRN Administration Pain MILD(1-3)/Fever >100.5/LUIS Albuterol/Ipratropium 1 ampul 02/27/20 20:00 03/02/20 09:00 Duoneb *Not For Prn Use* IH 1 ampul BIDRT MICHAEL Administration Apixaban 5 mg 02/19/20 10:00 03/02/20 10:02 Eliquis PO 5 mg Q12HR MICHAEL Administration Aripiprazole 10 mg 02/24/20 10:00 03/02/20 10:02 Aripiprazole PO 10 mg QDAY MICHAEL Administration Citalopram Hydrobromide 40 mg 02/16/20 11:00 03/02/20 10:02 Celexa PO 40 mg QDAY MICHAEL Administration Furosemide 40 mg 02/12/20 06:00 03/02/20 17:50 Lasix IV 40 mg BID@0600,1800 MICHAEL Administration Magnesium Hydroxide 30 ml 02/29/20 12:02 Milk Of Magnesia PO Q4H PRN Constipation Metoprolol Tartrate 25 mg 02/12/20 22:00 03/02/20 10:03 Metoprolol PO 25 mg BID MICHAEL Administration Ondansetron HCl 4 mg 02/12/20 00:23 Zofran IV Q8H PRN Nausea And Vomiting Sodium Chloride 10 ml 02/12/20 10:00 03/02/20 10:03 Sodium Chloride Flush Syringe 10 Ml IV 10 ml BID MICHAEL Administration Sodium Chloride 10 ml 02/12/20 00:23 03/02/20 06:32 Sodium Chloride Flush Syringe 10 Ml IV 10 ml PRN PRN Administration LINE FLUSH Nutrition/Malnutrition Assess - Dietary Evaluation Nutrition/Malnutrition Findings: Nutrition Notes Start: 02/12/20 13:57 Freq: Status: Active Protocol: Document 02/18/20 07:25 LP (Rec: 02/19/20 07:26 LP [id number]) Nutrition Notes Need for Assessment generated from: LOS Initial or Follow up Brief Note Subjective/Other Information Screen for LOS. Pt consuming 100% of meals. Nutrition Intervention Revisit per MD consult or patient Sign Off request:
[2020-03-03] MEDS: FUROSEMIDE 40 MG/4 ML INJ IV SCH ×2 (05:34→18:11)
[2020-03-03] MEDS: IPRATROPIUM/ALBUTEROL SULFATE 3 ML AMPUL.NEB IH SCH ×2 (07:50→22:32)
[2020-03-03] MEDS: APIXABAN 5 MG TAB PO SCH ×3 (10:13→21:41)
[2020-03-03] MEDS: CITALOPRAM 20 MG TAB PO SCH (10:13)
[2020-03-03] MEDS: ARIPiprazole 10 MG TAB PO SCH (10:13)
[2020-03-03] MEDS: METOPROLOL TARTRATE 25 MG TAB PO SCH ×3 (10:14→21:41)
--- NOTE | 2020-03-03 16:02 | Progress Note ---
Assessment and Plan Acute exacerbation of CHF (congestive heart failure) Morbid obesity with BMI of 70 and over, adult GURPREET (obstructive sleep apnea) Cellulitis of lower extremity Elevated d-dimer History of pulmonary embolism Hypertension Subjective Date of service: 03/03/20 Principal diagnosis: HF Interval history: Acute exacerbation of CHF (congestive heart failure) Morbid obesity with BMI of 70 and over, adult GURPREET (obstructive sleep apnea) Cellulitis of lower extremity Elevated d-dimer History of pulmonary embolism Hypertension Objective Vital Signs - 12hr 03/03/20 03/03/20 03/03/20 07:13 07:50 08:34 Temperature 98.3 F Pulse Rate 83 Pulse Rate [ 76 Anterior Bilateral Throughout] Pulse Rate [ 72 Posterior Bilateral Throughout] Respiratory 20 Rate Respiratory 18 Rate [Anterior Bilateral Throughout] Respiratory 18 Rate [Posterior Bilateral Throughout] Blood Pressure 158/70 O2 Sat by Pulse 94 94 Oximetry 03/03/20 10:14 Temperature Pulse Rate 87 Pulse Rate [ Anterior Bilateral Throughout] Pulse Rate [ Posterior Bilateral Throughout] Respiratory Rate Respiratory Rate [Anterior Bilateral Throughout] Respiratory Rate [Posterior Bilateral Throughout] Blood Pressure 142/75 O2 Sat by Pulse Oximetry Constitutional: no acute distress, alert Eyes: non-icteric ENT: oropharynx moist Neck: supple, no JVD Effort: mildly labored Ascultation: Bilateral: rales Cardiovascular: regular rate and rhythm Gastrointestinal: normoactive bowel sounds, soft, non-tender Integumentary: normal Extremities: no cyanosis, no edema Neurologic: normal mental status, non-focal exam, pupils equal and round, CN II- XII normal Psychiatric: mood appropriate CBC and BMP: 02/19/20 04:44 02/16/20 10:51 ABG, PT/INR, D-dimer: ABG ABG pH 7.409 pH Units (7.350-7.450) 02/18/20 10:10 ABG pCO2 62.7 mm Hg 02/18/20 10:10 ABG pO2 69.3 mm Hg (80.0-90.0) L 02/18/20 10:10 ABG O2 Saturation 95.9 % (95.0-99.0) 02/18/20 10:10 PT/INR, D-dimer PT 14.5 Sec. (12.2-14.9) 02/13/20 06:48 INR 1.11 (0.87-1.13) 02/13/20 06:48 D-Dimer 684.16 ng/mlDDU (0-234) H 02/11/20 21:38 Abnormal lab findings: Abnormal Labs 02/11/20 02/11/20 02/11/20 21:38 21:38 21:38 Hgb 11.5 L Hct 34.5 L RDW 17.5 H Plt Count Lymph % (Auto) 8.3 L Lymph # (Auto) 0.9 L Seg Neutrophils % 83.2 H Seg Neutrophils # 8.8 H PT INR APTT D-Dimer 684.16 H Heparin Anti-Xa Level ABG pO2 ABG HCO3 ABG Base Excess ABG Hemoglobin Oxyhemoglobin Chloride 97.3 L Carbon Dioxide 32 H Creatinine 0.4 L Glucose 115 H POC Glucose Albumin 2.8 L 02/12/20 02/12/20 02/12/20 00:16 11:16 11:53 Hgb Hct RDW Plt Count Lymph % (Auto) Lymph # (Auto) Seg Neutrophils % Seg Neutrophils # PT 10.9 L INR 0.77 L APTT 20.7 L D-Dimer Heparin Anti-Xa Level < 0.10 L ABG pO2 ABG HCO3 ABG Base Excess ABG Hemoglobin Oxyhemoglobin Chloride Carbon Dioxide Creatinine Glucose POC Glucose 114 H Albumin 02/12/20 02/12/20 02/13/20 15:50 19:04 06:48 Hgb 11.1 L Hct 33.1 L RDW 17.3 H Plt Count Lymph % (Auto) 11.3 L Lymph # (Auto) 1.0 L Seg Neutrophils % 77.8 H Seg Neutrophils # PT INR APTT D-Dimer Heparin Anti-Xa Level 1.44 H ABG pO2 ABG HCO3 ABG Base Excess ABG Hemoglobin Oxyhemoglobin Chloride Carbon Dioxide Creatinine Glucose POC Glucose 135 H Albumin 02/13/20 02/15/20 02/15/20 06:48 07:36 07:36 Hgb 11.4 L Hct 34.9 L RDW Plt Count Lymph % (Auto) Lymph # (Auto) Seg Neutrophils % Seg Neutrophils # PT INR APTT D-Dimer Heparin Anti-Xa Level ABG pO2 ABG HCO3 ABG Base Excess ABG Hemoglobin Oxyhemoglobin Chloride 96.6 L 95.9 L Carbon Dioxide 37 H 38 H Creatinine 0.5 L 0.4 L Glucose 126 H POC Glucose Albumin 02/16/20 02/17/20 02/18/20 10:51 05:49 10:10 Hgb 11.4 L Hct 34.7 L RDW Plt Count 445 H Lymph % (Auto) Lymph # (Auto) Seg Neutrophils % Seg Neutrophils # PT INR APTT D-Dimer Heparin Anti-Xa Level ABG pO2 69.3 L ABG HCO3 38.8 H ABG Base Excess 11.9 H ABG Hemoglobin 11.9 L Oxyhemoglobin 93.9 L Chloride 95.4 L Carbon Dioxide 37 H Creatinine 0.4 L Glucose POC Glucose Albumin 02/19/20 04:44 Hgb 11.5 L Hct 34.1 L RDW Plt Count Lymph % (Auto) Lymph # (Auto) Seg Neutrophils % Seg Neutrophils # PT INR APTT D-Dimer Heparin Anti-Xa Level ABG pO2 ABG HCO3 ABG Base Excess ABG Hemoglobin Oxyhemoglobin Chloride Carbon Dioxide Creatinine Glucose POC Glucose Albumin
--- NOTE | 2020-03-03 17:14 | Progress Note ---
Assessment and Plan Assessment and plan: -- Morbid obesity with BMI of 57.9 adult Dietary consulted, continue cardiac diet for now. pt is willing to change diet --Acute hypoxic respiratory failure Etiology secondary to CHF exacerbation and obesity hypoventilation syndrome Continue supplemental O2 and BiPAP at bedtime Start on empiric nebulizer breathing treatment -- Hypertension Blood pressure stable with metoprolol 25 bid vital signs stable -- History of major depression Patient on citalopram. remains depressed psych following -- Cellulitis of lower extremity and lower abdominal wall Patient placed on empiric IV antibiotics. --Acute on chronic diastolic congestive heart failure; Continue on diuretics. Will monitor inputs and output and also monitor daily weights. echocardiogram showed preserved EF Cardiology consulted, continue to follow recommendation -- Elevated d-dimer Ultrasound of the lower extremities were negative for DVT. However patient is unable to undergo his CT angiogram because of his size and weight. He has known history of PE in 2019. He has had some mild chest discomfort over the past few days. Patient has been placed on anticoagulation meanwhile with IV heparin. Vascular surgery consulted for input and recommended that patient is likely negative for pulmonary embolism considering the lab work-up. But as we cannot rule out pulmonary embolism and patient is high risks we can continue to treat with anticoagulation, patient can get CTA chest at [facility] or [facility] following discharge to confirm the diagnosis. started on eliquis -- DVT prophylaxis Patient on anticoagulation. -- Disposition social service evaluating patient for possible transfer to inpatient psychiatry versus personal fdc depending on further psychiatric evaluation. -- Full code status 02/24/2020. Continue to evaluate for possible inpatient psychiatry per recommendations. Continue 1013. 02/25/2020. Psychiatry discontinued 1013 yesterday and does not recommend acute psychiatric inpatient treatment at this time. The patient understands that if he becomes suicidal at any point to seek immediate assistance. The patient is to follow up with outpatient psych in 7 to 14 days upon discharge. Case management to arrange for discharge planning ? Personal-fdc 02/26/2020. Await physical therapy evaluation for discharge planning. 02/27/2020. Patient had a PT/OT evaluation yesterday and was recommended for home health PT. Patient reports he is able to discharge with a friend but needs a negative Covid test. Anticipate discharge in 1 to 2 days. 02/28/2020. Patient will discharge to a friend's home. Covid testing negative. Physical therapy recommends home health PT. Patient will need home O2 assessment prior to discharge. Anticipate discharge later today or in a.m. 02/29/20; evaluate for home oxygen, resting room air/DC planning per case management Possible discharge tomorrow with home health 03/03/20; patient is medically stable for discharge, case management assisting DC plan Home versus placement History Interval history: I have seen and examined the patient at the bedside Patient is initially discharged, awaiting discharge planning Has no new complaints, vital signs noted Patient's resting room air ambulatory room air O2 sats more than 94% No indication for home oxygen Hospitalist Physical - Constitutional Vitals: Temp Pulse Resp BP Pulse Ox 98.3 F 87 16 142/75 95 03/03/20 07:13 03/03/20 10:14 03/03/20 10:00 03/03/20 10:14 03/03/20 10:00 General appearance: Present: no acute distress, well-nourished, obese (Morbidly obese) - EENT Eyes: Present: PERRL, EOM intact - Neck Neck: Present: supple, normal ROM - Respiratory Respiratory effort: normal Respiratory: bilateral: diminished, rales, negative: rhonchi, wheezing - Cardiovascular Rhythm: regular Heart Sounds: Present: S1 & S2 - Extremities Extremities: no ischemia, No edema - Abdominal General gastrointestinal: soft, non-tender, non-distended, normal bowel sounds - Integumentary Integumentary: Present: clear, warm - Psychiatric Psychiatric: appropriate mood/affect, cooperative - Neurologic Neurologic: CNII-XII intact, moves all extremities HEART Score - HEART Score Troponin: Troponin T < 0.010 ng/mL (0.00-0.029) 02/13/20 06:48 Results - Labs CBC & Chem 7: 02/19/20 04:44 02/16/20 10:51 Labs: Laboratory Last Values WBC 8.7 K/mm3 (4.5-11.0) 02/13/20 06:48 RBC 3.69 M/mm3 (3.65-5.03) 02/13/20 06:48 Hgb 11.5 gm/dl (11.8-15.2) L 02/19/20 04:44 Hct 34.1 % (35.5-45.6) L 02/19/20 04:44 MCV 90 fl (84-94) 02/13/20 06:48 MCH 30 pg (28-32) 02/13/20 06:48 MCHC 34 % (32-34) 02/13/20 06:48 RDW 17.3 % (13.2-15.2) H 02/13/20 06:48 Plt Count 415 K/mm3 (140-440) 02/19/20 04:44 Lymph % (Auto) 11.3 % (13.4-35.0) L 02/13/20 06:48 Travis % (Auto) 6.8 % (0.0-7.3) 02/13/20 06:48 Eos % (Auto) 4.0 % (0.0-4.3) 02/13/20 06:48 Baso % (Auto) 0.1 % (0.0-1.8) 02/13/20 06:48 Lymph # (Auto) 1.0 K/mm3 (1.2-5.4) L 02/13/20 06:48 Travis # (Auto) 0.6 K/mm3 (0.0-0.8) 02/13/20 06:48 Eos # (Auto) 0.3 K/mm3 (0.0-0.4) 02/13/20 06:48 Baso # (Auto) 0.0 K/mm3 (0.0-0.1) 02/13/20 06:48 Seg Neutrophils % 77.8 % (40.0-70.0) H 02/13/20 06:48 Seg Neutrophils # 6.7 K/mm3 (1.8-7.7) 02/13/20 06:48 PT 14.5 Sec. (12.2-14.9) 02/13/20 06:48 INR 1.11 (0.87-1.13) 02/13/20 06:48 APTT 20.7 Sec. (24.2-36.6) L 02/12/20 00:16 D-Dimer 684.16 ng/mlDDU (0-234) H 02/11/20 21:38 Heparin Anti-Xa Level 1.44 U.I./ml (0.3-0.7) H 02/12/20 19:04 ABG pH 7.409 pH Units (7.350-7.450) 02/18/20 10:10 ABG pCO2 62.7 mm Hg 02/18/20 10:10 ABG pO2 69.3 mm Hg (80.0-90.0) L 02/18/20 10:10 ABG HCO3 38.8 mmol/L (20.0-26.0) H 02/18/20 10:10 ABG O2 Saturation 95.9 % (95.0-99.0) 02/18/20 10:10 ABG O2 Content 15.7 (0.0-44) 02/18/20 10:10 ABG Base Excess 11.9 mmol/L (-2.0-3.0) H 02/18/20 10:10 ABG Hemoglobin 11.9 gm/dl (14.0-18.0) L 02/18/20 10:10 ABG Carboxyhemoglobin 1.7 % (0.0-5.0) 02/18/20 10:10 ABG Methemoglobin 0.4 % (0.0-1.5) 02/18/20 10:10 Oxyhemoglobin 93.9 % (95.0-99.0) L 02/18/20 10:10 FiO2 21 % 02/18/20 10:10 Sodium 143 mmol/L (137-145) 02/16/20 10:51 Potassium 4.4 mmol/L (3.6-5.0) D 02/16/20 10:51 Chloride 95.4 mmol/L (98-107) L 02/16/20 10:51 Carbon Dioxide 37 mmol/L (22-30) H 02/16/20 10:51 Anion Gap 15 mmol/L 02/16/20 10:51 BUN 12 mg/dL (9-20) 02/16/20 10:51 Creatinine 0.4 mg/dL (0.8-1.3) L 02/16/20 10:51 Estimated GFR > 60 ml/min 02/16/20 10:51 BUN/Creatinine Ratio 30 % 02/16/20 10:51 Glucose 98 mg/dL (75-100) 02/16/20 10:51 POC Glucose 135 (70-105) H 02/12/20 15:50 Calcium 8.6 mg/dL (8.4-10.2) 02/16/20 10:51 Total Bilirubin 0.20 mg/dL (0.1-1.2) 02/11/20 21:38 AST 24 units/L (5-40) 02/11/20 21:38 ALT 14 units/L (7-56) 02/11/20 21:38 Alkaline Phosphatase 86 units/L (35-129) 02/11/20 21:38 Total Creatine Kinase 71 units/L (55-170) 02/11/20 21:38 CK-MB (CK-2) 1.3 ng/mL (0.0-4.0) 02/11/20 21:38 CK-MB (CK-2) Rel Index 1.8 (0-4) 02/11/20 21:38 Troponin T < 0.010 ng/mL (0.00-0.029) 02/13/20 06:48 NT-Pro-B Natriuret Pep 464.7 pg/mL (0-900) 02/11/20 21:38 Total Protein 6.6 g/dL (6.3-8.2) 02/11/20 21:38 Albumin 2.8 g/dL (3.9-5) L 02/11/20 21:38 Albumin/Globulin Ratio 0.7 % 02/11/20 21:38 Vancomycin Trough 12.3 ug/mL (5.0-20.0) 02/13/20 13:16 Coronavirus (PCR) Negative (Negative) 02/27/20 10:39 - Diagnostic Impressions Diagnostic Impressions: Echocardiogram 02/12/20 00:26 Transthoracic Echocardiogram Indication: SOB BP: 128/64 HR: 88 Conclusions *Mild concentric left ventricular hypertrophy is observed. *Global left ventricular wall motion and contractility are within normal limits. *The estimated ejection fraction is 50-55%. *Abnormal left ventricular diastolic filling is observed, consistent with impaired relaxation. *There is no pericardial effusion. Findings Left Ventricle: The left ventricular chamber size is normal. Mild concentric left ventricular hypertrophy is observed. Global left ventricular wall motion and contractility are within normal limits. Global left ventricular systolic function is normal. The estimated ejection fraction is 50-55%. Abnormal left ventricular diastolic filling is observed, consistent with impaired relaxation. Right Ventricle: The right ventricle is not well visualized. Right Atrium: The right atrium is not well visualized. Aortic Valve: The aortic valve structure is normal. Mitral Valve: The mitral valve leaflets are mildly thickened. There is no evidence of mitral regurgitation. Tricuspid Valve: The tricuspid valve leaflets are normal. There is trace tricuspid regurgitation. The right ventricular systolic pressure is calculated at 30 mmHg. Pulmonic Valve: The pulmonic valve appears normal. Pericardium: There is no pericardial effusion. Aorta: The aorta appears normal. Venous: The inferior vena cava is not visualized. Contrast: Intravenous contrast was used to enhance endocardial border definition. Measurements Chambers 2D Name Value Normal Range IVSd (2D) 1.32 cm (0.6 - 1.1) LVPWd (2D) 1.37 cm (0.6 - 1.1) LVIDd (2D) 4.95 cm (3.7 - 5.6) LVIDs (2D) 3.75 cm (2 - 3.8) LV FS (2D) 24.3 % - EF Teichholz (2D) 48.13 % - Ao root diameter (2D) 3.62 cm (2 - 3.7) Diastolic/Systolic Function Name Value Normal Range MV E-wave Vmax 0.91 m/sec - MV deceleration time 174.88 msec - MV A-wave Vmax 0.54 m/sec - MV E:A ratio 1.7 ratio - Aortic Valve Name Value Normal Range AV Vmax 1.62 m/sec - AV VTI 35.52 cm - AV peak gradient 10.49 mmHg - AV mean gradient 7.64 mmHg - LVOT diameter 2.16 cm - LVOT Vmax 1.42 m/sec - LVOT VTI 23.46 cm - LVOT peak gradient 8.11 mmHg - LVOT mean gradient 5.79 mmHg - SV LVOT 86.16 ml - IRENE (continuity Vmax) 3.23 cm2 - IRENE (continuity VTI) 2.43 cm2 - Tricuspid Valve Name Value Normal Range TR Vmax 2.62 m/sec - TR peak gradient 27 mmHg - RAP 3 mmHg - RVSP 30 mmHg - Pulmonic Valve/Qp:Qs Name Value Normal Range PV Vmax 1.23 m/sec - PV peak gradient 6 mmHg - PV acceleration time 91.34 msec - Peralta/IV: Voiding Method External Female Catheter IV Catheter Type [Left Forearm INT / Saline Lock ] IV Catheter Type [Left Upper INT / Saline Lock arm] Active Medications - Current Medications Current Medications: Generic Name Dose Route Start Last Admin Trade Name Freq PRN Reason Stop Dose Admin Acetaminophen 650 mg 02/12/20 00:23 03/01/20 17:46 Tylenol PO 650 mg Q4H PRN Administration Pain MILD(1-3)/Fever >100.5/LUIS Albuterol/Ipratropium 1 ampul 02/27/20 20:00 03/03/20 07:50 Duoneb *Not For Prn Use* IH 1 ampul BIDRT MICHAEL Administration Apixaban 5 mg 02/19/20 10:00 03/03/20 10:13 Eliquis PO 5 mg Q12HR MICHAEL Administration Aripiprazole 10 mg 02/24/20 10:00 03/03/20 10:13 Aripiprazole PO 10 mg QDAY MICHAEL Administration Citalopram Hydrobromide 40 mg 02/16/20 11:00 03/03/20 10:13 Celexa PO 40 mg QDAY MICHAEL Administration Furosemide 40 mg 02/12/20 06:00 03/03/20 05:34 Lasix IV 40 mg BID@0600,1800 MICHAEL Administration Magnesium Hydroxide 30 ml 02/29/20 12:02 Milk Of Magnesia PO Q4H PRN Constipation Metoprolol Tartrate 25 mg 02/12/20 22:00 03/03/20 10:14 Metoprolol PO 25 mg BID MICHAEL Administration Ondansetron HCl 4 mg 02/12/20 00:23 Zofran IV Q8H PRN Nausea And Vomiting Sodium Chloride 10 ml 02/12/20 10:00 03/03/20 10:13 Sodium Chloride Flush Syringe 10 Ml IV 10 ml BID MICHAEL Administration Sodium Chloride 10 ml 02/12/20 00:23 03/03/20 05:34 Sodium Chloride Flush Syringe 10 Ml IV 10 ml PRN PRN Administration LINE FLUSH Nutrition/Malnutrition Assess - Dietary Evaluation Nutrition/Malnutrition Findings: Nutrition Notes Start: 02/12/20 13:57 Freq: Status: Active Protocol: Document 02/18/20 07:25 LP (Rec: 02/19/20 07:26 LP [id number]) Nutrition Notes Need for Assessment generated from: LOS Initial or Follow up Brief Note Subjective/Other Information Screen for LOS. Pt consuming 100% of meals. Nutrition Intervention Revisit per MD consult or patient Sign Off request:
--- NOTE | 2020-03-03 19:53 | Progress Note ---
Assessment and Plan Patient awake and resting on room air and O2 saturation running 93%. Patient goes on CPAP during night time. Patient afebrile. No leukocytosis. No acute respiratory distress. Patient is on APIXABAN. Patient finished course of ceftriaxone . - Patient Problems (1) Acute exacerbation of CHF (congestive heart failure) Current Visit: Yes Status: Acute Qualifiers: Heart failure type: unspecified Qualified Code(s): I50.9 - Heart failure, unspecified Plan to address problem: Patient is on Lasix. Management as per cardiology. (2) Cellulitis of lower extremity Current Visit: Yes Status: Acute Plan to address problem: Patient finished course of ceftriaxone . Management as per Primary care and infectious diseases. (3) Elevated d-dimer Current Visit: Yes Status: Acute Plan to address problem: Patient is on APIXABAN (4) History of pulmonary embolism Current Visit: Yes Status: Chronic Plan to address problem: Patient is on APIXABAN. (5) Hypertension Current Visit: Yes Status: Chronic Plan to address problem: Management as per primary care. (6) Morbid obesity with BMI of 70 and over, adult Current Visit: Yes Status: Chronic Plan to address problem: Recommend to loose weight. Diet and exercise. Recommend sleep study as out patient. (7) GURPREET (obstructive sleep apnea) Current Visit: Yes Status: Suspected Plan to address problem: BIPAP during night time. Subjective Date of service: 03/03/20 Principal diagnosis: HF Interval history: Patient awake and resting on room air and O2 saturation running 93%. Patient goes on CPAP during night time. Patient afebrile. No leukocytosis. No acute respiratory distress. Patient is on APIXABAN. Patient finished course of ceftriaxone . Objective Vital Signs - 12hr 03/03/20 03/03/20 03/03/20 08:34 10:00 10:14 Temperature Pulse Rate 87 Respiratory 16 Rate Blood Pressure 142/75 O2 Sat by Pulse 94 95 Oximetry 03/03/20 16:34 Temperature 98.0 F Pulse Rate 71 Respiratory 20 Rate Blood Pressure 142/69 O2 Sat by Pulse 93 Oximetry Constitutional: no acute distress, alert Eyes: non-icteric ENT: oropharynx moist Neck: supple, no JVD Effort: mildly labored Ascultation: Bilateral: rales Cardiovascular: regular rate and rhythm Gastrointestinal: normoactive bowel sounds, soft, non-tender Integumentary: normal Extremities: no cyanosis, no edema Neurologic: normal mental status, non-focal exam, pupils equal and round, CN II- XII normal Psychiatric: mood appropriate CBC and BMP: 02/19/20 04:44 02/16/20 10:51 ABG, PT/INR, D-dimer: ABG ABG pH 7.409 pH Units (7.350-7.450) 02/18/20 10:10 ABG pCO2 62.7 mm Hg 02/18/20 10:10 ABG pO2 69.3 mm Hg (80.0-90.0) L 02/18/20 10:10 ABG O2 Saturation 95.9 % (95.0-99.0) 02/18/20 10:10 PT/INR, D-dimer PT 14.5 Sec. (12.2-14.9) 02/13/20 06:48 INR 1.11 (0.87-1.13) 02/13/20 06:48 D-Dimer 684.16 ng/mlDDU (0-234) H 02/11/20 21:38 Abnormal lab findings: Abnormal Labs 02/11/20 02/11/20 02/11/20 21:38 21:38 21:38 Hgb 11.5 L Hct 34.5 L RDW 17.5 H Plt Count Lymph % (Auto) 8.3 L Lymph # (Auto) 0.9 L Seg Neutrophils % 83.2 H Seg Neutrophils # 8.8 H PT INR APTT D-Dimer 684.16 H Heparin Anti-Xa Level ABG pO2 ABG HCO3 ABG Base Excess ABG Hemoglobin Oxyhemoglobin Chloride 97.3 L Carbon Dioxide 32 H Creatinine 0.4 L Glucose 115 H POC Glucose Albumin 2.8 L 02/12/20 02/12/20 02/12/20 00:16 11:16 11:53 Hgb Hct RDW Plt Count Lymph % (Auto) Lymph # (Auto) Seg Neutrophils % Seg Neutrophils # PT 10.9 L INR 0.77 L APTT 20.7 L D-Dimer Heparin Anti-Xa Level < 0.10 L ABG pO2 ABG HCO3 ABG Base Excess ABG Hemoglobin Oxyhemoglobin Chloride Carbon Dioxide Creatinine Glucose POC Glucose 114 H Albumin 02/12/20 02/12/20 02/13/20 15:50 19:04 06:48 Hgb 11.1 L Hct 33.1 L RDW 17.3 H Plt Count Lymph % (Auto) 11.3 L Lymph # (Auto) 1.0 L Seg Neutrophils % 77.8 H Seg Neutrophils # PT INR APTT D-Dimer Heparin Anti-Xa Level 1.44 H ABG pO2 ABG HCO3 ABG Base Excess ABG Hemoglobin Oxyhemoglobin Chloride Carbon Dioxide Creatinine Glucose POC Glucose 135 H Albumin 02/13/20 02/15/20 02/15/20 06:48 07:36 07:36 Hgb 11.4 L Hct 34.9 L RDW Plt Count Lymph % (Auto) Lymph # (Auto) Seg Neutrophils % Seg Neutrophils # PT INR APTT D-Dimer Heparin Anti-Xa Level ABG pO2 ABG HCO3 ABG Base Excess ABG Hemoglobin Oxyhemoglobin Chloride 96.6 L 95.9 L Carbon Dioxide 37 H 38 H Creatinine 0.5 L 0.4 L Glucose 126 H POC Glucose Albumin 02/16/20 02/17/20 02/18/20 10:51 05:49 10:10 Hgb 11.4 L Hct 34.7 L RDW Plt Count 445 H Lymph % (Auto) Lymph # (Auto) Seg Neutrophils % Seg Neutrophils # PT INR APTT D-Dimer Heparin Anti-Xa Level ABG pO2 69.3 L ABG HCO3 38.8 H ABG Base Excess 11.9 H ABG Hemoglobin 11.9 L Oxyhemoglobin 93.9 L Chloride 95.4 L Carbon Dioxide 37 H Creatinine 0.4 L Glucose POC Glucose Albumin 02/19/20 04:44 Hgb 11.5 L Hct 34.1 L RDW Plt Count Lymph % (Auto) Lymph # (Auto) Seg Neutrophils % Seg Neutrophils # PT INR APTT D-Dimer Heparin Anti-Xa Level ABG pO2 ABG HCO3 ABG Base Excess ABG Hemoglobin Oxyhemoglobin Chloride Carbon Dioxide Creatinine Glucose POC Glucose Albumin
[2020-03-03] MEDS: ACETAMINOPHEN 325 MG TAB PO PRN (20:04)
[2020-03-04] MEDS: FUROSEMIDE 40 MG/4 ML INJ IV SCH ×2 (06:28→17:57)
[2020-03-04] MEDS: IPRATROPIUM/ALBUTEROL SULFATE 3 ML AMPUL.NEB IH SCH (07:52)
[2020-03-04] MEDS: CITALOPRAM 20 MG TAB PO SCH (09:42)
[2020-03-04] MEDS: METOPROLOL TARTRATE 25 MG TAB PO SCH (09:42)
[2020-03-04] MEDS: ARIPiprazole 10 MG TAB PO SCH (09:43)
[2020-03-04] MEDS: APIXABAN 5 MG TAB PO SCH (09:43)
--- NOTE | 2020-03-04 12:49 | Progress Note ---
Assessment and Plan Acute exacerbation of CHF (congestive heart failure) Acute Hypoxemic Respiratopry Failure Morbid obesity with BMI of 70 and over, adult GURPREET (obstructive sleep apnea) Cellulitis of lower extremity Elevated d-dimer History of pulmonary embolism Hypertension - agree with empiric full anticoagulation - NIV qhs re: GURPREET - Pulmonary out patient follow up for further VTE w/up and optimization of respiratory status - continue to wean supplemental oxygen to keep O2 sats > 90% - Bronchodilators with pulm hygiene per RT - ACS w/up and optimization of CMOP therapy per cardiology team - avoid nephrotoxins, renally dose all medications - continue mobility protocols to prevent pressure ulcers - PT/OT as tolerated - continue accuchecks with glycemic control per SSI for target blood glucose < 180 mg/dL - weight loss / lifestyle counseling - tobacco abstinence strongly counseled at the bedside - home oxygen evaluation at discharge - GI & VTE prophylaxis - Flu & pneumovax per protocol - continue other care per attending / other consultants - prn analgesia per pain score ... re-evaluate in am & prn Subjective Date of service: 03/04/20 Principal diagnosis: AECHF; Ac Hypoxemic Resp Failure; GURPREET; Cellulitis of lower ext; H/O VTE;HTN Interval history: Patient is seen today for: Acute exacerbation of CHF; Acute Hypoxemic Respiratory Failure; Morbid obesity; GURPREET; Cellulitis of lower extremity; Elevated d-dimer; History of pulmonary embolism; Hypertension Seen and examined at bedside; 24hour events reviewed; nursing and respiratory care staff consulted; no adverse overnight events reported to me; resting peacefully in bed; complains on chest tightness, not pleuritic; denies N/V/F/C; overall feels much better. Objective Vital Signs - 12hr 03/04/20 03/04/20 03/04/20 04:03 07:36 07:55 Temperature 98.0 F 98.1 F Pulse Rate 77 78 Pulse Rate [ 83 Anterior Bilateral Throughout] Pulse Rate [ 87 Posterior Bilateral Throughout] Respiratory 18 18 Rate Respiratory 20 Rate [Anterior Bilateral Throughout] Respiratory 21 Rate [Posterior Bilateral Throughout] Blood Pressure 146/71 154/59 O2 Sat by Pulse 92 91 Oximetry 03/04/20 03/04/20 08:11 09:42 Temperature Pulse Rate 78 Pulse Rate [ Anterior Bilateral Throughout] Pulse Rate [ Posterior Bilateral Throughout] Respiratory Rate Respiratory Rate [Anterior Bilateral Throughout] Respiratory Rate [Posterior Bilateral Throughout] Blood Pressure 154/59 O2 Sat by Pulse 95 Oximetry Constitutional: no acute distress, alert, other (morbidly obese male with mildly increased respiratory effort at rest) Eyes: non-icteric ENT: oropharynx moist, other (mallampati 4) Neck: supple, no JVD Effort: mildly labored Ascultation: Bilateral: clear, diminished breath sounds Percussion: Bilateral: not dull Cardiovascular: regular rate and rhythm Gastrointestinal: normoactive bowel sounds, soft, non-tender, non-distended (protuberant) Integumentary: normal Extremities: no cyanosis, pink and warm, pulses normal, no ischemia or petechia e, edema (trace) Neurologic: normal mental status, non-focal exam, pupils equal and round, CN II- XII normal, motor strength normal and Psychiatric: mood appropriate, affect normal CBC and BMP: 02/19/20 04:44 02/16/20 10:51 ABG, PT/INR, D-dimer: ABG ABG pH 7.409 pH Units (7.350-7.450) 02/18/20 10:10 ABG pCO2 62.7 mm Hg 02/18/20 10:10 ABG pO2 69.3 mm Hg (80.0-90.0) L 02/18/20 10:10 ABG O2 Saturation 95.9 % (95.0-99.0) 02/18/20 10:10 PT/INR, D-dimer PT 14.5 Sec. (12.2-14.9) 02/13/20 06:48 INR 1.11 (0.87-1.13) 02/13/20 06:48 D-Dimer 684.16 ng/mlDDU (0-234) H 02/11/20 21:38 Abnormal lab findings: Abnormal Labs 02/11/20 02/11/20 02/11/20 21:38 21:38 21:38 Hgb 11.5 L Hct 34.5 L RDW 17.5 H Plt Count Lymph % (Auto) 8.3 L Lymph # (Auto) 0.9 L Seg Neutrophils % 83.2 H Seg Neutrophils # 8.8 H PT INR APTT D-Dimer 684.16 H Heparin Anti-Xa Level ABG pO2 ABG HCO3 ABG Base Excess ABG Hemoglobin Oxyhemoglobin Chloride 97.3 L Carbon Dioxide 32 H Creatinine 0.4 L Glucose 115 H POC Glucose Albumin 2.8 L 02/12/20 02/12/20 02/12/20 00:16 11:16 11:53 Hgb Hct RDW Plt Count Lymph % (Auto) Lymph # (Auto) Seg Neutrophils % Seg Neutrophils # PT 10.9 L INR 0.77 L APTT 20.7 L D-Dimer Heparin Anti-Xa Level < 0.10 L ABG pO2 ABG HCO3 ABG Base Excess ABG Hemoglobin Oxyhemoglobin Chloride Carbon Dioxide Creatinine Glucose POC Glucose 114 H Albumin 02/12/20 02/12/20 02/13/20 15:50 19:04 06:48 Hgb 11.1 L Hct 33.1 L RDW 17.3 H Plt Count Lymph % (Auto) 11.3 L Lymph # (Auto) 1.0 L Seg Neutrophils % 77.8 H Seg Neutrophils # PT INR APTT D-Dimer Heparin Anti-Xa Level 1.44 H ABG pO2 ABG HCO3 ABG Base Excess ABG Hemoglobin Oxyhemoglobin Chloride Carbon Dioxide Creatinine Glucose POC Glucose 135 H Albumin 02/13/20 02/15/20 02/15/20 06:48 07:36 07:36 Hgb 11.4 L Hct 34.9 L RDW Plt Count Lymph % (Auto) Lymph # (Auto) Seg Neutrophils % Seg Neutrophils # PT INR APTT D-Dimer Heparin Anti-Xa Level ABG pO2 ABG HCO3 ABG Base Excess ABG Hemoglobin Oxyhemoglobin Chloride 96.6 L 95.9 L Carbon Dioxide 37 H 38 H Creatinine 0.5 L 0.4 L Glucose 126 H POC Glucose Albumin 02/16/20 02/17/20 02/18/20 10:51 05:49 10:10 Hgb 11.4 L Hct 34.7 L RDW Plt Count 445 H Lymph % (Auto) Lymph # (Auto) Seg Neutrophils % Seg Neutrophils # PT INR APTT D-Dimer Heparin Anti-Xa Level ABG pO2 69.3 L ABG HCO3 38.8 H ABG Base Excess 11.9 H ABG Hemoglobin 11.9 L Oxyhemoglobin 93.9 L Chloride 95.4 L Carbon Dioxide 37 H Creatinine 0.4 L Glucose POC Glucose Albumin 02/19/20 04:44 Hgb 11.5 L Hct 34.1 L RDW Plt Count Lymph % (Auto) Lymph # (Auto) Seg Neutrophils % Seg Neutrophils # PT INR APTT D-Dimer Heparin Anti-Xa Level ABG pO2 ABG HCO3 ABG Base Excess ABG Hemoglobin Oxyhemoglobin Chloride Carbon Dioxide Creatinine Glucose POC Glucose Albumin Chest x-ray: pending Allied health notes reviewed: nursing
[2020-03-04] MEDS ORDERED: FAMOTIDINE 20 MG TAB PO SCH (14:00)
[2020-03-04] MEDS ORDERED: WATER FOR INJ Sterile (PF) 0 ML ONE (16:04)
[2020-03-04 16:31] VITALS: BP 152/66
--- NOTE | 2020-03-04 16:42 | Discharge Summary ---
Providers - Providers Date of Admission: 02/11/20 23:48 Date of discharge: 03/04/20 Attending physician: KACY LEON 02/11/20 23:47 Consult to Physician [CONS] Routine Comment: Consulting Provider: MARILEE MEDINA Physician Instructions: Reason For Exam: sob. el dimer 02/12/20 03:58 Consult to Wound/ET Nurse [CONS] Routine Reason For Exam: wound eval 02/14/20 11:20 Physical Therapy Evaluation and Treat [CONS] Routine Comment: Reason For Exam: placement 02/15/20 14:26 Consult to Physician [CONS] Routine Comment: Consulting Provider: HENRIETTA BUSTAMANTE Physician Instructions: Reason For Exam: possible PE 02/19/20 14:19 Consult to Mental Health [CONS] Routine Reason For Exam: suicide thoughts 02/25/20 08:26 Physical Therapy Evaluation and Treat [CONS] Routine Comment: Reason For Exam: deconditioning Primary care physician: GANG PUSHER Hospitalization Reason for admission: Worsening shortness of breath/acute on chronic CHF with preserved EF Condition: Fair Pertinent studies: Ultrasound of the lower extremities ; negative for DVT cxr; mild cardiomegaly mild congestion/CHF Hospital course: 49-year-old white male with known history of hypertension, recently diagnosed congestive heart failure, pulmonary embolism in 2019 and morbid obesity who was admitted through the emergency room with worsening shortness of breath of 2 days duration. Patient states he has been bedbound lately and hardly ambulates. He has been having progressive swelling of his lower extremities. Upon evaluation in the emergency room patient was found to have elevated BNP, elevated d-dimer, chest x-ray reveals: Mild cardiomegaly and mild pulmonary vascular congestion likely reflecting CHF. Ultrasound of the lower extremities did not reveal any DVT. Patient has been started on diuretics for CHF exacerbation. CT angiogram could not be done because of patient's size and weight. ER physician was unable to transfer to an outside facility. Evaluated by vascular since patient has multiple risk factors for PE and DVT, started treating empirically with Eliquis, and patient advised to go to [facility] for open CT scan study. Patient was hemodynamically stable and was planning to be discharged and suddenly patient complaint of suicidal thoughts and suicidal ideation, DC was held evaluated by psych, placed on 1013 status and psych recommended inpatient psych admission at discharge Patient continues to have suicidal thoughts and ideation, continued management appropriately in the hospital Finally patient got better, understands the situation and psych has rescinded 1013 status, cleared for discharge home And follow-up with them for further evaluation management Today patient is comfortable no new complaints vital signs stable denies suicidal thoughts or ideation Hemodynamically and clinically stable at discharge Advised to follow primary care physician Advised to follow private psychiatrist Advised to follow behavioral health [facility]. Patient is hemodynamically and clinically stable at discharge Discharge diagnosis; -- History of major depression: Continue current medications Advised to follow behavioral health /psychiatrist upon discharge --Suicidal thoughts and ideation; resolved 1013 rescinded by psych, follow outpatient per schedule -- Morbid obesity with BMI of 57.9 adult Dietary consulted, continue cardiac diet for now. pt is willing to change diet --Acute hypoxic respiratory failure ; due to CHF and obesity hypoventilation Oxygen BiPAP as needed -- Hypertension; blood pressures well controlled continue metoprolol -- Cellulitis of lower extremity and lower abdominal wall Completed antibiotics, supportive care --Acute on chronic diastolic congestive heart failure; CHFpEF (congestive heart failure) Continue on diuretics. W follow cardiology -- Elevated d-dimer; lower extremity venous Doppler negative Unable to get CT angiogram of the chest due to morbid obesity, empiric anticoagulation with Eliquis, follow with vascular upon discharge -- DVT prophylaxis; Patient on anticoagulation. Patient is hemodynamically and clinically stable at discharge Cleared by consultants to DC and follow-up per schedule Stable at discharge Disposition: [id number] HOME UNDER [facility] Time spent for discharge: 33 min Core Measure Documentation - Palliative Care Palliative Care/ Comfort Measures: Not Applicable - Core Measures Any of the following diagnoses?: none Exam - Constitutional Vitals: Temp Pulse Resp BP Pulse Ox 98.3 F 76 18 152/66 93 03/04/20 16:02 03/04/20 16:02 03/04/20 16:02 03/04/20 16:02 03/04/20 16:02 General appearance: Present: no acute distress, well-nourished, obese (Morbidly obese) - EENT Eyes: Present: PERRL, EOM intact - Neck Neck: Present: supple, normal ROM - Respiratory Respiratory effort: normal Respiratory: bilateral: diminished, negative: rales, rhonchi, wheezing - Cardiovascular Rhythm: regular Heart Sounds: Present: S1 & S2 - Extremities Extremities: no ischemia, No edema - Abdominal General gastrointestinal: Present: soft, non-tender, non-distended, normal bowel sounds - Integumentary Integumentary: Present: clear, warm - Musculoskeletal Musculoskeletal: strength equal bilaterally - Psychiatric Psychiatric: appropriate mood/affect, cooperative - Neurologic Neurologic: moves all extremities Plan Activity: advance as tolerated, fall precautions Diet: other (Cardiac diet as tolerated) Additional Instructions: If you have worsening symptoms contact MD or go to emergency room Follow up with: PRIMARY CARE, [Primary Care Provider] - 7 Days HERMAN RAMIREZ MD [Staff Physician] - 7 Days LESLEE SOLANO MD [Staff Physician] - 7 Days MARVIN CANTU MD [Staff Physician] - 7 Days Prescriptions: ARIPiprazole [Abilify TAB] 10 mg PO QDAY #14 tablet Citalopram [Celexa] 40 mg PO QDAY #14 tablet Ipratropium/Albuterol Sulfate [DUONEB *Not for PRN Use*] 1 ampul IH TIDRT #30 ampul.neb Apixaban [Eliquis] 5 mg PO Q12HR #60 tablet Potassium Chloride [K-Dur] 10 meq PO QDAY #30 tablet Furosemide [Lasix TAB] 40 mg PO QDAY #30 tablet Metoprolol [Lopressor TAB] 25 mg PO BID #60 tablet Famotidine [Pepcid] 20 mg PO QDAY #30 tablet
== END 2020-03-04 20:35 | disposition home health service (06) | DRG 291 ==
LOC: ED 21:26 → OBSVTOIN 23:48 → 4A 23:48
PROVIDERS: ADMIT Internal Medicine Geriatric Medicine; ATTEND Internal Medicine
PROC: 4A033R1 Measurement of Arterial Saturation, Peripheral, Percutaneous Approach (ICD-10-PCS; principal; 2020-02-18)
PROC: 5A09357 Assistance with Respiratory Ventilation, Less than 24 Consecutive Hours, Continuous Positive Airway Pressure (ICD-10-PCS; 2020-02-27)
PROC: 5A09357 Assistance with Respiratory Ventilation, Less than 24 Consecutive Hours, Continuous Positive Airway Pressure (ICD-10-PCS; 2020-02-28)
PROC: 5A09357 Assistance with Respiratory Ventilation, Less than 24 Consecutive Hours, Continuous Positive Airway Pressure (ICD-10-PCS; 2020-02-29)
PROC: 5A09357 Assistance with Respiratory Ventilation, Less than 24 Consecutive Hours, Continuous Positive Airway Pressure (ICD-10-PCS; 2020-03-01)
PROC: 5A09357 Assistance with Respiratory Ventilation, Less than 24 Consecutive Hours, Continuous Positive Airway Pressure (ICD-10-PCS; 2020-03-02)
PROC: 5A09357 Assistance with Respiratory Ventilation, Less than 24 Consecutive Hours, Continuous Positive Airway Pressure (ICD-10-PCS; 2020-03-03)
DX: I11.0 Hypertensive heart disease with heart failure (principal); J96.00 Acute respiratory failure, unspecified whether with hypoxia or hypercapnia; Z68.43 Body mass index [BMI] 50.0-59.9, adult; E66.2 Morbid (severe) obesity with alveolar hypoventilation; L03.116 Cellulitis of left lower limb; L03.115 Cellulitis of right lower limb; L03.311 Cellulitis of abdominal wall; Z79.899 Other long term (current) drug therapy; Z86.711 Personal history of pulmonary embolism; Z20.828 Contact with and (suspected) exposure to other viral communicable diseases; F32.9 Major depressive disorder, single episode, unspecified; I50.33 Acute on chronic diastolic (congestive) heart failure
CPT/HCPCS: 36415; 36600; 71045; 80048; 80053; 80202; 82550; 82553; 82803; 82962; 83880; 84484; 85014; 85018; 85025; 85049; 85379; 85520; 85610; 85730; 93005; 93306; 93970; 94640; 94660; 94760; G0378; A6250; J0696; J1644; J1940; J3370; J7040; U0003

== ENCOUNTER 2020-07-08 15:12 | Inpatient (IN) | payer OTHER ==
--- NOTE | 2020-07-08 16:19 | Emergency Department Report ---
ED Chest Pain HPI - General Chief Complaint: Chest Pain Stated Complaint: GABE PUI?: No Time Seen by Provider: 07/08/20 15:56 Source: patient, EMS Mode of arrival: Stretcher Limitations: Physical Limitation - History of Present Illness Initial Comments: Chief complaint: "I was unable to get out of bed. I was too embarrassed to ask for help. I laid in my waste for several days. I was going to take all my prescriptions and ended it all." HPI: This is a 50-year-old male with history of PTSD, anxiety, depression, severe obesity, congestive heart failure, hypertension, probable pulmonary embolism who presents with skin irritation, suicidal ideation, chest pain or shortness of breath. Patient states that he was unable to get out of bed for the last 5 days. He stated that he was just too embarrassed to ask for help. C onsequently he has irritation on his back back of his legs scrotum. He has late in urine and feces for at least 5 days. He stated that he wanted to just take all his medications and "end it all". Patient has been unemployed for the last 3 years. Consequently he does not have health insurance. He worked for the [employer] for over 20 years. His sister is his only source of support. He states that "he has a few friends". He does not want to be a burden on them. His sister pays his rent. He is currently staying at a hotel. His sister is paying for the hotel room. Patient has applied for Medicaid and SSDI. He is awaiting approval for these assistance programs. Today he developed chest pressure and shortness of breath. The symptoms were mild. Chest pain has resolved. Chest pain mild. Chest pain pressure mid chest. No radiation. Lasted several minutes. Shortness of breath persistent. Patient denies fever, cough, body aches. Patient has irritation of his skin back legs scrotum. The areas are moderately painful, especially to touch. Patient has been noncompliant with most medications with the exception of lisinopril. He stopped taking Eliquis several months ago. According to electronic medical record, patient was admitted to this hospital in February 2020. He was evaluated for possible pulmonary embolism due to elevated D-dimer. He was diagnosed with CHF. CT angiogram could not be done because of patient's size and weight. ER physician was unable to transfer patient to an outside facility. Consequently patient has been placed empirically on Eliquis. According to electronic medical record, patient was advised to go to [facility] for open CT scan. Patient also was placed on involuntary hold with 1013. According to discharge summary, patient revealed that he was suicidal at the time of discharge. MD Complaint: chest pain -: minutes(s) (Several minutes) Onset: during rest Pain Location: substernal Severity: mild Severity scale (0 -10): 5 Consistency: now resolved Improves With: nothing Worsens With: nothing Context: recent illness (Admitted to this hospital 4 months prior) Other Symptoms: denies: cough, fever Treatments Prior to Arrival: none - Related Data Home Medications Medication Instructions Recorded Confirmed Last Taken Furosemide [Lasix TAB] 40 mg PO BID 07/08/20 07/08/20 Unknown Sertraline [Zoloft] 25 mg PO QDAY 07/08/20 07/08/20 Unknown lisinopriL [Lisinopril] 40 mg PO DAILY 07/08/20 07/08/20 Unknown Previous Rx's Medication Instructions Recorded Last Taken Type ARIPiprazole [Abilify TAB] 10 mg PO QDAY #14 tablet 03/04/20 Unknown Rx Allergies Allergy/AdvReac Type Severity Reaction Status Date / Time No Known Allergies Allergy Verified 07/08/20 16:43 Heart Score - HEART Score History: Slightly suspicious EKG: Normal Age: 45-65 Risk factors: 1-2 risk factors Troponin: < normal limit HEART Score: 2 ED Review of Systems ROS: Stated complaint: GABE Other details as noted in HPI Comment: All other systems reviewed and negative Constitutional: denies: fever, malaise Respiratory: denies: cough, shortness of breath Cardiovascular: chest pain Gastrointestinal: denies: abdominal pain, nausea, vomiting Skin: rash (Lower extremity) ED Past Medical Hx - Past Medical History Previous Medical History?: Yes Hx Hypertension: Yes Hx Congestive Heart Failure: Yes Hx Diabetes: No Hx Pulmonary Embolism: Yes Hx Psychiatric Treatment: Yes (depression) Hx Asthma: No Hx COPD: No Additional medical history: Morbid obesity - Surgical History Additional Surgical History: nasal cavity abscess, stitch gums - Social History Smoking Status: Never Smoker - Medications Home Medications: Home Medications Medication Instructions Recorded Confirmed Last Taken Type ARIPiprazole [Abilify TAB] 10 mg PO QDAY #14 tablet 03/04/20 07/08/20 Unknown Rx Furosemide [Lasix TAB] 40 mg PO BID 07/08/20 07/08/20 Unknown History Sertraline [Zoloft] 25 mg PO QDAY 07/08/20 07/08/20 Unknown History lisinopriL [Lisinopril] 40 mg PO DAILY 07/08/20 07/08/20 Unknown History ED Physical Exam - General Limitations: No Limitations, Physical Limitation General appearance: alert, in no apparent distress, other (Covered in feces, poor hygiene) - Head Head exam: Present: atraumatic, normocephalic - Eye Eye exam: Present: normal appearance - ENT ENT exam: Present: mucous membranes moist - Neck Neck exam: Present: normal inspection, full ROM - Respiratory Respiratory exam: Present: normal lung sounds bilaterally. Absent: respiratory distress, wheezes - Cardiovascular Cardiovascular Exam: Present: normal rhythm, tachycardia, normal heart sounds. Absent: systolic murmur, diastolic murmur, rubs, gallop - GI/Abdominal GI/Abdominal exam: Present: soft, normal bowel sounds. Absent: distended, tenderness, guarding, rebound - Rectal Rectal exam: Present: deferred - Extremities Exam Extremities exam: Present: pedal edema - Neurological Exam Neurological exam: Present: alert, oriented X3 - Psychiatric Psychiatric exam: Present: normal affect, normal mood - Skin Skin exam: Present: rash, erythema - Other Other exam information: Skin exam: Diffuse erythema involving the lower back posterior thighs with skin breakdown Scrotum: Erythematous with macerated skin Abdomen: Small patch of erythema lower abdomen Lower legs bilateral: Hyperpigmentation from mid lower leg to ankle 2+ DP pulses intact bilaterally ED Course Vital Signs 07/08/20 07/08/20 07/08/20 15:20 16:39 16:42 Temperature 97.8 F Pulse Rate 113 H 111 H Respiratory 26 H 28 H 28 H Rate Blood Pressure 132/70 Blood Pressure 140/68 [Left] O2 Sat by Pulse 98 99 Oximetry 07/08/20 07/08/20 07/08/20 17:10 17:39 18:38 Temperature Pulse Rate 116 H 116 H Respiratory 18 18 Rate Blood Pressure Blood Pressure 152/48 134/81 [Left] O2 Sat by Pulse 89 97 96 Oximetry ED Medical Decision Making - Lab Data Result diagrams: 07/08/20 17:26 07/08/20 17:26 Laboratory Results - last 24 hr 07/08/20 07/08/20 07/08/20 17:26 17:26 17:26 WBC 15.5 H RBC 4.64 Hgb 14.1 Hct 43.0 MCV 93 MCH 31 MCHC 33 RDW 17.0 H Plt Count 477 H Seg Neutrophils % Oil Recovery Unit Operator Sodium 137 Potassium 4.3 Chloride 98.2 Carbon Dioxide 27 Anion Gap 16 BUN 12 Creatinine 0.6 L Estimated GFR > 60 BUN/Creatinine Ratio 20 Glucose 106 H Lactic Acid Calcium 8.9 Total Bilirubin 0.50 AST 11 ALT 13 Alkaline Phosphatase 79 Troponin T < 0.010 NT-Pro-B Natriuret Pep 51.33 Total Protein 6.3 Albumin 3.6 L Albumin/Globulin Ratio 1.3 Salicylates Acetaminophen Plasma/Serum Alcohol 07/08/20 07/08/20 07/08/20 17:26 17:26 17:26 WBC RBC Hgb Hct MCV MCH MCHC RDW Plt Count Seg Neutrophils % Sodium Potassium Chloride Carbon Dioxide Anion Gap BUN Creatinine Estimated GFR BUN/Creatinine Ratio Glucose Lactic Acid 3.00 H* Calcium Total Bilirubin AST ALT Alkaline Phosphatase Troponin T NT-Pro-B Natriuret Pep Total Protein Albumin Albumin/Globulin Ratio Salicylates < 0.3 L Acetaminophen 5.0 L Plasma/Serum Alcohol 07/08/20 17:26 WBC RBC Hgb Hct MCV MCH MCHC RDW Plt Count Seg Neutrophils % Sodium Potassium Chloride Carbon Dioxide Anion Gap BUN Creatinine Estimated GFR BUN/Creatinine Ratio Glucose Lactic Acid Calcium Total Bilirubin AST ALT Alkaline Phosphatase Troponin T NT-Pro-B Natriuret Pep Total Protein Albumin Albumin/Globulin Ratio Salicylates Acetaminophen Plasma/Serum Alcohol < 0.01 - EKG Data EKG shows normal: sinus rhythm, axis, intervals, QRS complexes, ST-T waves Rate: normal, tachycardia - EKG Data Interpretation: normal EKG 07/08/20 17:17 EKG obtained EKG interpreted by az Sinus tachycardia rate 115 bpm otherwise normal EKG sinus tachycardia normal sinus rhythm normal rate normal axis normal intervals no ST elevation no ST-T signs of ischemia normal EKG - Radiology Data Radiology results: report reviewed, image reviewed Chest radiograph no acute findings Duplex ultrasound bilateral: No sonographic evidence for DVT in the visualized bilateral lower extremity vasculature - Medical Decision Making 1. Suicidal ideation with plan to take his medications intentional overdose. Patient has neglected his health and hygiene due to severe depression. 1013 protocol involuntary hold in place, I spoke with mental health hotel director who will arrange for psychiatrist to evaluate him tomorrow while admitted to the hospitalist service 2. Chest pain: Normal EKG, normal troponin: Heart score 2, atypical for ACS. Patient has been empirically treated for pulmonary embolism. Patient will need lifetime anticoagulation considering his immobility and severe obesity. Without persistent pain, cardiovascular instability evidence of heart strain (such as right bundle branch block or right axis deviation elevated troponin), I do not feel that patient has major clot burden that will necessitate aggressive care such as thrombolysis. In this scenario if pulmonary embolism is a consideration Eliquis would be sufficient. 3. Macerated skin with cellulitis due to poor hygiene: Affected skin extensive including lower back buttocks scrotum lower abdomen. Patient will need drying agents as well as wound care. No evidence of sepsis. Superimposed cellulitis is likely. IV clindamycin initiated in emergency department. With tachycardia, elevated WBC, elevated lactic acid, sepsis is a consideration. Patient has been hypertensive throughout ED course. sepsis protocol initiated in emergency department. 4. Shortness of breath: History of congestive heart failure: Pulmonary embolism is a consideration. Patient will need lifetime anticoagulation. Normal BNP today. no evidence of pulmonary edema 5. Poor social situation: Patient has minimal support. Patient does not have income. Patient does not have health insurance. Patient is unable to obtain employment due to severe obesity and poorly controlled mental health disorders including depression anxiety PTSD. I have ordered case management consultation. Critical care attestation.: If time is entered above; I have spent that time in minutes in the direct care of this critically ill patient, excluding procedure time. ED Disposition Clinical Impression: Diffuse cellulitis, Severe obesity, History of pulmonary embolism, Morbid obesity with BMI of 70 and over, adult, Suicidal ideation, Poor social situa tion, Major depression, (HFpEF) heart failure with preserved ejection fraction, Acute heart failure Disposition: OP ADMIT IP TO THIS HOSP Is pt being admited?: Yes Does the pt Need Aspirin: No Condition: Stable Referrals: PRIMARY CARE, [Primary Care Provider] - 3-5 Days
--- NOTE | 2020-07-08 17:30 | Vascular Lab Report ---
VL venous duplex LE BILAT INDICATION / CLINICAL INFORMATION: lower leg swelling. TECHNIQUE: Duplex doppler imaging was performed using venous compression and other maneuvers. COMPARISON: None available. FINDINGS: No venous thrombosis is identified within the visualized extremity vasculature. ADDITIONAL FINDINGS: None. IMPRESSION: 1. No sonographic evidence for DVT in the visualized bilateral lower extremity vasculature. Signer Name: Enrico Moya MD Signed: 07/08/2020 5:26 PM Workstation Name: [id number]
[2020-07-08 17:58] LABS: Hemoglobin 14.1 gm/dl (11.8-15.2); Mean Corpuscular HGB Conc 33 % (32-34); Mean Corpuscular Volume 93 fl (84-94); Platelet Count 477 K/mm3 (140-440); Red Blood Count 4.64 M/mm3 (3.65-5.03)
[2020-07-08 18:18] LABS: Alanine Aminotransferase 13 units/L (7-56); Albumin 3.6 g/dL (3.9-5); Blood Urea Nitrogen 12 mg/dL (9-20); Calcium 8.9 mg/dL (8.4-10.2); Hemolysis Index 26
[2020-07-08 18:23] LABS: BUN/Creatinine Ratio 20
--- NOTE | 2020-07-08 18:58 | XRay Report ---
XR chest 1V ap INDICATION / CLINICAL INFORMATION: dyspnea COMPARISON: February 11 2020 FINDINGS: SUPPORT DEVICES: None. HEART / MEDIASTINUM: Prominent cardiac silhouette is unchanged. LUNGS / PLEURA: Lungs are clear. Costophrenic sulci are sharp. No pneumothorax. ADDITIONAL FINDINGS: No significant additional findings. IMPRESSION: 1. No acute findings. Signer Name: Enrico Moya MD Signed: 07/08/2020 6:54 PM Workstation Name: [id number]
[2020-07-08 20:14] LABS: Total Cells Counted 100
[2020-07-08 20:15] LABS: Platelet Estimate Consistent w Auto; RBC Morphology Normal
--- NOTE | 2020-07-08 22:57 | History and Physical Report ---
History of Present Illness Date of examination: 07/08/20 Date of admission: 07/08/20 18:51 Chief complaint: Shortness of breath for 1 week Severe debility and unable to get up from bed 1 week Severe depression and suicidal thoughts History of present illness: 50-year-old male who is morbidly obese comes in for severe depression and shortness of breath at rest. Patient lives alone and takes care of himself. Of late patient is not able to take care of himself because of his increased weight and unable to get out of bed for activities of daily living. Patient states he was lying in his feces for several days. He was able to take all his prescriptions and and possibly from overdose. Only suicidal thoughts were no attempt. Patient has class IV NYHA symptoms and has severe orthopnea. Also has rash on the legs and the back. Erythema of the back present. Patient has erythema of his skin back legs and scrotum. The areas are moderately painful, especially to touch. Patient also has chest pain which is intermittent. No diaphoresis. Shortness of breath present. No radiation. - Past Medical History Previous Medical History?: Yes --Hypertension: Yes --Congestive Heart Failure: Yes --Pulmonary Embolism: Yes --Psychiatric Treatment: Yes (depression) Additional medical history: Morbid obesity - Surgical History Additional Surgical History: nasal cavity abscess, stitch gums - Social History Smoking Status: Never Smoker -Family history Htn - Medications Home Medications: Home Medications Medication Instructions Recorded Confirmed Last Taken Type ARIPiprazole [Abilify TAB] 10 mg PO QDAY #14 tablet 03/04/20 07/08/20 Unknown Rx Furosemide [Lasix TAB] 40 mg PO BID 07/08/20 07/08/20 Unknown History Sertraline [Zoloft] 25 mg PO QDAY 07/08/20 07/08/20 Unknown History lisinopriL [Lisinopril] 40 mg PO DAILY 07/08/20 07/08/20 Unknown History Review of Systems ROS: Stated complaint: GABE Other details as noted in HPI Morbidly obese and short of breath at rest. Erythema on his back and the scrotal area. Comment: All other systems reviewed and negative Constitutional: denies: fever, malaise Respiratory: denies: cough, shortness of breath Cardiovascular: chest pain Gastrointestinal: denies: abdominal pain, nausea, vomiting Skin: rash (Lower extremity) Medications and Allergies Allergies Allergy/AdvReac Type Severity Reaction Status Date / Time No Known Allergies Allergy Verified 07/08/20 16:43 Home Medications Medication Instructions Recorded Confirmed Last Taken Type ARIPiprazole [Abilify TAB] 10 mg PO QDAY #14 tablet 03/04/20 07/08/20 Unknown Rx Furosemide [Lasix TAB] 40 mg PO BID 07/08/20 07/08/20 Unknown History Sertraline [Zoloft] 25 mg PO QDAY 07/08/20 07/08/20 Unknown History lisinopriL [Lisinopril] 40 mg PO DAILY 07/08/20 07/08/20 Unknown History Exam - Constitutional Vitals: Temp Pulse Resp BP Pulse Ox 97.9 F 109 H 24 119/69 97 07/08/20 22:28 07/08/20 22:28 07/08/20 22:28 07/08/20 22:28 07/08/20 22:28 General appearance: Present: mild distress, well-nourished - EENT Eyes: Present: PERRL ENT: hearing intact, clear oral mucosa - Neck Neck: Present: supple, normal ROM - Respiratory Respiratory effort: normal Respiratory: bilateral: CTA, rales - Cardiovascular Rhythm: regular Heart Sounds: Present: S1 & S2. Absent: rub, click - Extremities Extremities: pulses symmetrical, No edema, abnormal (Stasis dermatitis both lower extremities from mid calf up to the ankle) Peripheral Pulses: within normal limits - Abdominal General gastrointestinal: Present: soft, non-tender, non-distended, normal bowel sounds Male genitourinary: Present: scrotal edema - Integumentary Integumentary: Present: clear, warm, dry, erythema (Erythema on the back), rash - Musculoskeletal Musculoskeletal: gait normal, strength equal bilaterally - Psychiatric Psychiatric: appropriate mood/affect, intact judgment & insight - Neurologic Neurologic: CNII-XII intact, moves all extremities HEART Score - HEART Score History: Moderately suspicious EKG: Normal Age: 45-65 Risk factors: 1-2 risk factors Troponin: Troponin T < 0.010 ng/mL (0.00-0.029) 07/08/20 17:26 Troponin: < normal limit HEART Score: 3 - Critical Actions Critical Actions: 4-6 pts:12-16.6% risk of adverse cardiac event. Should be admitted Results - Labs CBC & Chem 7: 07/08/20 17:26 07/08/20 17:26 Labs: Laboratory Last Values WBC 15.5 K/mm3 (4.5-11.0) H 07/08/20 17: RBC 4.64 M/mm3 (3.65-5.03) 07/08/20 17: Hgb 14.1 gm/dl (11.8-15.2) 07/08/20 17: Hct 43.0 % (35.5-45.6) 07/08/20 17: MCV 93 fl (84-94) 07/08/20 17: MCH 31 pg (28-32) 07/08/20 17: MCHC 33 % (32-34) 07/08/20 17: RDW 17.0 % (13.2-15.2) H 07/08/20 17: Plt Count 477 K/mm3 (140-440) H 07/08/20 17: Add Manual Diff Complete 07/08/20 17: Total Counted 100 07/08/20 17: Seg Neutrophils % Hard Candy Batch Mixer 07/08/20 17: Seg Neuts % (Manual) 92.0 % (40.0-70.0) H 07/08/20 17: Lymphocytes % (Manual) 4.0 % (13.4-35.0) L 07/08/20 17: Monocytes % (Manual) 3.0 % (0.0-7.3) 07/08/20 17: Eosinophils % (Manual) 1.0 % (0.0-4.3) 07/08/20: Nucleated RBC % Not Reportable 07/08/20 17: Seg Neutrophils # Man 14.3 K/mm3 (1.8-7.7) H 07/08/20 17: Band Neutrophils # 0.0 K/mm3 07/08/20 17: Lymphocytes # (Manual) 0.6 K/mm3 (1.2-5.4) L 07/08/20 17: Abs React Lymphs (Man) 0.0 K/mm3 07/08/20 17: Monocytes # (Manual) 0.5 K/mm3 (0.0-0.8) 07/08/20 17:26 Eosinophils # (Manual) 0.2 K/mm3 (0.0-0.4) 07/08/20 17:26 Basophils # (Manual) 0.0 K/mm3 (0.0-0.1) 07/08/20 17:26 Metamyelocytes # 0.0 K/mm3 07/08/20 17: Myelocytes # 0.0 K/mm3 07/08/20 17: Promyelocytes # 0.0 K/mm3 07/08/20 17:26 Blast Cells # 0.0 K/mm3 07/08/20 17:26 WBC Morphology Not Reportable 07/08/20 17:26 Hypersegmented Neuts Not Reportable 07/08/20 17:26 Hyposegmented Neuts Not Reportable 07/08/20 17:26 Hypogranular Neuts Not Reportable 07/08/20 17:26 Smudge Cells Not Reportable 07/08/20 17:26 Toxic Granulation Not Reportable 07/08/20 17:26 Toxic Vacuolation Not Reportable 07/08/20 17:26 Dohle Bodies Not Reportable 07/08/20 17:26 Pelger-Huet Anomaly Not Reportable 07/08/20 17:26 Alexandro Rods Not Reportable 07/08/20 17:26 Platelet Estimate Consistent w auto 07/08/20 17:26 Clumped Platelets Not Reportable 07/08/20 17:26 Plt Clumps, EDTA Not Reportable 07/08/20 17:26 Large Platelets Not Reportable 07/08/20 17:26 Giant Platelets Not Reportable 07/08/20 17:26 Platelet Satelliting Not Reportable 07/08/20 17:26 Plt Morphology Comment Not Reportable 07/08/20 17:26 RBC Morphology Normal 07/08/20 17:26 Dimorphic RBCs Not Reportable 07/08/20 17:26 Polychromasia Not Reportable 07/08/20 17:26 Hypochromasia Not Reportable 07/08/20 17:26 Poikilocytosis Not Reportable 07/08/20 17:26 Anisocytosis Not Reportable 07/08/20 17:26 Microcytosis Not Reportable 07/08/20 17:26 Macrocytosis Not Reportable 07/08/20 17:26 Spherocytes Not Reportable 07/08/20 17:26 Pappenheimer Bodies Not Reportable 07/08/20 17:26 Sickle Cells Not Reportable 07/08/20 17:26 Target Cells Not Reportable 07/08/20 17:26 Tear Drop Cells Not Reportable 07/08/20 17:26 Ovalocytes Not Reportable 07/08/20 17:26 Helmet Cells Not Reportable 07/08/20 17:26 Alonso-[place] Bodies Not Reportable 07/08/20 17:26 [place] Rings Not Reportable 07/08/20 17:26 Frandy Cells Not Reportable 07/08/20 17:26 Bite Cells Not Reportable 07/08/20 17:26 Crenated Cell Not Reportable 07/08/20 17:26 Elliptocytes Not Reportable 07/08/20 17:26 Acanthocytes (Spur) Not Reportable 07/08/20 17:26 Rouleaux Not Reportable 07/08/20 17:26 Hemoglobin C Crystals Not Reportable 07/08/20 17:26 Schistocytes Not Reportable 07/08/20 17:26 Malaria parasites Not Reportable 07/08/20 17:26 Mauri Bodies Not Reportable 07/08/20 17:26 Hem Pathologist Commnt No 07/08/20 17:26 Sodium 137 mmol/L (137-145) 07/08/20 17:26 Potassium 4.3 mmol/L (3.6-5.0) 07/08/20 17:26 Chloride 98.2 mmol/L (98-107) 07/08/20 17:26 Carbon Dioxide 27 mmol/L (22-30) 07/08/20 17:26 Anion Gap 16 mmol/L 07/08/20 17:26 BUN 12 mg/dL (9-20) 07/08/20 17:26 Creatinine 0.6 mg/dL (0.8-1.3) L 07/08/20 17:26 Estimated GFR > 60 ml/min 07/08/20 17:26 BUN/Creatinine Ratio 20 % 07/08/20 17:26 Glucose 106 mg/dL (75-100) H 07/08/20 17:26 Lactic Acid 3.00 mmol/L (0.7-2.0) H* 07/08/20 17:26 Calcium 8.9 mg/dL (8.4-10.2) 07/08/20 17:26 Total Bilirubin 0.50 mg/dL (0.1-1.2) 07/08/20 17:26 AST 11 units/L (5-40) 07/08/20 17:26 ALT 13 units/L (7-56) 07/08/20 17:26 Alkaline Phosphatase 79 units/L (35-129) 07/08/20 17:26 Troponin T < 0.010 ng/mL (0.00-0.029) 07/08/20 17:26 NT-Pro-B Natriuret Pep 51.33 pg/mL (0-900) 07/08/20 17: Total Protein 6.3 g/dL (6.3-8.2) 07/08/20 17: Albumin 3.6 g/dL (3.9-5) L 07/08/20 17: Albumin/Globulin Ratio 1.3 % 07/08/20 17:26 Salicylates < 0.3 mg/dL (2.8-20.0) L 07/08/20 17: Acetaminophen 5.0 ug/mL (10.0-30.0) L 07/08/20 17:26 Plasma/Serum Alcohol < 0.01 % (0-0.07) 07/08/20 17:26 Short CBC 07/08/20 Range/Units 17:26 WBC 15.5 H (4.5-11.0) K/mm3 Hgb 14.1 (11.8-15.2) gm/dl Hct 43.0 (35.5-45.6) % Plt Count 477 H (140-440) K/mm3 BMP 07/08/20 17:26 Sodium 137 Potassium 4.3 Chloride 98.2 Carbon Dioxide 27 BUN 12 Creatinine 0.6 L Glucose 106 H Calcium 8.9 Cardiac Enzymes 07/08/20 Range/Units 17: Troponin T < 0.010 (0.00-0.029) ng/mL Liver Function 07/08/20 Range/Units 17:26 Total Bilirubin 0.50 (0.1-1.2) mg/dL AST 11 (5-40) units/L ALT 13 (7-56) units/L Alkaline Phosphatase 79 (35-129) units/L Albumin 3.6 L (3.9-5) g/dL Microbiology: Microbiology 07/08/20 17:26 Peripheral/Venous Blood Culture - Preliminary Culture in Progress 07/08/20 17:12 Peripheral/Venous Blood Culture - Preliminary Culture in Progress - Imaging and Cardiology EKG: report reviewed (Sinus tachycardia heart rate of 114/min) Chest x-ray: report reviewed Imaging and Cardiology: Duplex scan both lower extremities No sonographic evidence for DVT in the visualized bilateral lower extremity vasculature Chest x-ray No acute findings Assessment and Plan Advance Directives: Yes (Full code) VTE prophylaxis?: Chemical Plan of care discussed with patient/family: Yes - Patient Problems (1) Acute exacerbation of CHF (congestive heart failure) Current Visit: Yes Status: Acute Qualifiers: Heart failure type: right-sided Qualified Code(s): I50.813 - Acute on chronic right heart failure Plan to address problem: Patient probably has pulmonary hypertension BNP is normal IV Lasix initiated Differential diagnosis of pulmonary embolism Patient to be started on Eliquis 10 mg twice a day for possible PE CT angiogram of the chest cannot be done because of his weight of 400 pounds (2) Suicidal thoughts Current Visit: Yes Status: Acute Plan to address problem: Patient on 1013 Mental health consult requested Patient started on Zoloft 50 daily (3) Diffuse cellulitis Current Visit: Yes Status: Acute Plan to address problem: Patient started on Unasyn and vancomycin and Diflucan (4) Major depression Current Visit: Yes Status: Acute Plan to address problem: Mental health consult requested Patient is on 1013 (5) Hypertension Current Visit: Yes Status: Chronic Qualifiers: Hypertension type: essential hypertension Qualified Code(s): I10 - Essential (primary) hypertension Plan to address problem: Continue antihypertensives (6) Physical debility Current Visit: Yes Status: Acute Plan to address problem: Patient unable to get out of bed Needs acute rehab and physical therapy Patient is applied for disability insurance (7) DVT prophylaxis Current Visit: Yes Status: Acute Plan to address problem: On Eliquis and GI prophylaxis (8) Discharge planning issues Current Visit: Yes Status: Acute Plan to address problem: Patient lives alone Needs physical therapy and can be discharged home if he can walk after diuresis If not patient needs SNF/acute rehab
[2020-07-08] MEDS ORDERED: METOCLOPRAMIDE 10 MG/2 ML INJ IV PRN (23:17)
[2020-07-08] MEDS: ONDANSETRON 4 MG/2 ML INJ IV PRN (23:49)
[2020-07-08] MEDS: APIXABAN 5 MG TAB PO SCH (23:50)
[2020-07-08] MEDS: HYDROmorphone 1 MG/1 ML INJ IV PRN (23:50)
[2020-07-08] MEDS: FLUCONAZOLE 200 MG 200 MG/100 ML BAG IV SCH (23:50)
[2020-07-09] MEDS: AMPICILLIN/SULBACTA 3GM/100ML 3 GM/100 ML BAG IV SCH ×4 (00:42→19:34)
[2020-07-09] MEDS: ACETAMINOPHEN 325 MG TAB PO PRN (04:12)
[2020-07-09] MEDS: FUROSEMIDE 40 MG/4 ML INJ IV SCH ×2 (05:51→17:14)
[2020-07-09 06:50] LABS: Alanine Aminotransferase 12 units/L (7-56); Albumin 3.1 g/dL (3.9-5); Blood Urea Nitrogen 12 mg/dL (9-20); Calcium 8.2 mg/dL (8.4-10.2); Hemolysis Index 25
[2020-07-09 06:53] LABS: BUN/Creatinine Ratio 30
--- NOTE | 2020-07-09 09:01 | Consultation ---
History of Present Illness - Reason for Consult Consult date: 07/09/20 Reason for consult: depression, SI - History of Present Psychiatric Illness Per ED note: "Chief complaint: "I was unable to get out of bed. I was too embarrassed to ask for help. I laid in my waste for several days. I was going to take all my prescriptions and ended it all." HPI: This is a 50-year-old male with history of PTSD, anxiety, depression, severe obesity, congestive heart failure, hypertension, probable pulmonary embolism who presents with skin irritation, suicidal ideation, chest pain or shortness of breath. Patient states that he was unable to get out of bed for the last 5 days. He stated that he was just too embarrassed to ask for help. Consequently he has irritation on his back back of his legs scrotum. He has late in urine and feces for at least 5 days. He stated that he wanted to just take all his medications and "end it all". Patient has been unemployed for the last 3 years. Consequently he does not have health insurance. He worked for the [employer] for over 20 years. His sister is his only source of support. He states that "he has a few friends". He does not want to be a burden on them. His sister pays his rent. He is currently staying at a hotel. His sister is paying for the hotel room. Patient has applied for Medicaid and SSDI. He is awaiting approval for these assistance programs." The patient was seen today. He is known to me from a previous visit. He is a/o x 3. He is calm and cooperative. He is talkative. The patient says he came to the ER because he lost strength in his legs and couldn't get out of bed. He says he also started having chest pressure. The patient verbalizes being very depressed. He says "I'm tired of all the pain and suffering. I just want to end it all." He says his plan is to take all of his prescription medications. He denies any hallucinations. He says he hasn't been sleeping and only sleeps "sporadically." He denies any illicit drug use, alcohol or nicotine. He says his psych meds helps some but not as much now. PAST PSYCHIATRIC HISTORY Diagnoses: Depression, PTSD and Anxiety Suicide attempts or Self-harm behavior: Yes Prior psychiatric hospitalizations: Yes Substance Abuse history: None reported Previous psychiatric medications tried: Celexa, zoloft, abilify Outpatient treatment: yes PAST MEDICAL HISTORY: CHF, HTN and Morbid obesity Family Psychiatric History: None reported or documented SOCIAL HISTORY Marital Status: Living Arrangements: in an extended stay hotel Employment Status: Unemployed Access to guns/weapons: none reported Education: College History of Abuse: none reported Legal History: Denies REVIEW OF SYSTEMS Constitutional: Negative for weight loss ENT: Negative for stridor Respiratory: Negative for cough or hemoptysis All other systems reviewed and are negative MENTAL STATUS EXAMINATION General Appearance and Behavior: Age appropriate, good hygiene, wearing approp riate clothes, lying in bed, good eye contact, cooperative polite with questioning. Cooperation: Participating/engaged Psychomotor Behavior: unremarkable and within normal limits Mood: Depressed Affect and affective range: decreased range, depressed, Thought Process: Fluent/Logical Thought Content: Hopelessness, Helplessness Speech: Normal volume, Regular rate and rhythm, Intellectual Functioning: Average Suicidal Ideation: Suicidal with plan Homicidal Ideation: Denies HI Impulse Control: Limited Insight and Judgment: Limited insight and judgment Memory: Normal Attention: Normal Orientation: Alert, oriented Assessment and Plan (1) Major depression, Severe without Psychotic Features Current Visit: Yes Status: Acute Treatment Plan 1013 agree with case management consult MEDICATIONS Increase home zoloft 50mg po daily Increase home abilify 15mg po daily Start Trazodone 50mg po qhs Start Melatonin 5mg po qhs prn insomnia Risks, benefits and alternatives of medications discussed with the patient, questions answered and consent obtained from patient. PSYCHOTHERAPY: Supportive psychotherapy provided MEDICAL: Per primary team DELIRIUM PRECAUTIONS: Please re-orient patient frequently, keep lights on during the day, and minimize benzodiazepines and opiates as these medications could worsen patient's confusion. 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 Please contact with any questions and/or concerns. Case Staffed with Dr. lAas Medications and Allergies Allergies Allergy/AdvReac Type Severity Reaction Status Date / Time No Known Allergies Allergy Verified 07/08/20 16:43 Home Medications Medication Instructions Recorded Confirmed Last Taken Type ARIPiprazole [Abilify TAB] 10 mg PO QDAY #14 tablet 03/04/20 07/08/20 Unknown Rx Furosemide [Lasix TAB] 40 mg PO BID 07/08/20 07/08/20 Unknown History Sertraline [Zoloft] 25 mg PO QDAY 07/08/20 07/08/20 Unknown History lisinopriL [Lisinopril] 40 mg PO DAILY 07/08/20 07/08/20 Unknown History Active Meds: Active Medications Acetaminophen (Acetaminophen 325 Mg Tab) 650 mg PO Q4H PRN PRN Reason: Pain MILD(1-3)/Fever >100.5/LUIS Last Admin: 07/09/20 04:12 Dose: 650 mg Documented by: Apixaban (Apixaban 5 Mg Tab) 10 mg PO Q12HR [facility]; Protocol Last Admin: 07/08/20 23:50 Dose: 10 mg Documented by: Aripiprazole (Aripiprazole 10 Mg Tab) 10 mg PO QDAY [facility] Famotidine (Famotidine 20 Mg Tab) 20 mg PO BID [facility] Furosemide (Furosemide 40 Mg/4 Ml Inj) 40 mg IV 0600,1800 MICHAEL Last Admin: 07/09/20 05:51 Dose: 40 mg Documented by: Hydromorphone HCl (Hydromorphone 1 Mg/1 Ml Inj) 0.5 mg IV Q3H PRN PRN Reason: Pain , Severe (7-10) Last Admin: 07/08/20 23:50 Dose: 0.5 mg Documented by: Ampicillin Sodium/Sulbactam Sodium (Unasyn/Ns 3 Gm/100 Ml) 3 gm in 100 mls @ 100 mls/hr IV Q6HR [facility]; Protocol Last Admin: 07/09/20 05:51 Dose: 100 mls/hr Documented by: Fluconazole (Diflucan) 200 mg in 100 mls @ 100 mls/hr IV Q24HR@2200 MICHAEL; Protocol Last Admin: 07/08/20 23:50 Dose: 100 mls/hr Documented by: Lisinopril (Lisinopril 40 Mg Tab) 40 mg PO DAILY [facility] Metoclopramide HCl (Metoclopramide 10 Mg/2 Ml Inj) 10 mg IV Q6H PRN PRN Reason: Nausea And Vomiting Ondansetron HCl (Ondansetron 4 Mg/2 Ml Inj) 4 mg IV Q8H PRN PRN Reason: Nausea And Vomiting Last Admin: 07/08/20 23:49 Dose: 4 mg Documented by: Oxycodone/Acetaminophen (Oxycodone /Acetaminophen 5-325mg Tab) 1 tab PO Q6H PRN PRN Reason: Pain, Moderate (4-6) Potassium Chloride (Potassium Chloride Er 20 Meq Tab) 20 meq PO Q12HR MICHAEL Sertraline HCl (Sertraline 50 Mg Tab) 50 mg PO QDAY MICHAEL Sodium Chloride (Sodium Chloride 0.9% 10 Ml Flush Syringe) 10 ml IV BID MICHAEL Sodium Chloride (Sodium Chloride 0.9% 10 Ml Flush Syringe) 10 ml IV PRN PRN PRN Reason: LINE FLUSH Mental Status Exam - Vital signs Last Vital Signs Temp 97.5 F L 07/09/20 07:39 Pulse 111 H 07/09/20 06:53 Resp 19 07/09/20 06:53 BP 119/56 07/09/20 06:53 Pulse Ox 93 07/09/20 06:53 Results Result Diagrams: 07/08/20 17:26 07/09/20 06:14 Abnormal lab results 07/08/20 07/08/20 07/08/20 Range/Units 17:26 17:26 17:26 WBC 15.5 H (4.5-11.0) K/mm3 RDW 17.0 H (13.2-15.2) % Plt Count 477 H (140-440) K/mm3 Seg Neuts % (Manual) 92.0 H (40.0-70.0) % Lymphocytes % (Manual) 4.0 L (13.4-35.0) % Seg Neutrophils # Man 14.3 H (1.8-7.7) K/mm3 Lymphocytes # (Manual) 0.6 L (1.2-5.4) K/mm3 Sodium (137-145) mmol/L Creatinine 0.6 L (0.8-1.3) mg/dL Glucose 106 H (75-100) mg/dL Lactic Acid 3.00 H* (0.7-2.0) mmol/L Calcium (8.4-10.2) mg/dL Total Protein (6.3-8.2) g/dL Albumin 3.6 L (3.9-5) g/dL Salicylates (2.8-20.0) mg/dL Acetaminophen (10.0-30.0) ug/mL 07/08/20 07/08/20 07/09/20 Range/Units 17:26 17:26 06:14 WBC (4.5-11.0) K/mm3 RDW (13.2-15.2) % Plt Count (140-440) K/mm3 Seg Neuts % (Manual) (40.0-70.0) % Lymphocytes % (Manual) (13.4-35.0) % Seg Neutrophils # Man (1.8-7.7) K/mm3 Lymphocytes # (Manual) (1.2-5.4) K/mm3 Sodium 136 L (137-145) mmol/L Creatinine 0.4 L (0.8-1.3) mg/dL Glucose 116 H (75-100) mg/dL Lactic Acid (0.7-2.0) mmol/L Calcium 8.2 L (8.4-10.2) mg/dL Total Protein 5.8 L (6.3-8.2) g/dL Albumin 3.1 L (3.9-5) g/dL Salicylates < 0.3 L (2.8-20.0) mg/dL Acetaminophen 5.0 L (10.0-30.0) ug/mL All other labs normal.
[2020-07-09 09:52] LABS: Basophils % (Auto) 0.4 % (0.0-1.8); Eosinophils # (Auto) 0.5 K/mm3 (0.0-0.4); Hematocrit 45.8 % (35.5-45.6); Hemoglobin 14.9 gm/dl (11.8-15.2); Lymphocytes # (Auto) 1.1 K/mm3 (1.2-5.4); Lymphocytes % (Auto) 9.3 % (13.4-35.0); Mean Corpuscular HGB Conc 33 % (32-34); Mean Corpuscular Volume 94 fl (84-94); Monocytes # (Auto) 0.7 K/mm3 (0.0-0.8); Monocytes % (Auto) 5.9 % (0.0-7.3); Platelet Count 430 K/mm3 (140-440); Red Blood Count 4.86 M/mm3 (3.65-5.03); Red Cell Distribution Width 17.3 % (13.2-15.2)
[2020-07-09] MEDS ORDERED: SERTRALINE 50 MG TAB PO SCH (10:00)
[2020-07-09] MEDS ORDERED: ARIPiprazole 10 MG TAB PO SCH (10:00)
[2020-07-09] MEDS ORDERED: SERTRALINE 25 MG TAB PO SCH (10:00)
[2020-07-09] MEDS: POTASSIUM CHLORIDE ER 20 MEQ TAB PO SCH ×2 (11:11→21:57)
[2020-07-09] MEDS: FAMOTIDINE 20 MG TAB PO SCH ×2 (11:11→21:58)
[2020-07-09] MEDS: SERTRALINE 50 MG TAB PO SCH (11:11)
[2020-07-09] MEDS: APIXABAN 5 MG TAB PO SCH ×2 (11:11→21:57)
[2020-07-09] MEDS: LISINOPRIL 40 MG TAB PO SCH (11:11)
[2020-07-09] MEDS: HYDROmorphone 1 MG/1 ML INJ IV PRN (11:31)
[2020-07-09] MEDS: ARIPiprazole 15 MG TAB PO SCH (11:40)
[2020-07-09] MEDS: ONDANSETRON 4 MG/2 ML INJ IV PRN (11:40)
--- NOTE | 2020-07-09 13:11 | Progress Note ---
Assessment and Plan Assessment and plan: 50-year-old male who is morbidly obese comes in for severe depression and shortness of breath at rest. Patient lives alone and takes care of himself. Of late patient is not able to take care of himself because of his increased weight and unable to get out of bed for activities of daily living. Patient states he was lying in his feces for several days. He was able to take all his prescriptions and and possibly from overdose. Only suicidal thoughts were no attempt. Patient has class IV NYHA symptoms and has severe orthopnea. Also has rash on the legs and the back. Erythema of the back present. Patient has erythema of his skin back legs and scrotum. The areas are moderately painful, especially to touch. Patient also has chest pain which is intermittent. No diaphoresis. Shortness of breath present. No radiation. (1) Acute exacerbation of CHF (congestive heart failure) Current Visit: Yes Status: Acute Qualifiers: Heart failure type: right-sided Qualified Code(s): I50.813 - Acute on chronic right heart failure Plan to address problem: Patient probably has pulmonary hypertension BNP is normal IV Lasix initiated Differential diagnosis of pulmonary embolism Patient to be started on Eliquis 10 mg twice a day for possible PE CT angiogram of the chest cannot be done because of his weight of 400 pounds (2) Suicidal thoughts Current Visit: Yes Status: Acute Plan to address problem: Patient on 1013 Mental health consult requested Patient started on Zoloft 50 daily (3) Diffuse cellulitis Current Visit: Yes Status: Acute Plan to address problem: Patient started on Unasyn and vancomycin and Diflucan (4) Major depression Current Visit: Yes Status: Acute Plan to address problem: Mental health consult requested Patient is on 1013 (5) Hypertension Current Visit: Yes Status: Chronic Qualifiers: Hypertension type: essential hypertension Qualified Code(s): I10 - Essential (primary) hypertension Plan to address problem: Continue antihypertensives (6) Physical debility Current Visit: Yes Status: Acute Plan to address problem: Patient unable to get out of bed Needs acute rehab and physical therapy Patient is applied for disability insurance (7) DVT prophylaxis Current Visit: Yes Status: Acute Plan to address problem: On Eliquis and GI prophylaxis (8) Discharge planning issues Current Visit: Yes Status: Acute Plan to address problem: Patient lives alone Needs physical therapy and can be discharged home if he can walk after diuresis If not patient needs SNF/acute rehab Daily Hospital course 07/09/20 Patient is seen and examined. Labs and medications reviewed. Patient denies any shortness of breath now, complain of mild pain in the chest and depression. Patient is seen and evaluated by psychiatry. We will put the patient on psych medication. Psych recommend acute inpatient psychiatric hospitalization. We will do a VQ scan rule out PE and follow echocardiogram and cardiac enzyme .continue the current management. PT evaluation. History Interval history: 07/09/20 Patient is seen and examined. Labs and medications reviewed. Patient denies any shortness of breath now, complain of mild pain in the chest and depression. Patient is seen and evaluated by psychiatry. No other problems Hospitalist Physical - Constitutional Vitals: Temp Pulse Resp BP Pulse Ox 97.4 F L 100 H 24 141/70 95 07/09/20 10:58 07/09/20 10:58 07/09/20 10:58 07/09/20 11:11 07/09/20 10:58 General appearance: Present: no acute distress, mild distress, well-nourished - EENT Eyes: Present: PERRL ENT: hearing intact - Neck Neck: Present: supple - Respiratory Respiratory effort: normal Respiratory: bilateral: diminished - Cardiovascular Rhythm: regular Heart Sounds: Present: S1 & S2 - Extremities Extremities: no ischemia, No edema Peripheral Pulses: within normal limits - Abdominal General gastrointestinal: soft, non-tender - Integumentary Integumentary: Present: clear, warm, dry - Psychiatric Psychiatric: appropriate mood/affect, intact judgment & insight, cooperative - Neurologic Neurologic: CNII-XII intact, focal deficits HEART Score - HEART Score EKG: Normal Age: 45-65 Risk factors: 1-2 risk factors Troponin: Troponin T < 0.010 ng/mL (0.00-0.029) 07/09/20 06:14 Troponin: < normal limit - Critical Actions Critical Actions: 4-6 pts:12-16.6% risk of adverse cardiac event. Should be admitted Results - Labs CBC & Chem 7: 07/09/20 09:06 07/09/20 06:14 Labs: Laboratory Last Values WBC 11.5 K/mm3 (4.5-11.0) H 07/09/20 09:06 RBC 4.86 M/mm3 (3.65-5.03) 07/09/20 09:06 Hgb 14.9 gm/dl (11.8-15.2) 07/09/20 09:06 Hct 45.8 % (35.5-45.6) H 07/09/20 09:06 MCV 94 fl (84-94) 07/09/20 09:06 MCH 31 pg (28-32) 07/09/20 09:06 MCHC 33 % (32-34) 07/09/20 09:06 RDW 17.3 % (13.2-15.2) H 07/09/20 09:06 Plt Count 430 K/mm3 (140-440) 07/09/20 09:06 Lymph % (Auto) 9.3 % (13.4-35.0) L 07/09/20 09:06 [place] % (Auto) 5.9 % (0.0-7.3) 07/09/20 09:06 Eos % (Auto) 4.0 % (0.0-4.3) 07/09/20 09:06 Baso % (Auto) 0.4 % (0.0-1.8) 07/09/20 09:06 Lymph # (Auto) 1.1 K/mm3 (1.2-5.4) L 07/09/20 09:06 [place] # (Auto) 0.7 K/mm3 (0.0-0.8) 07/09/20 09:06 Eos # (Auto) 0.5 K/mm3 (0.0-0.4) H 07/09/20 09:06 Baso # (Auto) 0.0 K/mm3 (0.0-0.1) 07/09/20 09:06 Add Manual Diff Complete 07/08/20 17:26 Total Counted 100 07/08/20 17:26 Seg Neutrophils % 80.4 % (40.0-70.0) H 07/09/20 09:06 Seg Neuts % (Manual) 92.0 % (40.0-70.0) H 07/08/20 17:26 Lymphocytes % (Manual) 4.0 % (13.4-35.0) L 07/08/20 17:26 Monocytes % (Manual) 3.0 % (0.0-7.3) 07/08/20 17:26 Eosinophils % (Manual) 1.0 % (0.0-4.3) 07/08/20 17:26 Nucleated RBC % Not Reportable 07/08/20 17:26 Seg Neutrophils # 9.2 K/mm3 (1.8-7.7) H 07/09/20 09:06 Seg Neutrophils # Man 14.3 K/mm3 (1.8-7.7) H 07/08/20 17:26 Band Neutrophils # 0.0 K/mm3 07/08/20 17:26 Lymphocytes # (Manual) 0.6 K/mm3 (1.2-5.4) L 07/08/20 17:26 Abs React Lymphs (Man) 0.0 K/mm3 07/08/20 17: Monocytes # (Manual) 0.5 K/mm3 (0.0-0.8) 07/08/20 17:26 Eosinophils # (Manual) 0.2 K/mm3 (0.0-0.4) 07/08/20 17:26 Basophils # (Manual) 0.0 K/mm3 (0.0-0.1) 07/08/20 17:26 Metamyelocytes # 0.0 K/mm3 07/08/20 17:26 Myelocytes # 0.0 K/mm3 07/08/20 17:26 Promyelocytes # 0.0 K/mm3 07/08/20 17:26 Blast Cells # 0.0 K/mm3 07/08/20 17:26 WBC Morphology Not Reportable 07/08/20 17:26 Hypersegmented Neuts Not Reportable 07/08/20 17:26 Hyposegmented Neuts Not Reportable 07/08/20 17:26 Hypogranular Neuts Not Reportable 07/08/20 17:26 Smudge Cells Not Reportable 07/08/20 17:26 Toxic Granulation Not Reportable 07/08/20 17:26 Toxic Vacuolation Not Reportable 07/08/20 17:26 Dohle Bodies Not Reportable 07/08/20 17:26 Pelger-Huet Anomaly Not Reportable 07/08/20 17:26 Alexandro Rods Not Reportable 07/08/20 17:26 Platelet Estimate Consistent w auto 07/08/20 17:26 Clumped Platelets Not Reportable 07/08/20 17:26 Plt Clumps, EDTA Not Reportable 07/08/20 17:26 Large Platelets Not Reportable 07/08/20 17:26 Giant Platelets Not Reportable 07/08/20 17:26 Platelet Satelliting Not Reportable 07/08/20 17:26 Plt Morphology Comment Not Reportable 07/08/20 17:26 RBC Morphology Normal 07/08/20 17:26 Dimorphic RBCs Not Reportable 07/08/20 17:26 Polychromasia Not Reportable 07/08/20 17:26 Hypochromasia Not Reportable 07/08/20 17:26 Poikilocytosis Not Reportable 07/08/20 17:26 Anisocytosis Not Reportable 07/08/20 17:26 Microcytosis Not Reportable 07/08/20 17:26 Macrocytosis Not Reportable 07/08/20 17:26 Spherocytes Not Reportable 07/08/20 17:26 Pappenheimer Bodies Not Reportable 07/08/20 17:26 Sickle Cells Not Reportable 07/08/20 17:26 Target Cells Not Reportable 07/08/20 17:26 Tear Drop Cells Not Reportable 07/08/20 17:26 Ovalocytes Not Reportable 07/08/20 17:26 Helmet Cells Not Reportable 07/08/20 17:26 [place] Bodies Not Reportable 07/08/20 17:26 [place] Rings Not Reportable 07/08/20 17:26 [place] Cells Not Reportable 07/08/20 17:26 Bite Cells Not Reportable 07/08/20 17:26 Crenated Cell Not Reportable 07/08/20 17:26 Elliptocytes Not Reportable 07/08/20 17:26 Acanthocytes (Spur) Not Reportable 07/08/20 17:26 Rouleaux Not Reportable 07/08/20 17:26 Hemoglobin C Crystals Not Reportable 07/08/20 17:26 Schistocytes Not Reportable 07/08/20 17:26 Malaria parasites Not Reportable 07/08/20 17:26 Mauri Bodies Not Reportable 07/08/20 17:26 Hem Pathologist Commnt No 07/08/20 17:26 Sodium 136 mmol/L (137-145) L 07/09/20 06:14 Potassium 4.5 mmol/L (3.6-5.0) 07/09/20 06:14 Chloride 101.6 mmol/L (98-107) 07/09/20 06:14 Carbon Dioxide 28 mmol/L (22-30) 07/09/20 06:14 Anion Gap 11 mmol/L 07/09/20 06:14 BUN 12 mg/dL (9-20) 07/09/20 06:14 Creatinine 0.4 mg/dL (0.8-1.3) L 07/09/20 06:14 Estimated GFR > 60 ml/min 07/09/20 06:14 BUN/Creatinine Ratio 30 % 07/09/20 06:14 Glucose 116 mg/dL (75-100) H 07/09/20 06:14 Hemoglobin A1c 5.5 % (4-6) 07/09/20 09:06 Lactic Acid 3.00 mmol/L (0.7-2.0) H* 07/08/20 17:26 Calcium 8.2 mg/dL (8.4-10.2) L 07/09/20 06:14 Total Bilirubin 0.30 mg/dL (0.1-1.2) 07/09/20 06:14 AST 10 units/L (5-40) 07/09/20 06:14 ALT 12 units/L (7-56) 07/09/20 06:14 Alkaline Phosphatase 68 units/L (35-129) 07/09/20 06:14 Troponin T < 0.010 ng/mL (0.00-0.029) 07/09/20 06:14 NT-Pro-B Natriuret Pep 51.33 pg/mL (0-900) 07/08/20 17:26 Total Protein 5.8 g/dL (6.3-8.2) L 07/09/20 06:14 Albumin 3.1 g/dL (3.9-5) L 07/09/20 06:14 Albumin/Globulin Ratio 1.1 % 07/09/20 06:14 Salicylates < 0.3 mg/dL (2.8-20.0) L 07/08/20 17:26 Acetaminophen 5.0 ug/mL (10.0-30.0) L 07/08/20 17:26 Plasma/Serum Alcohol < 0.01 % (0-0.07) 07/08/20 17:26 Microbiology: Microbiology 02/26/21 17:26 Peripheral/Venous Blood Culture - Preliminary Culture in Progress 07/08/20 17:12 Peripheral/Venous Blood Culture - Preliminary Culture in Progress Active Medications - Current Medications Current Medications: Generic Name Dose Route Start Last Admin Trade Name Freq PRN Reason Stop Dose Admin Acetaminophen 650 mg 07/08/20 23:17 07/09/20 04:12 Acetaminophen 325 Mg Tab PO 650 mg Q4H PRN Administration Pain MILD(1-3)/Fever >100.5/LUIS Apixaban 10 mg 07/08/20 23:45 07/09/20 11:11 Apixaban 5 Mg Tab PO 10 mg Q12HR MICHAEL Administration Protocol Aripiprazole 15 mg 07/09/20 10:00 07/09/20 11:40 Aripiprazole 15 Mg Tab PO 15 mg QDAY MICHAEL Administration Doxepin HCl 10 mg 07/09/20 22:00 Doxepin 10 Mg Cap PO QHS MICHAEL Famotidine 20 mg 07/09/20 10:00 07/09/20 11:11 Famotidine 20 Mg Tab PO 20 mg BID MICHAEL Administration Furosemide 40 mg 07/09/20 06:00 07/09/20 05:51 Furosemide 40 Mg/4 Ml Inj IV 40 mg 0600,1800 MICHAEL Administration Hydromorphone HCl 0.5 mg 07/08/20 23:17 07/09/20 11:31 Hydromorphone 1 Mg/1 Ml Inj IV 0.5 mg Q3H PRN Administration Pain , Severe (7-10) Ampicillin Sodium/Sulbactam Sodium 3 gm in 100 mls @ 100 mls/hr 07/09/20 00:00 07/09/20 05:51 Unasyn/Ns 3 Gm/100 Ml IV 100 mls/hr Q6HR MICHAEL Administration Protocol Fluconazole 200 mg in 100 mls @ 100 mls/hr 07/08/20 23:45 07/08/20 23:50 Diflucan IV 100 mls/hr Q24HR@2200 MICHAEL Administration Protocol Lisinopril 40 mg 07/09/20 10:00 07/09/20 11:11 Lisinopril 40 Mg Tab PO 40 mg DAILY MICHAEL Administration Melatonin 5 mg 07/09/20 22:00 Melatonin 5 Mg Tab PO QHS PRN Sleep Metoclopramide HCl 10 mg 07/08/20 23:17 Metoclopramide 10 Mg/2 Ml Inj IV Q6H PRN Nausea And Vomiting Ondansetron HCl 4 mg 07/08/20 23:17 07/09/20 11:40 Ondansetron 4 Mg/2 Ml Inj IV 4 mg Q8H PRN Administration Nausea And Vomiting Oxycodone/Acetaminophen 1 tab 07/08/20 23:17 Oxycodone /Acetaminophen 5-325mg Tab PO Q6H PRN Pain, Moderate (4-6) Potassium Chloride 20 meq 07/09/20 10:00 07/09/20 11:11 Potassium Chloride Er 20 Meq Tab PO 20 meq Q12HR MICHAEL Administration Sertraline HCl 50 mg 07/09/20 10:00 07/09/20 11:11 Sertraline 50 Mg Tab PO 50 mg QDAY MICHAEL Administration Sodium Chloride 10 ml 07/09/20 10:00 07/09/20 11:32 Sodium Chloride 0.9% 10 Ml Flush Syringe IV 10 ml BID MICHAEL Administration Sodium Chloride 10 ml 07/08/20 23:17 Sodium Chloride 0.9% 10 Ml Flush Syringe IV PRN PRN LINE FLUSH Nutrition/Malnutrition Assess - Malnutrition Assessment Minimum of two criteria: No - Attestation Statement I have reviewed and agreed w/ Malnutrition eval & tx plan: Yes
[2020-07-09] MEDS: FLUCONAZOLE 200 MG 200 MG/100 ML BAG IV SCH (21:57)
[2020-07-09] MEDS ORDERED: DOXEPIN 10 MG CAP PO SCH (22:00)
[2020-07-09] MEDS ORDERED: traZODone 50 MG TAB PO SCH (22:00)
[2020-07-09] MEDS ORDERED: MELATONIN 5 MG TAB PO PRN (22:00)
[2020-07-10] MEDS: AMPICILLIN/SULBACTA 3GM/100ML 3 GM/100 ML BAG IV SCH ×4 (00:10→18:44)
[2020-07-10] MEDS: oxyCODONE /ACETAMINOPHEN 5-325MG TAB PO PRN (05:19)
[2020-07-10] MEDS: FUROSEMIDE 40 MG/4 ML INJ IV SCH ×2 (05:20→18:45)
[2020-07-10 08:13] LABS: Basophils % (Auto) 0.4 % (0.0-1.8); Eosinophils # (Auto) 0.7 K/mm3 (0.0-0.4); Eosinophils % (Auto) 6.2 % (0.0-4.3); Hematocrit 38.3 % (35.5-45.6); Hemoglobin 12.7 gm/dl (11.8-15.2); Lymphocytes # (Auto) 1.2 K/mm3 (1.2-5.4); Lymphocytes % (Auto) 11.5 % (13.4-35.0); Mean Corpuscular HGB Conc 33 % (32-34); Mean Corpuscular Volume 93 fl (84-94); Monocytes # (Auto) 0.8 K/mm3 (0.0-0.8); Platelet Count 473 K/mm3 (140-440); Red Blood Count 4.13 M/mm3 (3.65-5.03); Red Cell Distribution Width 17.1 % (13.2-15.2)
[2020-07-10 08:26] LABS: BUN/Creatinine Ratio 21; Blood Urea Nitrogen 21 mg/dL (9-20); Calcium 8.5 mg/dL (8.4-10.2); Hemolysis Index 0
--- NOTE | 2020-07-10 10:25 | Progress Note ---
Assessment and Plan Assessment and plan: 50-year-old male who is morbidly obese comes in for severe depression and shortness of breath at rest. Patient lives alone and takes care of himself. Of late patient is not able to take care of himself because of his increased weight and unable to get out of bed for activities of daily living. Patient states he was lying in his feces for several days. He was able to take all his prescriptions and and possibly from overdose. Only suicidal thoughts were no attempt. Patient has class IV NYHA symptoms and has severe orthopnea. Also has rash on the legs and the back. Erythema of the back present. Patient has erythema of his skin back legs and scrotum. The areas are moderately painful, especially to touch. Patient also has chest pain which is intermittent. No diaphoresis. Shortness of breath present. No radiation. (1) Acute exacerbation of CHF (congestive heart failure) Current Visit: Yes Status: Acute Qualifiers: Heart failure type: right-sided Qualified Code(s): I50.813 - Acute on chronic right heart failure Plan to address problem: Patient probably has pulmonary hypertension BNP is normal IV Lasix initiated Differential diagnosis of pulmonary embolism Patient to be started on Eliquis 10 mg twice a day for possible PE CT angiogram of the chest cannot be done because of his weight of 400 pounds (2) Suicidal thoughts Current Visit: Yes Status: Acute Plan to address problem: Patient on 1013 Mental health consult requested Patient started on Zoloft 50 daily (3) Diffuse cellulitis Current Visit: Yes Status: Acute Plan to address problem: Patient started on Unasyn and vancomycin and Diflucan (4) Major depression Current Visit: Yes Status: Acute Plan to address problem: Mental health consult requested Patient is on 1013 (5) Hypertension Current Visit: Yes Status: Chronic Qualifiers: Hypertension type: essential hypertension Qualified Code(s): I10 - Essential (primary) hypertension Plan to address problem: Continue antihypertensives (6) Physical debility Current Visit: Yes Status: Acute Plan to address problem: Patient unable to get out of bed Needs acute rehab and physical therapy Patient is applied for disability insurance (7) DVT prophylaxis Current Visit: Yes Status: Acute Plan to address problem: On Eliquis and GI prophylaxis (8) Discharge planning issues Current Visit: Yes Status: Acute Plan to address problem: Patient lives alone Needs physical therapy and can be discharged home if he can walk after diuresis If not patient needs SNF/acute rehab Daily Hospital course 07/09/20 Patient is seen and examined. Labs and medications reviewed. Patient denies any shortness of breath now, complain of mild pain in the chest and depression. Patient is seen and evaluated by psychiatry. We will put the patient on psych medication. Psych recommend acute inpatient psychiatric hospitalization. We will do a VQ scan rule out PE and follow echocardiogram and cardiac enzyme .continue the current management. PT evaluation. 07/10/20 Patient is seen and examined. Labs and medications reviewed. Patient denies any shortness of breath now, complain of pain. WBC is improved 10.8. patient is seen and evaluated by psychiatry. We will put the patient on psych medication. Psych recommend acute inpatient psychiatric hospitalization. We will do a VQ scan rule out PE and follow echocardiogram and cardiac enzyme .continue the current management. PT evaluation. Wound care evaluation. Continue IV antibiotic Unasyn 3 g IV every 6 hours Diflucan 100 mg IV daily. Outpatient referral for weight reduction program/bariatric surgery. History Interval history: 07/10/20 Patient is seen and examined. Labs and medications reviewed. Patient denies any shortness of breath now, complain of pain. WBC is improved 10.8. patient is seen and evaluated by psychiatry. No other problems Hospitalist Physical - Constitutional Vitals: Temp Pulse Resp BP Pulse Ox 98.3 F 99 H 22 111/66 96 07/10/20 08:06 07/10/20 09:00 07/10/20 08:06 07/10/20 08:06 07/10/20 08:06 General appearance: Present: no acute distress, mild distress, well-nourished - EENT Eyes: Present: PERRL, EOM intact ENT: hearing intact - Neck Neck: Present: supple, normal ROM - Respiratory Respiratory effort: normal Respiratory: bilateral: diminished - Cardiovascular Rhythm: regular Heart Sounds: Present: S1 & S2 - Extremities Extremities: no ischemia, pulses intact Extremity abnormal: edema Peripheral Pulses: within normal limits - Abdominal General gastrointestinal: soft, non-tender, normal bowel sounds - Integumentary Integumentary: Present: clear, warm, erythema - Psychiatric Psychiatric: appropriate mood/affect, intact judgment & insight, cooperative - Neurologic Neurologic: CNII-XII intact, moves all extremities HEART Score - HEART Score EKG: Normal Age: 45-65 Risk factors: 1-2 risk factors Troponin: Troponin T < 0.010 ng/mL (0.00-0.029) 07/09/20 06:14 Troponin: < normal limit - Critical Actions Critical Actions: 4-6 pts:12-16.6% risk of adverse cardiac event. Should be admitted Results - Labs CBC & Chem 7: 07/10/20 07:37 07/10/20 07:37 Labs: Laboratory Last Values WBC 10.8 K/mm3 (4.5-11.0) 07/10/20 07:37 RBC 4.13 M/mm3 (3.65-5.03) 07/10/20 07:37 Hgb 12.7 gm/dl (11.8-15.2) 07/10/20 07:37 Hct 38.3 % (35.5-45.6) D 07/10/20 07:37 MCV 93 fl (84-94) 07/10/20 07:37 MCH 31 pg (28-32) 07/10/20 07:37 MCHC 33 % (32-34) 07/10/20 07:37 RDW 17.1 % (13.2-15.2) H 07/10/20 07:37 Plt Count 473 K/mm3 (140-440) H 07/10/20 07:37 Lymph % (Auto) 11.5 % (13.4-35.0) L 07/10/20 07:37 [place] % (Auto) 7.0 % (0.0-7.3) 07/10/20 07:37 Eos % (Auto) 6.2 % (0.0-4.3) H 07/10/20 07:37 Baso % (Auto) 0.4 % (0.0-1.8) 07/10/20 07:37 Lymph # (Auto) 1.2 K/mm3 (1.2-5.4) 07/10/20 07:37 [place] # (Auto) 0.8 K/mm3 (0.0-0.8) 07/10/20 07:37 Eos # (Auto) 0.7 K/mm3 (0.0-0.4) H 07/10/20 07:37 Baso # (Auto) 0.0 K/mm3 (0.0-0.1) 07/10/20 07:37 Add Manual Diff Complete 07/08/20 17: Total Counted 100 07/08/20 17:26 Seg Neutrophils % 74.9 % (40.0-70.0) H 07/10/20 07:37 Seg Neuts % (Manual) 92.0 % (40.0-70.0) H 07/08/20 17:26 Lymphocytes % (Manual) 4.0 % (13.4-35.0) L 07/08/20 17:26 Monocytes % (Manual) 3.0 % (0.0-7.3) 07/08/20 17: Eosinophils % (Manual) 1.0 % (0.0-4.3) 07/08/20 17: Nucleated RBC % Not Reportable 07/08/20 17:26 Seg Neutrophils # 8.1 K/mm3 (1.8-7.7) H 07/10/20 07:37 Seg Neutrophils # Man 14.3 K/mm3 (1.8-7.7) H 07/08/20 17:26 Band Neutrophils # 0.0 K/mm3 07/08/20 17:26 Lymphocytes # (Manual) 0.6 K/mm3 (1.2-5.4) L 07/08/20 17:26 Abs React Lymphs (Man) 0.0 K/mm3 07/08/20 17:26 Monocytes # (Manual) 0.5 K/mm3 (0.0-0.8) 07/08/20 17: Eosinophils # (Manual) 0.2 K/mm3 (0.0-0.4) 07/08/20 17: Basophils # (Manual) 0.0 K/mm3 (0.0-0.1) 07/08/20 17:26 Metamyelocytes # 0.0 K/mm3 07/08/20 17: Myelocytes # 0.0 K/mm3 07/08/20 17: Promyelocytes # 0.0 K/mm3 07/08/20 17: Blast Cells # 0.0 K/mm3 07/08/20 17:26 WBC Morphology Not Reportable 07/08/20 17:26 Hypersegmented Neuts Not Reportable 07/08/20 17:26 Hyposegmented Neuts Not Reportable 07/08/20 17:26 Hypogranular Neuts Not Reportable 07/08/20 17:26 Smudge Cells Not Reportable 07/08/20 17:26 Toxic Granulation Not Reportable 07/08/20 17:26 Toxic Vacuolation Not Reportable 07/08/20 17:26 Dohle Bodies Not Reportable 07/08/20 17:26 Pelger-Huet Anomaly Not Reportable 07/08/20 17:26 Alexandro Rods Not Reportable 07/08/20 17:26 Platelet Estimate Consistent w auto 07/08/20 17:26 Clumped Platelets Not Reportable 07/08/20 17:26 Plt Clumps, EDTA Not Reportable 07/08/20 17:26 Large Platelets Not Reportable 07/08/20 17:26 Giant Platelets Not Reportable 07/08/20 17:26 Platelet Satelliting Not Reportable 07/08/20 17:26 Plt Morphology Comment Not Reportable 07/08/20 17:26 RBC Morphology Normal 07/08/20 17:26 Dimorphic RBCs Not Reportable 07/08/20 17:26 Polychromasia Not Reportable 07/08/20 17:26 Hypochromasia Not Reportable 07/08/20 17:26 Poikilocytosis Not Reportable 07/08/20 17:26 Anisocytosis Not Reportable 07/08/20 17:26 Microcytosis Not Reportable 07/08/20 17:26 Macrocytosis Not Reportable 07/08/20 17:26 Spherocytes Not Reportable 07/08/20 17:26 Pappenheimer Bodies Not Reportable 07/08/20 17:26 Sickle Cells Not Reportable 07/08/20 17:26 Target Cells Not Reportable 07/08/20 17:26 Tear Drop Cells Not Reportable 07/08/20 17:26 Ovalocytes Not Reportable 07/08/20 17:26 Helmet Cells Not Reportable 07/08/20 17:26 [place] Bodies Not Reportable 07/08/20 17:26 [place] Rings Not Reportable 07/08/20 17:26 [place] Cells Not Reportable 07/08/20 17:26 Bite Cells Not Reportable 07/08/20 17:26 Crenated Cell Not Reportable 07/08/20 17:26 Elliptocytes Not Reportable 07/08/20 17:26 Acanthocytes (Spur) Not Reportable 07/08/20 17:26 Rouleaux Not Reportable 07/08/20 17:26 Hemoglobin C Crystals Not Reportable 07/08/20 17:26 Schistocytes Not Reportable 07/08/20 17:26 Malaria parasites Not Reportable 07/08/20 17:26 Mauri Bodies Not Reportable 07/08/20 17:26 Hem Pathologist Commnt No 07/08/20 17:26 Sodium 136 mmol/L (137-145) L 07/10/20 07:37 Potassium 4.4 mmol/L (3.6-5.0) 07/10/20 07:37 Chloride 98.2 mmol/L (98-107) 07/10/20 07:37 Carbon Dioxide 31 mmol/L (22-30) H 07/10/20 07:37 Anion Gap 11 mmol/L 07/10/20 07:37 BUN 21 mg/dL (9-20) H 07/10/20 07:37 Creatinine 1.0 mg/dL (0.8-1.3) D 07/10/20 07:37 Estimated GFR > 60 ml/min 07/10/20 07:37 BUN/Creatinine Ratio 21 % 07/10/20 07:37 Glucose 106 mg/dL (75-100) H 07/10/20 07:37 Hemoglobin A1c 5.5 % (4-6) 07/09/20 09:06 Lactic Acid 3.00 mmol/L (0.7-2.0) H* 07/08/20 17:26 Calcium 8.5 mg/dL (8.4-10.2) 07/10/20 07:37 Total Bilirubin 0.30 mg/dL (0.1-1.2) 07/09/20 06:14 AST 10 units/L (5-40) 07/09/20 06:14 ALT 12 units/L (7-56) 07/09/20 06:14 Alkaline Phosphatase 68 units/L (35-129) 07/09/20 06:14 Troponin T < 0.010 ng/mL (0.00-0.029) 07/09/20 06:14 NT-Pro-B Natriuret Pep 51.33 pg/mL (0-900) 07/08/20 17:26 Total Protein 5.8 g/dL (6.3-8.2) L 07/09/20 06:14 Albumin 3.1 g/dL (3.9-5) L 07/09/20 06:14 Albumin/Globulin Ratio 1.1 % 07/09/20 06:14 Salicylates < 0.3 mg/dL (2.8-20.0) L 07/08/20 17:26 Acetaminophen 5.0 ug/mL (10.0-30.0) L 07/08/20 17:26 Plasma/Serum Alcohol < 0.01 % (0-0.07) 07/08/20 17:26 Microbiology: Microbiology 07/08/20 17:26 Peripheral/Venous Blood Culture - Preliminary NO GROWTH AFTER 24 HOURS 07/08/20 17:12 Peripheral/Venous Blood Culture - Preliminary NO GROWTH AFTER 24 HOURS Peralta/IV: Voiding Method Urinal Active Medications - Current Medications Current Medications: Generic Name Dose Route Start Last Admin Trade Name Freq PRN Reason Stop Dose Admin Acetaminophen 650 mg 07/08/20 23:17 07/09/20 04:12 Acetaminophen 325 Mg Tab PO 650 mg Q4H PRN Administration Pain MILD(1-3)/Fever >100.5/LUIS Apixaban 10 mg 07/08/20 23:45 07/09/20 21:57 Apixaban 5 Mg Tab PO 10 mg Q12HR MICHAEL Administration Protocol Aripiprazole 15 mg 07/09/20 10:00 07/09/20 11:40 Aripiprazole 15 Mg Tab PO 15 mg QDAY MICHAEL Administration Doxepin HCl 10 mg 07/09/20 22:00 07/09/20 21:57 Doxepin 10 Mg Cap PO 10 mg QHS MICHAEL Administration Famotidine 20 mg 07/09/20 10:00 07/09/20 21:58 Famotidine 20 Mg Tab PO 20 mg BID MICHAEL Administration Furosemide 40 mg 07/09/20 06:00 07/10/20 05:20 Furosemide 40 Mg/4 Ml Inj IV 40 mg 0600,1800 MICHAEL Administration Hydromorphone HCl 0.5 mg 07/08/20 23:17 07/09/20 11:31 Hydromorphone 1 Mg/1 Ml Inj IV 0.5 mg Q3H PRN Administration Pain , Severe (7-10) Ampicillin Sodium/Sulbactam Sodium 3 gm in 100 mls @ 100 mls/hr 07/09/20 00:00 07/10/20 05:20 Unasyn/Ns 3 Gm/100 Ml IV 100 mls/hr Q6HR MICHAEL Administration Protocol Fluconazole 200 mg in 100 mls @ 100 mls/hr 07/08/20 23:45 07/09/20 21:57 Diflucan IV 100 mls/hr Q24HR@2200 MICHAEL Administration Protocol Lisinopril 40 mg 07/09/20 10:00 07/09/20 11:11 Lisinopril 40 Mg Tab PO 40 mg DAILY MICHAEL Administration Melatonin 5 mg 07/09/20 22:00 Melatonin 5 Mg Tab PO QHS PRN Sleep Metoclopramide HCl 10 mg 07/08/20 23:17 Metoclopramide 10 Mg/2 Ml Inj IV Q6H PRN Nausea And Vomiting Ondansetron HCl 4 mg 07/08/20 23:17 07/09/20 11:40 Ondansetron 4 Mg/2 Ml Inj IV 4 mg Q8H PRN Administration Nausea And Vomiting Oxycodone/Acetaminophen 1 tab 07/08/20 23:17 07/10/20 05:19 Oxycodone /Acetaminophen 5-325mg Tab PO 1 tab Q6H PRN Administration Pain, Moderate (4-6) Potassium Chloride 20 meq 07/09/20 10:00 07/09/20 21:57 Potassium Chloride Er 20 Meq Tab PO 20 meq Q12HR MICHAEL Administration Sertraline HCl 50 mg 07/09/20 10:00 07/09/20 11:11 Sertraline 50 Mg Tab PO 50 mg QDAY MICHAEL Administration Sodium Chloride 10 ml 07/09/20 10:00 07/09/20 21:58 Sodium Chloride 0.9% 10 Ml Flush Syringe IV 10 ml BID MICHAEL Administration Sodium Chloride 10 ml 07/08/20 23:17 Sodium Chloride 0.9% 10 Ml Flush Syringe IV PRN PRN LINE FLUSH Tramadol HCl 50 mg 07/09/20 18:35 Tramadol 50 Mg Tab PO Q8H PRN Pain, Moderate (4-6) Nutrition/Malnutrition Assess - Malnutrition Assessment Minimum of two criteria: No - Attestation Statement I have reviewed and agreed w/ Malnutrition eval & tx plan: Yes
--- NOTE | 2020-07-10 11:14 | Progress Note ---
Subjective - Reason for Consult Consult date: 07/10/20 Reason for consult: SI - Chief Complaint Chief complaint: The patient was seen today. A sitter is at bedside. The patient is asleep. He says he didn't sleep last night and states that's why he's so tired. He verbalizes severe depression and suicidal thoughts. REVIEW OF SYSTEMS Constitutional: Negative for weight loss ENT: Negative for stridor Respiratory: Negative for cough or hemoptysis All other systems reviewed and are negative MENTAL STATUS EXAMINATION General Appearance and Behavior: Age appropriate, good hygiene, wearing appropriate clothes, lying in bed, good eye contact, cooperative polite with questioning. Cooperation: Participating/engaged Psychomotor Behavior: unremarkable and within normal limits Mood: Depressed Affect and affective range: decreased range, depressed, Thought Process: Fluent/Logical Thought Content: Hopelessness, Helplessness Speech: Normal volume, Regular rate and rhythm, Intellectual Functioning: Average Suicidal Ideation: Suicidal with plan Homicidal Ideation: Denies HI Impulse Control: Limited Insight and Judgment: Limited insight and judgment Memory: Normal Attention: Normal Orientation: Alert, oriented Assessment and Plan (1) Major depression, Severe without Psychotic Features Current Visit: Yes Status: Acute Treatment Plan 1013 agree with case management consult MEDICATIONS Continue zoloft 50mg po daily Continue abilify 15mg po daily Increase Doxepin 25mg po qhs Continue Melatonin 5mg po qhs prn insomnia Risks, benefits and alternatives of medications discussed with the patient, questions answered and consent obtained from patient. PSYCHOTHERAPY: Supportive psychotherapy provided MEDICAL: Per primary team DELIRIUM PRECAUTIONS: Please re-orient patient frequently, keep lights on during the day, and minimize benzodiazepines and opiates as these medications could worsen patient's confusion. PRIMING POWDER PREMIX BLENDER: Defer to primary DISPOSITION: Recommend acute inpatient psychiatric hospitalization at this time FOLLOW-UP: Will follow Thank you for the consult. Please contact with any questions and/or concerns. Case Staffed with Dr. Alas Mental Status Exam - Vital signs Last Vital Signs Temp 98.3 F 07/10/20 08:06 Pulse 99 H 07/10/20 09:00 Resp 22 07/10/20 08:06 BP 111/66 07/10/20 08:06 Pulse Ox 96 07/10/20 08:06
[2020-07-10] MEDS: APIXABAN 5 MG TAB PO SCH ×2 (11:25→21:25)
[2020-07-10] MEDS: ARIPiprazole 15 MG TAB PO SCH (11:25)
[2020-07-10] MEDS: LISINOPRIL 40 MG TAB PO SCH (11:26)
[2020-07-10] MEDS: POTASSIUM CHLORIDE ER 20 MEQ TAB PO SCH ×2 (11:26→21:25)
[2020-07-10] MEDS: FAMOTIDINE 20 MG TAB PO SCH ×2 (11:26→21:25)
[2020-07-10] MEDS: SERTRALINE 50 MG TAB PO SCH (11:26)
[2020-07-10] MEDS: HYDROmorphone 1 MG/1 ML INJ IV PRN (12:30)
[2020-07-10] MEDS: FLUCONAZOLE 200 MG 200 MG/100 ML BAG IV SCH (21:25)
[2020-07-10] MEDS: DOXEPIN 25 MG CAP PO SCH (21:25)
[2020-07-11] MEDS: AMPICILLIN/SULBACTA 3GM/100ML 3 GM/100 ML BAG IV SCH ×4 (00:19→18:05)
[2020-07-11] MEDS: FUROSEMIDE 40 MG/4 ML INJ IV SCH ×2 (05:22→18:05)
[2020-07-11] MEDS: HYDROmorphone 1 MG/1 ML INJ IV PRN ×2 (10:14→21:10)
[2020-07-11] MEDS: ARIPiprazole 15 MG TAB PO SCH (10:18)
[2020-07-11] MEDS: POTASSIUM CHLORIDE ER 20 MEQ TAB PO SCH ×2 (10:19→21:10)
[2020-07-11] MEDS: APIXABAN 5 MG TAB PO SCH (10:19)
[2020-07-11] MEDS: SERTRALINE 50 MG TAB PO SCH (10:20)
[2020-07-11] MEDS: LISINOPRIL 40 MG TAB PO SCH (10:20)
[2020-07-11] MEDS: FAMOTIDINE 20 MG TAB PO SCH ×2 (10:20→21:10)
--- NOTE | 2020-07-11 10:49 | Progress Note ---
Assessment and Plan Assessment and plan: 50-year-old male who is morbidly obese comes in for severe depression and shortness of breath at rest. Patient lives alone and takes care of himself. Of late patient is not able to take care of himself because of his increased weight and unable to get out of bed for activities of daily living. Patient states he was lying in his feces for several days. He was able to take all his prescriptions and and possibly from overdose. Only suicidal thoughts were no attempt. Patient has class IV NYHA symptoms and has severe orthopnea. Also has rash on the legs and the back. Erythema of the back present. Patient has erythema of his skin back legs and scrotum. The areas are moderately painful, especially to touch. Patient also has chest pain which is intermittent. No diaphoresis. Shortness of breath present. No radiation. (1) Acute exacerbation of CHF (congestive heart failure) Current Visit: Yes Status: Acute Qualifiers: Heart failure type: right-sided Qualified Code(s): I50.813 - Acute on chronic right heart failure Plan to address problem: Patient probably has pulmonary hypertension BNP is normal IV Lasix initiated Differential diagnosis of pulmonary embolism Patient to be started on Eliquis 10 mg twice a day for possible PE CT angiogram of the chest cannot be done because of his weight of 400 pounds (2) Suicidal thoughts Current Visit: Yes Status: Acute Plan to address problem: Patient on 1013 Mental health consult requested Patient started on Zoloft 50 daily (3) Diffuse cellulitis Current Visit: Yes Status: Acute Plan to address problem: Patient started on Unasyn and vancomycin and Diflucan (4) Major depression Current Visit: Yes Status: Acute Plan to address problem: Mental health consult requested Patient is on 1013 (5) Hypertension Current Visit: Yes Status: Chronic Qualifiers: Hypertension type: essential hypertension Qualified Code(s): I10 - Essential (primary) hypertension Plan to address problem: Continue antihypertensives (6) Physical debility Current Visit: Yes Status: Acute Plan to address problem: Patient unable to get out of bed Needs acute rehab and physical therapy Patient is applied for disability insurance (7) DVT prophylaxis Current Visit: Yes Status: Acute Plan to address problem: On Eliquis and GI prophylaxis (8) Discharge planning issues Current Visit: Yes Status: Acute Plan to address problem: Patient lives alone Needs physical therapy and can be discharged home if he can walk after diuresis If not patient needs SNF/acute rehab Daily Hospital course 07/09/20 Patient is seen and examined. Labs and medications reviewed. Patient denies any shortness of breath now, complain of mild pain in the chest and depression. Patient is seen and evaluated by psychiatry. We will put the patient on psych medication. Psych recommend acute inpatient psychiatric hospitalization. We will do a VQ scan rule out PE and follow echocardiogram and cardiac enzyme .continue the current management. PT evaluation. 07/10/20 Patient is seen and examined. Labs and medications reviewed. Patient denies any shortness of breath now, complain of pain. WBC is improved 10.8. patient is seen and evaluated by psychiatry. We will put the patient on psych medication. Psych recommend acute inpatient psychiatric hospitalization. We will do a VQ scan rule out PE and follow echocardiogram and cardiac enzyme .continue the current management. PT evaluation. Wound care evaluation. Continue IV antibiotic Unasyn 3 g IV every 6 hours Diflucan 100 mg IV daily. Outpatient referral for weight reduction program/bariatric surgery. 07/11: Patient is stable and Medically stable for discharge, stop Eliquis, check D.dimer. Placement pending. History Interval history: Patient seen and examined reports mild improvement still depressed. Hospitalist Physical - Physical exam Narrative exam: VITAL SIGNS: Reviewed. GENERAL: The patient appears normally developed, morbidly obese vital signs as documented. HEAD: No signs of head trauma. EYES: Pupils are equal. Extraocular motions intact. EARS: Hearing grossly intact. MOUTH: Oropharynx is normal. NECK: No adenopathy, no JVD. CHEST: Chest with clear breath sounds bilaterally. No wheezes, rales, or rhonchi. CARDIAC: Regular rate and rhythm. S1 and S2, without murmurs, gallops, or rubs. VASCULAR: No Edema. Peripheral pulses normal and equal in all extremities. ABDOMEN: Soft, non tender and non distended. No rebound or guarding, and no masses palpated. Bowel Sounds normal. MUSCULOSKELETAL: Good range of motion of all major joints. Extremities without clubbing, cyanosis or edema. NEUROLOGIC EXAM: Alert and oriented x 3 No focal sensory or strength deficits . Speech normal. Follows commands. PSYCHIATRIC: Mood down . SKIN: Multiple excoriation and erythematous changes. Otherwise see detail exam as documented in skin assessment - Constitutional Vitals: Temp Pulse Resp BP Pulse Ox 98.9 F 92 H 18 117/67 90 07/11/20 04:21 07/11/20 10:20 07/11/20 08:51 07/11/20 08:51 07/11/20 08:51 General appearance: Present: no acute distress, mild distress, well-nourished HEART Score - HEART Score EKG: Normal Age: 45-65 Risk factors: 1-2 risk factors Troponin: Troponin T < 0.010 ng/mL (0.00-0.029) 07/09/20 06:14 Troponin: < normal limit - Critical Actions Critical Actions: 4-6 pts:12-16.6% risk of adverse cardiac event. Should be admitted Results - Labs CBC & Chem 7: 07/10/20 07:37 07/10/20 07:37 Labs: Laboratory Last Values WBC 10.8 K/mm3 (4.5-11.0) 07/10/20 07:37 RBC 4.13 M/mm3 (3.65-5.03) 07/10/20 07:37 Hgb 12.7 gm/dl (11.8-15.2) 07/10/20 07:37 Hct 38.3 % (35.5-45.6) D 07/10/20 07:37 MCV 93 fl (84-94) 07/10/20 07:37 MCH 31 pg (28-32) 07/10/20 07:37 MCHC 33 % (32-34) 07/10/20 07:37 RDW 17.1 % (13.2-15.2) H 07/10/20 07:37 Plt Count 473 K/mm3 (140-440) H 07/10/20 07:37 Lymph % (Auto) 11.5 % (13.4-35.0) L 07/10/20 07:37 [place] % (Auto) 7.0 % (0.0-7.3) 07/10/20 07:37 Eos % (Auto) 6.2 % (0.0-4.3) H 07/10/20 07:37 Baso % (Auto) 0.4 % (0.0-1.8) 07/10/20 07:37 Lymph # (Auto) 1.2 K/mm3 (1.2-5.4) 07/10/20 07:37 [place] # (Auto) 0.8 K/mm3 (0.0-0.8) 07/10/20 07:37 Eos # (Auto) 0.7 K/mm3 (0.0-0.4) H 07/10/20 07:37 Baso # (Auto) 0.0 K/mm3 (0.0-0.1) 07/10/20 07:37 Add Manual Diff Complete 07/08/20 17:26 Total Counted 100 07/08/20 17:26 Seg Neutrophils % 74.9 % (40.0-70.0) H 07/10/20 07:37 Seg Neuts % (Manual) 92.0 % (40.0-70.0) H 07/08/20 17:26 Lymphocytes % (Manual) 4.0 % (13.4-35.0) L 07/08/20 17:26 Monocytes % (Manual) 3.0 % (0.0-7.3) 07/08/20 17:26 Eosinophils % (Manual) 1.0 % (0.0-4.3) 07/08/20 17:26 Nucleated RBC % Not Reportable 07/08/20 17:26 Seg Neutrophils # 8.1 K/mm3 (1.8-7.7) H 07/10/20 07:37 Seg Neutrophils # Man 14.3 K/mm3 (1.8-7.7) H 07/08/20 17:26 Band Neutrophils # 0.0 K/mm3 07/08/20 17:26 Lymphocytes # (Manual) 0.6 K/mm3 (1.2-5.4) L 07/08/20 17:26 Abs React Lymphs (Man) 0.0 K/mm3 07/08/20 17:26 Monocytes # (Manual) 0.5 K/mm3 (0.0-0.8) 07/08/20 17:26 Eosinophils # (Manual) 0.2 K/mm3 (0.0-0.4) 07/08/20 17:26 Basophils # (Manual) 0.0 K/mm3 (0.0-0.1) 07/08/20 17:26 Metamyelocytes # 0.0 K/mm3 07/08/20 17: Myelocytes # 0.0 K/mm3 07/08/20 17:26 Promyelocytes # 0.0 K/mm3 07/08/20 17:26 Blast Cells # 0.0 K/mm3 07/08/20 17:26 WBC Morphology Not Reportable 07/08/20 17:26 Hypersegmented Neuts Not Reportable 07/08/20 17:26 Hyposegmented Neuts Not Reportable 07/08/20 17:26 Hypogranular Neuts Not Reportable 07/08/20 17:26 Smudge Cells Not Reportable 07/08/20 17:26 Toxic Granulation Not Reportable 07/08/20 17:26 Toxic Vacuolation Not Reportable 07/08/20 17:26 Dohle Bodies Not Reportable 07/08/20 17:26 Pelger-Huet Anomaly Not Reportable 07/08/20 17:26 Alexandro Rods Not Reportable 07/08/20 17:26 Platelet Estimate Consistent w auto 07/08/20 17:26 Clumped Platelets Not Reportable 07/08/20 17:26 Plt Clumps, EDTA Not Reportable 07/08/20 17:26 Large Platelets Not Reportable 07/08/20 17:26 Giant Platelets Not Reportable 07/08/20 17:26 Platelet Satelliting Not Reportable 07/08/20 17:26 Plt Morphology Comment Not Reportable 07/08/20 17:26 RBC Morphology Normal 07/08/20 17:26 Dimorphic RBCs Not Reportable 07/08/20 17:26 Polychromasia Not Reportable 07/08/20 17:26 Hypochromasia Not Reportable 07/08/20 17:26 Poikilocytosis Not Reportable 07/08/20 17:26 Anisocytosis Not Reportable 07/08/20 17:26 Microcytosis Not Reportable 07/08/20 17:26 Macrocytosis Not Reportable 07/08/20 17:26 Spherocytes Not Reportable 07/08/20 17:26 Pappenheimer Bodies Not Reportable 07/08/20 17:26 Sickle Cells Not Reportable 07/08/20 17:26 Target Cells Not Reportable 07/08/20 17:26 Tear Drop Cells Not Reportable 07/08/20 17:26 Ovalocytes Not Reportable 07/08/20 17:26 Helmet Cells Not Reportable 07/08/20 17:26 [place] Bodies Not Reportable 07/08/20 17:26 [place] Rings Not Reportable 07/08/20 17:26 Frandy Cells Not Reportable 07/08/20 17:26 Bite Cells Not Reportable 07/08/20 17:26 Crenated Cell Not Reportable 07/08/20 17:26 Elliptocytes Not Reportable 07/08/20 17:26 Acanthocytes (Spur) Not Reportable 07/08/20 17:26 Rouleaux Not Reportable 07/08/20 17:26 Hemoglobin C Crystals Not Reportable 07/08/20 17:26 Schistocytes Not Reportable 07/08/20 17:26 Malaria parasites Not Reportable 07/08/20 17:26 Mauri Bodies Not Reportable 07/08/20 17:26 Hem Pathologist Commnt No 07/08/20 17:26 Sodium 136 mmol/L (137-145) L 07/10/20 07:37 Potassium 4.4 mmol/L (3.6-5.0) 07/10/20 07:37 Chloride 98.2 mmol/L (98-107) 07/10/20 07:37 Carbon Dioxide 31 mmol/L (22-30) H 07/10/20 07:37 Anion Gap 11 mmol/L 07/10/20 07:37 BUN 21 mg/dL (9-20) H 07/10/20 07:37 Creatinine 1.0 mg/dL (0.8-1.3) D 07/10/20 07:37 Estimated GFR > 60 ml/min 07/10/20 07:37 BUN/Creatinine Ratio 21 % 07/10/20 07:37 Glucose 106 mg/dL (75-100) H 07/10/20 07:37 Hemoglobin A1c 5.5 % (4-6) 07/09/20 09:06 Lactic Acid 3.00 mmol/L (0.7-2.0) H* 07/08/20 17:26 Calcium 8.5 mg/dL (8.4-10.2) 07/10/20 07:37 Total Bilirubin 0.30 mg/dL (0.1-1.2) 07/09/20 06:14 AST 10 units/L (5-40) 07/09/20 06:14 ALT 12 units/L (7-56) 07/09/20 06:14 Alkaline Phosphatase 68 units/L (35-129) 07/09/20 06:14 Troponin T < 0.010 ng/mL (0.00-0.029) 07/09/20 06:14 NT-Pro-B Natriuret Pep 51.33 pg/mL (0-900) 07/08/20 17:26 Total Protein 5.8 g/dL (6.3-8.2) L 07/09/20 06:14 Albumin 3.1 g/dL (3.9-5) L 07/09/20 06:14 Albumin/Globulin Ratio 1.1 % 07/09/20 06:14 Nasal Screen MRSA (PCR) Negative (Negative) 07/09/20 15:50 Salicylates < 0.3 mg/dL (2.8-20.0) L 07/08/20 17:26 Acetaminophen 5.0 ug/mL (10.0-30.0) L 07/08/20 17:26 Plasma/Serum Alcohol < 0.01 % (0-0.07) 07/08/20 17:26 Microbiology: Microbiology 07/08/20 17:26 Peripheral/Venous Blood Culture - Preliminary NO GROWTH AFTER 48 HOURS 07/08/20 17:12 Peripheral/Venous Blood Culture - Preliminary NO GROWTH AFTER 48 HOURS [place]ta/IV: Voiding Method Urinal Active Medications - Current Medications Current Medications: Generic Name Dose Route Start Last Admin Trade Name Freq PRN Reason Stop Dose Admin Acetaminophen 650 mg 07/08/20 23:17 07/09/20 04:12 Acetaminophen 325 Mg Tab PO 650 mg Q4H PRN Administration Pain MILD(1-3)/Fever >100.5/LUIS Apixaban 10 mg 07/08/20 23:45 07/11/20 10:19 Apixaban 5 Mg Tab PO 10 mg Q12HR MICHAEL Administration Protocol Aripiprazole 15 mg 07/09/20 10:00 07/11/20 10:18 Aripiprazole 15 Mg Tab PO 15 mg QDAY MICHAEL Administration Doxepin HCl 25 mg 07/10/20 22:00 07/10/20 21:25 Doxepin 25 Mg Cap PO 25 mg QHS MICHAEL Administration Famotidine 20 mg 07/09/20 10:00 07/11/20 10:20 Famotidine 20 Mg Tab PO 20 mg BID MICHAEL Administration Furosemide 40 mg 07/09/20 06:00 07/11/20 05:22 Furosemide 40 Mg/4 Ml Inj IV 40 mg 0600,1800 MICHAEL Administration Hydromorphone HCl 0.5 mg 07/08/20 23:17 07/11/20 10:14 Hydromorphone 1 Mg/1 Ml Inj IV 0.5 mg Q3H PRN Administration Pain , Severe (7-10) Ampicillin Sodium/Sulbactam Sodium 3 gm in 100 mls @ 100 mls/hr 07/09/20 00:00 07/11/20 05:22 Unasyn/Ns 3 Gm/100 Ml IV 100 mls/hr Q6HR MICHAEL Administration Protocol Fluconazole 200 mg in 100 mls @ 100 mls/hr 07/08/20 23:45 07/10/20 21:25 Diflucan IV 100 mls/hr Q24HR@2200 MICHAEL Administration Protocol Lisinopril 40 mg 07/09/20 10:00 07/11/20 10:20 Lisinopril 40 Mg Tab PO 40 mg DAILY MICHAEL Administration Melatonin 5 mg 07/09/20 22:00 Melatonin 5 Mg Tab PO QHS PRN Sleep Metoclopramide HCl 10 mg 07/08/20 23:17 Metoclopramide 10 Mg/2 Ml Inj IV Q6H PRN Nausea And Vomiting Ondansetron HCl 4 mg 07/08/20 23:17 07/09/20 11:40 Ondansetron 4 Mg/2 Ml Inj IV 4 mg Q8H PRN Administration Nausea And Vomiting Oxycodone/Acetaminophen 1 tab 07/08/20 23:17 07/10/20 05:19 Oxycodone /Acetaminophen 5-325mg Tab PO 1 tab Q6H PRN Administration Pain, Moderate (4-6) Potassium Chloride 20 meq 07/09/20 10:00 07/11/20 10:19 Potassium Chloride Er 20 Meq Tab PO 20 meq Q12HR MICHAEL Administration Sertraline HCl 50 mg 07/09/20 10:00 07/11/20 10:20 Sertraline 50 Mg Tab PO 50 mg QDAY MICHAEL Administration Sodium Chloride 10 ml 07/09/20 10:00 07/11/20 10:21 Sodium Chloride 0.9% 10 Ml Flush Syringe IV 10 ml BID MICHAEL Administration Sodium Chloride 10 ml 07/08/20 23:17 Sodium Chloride 0.9% 10 Ml Flush Syringe IV PRN PRN LINE FLUSH Tramadol HCl 50 mg 07/09/20 18:35 Tramadol 50 Mg Tab PO Q8H PRN Pain, Moderate (4-6)
--- NOTE | 2020-07-11 11:03 | Progress Note ---
Subjective - Reason for Consult Consult date: 07/11/20 Reason for consult: depression, SI - Chief Complaint Chief complaint: The patient was seen today. A sitter is at bedside. The patient is asleep. The patient says he is sleeping better, butter but feels like he's sleeping too much. He is expressing depression and SI. The patient states he plan to overdose. REVIEW OF SYSTEMS Constitutional: Negative for weight loss ENT: Negative for stridor Respiratory: Negative for cough or hemoptysis All other systems reviewed and are negative MENTAL STATUS EXAMINATION General Appearance and Behavior: Age appropriate, good hygiene, wearing appropriate clothes, lying in bed, good eye contact, cooperative polite with questioning. Cooperation: Participating/engaged Psychomotor Behavior: unremarkable and within normal limits Mood: Depressed Affect and affective range: decreased range, depressed, Thought Process: Fluent/Logical Thought Content: Hopelessness, Helplessness Speech: Normal volume, Regular rate and rhythm, Intellectual Functioning: Average Suicidal Ideation: Suicidal with plan Homicidal Ideation: Denies HI Impulse Control: Limited Insight and Judgment: Limited insight and judgment Memory: Normal Attention: Normal Orientation: Alert, oriented Assessment and Plan (1) Major depression, Severe without Psychotic Features Current Visit: Yes Status: Acute Treatment Plan 1013 agree with case management consult MEDICATIONS Continue zoloft 50mg po daily Continue abilify 15mg po daily Continue Doxepin 25mg po qhs Continue Melatonin 5mg po qhs prn insomnia Risks, benefits and alternatives of medications discussed with the patient, questions answered and consent obtained from patient. PSYCHOTHERAPY: Supportive psychotherapy provided MEDICAL: Per primary team DELIRIUM PRECAUTIONS: Please re-orient patient frequently, keep lights on during the day, and minimize benzodiazepines and opiates as these medications could worsen patient's confusion. TISSUE TECHNICIAN: Defer to primary DISPOSITION: Recommend acute inpatient psychiatric hospitalization at this time FOLLOW-UP: Will follow Thank you for the consult. Please contact with any questions and/or concerns. Case Staffed with Dr. Alas Mental Status Exam - Vital signs Last Vital Signs Temp 98.9 F 07/11/20 04:21 Pulse 92 H 07/11/20 10:20 Resp 18 07/11/20 08:51 BP 117/67 07/11/20 08:51 Pulse Ox 90 07/11/20 08:51
[2020-07-11] MEDS: DOXEPIN 25 MG CAP PO SCH (21:10)
[2020-07-11] MEDS: FLUCONAZOLE 200 MG 200 MG/100 ML BAG IV SCH (21:11)
[2020-07-12] MEDS: AMPICILLIN/SULBACTA 3GM/100ML 3 GM/100 ML BAG IV SCH ×5 (02:14→23:47)
[2020-07-12] MEDS: oxyCODONE /ACETAMINOPHEN 5-325MG TAB PO PRN (06:45)
[2020-07-12] MEDS: FUROSEMIDE 40 MG/4 ML INJ IV SCH ×2 (06:45→17:17)
[2020-07-12] MEDS: SERTRALINE 50 MG TAB PO SCH (12:28)
[2020-07-12] MEDS: FAMOTIDINE 20 MG TAB PO SCH ×2 (12:28→21:41)
[2020-07-12] MEDS: POTASSIUM CHLORIDE ER 20 MEQ TAB PO SCH ×2 (12:28→21:41)
[2020-07-12] MEDS: ARIPiprazole 15 MG TAB PO SCH (12:29)
[2020-07-12] MEDS: LISINOPRIL 40 MG TAB PO SCH (12:30)
[2020-07-12] MEDS: HYDROmorphone 1 MG/1 ML INJ IV PRN (12:45)
--- NOTE | 2020-07-12 18:30 | Progress Note ---
Assessment and Plan - Patient Problems (1) Acute exacerbation of CHF (congestive heart failure) Current Visit: Yes Status: Acute Qualifiers: Heart failure type: right-sided Qualified Code(s): I50.813 - Acute on chronic right heart failure Plan to address problem: Patient probably has pulmonary hypertension BNP is normal IV Lasix initiated Differential diagnosis of pulmonary embolism Patient to be started on Eliquis 10 mg twice a day for possible PE CT angiogram of the chest cannot be done because of his weight of 400 pounds (2) Suicidal thoughts Current Visit: Yes Status: Acute Plan to address problem: Patient on 1013 Mental health consult requested Patient started on Zoloft 50 daily (3) Diffuse cellulitis Current Visit: Yes Status: Acute Plan to address problem: Patient started on Unasyn and vancomycin and Diflucan (4) Major depression Current Visit: Yes Status: Acute Plan to address problem: Mental health consult requested Patient is on 1013 (5) Hypertension Current Visit: Yes Status: Chronic Qualifiers: Hypertension type: essential hypertension Qualified Code(s): I10 - Essential (primary) hypertension Plan to address problem: Continue antihypertensives (6) Physical debility Current Visit: Yes Status: Acute Plan to address problem: Patient unable to get out of bed Needs acute rehab and physical therapy Patient is applied for disability insurance (7) DVT prophylaxis Current Visit: Yes Status: Acute Plan to address problem: On Eliquis and GI prophylaxis (8) Discharge planning issues Current Visit: Yes Status: Acute Plan to address problem: Patient lives alone Needs physical therapy and can be discharged home if he can walk after diuresis If not patient needs SNF/acute rehab Subjective Date of service: 07/12/20 Principal diagnosis: CHF exacerbation, acute respiratory failure, morbid obesity Interval history: Brief history 50-year-old male who is morbidly obese comes in for severe depression and shortness of breath at rest. Patient lives alone and takes care of himself. Of late patient is not able to take care of himself because of his increased weight and unable to get out of bed for activities of daily living. Patient s tates he was lying in his feces for several days. He was able to take all his prescriptions and and possibly from overdose. Only suicidal thoughts were no attempt. Patient has class IV NYHA symptoms and has severe orthopnea. Also has rash on the legs and the back. Erythema of the back present. Patient has erythema of his skin back legs and scrotum. The areas are moderately painful, especially to touch. Patient also has chest pain which is intermittent. No diaphoresis. Shortness of breath present. No radiation. Daily Hospital course 07/09/20 Patient is seen and examined. Labs and medications reviewed. Patient denies any shortness of breath now, complain of mild pain in the chest and depression. Patient is seen and evaluated by psychiatry. We will put the patient on psych medication. Psych recommend acute inpatient psychiatric hospitalization. We will do a VQ scan rule out PE and follow echocardiogram and cardiac enzyme .continue the current management. PT evaluation. 07/10/20 Patient is seen and examined. Labs and medications reviewed. Patient denies any shortness of breath now, complain of pain. WBC is improved 10.8. patient is seen and evaluated by psychiatry. We will put the patient on psych medication. Psych recommend acute inpatient psychiatric hospitalization. We will do a VQ scan rule out PE and follow echocardiogram and cardiac enzyme .continue the current management. PT evaluation. Wound care evaluation. Continue IV antibiotic Unasyn 3 g IV every 6 hours Diflucan 100 mg IV daily. Outpatient referral for weight reduction program/bariatric surgery. 07/11: Patient is stable and Medically stable for discharge, stop Eliquis, check D.dimer. Placement pending. 07/12/2020 Patient medically stable for discharge Placement issues Objective - Constitutional Vitals: Vital Signs - 12hr 07/12/20 07/12/20 07/12/20 06:45 07:12 11:53 Temperature 97.4 F L 97.9 F Pulse Rate 89 82 Respiratory 20 22 20 Rate Blood Pressure 115/57 Blood Pressure 115/44 [Right] O2 Sat by Pulse 95 95 Oximetry 07/12/20 07/12/20 12:30 16:21 Temperature 98.2 F Pulse Rate 91 H 84 Respiratory 20 Rate Blood Pressure Blood Pressure 115/44 [Right] O2 Sat by Pulse 95 Oximetry General appearance: Present: no acute distress, well-nourished - EENT Eyes: PERRL, EOM intact ENT: hearing intact, clear oral mucosa Ears: bilateral: normal - Neck Neck: supple, normal ROM - Respiratory Respiratory effort: normal Respiratory: bilateral: CTA - Breasts Breasts: normal - Cardiovascular Heart rate: 78 Rhythm: regular Heart Sounds: Present: S1 & S2. Absent: gallop, rub Extremities: pulses intact, No edema, normal color, Full ROM - Gastrointestinal General gastrointestinal: Present: soft, non-tender, non-distended, normal bowel sounds - Genitourinary Male genitourinary: normal - Integumentary Integumentary: clear, warm, dry - Musculoskeletal Musculoskeletal: 1, strength equal bilaterally - Neurologic Neurologic: moves all extremities - Psychiatric Psychiatric: memory intact, appropriate mood/affect, intact judgment & insight - Labs CBC & Chem 7: 07/10/20 07:37 07/10/20 07:37 HEART Score - HEART Score EKG: Normal Age: 45-65 Risk factors: 1-2 risk factors Troponin: Troponin T < 0.010 ng/mL (0.00-0.029) 07/09/20 06:14 Troponin: < normal limit - Critical Actions Critical Actions: 4-6 pts:12-16.6% risk of adverse cardiac event. Should be admitted
[2020-07-12] MEDS: FLUCONAZOLE 200 MG TAB PO SCH (21:40)
[2020-07-12] MEDS: DOXEPIN 25 MG CAP PO SCH (21:41)
[2020-07-13] MEDS: oxyCODONE /ACETAMINOPHEN 5-325MG TAB PO PRN ×2 (03:01→15:10)
[2020-07-13] MEDS: AMPICILLIN/SULBACTA 3GM/100ML 3 GM/100 ML BAG IV SCH ×3 (05:34→17:54)
[2020-07-13] MEDS: FUROSEMIDE 40 MG/4 ML INJ IV SCH ×2 (05:56→18:33)
[2020-07-13] MEDS: FAMOTIDINE 20 MG TAB PO SCH ×2 (10:00→21:29)
[2020-07-13] MEDS: ARIPiprazole 15 MG TAB PO SCH (10:00)
[2020-07-13] MEDS: POTASSIUM CHLORIDE ER 20 MEQ TAB PO SCH ×2 (10:00→21:29)
[2020-07-13] MEDS: SERTRALINE 50 MG TAB PO SCH (10:00)
[2020-07-13] MEDS: LISINOPRIL 40 MG TAB PO SCH (10:00)
[2020-07-13] MEDS: HYDROmorphone 1 MG/1 ML INJ IV PRN ×2 (12:01→21:30)
[2020-07-13] MEDS: traMADol 50 MG TAB PO PRN (16:46)
[2020-07-13] MEDS: FLUCONAZOLE 200 MG TAB PO SCH (21:29)
[2020-07-13] MEDS: DOXEPIN 25 MG CAP PO SCH (21:30)
[2020-07-14] MEDS: AMPICILLIN/SULBACTA 3GM/100ML 3 GM/100 ML BAG IV SCH ×4 (01:29→17:34)
[2020-07-14] MEDS: traMADol 50 MG TAB PO PRN (02:57)
[2020-07-14] MEDS: FUROSEMIDE 40 MG/4 ML INJ IV SCH ×2 (06:34→17:34)
[2020-07-14] MEDS: SERTRALINE 50 MG TAB PO SCH (09:38)
[2020-07-14] MEDS: FAMOTIDINE 20 MG TAB PO SCH ×2 (09:39→21:45)
[2020-07-14] MEDS: LISINOPRIL 40 MG TAB PO SCH (09:39)
[2020-07-14] MEDS: POTASSIUM CHLORIDE ER 20 MEQ TAB PO SCH ×2 (09:39→21:44)
[2020-07-14] MEDS: ARIPiprazole 15 MG TAB PO SCH (09:39)
[2020-07-14] MEDS: oxyCODONE /ACETAMINOPHEN 5-325MG TAB PO PRN ×2 (09:40→18:01)
[2020-07-14] MEDS: HYDROmorphone 1 MG/1 ML INJ IV PRN ×2 (14:03→21:43)
[2020-07-14] MEDS: FLUCONAZOLE 200 MG TAB PO SCH (21:44)
[2020-07-14] MEDS: DOXEPIN 25 MG CAP PO SCH (21:45)
[2020-07-15] MEDS: FUROSEMIDE 40 MG/4 ML INJ IV SCH ×2 (05:33→17:42)
[2020-07-15] MEDS: AMPICILLIN/SULBACTA 3GM/100ML 3 GM/100 ML BAG IV SCH ×4 (05:33→17:42)
[2020-07-15] MEDS: ARIPiprazole 15 MG TAB PO SCH (09:20)
[2020-07-15] MEDS: SERTRALINE 50 MG TAB PO SCH (09:20)
[2020-07-15] MEDS: POTASSIUM CHLORIDE ER 20 MEQ TAB PO SCH ×2 (09:20→22:36)
[2020-07-15] MEDS: LISINOPRIL 40 MG TAB PO SCH (09:20)
[2020-07-15] MEDS: FAMOTIDINE 20 MG TAB PO SCH ×2 (09:20→22:36)
--- NOTE | 2020-07-15 10:29 | Progress Note ---
Assessment and Plan - Patient Problems (1) Acute exacerbation of CHF (congestive heart failure) Current Visit: Yes Status: Acute Qualifiers: Heart failure type: right-sided Qualified Code(s): I50.813 - Acute on chronic right heart failure Plan to address problem: Patient probably has pulmonary hypertension BNP is normal IV Lasix initiated Differential diagnosis of pulmonary embolism Patient to be started on Eliquis 10 mg twice a day for possible PE CT angiogram of the chest cannot be done because of his weight of 400 pounds (2) Suicidal thoughts Current Visit: Yes Status: Acute Plan to address problem: Patient on 1013 Mental health consult requested Patient started on Zoloft 50 daily (3) Diffuse cellulitis Current Visit: Yes Status: Acute Plan to address problem: Patient started on Unasyn and vancomycin and Diflucan (4) Major depression Current Visit: Yes Status: Acute Plan to address problem: Mental health consult requested Patient is on 1013 (5) Hypertension Current Visit: Yes Status: Chronic Qualifiers: Hypertension type: essential hypertension Qualified Code(s): I10 - Essential (primary) hypertension Plan to address problem: Continue antihypertensives (6) Physical debility Current Visit: Yes Status: Acute Plan to address problem: Patient unable to get out of bed Needs acute rehab and physical therapy Patient is applied for disability insurance (7) DVT prophylaxis Current Visit: Yes Status: Acute Plan to address problem: On Eliquis and GI prophylaxis (8) Discharge planning issues Current Visit: Yes Status: Acute Plan to address problem: Patient lives alone Needs physical therapy and can be discharged home if he can walk after diuresis If not patient needs SNF/acute rehab Subjective Date of service: 07/14/20 Principal diagnosis: CHF exacerbation, morbid obesity, debility Interval history: Brief history 50-year-old male who is morbidly obese comes in for severe depression and shortness of breath at rest. Patient lives alone and takes care of himself. Of late patient is not able to take care of himself because of his increased weight and unable to get out of bed for activities of daily living. Patient states he was lying in his feces for several days. He was able to take all his prescriptions and and possibly from overdose. Only suicidal thoughts were no attempt. Patient has class IV NYHA symptoms and has severe orthopnea. Also has rash on the legs and the back. Erythema of the back present. Patient has erythema of his skin back legs and scrotum. The areas are moderately painful, especially to touch. Patient also has chest pain which is intermittent. No diaphoresis. Shortness of breath present. No radiation. Daily Hospital course 07/09/20 Patient is seen and examined. Labs and medications reviewed. Patient denies any shortness of breath now, complain of mild pain in the chest and depression. Patient is seen and evaluated by psychiatry. We will put the patient on psych medication. Psych recommend acute inpatient psychiatric hospitalization. We will do a VQ scan rule out PE and follow echocardiogram and cardiac enzyme .continue the current management. PT evaluation. 07/10/20 Patient is seen and examined. Labs and medications reviewed. Patient denies any shortness of breath now, complain of pain. WBC is improved 10.8. patient is seen and evaluated by psychiatry. We will put the patient on psych medication. Psych recommend acute inpatient psychiatric hospitalization. We will do a VQ scan rule out PE and follow echocardiogram and cardiac enzyme .continue the current management. PT evaluation. Wound care evaluation. Continue IV antibiotic Unasyn 3 g IV every 6 hours Diflucan 100 mg IV daily. Outpatient referral for weight reduction program/bariatric surgery. 07/11: Patient is stable and Medically stable for discharge, stop Eliquis, check D.dimer. Placement pending. 07/12/2020 Patient medically stable for discharge Placement issues 07/13/2020 Patient medically stable for discharge Placement issues 07/14/2020 Patient medically stable Placement issues Objective - Constitutional Vitals: Vital Signs - 12hr 07/15/20 07/15/20 07/15/20 00:09 02:00 05:06 Temperature 97.7 F 97.4 F L Pulse Rate 86 83 72 Respiratory 22 18 Rate Blood Pressure 104/58 120/53 O2 Sat by Pulse 91 99 Oximetry 07/15/20 07/15/20 08:02 09:20 Temperature 97.7 F Pulse Rate 82 82 Respiratory 20 Rate Blood Pressure 119/62 119/62 O2 Sat by Pulse 99 Oximetry General appearance: Present: no acute distress, well-nourished - EENT Eyes: PERRL, EOM intact ENT: hearing intact, clear oral mucosa Ears: bilateral: normal - Neck Neck: supple, normal ROM - Respiratory Respiratory effort: normal Respiratory: bilateral: CTA - Breasts Breasts: normal - Cardiovascular Heart rate: 78 Rhythm: regular Heart Sounds: Present: S1 & S2. Absent: gallop, rub Extremities: pulses intact, No edema, normal color, Full ROM - Gastrointestinal General gastrointestinal: Present: soft, non-tender, non-distended, normal bowel sounds - Genitourinary Male genitourinary: normal - Integumentary Integumentary: clear, warm, dry - Musculoskeletal Musculoskeletal: 1, strength equal bilaterally - Neurologic Neurologic: moves all extremities - Psychiatric Psychiatric: memory intact, appropriate mood/affect, intact judgment & insight - Labs CBC & Chem 7: 07/10/20 07:37 07/10/20 07:37 HEART Score - HEART Score EKG: Normal Age: 45-65 Risk factors: 1-2 risk factors Troponin: Troponin T < 0.010 ng/mL (0.00-0.029) 07/09/20 06:14 Troponin: < normal limit - Critical Actions Critical Actions: 4-6 pts:12-16.6% risk of adverse cardiac event. Should be admitted
[2020-07-15] MEDS: HYDROmorphone 1 MG/1 ML INJ IV PRN (16:15)
--- NOTE | 2020-07-15 17:00 | Discharge Summary ---
Providers - Providers Date of Admission: 07/10/20 10:40 Date of discharge: 07/19/20 Attending physician: ELZA BREWER 07/08/20 16:53 Consult to Mental Health [CONS] Stat Reason For Exam: suicidal ideation 07/08/20 17:14 Consult to Case Management [CONS] Stat Services Needed at Discharge: Aquatics Instructor Notified:: n Additional Physician Instructions: Patient is unable to care for himself due to immobility severe obesity. Patient does not have income or health insurance. 07/08/20 23:24 Consult to Mental Health [CONS] Routine Reason For Exam: Suicidal thoughts and depression 07/10/20 10:20 Consult to Wound/ET Nurse [CONS] Routine Reason For Exam: wound eval 07/13/20 15:00 Physical Therapy Evaluation and Treat [CONS] Routine Comment: Reason For Exam: Eval & Treat Primary care physician: HAM SMOKER Hospitalization Condition: Stable Pertinent studies: Echocardiogram done February 2020 showed ejection fraction of 50 to 55% Hospital course: Subjective Date of service: 07/18/20 Principal diagnosis: CHF exacerbation, morbid obesity, severe debility Interval history: Brief history 50-year-old male who is morbidly obese comes in for severe depression and shortness of breath at rest. Patient lives alone and takes care of himself. Of late patient is not able to take care of himself because of his increased weight and unable to get out of bed for activities of daily living. Patient states he was lying in his feces for several days. He was able to take all his prescriptions and and possibly from overdose. Only suicidal thoughts were no attempt. Patient has class IV NYHA symptoms and has severe orthopnea. Also has rash on the legs and the back. Erythema of the back present. Patient has erythema of his skin back legs and scrotum. The areas are moderately painful, especially to touch. Patient also has chest pain which is intermittent. No diaphoresis. Shortness of breath present. No radiation. Daily Hospital course 07/09/20 Patient is seen and examined. Labs and medications reviewed. Patient denies any shortness of breath now, complain of mild pain in the chest and depression. Patient is seen and evaluated by psychiatry. We will put the patient on psych medication. Psych recommend acute inpatient psychiatric hospitalization. We will do a VQ scan rule out PE and follow echocardiogram and cardiac enzyme .continue the current management. PT evaluation. 07/10/20 Patient is seen and examined. Labs and medications reviewed. Patient denies any shortness of breath now, complain of pain. WBC is improved 10.8. patient is seen and evaluated by psychiatry. We will put the patient on psych medication. Psych recommend acute inpatient psychiatric hospitalization. We will do a VQ scan rule out PE and follow echocardiogram and cardiac enzyme .continue the current management. PT evaluation. Wound care evaluation. Continue IV antibiotic Unasyn 3 g IV every 6 hours Diflucan 100 mg IV daily. Outpatient referral for weight reduction program/bariatric surgery. 07/11: Patient is stable and Medically stable for discharge, stop Eliquis, check D.dimer. Placement pending. 07/12/2020 Patient medically stable for discharge Placement issues 07/13/2020 Patient medically stable for discharge Placement issues 07/14/2020 Patient medically stable Placement issues 07/15/2020 Symptomatically better Patient stable for discharge Placement issues 07/16/2020 Symptomatically better Patient stable for discharge Placement issues 07/17/2020 Patient wants to go to a friend's home on 07/19/2020 Apparently girlfriend has accepted him as a guest 07/18/2020 and 07/19/2020 Patient wants to go to friend's home today Patient being discharged with medications for CHF and hypertension Patient to follow-up with bariatric surgery Assessment and Plan - Patient Problems (1) Acute exacerbation of CHF (congestive heart failure) Current Visit: Yes Status: Acute Qualifiers: Heart failure type: right-sided Qualified Code(s): I50.813 - Acute on chronic right heart failure Plan to address problem: Patient probably has pulmonary hypertension BNP is normal Patient to be discharged on oral Lasix Differential diagnosis of pulmonary embolism Patient to be started on Eliquis 10 mg twice a day for possible PE CT angiogram of the chest cannot be done because of his weight of 400 pounds (2) Suicidal thoughts Current Visit: Yes Status: Acute Plan to address problem: Resolved (3) Diffuse cellulitis Current Visit: Yes Status: Acute Plan to address problem: Patient started on Unasyn and vancomycin and Diflucan (4) Major depression Current Visit: Yes Status: Acute Plan to address problem: Mental health consult requested Patient is on 1013 (5) Hypertension Current Visit: Yes Status: Chronic Qualifiers: Hypertension type: essential hypertension Qualified Code(s): I10 - Essential (primary) hypertension Plan to address problem: Continue antihypertensives (6) Physical debility Current Visit: Yes Status: Acute Plan to address problem: Patient unable to get out of bed Needs acute rehab and physical therapy Patient is applied for disability insurance (7) DVT prophylaxis Current Visit: Yes Status: Acute Plan to address problem: On Eliquis and GI prophylaxis (8) Discharge planning issues Current Visit: Yes Status: Acute Plan to address problem: Patient lives alone Needs physical therapy and can be discharged home if he can walk after diuresis If not patient needs SNF/acute rehab Disposition: DC-01 TO HOME OR SELFCARE - Discharge Diagnoses (1) Acute exacerbation of CHF (congestive heart failure) Status: Acute Qualifiers: Heart failure type: right-sided Qualified Code(s): I50.813 - Acute on chronic right heart failure Comment: Lasix and potassium supplements (2) Suicidal thoughts Status: Acute (3) Diffuse cellulitis Status: Acute (4) Major depression Status: Acute (5) Hypertension Status: Chronic Qualifiers: Hypertension type: essential hypertension Qualified Code(s): I10 - Essential (primary) hypertension (6) Physical debility Status: Acute (7) DVT prophylaxis Status: Acute (8) Discharge planning issues Status: Acute Core Measure Documentation - Palliative Care Palliative Care/ Comfort Measures: Not Applicable - Core Measures Any of the following diagnoses?: none Exam - Constitutional Vitals: Temp Pulse Resp BP Pulse Ox 98.0 F 78 18 109/61 96 07/15/20 16:40 07/15/20 16:40 07/15/20 16:40 07/15/20 16:40 07/15/20 16:40 General appearance: Present: no acute distress, well-nourished - EENT Eyes: Present: PERRL ENT: hearing intact, clear oral mucosa - Neck Neck: Present: supple, normal ROM - Respiratory Respiratory effort: normal Respiratory: bilateral: CTA - Cardiovascular Heart rate: 78 Rhythm: regular Heart Sounds: Present: S1 & S2. Absent: rub, click - Extremities Extremities: pulses symmetrical, No edema Peripheral Pulses: within normal limits - Abdominal General gastrointestinal: Present: soft, non-tender, non-distended, normal bowel sounds Male genitourinary: Present: normal - Integumentary Integumentary: Present: clear, warm, dry - Musculoskeletal Musculoskeletal: gait normal, strength equal bilaterally - Psychiatric Psychiatric: appropriate mood/affect, intact judgment & insight - Neurologic Neurologic: CNII-XII intact, moves all extremities Plan Weight Bearing Status: Weight Bear as Tolerated Diet: low salt, diabetic Follow up with: PRIMARY CARE, [Primary Care Provider] - 3-5 Days
[2020-07-15] MEDS: oxyCODONE /ACETAMINOPHEN 5-325MG TAB PO PRN (19:53)
[2020-07-15] MEDS: DOXEPIN 25 MG CAP PO SCH (22:36)
[2020-07-16] MEDS: HYDROmorphone 1 MG/1 ML INJ IV PRN ×2 (01:40→21:11)
[2020-07-16] MEDS: FUROSEMIDE 40 MG/4 ML INJ IV SCH ×2 (05:52→17:04)
[2020-07-16] MEDS: ARIPiprazole 15 MG TAB PO SCH (09:45)
[2020-07-16] MEDS: FAMOTIDINE 20 MG TAB PO SCH ×2 (09:45→21:13)
[2020-07-16] MEDS: POTASSIUM CHLORIDE ER 20 MEQ TAB PO SCH ×2 (09:45→21:13)
[2020-07-16] MEDS: SERTRALINE 50 MG TAB PO SCH (09:45)
[2020-07-16] MEDS: LISINOPRIL 40 MG TAB PO SCH (09:46)
[2020-07-16] MEDS: oxyCODONE /ACETAMINOPHEN 5-325MG TAB PO PRN ×2 (09:47→17:04)
--- NOTE | 2020-07-16 16:20 | Progress Note ---
Assessment and Plan - Patient Problems (1) Acute exacerbation of CHF (congestive heart failure) Current Visit: Yes Status: Acute Qualifiers: Heart failure type: right-sided Qualified Code(s): I50.813 - Acute on chronic right heart failure Plan to address problem: Patient probably has pulmonary hypertension BNP is normal IV Lasix initiated Differential diagnosis of pulmonary embolism Patient to be started on Eliquis 10 mg twice a day for possible PE CT angiogram of the chest cannot be done because of his weight of 400 pounds (2) Suicidal thoughts Current Visit: Yes Status: Acute Plan to address problem: Patient on 1013 Mental health consult requested Patient started on Zoloft 50 daily (3) Diffuse cellulitis Current Visit: Yes Status: Acute Plan to address problem: Patient started on Unasyn and vancomycin and Diflucan (4) Major depression Current Visit: Yes Status: Acute Plan to address problem: Mental health consult requested Patient is on 1013 (5) Hypertension Current Visit: Yes Status: Chronic Qualifiers: Hypertension type: essential hypertension Qualified Code(s): I10 - Essential (primary) hypertension Plan to address problem: Continue antihypertensives (6) Physical debility Current Visit: Yes Status: Acute Plan to address problem: Patient unable to get out of bed Needs acute rehab and physical therapy Patient is applied for disability insurance (7) DVT prophylaxis Current Visit: Yes Status: Acute Plan to address problem: On Eliquis and GI prophylaxis (8) Discharge planning issues Current Visit: Yes Status: Acute Plan to address problem: Patient lives alone Needs physical therapy and can be discharged home if he can walk after diuresis If not patient needs SNF/acute rehab Subjective Date of service: 07/16/20 Principal diagnosis: CHF exacerbation, morbid obesity, severe debility Interval history: Brief history 50-year-old male who is morbidly obese comes in for severe depression and shortness of breath at rest. Patient lives alone and takes care of himself. Of late patient is not able to take care of himself because of his increased weight and unable to get out of bed for activities of daily living. Patient states he was lying in his feces for several days. He was able to take all his prescriptions and and possibly from overdose. Only suicidal thoughts were no attempt. Patient has class IV NYHA symptoms and has severe orthopnea. Also has rash on the legs and the back. Erythema of the back present. Patient has erythema of his skin back legs and scrotum. The areas are moderately painful, especially to touch. Patient also has chest pain which is intermittent. No diaphoresis. Shortness of breath present. No radiation. Daily Hospital course 07/09/20 Patient is seen and examined. Labs and medications reviewed. Patient denies any shortness of breath now, complain of mild pain in the chest and depression. Patient is seen and evaluated by psychiatry. We will put the patient on psych medication. Psych recommend acute inpatient psychiatric hospitalization. We will do a VQ scan rule out PE and follow echocardiogram and cardiac enzyme .continue the current management. PT evaluation. 07/10/20 Patient is seen and examined. Labs and medications reviewed. Patient denies any shortness of breath now, complain of pain. WBC is improved 10.8. patient is seen and evaluated by psychiatry. We will put the patient on psych medication. Psych recommend acute inpatient psychiatric hospitalization. We will do a VQ scan rule out PE and follow echocardiogram and cardiac enzyme .continue the current management. PT evaluation. Wound care evaluation. Continue IV antibiotic Unasyn 3 g IV every 6 hours Diflucan 100 mg IV daily. Outpatient referral for weight reduction program/bariatric surgery. 07/11: Patient is stable and Medically stable for discharge, stop Eliquis, check D.dimer. Placement pending. 07/12/2020 Patient medically stable for discharge Placement issues 07/13/2020 Patient medically stable for discharge Placement issues 07/14/2020 Patient medically stable Placement issues 07/15/2020 Symptomatically better Patient stable for discharge Placement issues 07/16/2020 Symptomatically better Patient stable for discharge Placement issues Objective - Constitutional Vitals: Vital Signs - 12hr 07/16/20 07/16/20 07/16/20 04:26 08:10 09:46 Temperature 97.4 F L 97.4 F L Pulse Rate 69 74 82 Pulse Rate [ From Monitor] Respiratory 16 20 Rate Blood Pressure 106/51 123/62 112/61 O2 Sat by Pulse 97 98 Oximetry 07/16/20 07/16/20 07/16/20 09:47 09:58 09:59 Temperature Pulse Rate 80 Pulse Rate [ 80 From Monitor] Respiratory 16 17 Rate Blood Pressure O2 Sat by Pulse 98 Oximetry 07/16/20 07/16/20 07/16/20 10:47 11:20 12:34 Temperature 97.7 F Pulse Rate 70 78 Pulse Rate [ From Monitor] Respiratory 17 20 Rate Blood Pressure 124/55 O2 Sat by Pulse 97 Oximetry General appearance: Present: no acute distress, well-nourished - EENT Eyes: PERRL, EOM intact ENT: hearing intact, clear oral mucosa Ears: bilateral: normal - Neck Neck: supple, normal ROM - Respiratory Respiratory effort: normal Respiratory: bilateral: CTA - Breasts Breasts: normal - Cardiovascular Heart rate: 78 Rhythm: regular Heart Sounds: Present: S1 & S2. Absent: gallop, rub Extremities: pulses intact, No edema, normal color, Full ROM - Gastrointestinal General gastrointestinal: Present: soft, non-tender, non-distended, normal bowel sounds - Genitourinary Male genitourinary: normal - Integumentary Integumentary: clear, warm, dry - Musculoskeletal Musculoskeletal: 1, strength equal bilaterally - Neurologic Neurologic: moves all extremities - Psychiatric Psychiatric: memory intact, appropriate mood/affect, intact judgment & insight - Labs CBC & Chem 7: 07/10/20 07:37 07/10/20 07:37 HEART Score - HEART Score EKG: Normal Age: 45-65 Risk factors: 1-2 risk factors Troponin: Troponin T < 0.010 ng/mL (0.00-0.029) 07/09/20 06:14 Troponin: < normal limit - Critical Actions Critical Actions: 4-6 pts:12-16.6% risk of adverse cardiac event. Should be admitted
[2020-07-16] MEDS: DOXEPIN 25 MG CAP PO SCH (21:13)
[2020-07-17] MEDS: oxyCODONE /ACETAMINOPHEN 5-325MG TAB PO PRN (02:22)
[2020-07-17] MEDS: FUROSEMIDE 40 MG/4 ML INJ IV SCH ×2 (05:04→17:19)
[2020-07-17] MEDS: HYDROmorphone 1 MG/1 ML INJ IV PRN ×4 (06:09→21:32)
[2020-07-17] MEDS: ARIPiprazole 15 MG TAB PO SCH (10:00)
[2020-07-17] MEDS: POTASSIUM CHLORIDE ER 20 MEQ TAB PO SCH ×2 (10:00→21:34)
[2020-07-17] MEDS: SERTRALINE 50 MG TAB PO SCH (10:00)
[2020-07-17] MEDS: FAMOTIDINE 20 MG TAB PO SCH ×2 (10:00→21:34)
[2020-07-17] MEDS: LISINOPRIL 40 MG TAB PO SCH (13:03)
--- NOTE | 2020-07-17 14:13 | Progress Note ---
Assessment and Plan - Patient Problems (1) Acute exacerbation of CHF (congestive heart failure) Current Visit: Yes Status: Acute Qualifiers: Heart failure type: right-sided Qualified Code(s): I50.813 - Acute on chronic right heart failure Plan to address problem: Patient probably has pulmonary hypertension BNP is normal IV Lasix initiated Differential diagnosis of pulmonary embolism Patient to be started on Eliquis 10 mg twice a day for possible PE CT angiogram of the chest cannot be done because of his weight of 400 pounds (2) Suicidal thoughts Current Visit: Yes Status: Acute Plan to address problem: Patient on 1013 Mental health consult requested Patient started on Zoloft 50 daily (3) Diffuse cellulitis Current Visit: Yes Status: Acute Plan to address problem: Patient started on Unasyn and vancomycin and Diflucan (4) Major depression Current Visit: Yes Status: Acute Plan to address problem: Mental health consult requested Patient is on 1013 (5) Hypertension Current Visit: Yes Status: Chronic Qualifiers: Hypertension type: essential hypertension Qualified Code(s): I10 - Essential (primary) hypertension Plan to address problem: Continue antihypertensives (6) Physical debility Current Visit: Yes Status: Acute Plan to address problem: Patient unable to get out of bed Needs acute rehab and physical therapy Patient is applied for disability insurance (7) DVT prophylaxis Current Visit: Yes Status: Acute Plan to address problem: On Eliquis and GI prophylaxis (8) Discharge planning issues Current Visit: Yes Status: Acute Plan to address problem: Patient lives alone Needs physical therapy and can be discharged home if he can walk after diuresis If not patient needs SNF/acute rehab Subjective Date of service: 07/17/20 Principal diagnosis: CHF exacerbation, morbid obesity, severe debility Interval history: Brief history 50-year-old male who is morbidly obese comes in for severe depression and shortness of breath at rest. Patient lives alone and takes care of himself. Of late patient is not able to take care of himself because of his increased weight and unable to get out of bed for activities of daily living. Patient states he was lying in his feces for several days. He was able to take all his prescriptions and and possibly from overdose. Only suicidal thoughts were no attempt. Patient has class IV NYHA symptoms and has severe orthopnea. Also has rash on the legs and the back. Erythema of the back present. Patient has erythema of his skin back legs and scrotum. The areas are moderately painful, especially to touch. Patient also has chest pain which is intermittent. No diaphoresis. Shortness of breath present. No radiation. Daily Hospital course 07/09/20 Patient is seen and examined. Labs and medications reviewed. Patient denies any shortness of breath now, complain of mild pain in the chest and depression. Patient is seen and evaluated by psychiatry. We will put the patient on psych medication. Psych recommend acute inpatient psychiatric hospitalization. We will do a VQ scan rule out PE and follow echocardiogram and cardiac enzyme .continue the current management. PT evaluation. 07/10/20 Patient is seen and examined. Labs and medications reviewed. Patient denies any shortness of breath now, complain of pain. WBC is improved 10.8. patient is seen and evaluated by psychiatry. We will put the patient on psych medication. Psych recommend acute inpatient psychiatric hospitalization. We will do a VQ scan rule out PE and follow echocardiogram and cardiac enzyme .continue the current management. PT evaluation. Wound care evaluation. Continue IV antibiotic Unasyn 3 g IV every 6 hours Diflucan 100 mg IV daily. Outpatient referral for weight reduction program/bariatric surgery. 07/11: Patient is stable and Medically stable for discharge, stop Eliquis, check D.dimer. Placement pending. 07/12/2020 Patient medically stable for discharge Placement issues 07/13/2020 Patient medically stable for discharge Placement issues 07/14/2020 Patient medically stable Placement issues 07/15/2020 Symptomatically better Patient stable for discharge Placement issues 07/16/2020 Symptomatically better Patient stable for discharge Placement issues 07/17/2020 Patient wants to go to a friend's home on 07/19/2020 Apparently girlfriend has accepted him as a guest Objective - Constitutional Vitals: Vital Signs - 12hr 07/17/20 07/17/20 07/17/20 04:55 09:14 13:03 Temperature 98.1 F 98.2 F Pulse Rate 79 77 77 Respiratory 20 20 Rate Blood Pressure 106/48 110/48 Blood Pressure 110/48 [Right] O2 Sat by Pulse 91 96 Oximetry General appearance: Present: no acute distress, well-nourished - EENT Eyes: PERRL, EOM intact ENT: hearing intact, clear oral mucosa Ears: bilateral: normal - Neck Neck: supple, normal ROM - Respiratory Respiratory effort: normal Respiratory: bilateral: CTA - Breasts Breasts: normal - Cardiovascular Heart rate: 78 Rhythm: regular Heart Sounds: Present: S1 & S2. Absent: gallop, rub Extremities: pulses intact, No edema, normal color, Full ROM - Gastrointestinal General gastrointestinal: Present: soft, non-tender, non-distended, normal bowel sounds - Genitourinary Male genitourinary: normal - Integumentary Integumentary: clear, warm, dry - Musculoskeletal Musculoskeletal: 1, strength equal bilaterally - Neurologic Neurologic: moves all extremities - Psychiatric Psychiatric: memory intact, appropriate mood/affect, intact judgment & insight - Labs CBC & Chem 7: 07/10/20 07:37 07/10/20 07:37 HEART Score - HEART Score EKG: Normal Age: 45-65 Risk factors: 1-2 risk factors Troponin: Troponin T < 0.010 ng/mL (0.00-0.029) 07/09/20 06:14 Troponin: < normal limit - Critical Actions Critical Actions: 4-6 pts:12-16.6% risk of adverse cardiac event. Should be admitted
[2020-07-17] MEDS: DOXEPIN 25 MG CAP PO SCH (21:34)
[2020-07-18] MEDS: HYDROmorphone 1 MG/1 ML INJ IV PRN ×4 (00:34→18:46)
[2020-07-18] MEDS: FUROSEMIDE 40 MG/4 ML INJ IV SCH ×2 (04:59→18:47)
[2020-07-18] MEDS: POTASSIUM CHLORIDE ER 20 MEQ TAB PO SCH ×2 (09:57→21:51)
[2020-07-18] MEDS: SERTRALINE 50 MG TAB PO SCH (09:57)
[2020-07-18] MEDS: FAMOTIDINE 20 MG TAB PO SCH ×2 (09:57→21:51)
[2020-07-18] MEDS: LISINOPRIL 40 MG TAB PO SCH (09:57)
[2020-07-18] MEDS: ARIPiprazole 15 MG TAB PO SCH (09:58)
[2020-07-18] MEDS: oxyCODONE /ACETAMINOPHEN 5-325MG TAB PO PRN ×2 (16:25→16:28)
[2020-07-18] MEDS: DOXEPIN 25 MG CAP PO SCH (21:52)
[2020-07-19] MEDS: oxyCODONE /ACETAMINOPHEN 5-325MG TAB PO PRN ×2 (04:26→12:43)
[2020-07-19] MEDS: FUROSEMIDE 40 MG/4 ML INJ IV SCH ×2 (05:17→18:32)
--- NOTE | 2020-07-19 07:22 | Progress Note ---
Assessment and Plan - Patient Problems (1) Acute exacerbation of CHF (congestive heart failure) Current Visit: Yes Status: Acute Qualifiers: Heart failure type: right-sided Qualified Code(s): I50.813 - Acute on chronic right heart failure Plan to address problem: Patient probably has pulmonary hypertension BNP is normal IV Lasix initiated Differential diagnosis of pulmonary embolism Patient to be started on Eliquis 10 mg twice a day for possible PE CT angiogram of the chest cannot be done because of his weight of 400 pounds (2) Suicidal thoughts Current Visit: Yes Status: Acute Plan to address problem: Patient on 1013 Mental health consult requested Patient started on Zoloft 50 daily 1013 discontinued (3) Diffuse cellulitis Current Visit: Yes Status: Acute Plan to address problem: Patient started on Unasyn and vancomycin and Diflucan Improved (4) Major depression Current Visit: Yes Status: Acute Plan to address problem: Mental health consult requested Improved (5) Hypertension Current Visit: Yes Status: Chronic Qualifiers: Hypertension type: essential hypertension Qualified Code(s): I10 - Essential (primary) hypertension Plan to address problem: Continue antihypertensives (6) Physical debility Current Visit: Yes Status: Acute Plan to address problem: Patient unable to get out of bed Needs acute rehab and physical therapy Patient is applied for disability insurance (7) DVT prophylaxis Current Visit: Yes Status: Acute Plan to address problem: On Eliquis and GI prophylaxis (8) Discharge planning issues Current Visit: Yes Status: Acute Plan to address problem: Patient agreed to go to a friend's home tomorrow Had a long discussion about his morbid obesity and the need for bariatric surgery as outpatient Patient is willing to go home tomorrow Patient to be discharged on Lasix and antihypertensives and potassium Subjective Date of service: 07/18/20 Principal diagnosis: CHF exacerbation, severe debility, morbid obesity Interval history: Brief history 50-year-old male who is morbidly obese comes in for severe depression and shortness of breath at rest. Patient lives alone and takes care of himself. Of late patient is not able to take care of himself because of his increased weight and unable to get out of bed for activities of daily living. Patient states he was lying in his feces for several days. He was able to take all his prescriptions and and possibly from overdose. Only suicidal thoughts were no attempt. Patient has class IV NYHA symptoms and has severe orthopnea. Also has rash on the legs and the back. Erythema of the back present. Patient has erythema of his skin back legs and scrotum. The areas are moderately painful, especially to touch. Patient also has chest pain which is intermittent. No diaphoresis. Shortness of breath present. No radiation. 07/18/2020 Patient much improved Medically cleared for discharge Patient is willing to go to friends home tomorrow Patient to be discharged tomorrow Stable for discharge Objective - Constitutional Vitals: Vital Signs - 12hr 07/18/20 07/18/20 07/18/20 19:44 19:50 23:57 Temperature 98.5 F 98.0 F Pulse Rate 78 74 73 Respiratory 18 18 Rate Blood Pressure 109/57 118/54 O2 Sat by Pulse 89 96 Oximetry 07/19/20 04:27 Temperature 98.0 F Pulse Rate 76 Respiratory 18 Rate Blood Pressure 116/57 O2 Sat by Pulse 97 Oximetry General appearance: Present: no acute distress, well-nourished - EENT Eyes: PERRL, EOM intact ENT: hearing intact, clear oral mucosa Ears: bilateral: normal - Neck Neck: supple, normal ROM - Respiratory Respiratory effort: normal Respiratory: bilateral: CTA - Breasts Breasts: normal - Cardiovascular Heart rate: 78 Rhythm: regular Heart Sounds: Present: S1 & S2. Absent: gallop, rub Extremities: pulses intact, No edema, normal color, Full ROM - Gastrointestinal General gastrointestinal: Present: soft, non-tender, non-distended, normal bowel sounds - Genitourinary Male genitourinary: normal - Integumentary Integumentary: clear, warm, dry - Musculoskeletal Musculoskeletal: 1, strength equal bilaterally - Neurologic Neurologic: moves all extremities - Psychiatric Psychiatric: memory intact, appropriate mood/affect, intact judgment & insight - Labs CBC & Chem 7: 07/10/20 07:37 07/10/20 07:37 HEART Score - HEART Score EKG: Normal Age: 45-65 Risk factors: 1-2 risk factors Troponin: Troponin T < 0.010 ng/mL (0.00-0.029) 07/09/20 06:14 Troponin: < normal limit - Critical Actions Critical Actions: 4-6 pts:12-16.6% risk of adverse cardiac event. Should be admitted
[2020-07-19] MEDS: ARIPiprazole 15 MG TAB PO SCH (09:18)
[2020-07-19] MEDS: POTASSIUM CHLORIDE ER 20 MEQ TAB PO SCH ×2 (09:19→22:33)
[2020-07-19] MEDS: FAMOTIDINE 20 MG TAB PO SCH ×2 (09:19→22:33)
[2020-07-19] MEDS: SERTRALINE 50 MG TAB PO SCH (09:20)
[2020-07-19] MEDS: LISINOPRIL 40 MG TAB PO SCH (09:20)
[2020-07-19] MEDS: traMADol 50 MG TAB PO PRN (18:39)
--- NOTE | 2020-07-19 19:01 | Progress Note ---
Assessment and Plan Assessment and plan: --Acute exacerbation of CHF (congestive heart failure) Current Visit: Yes Status: Acute Patient probably has pulmonary hypertension Continue current management --History of suicidal thoughts Current Visit: Yes Status: Acute Patient was on 1013, psych evaluated Started on Zoloft, Patient symptom improved 1013 discontinued --Diffuse cellulitis Current Visit: Yes Status: Acute Patient received Unasyn and vancomycin and Diflucan Improved --History of major depression Current Visit: Yes Status: Acute LDL mental health evaluated Medications optimized consult requested Cleared for discharge --Hypertension Current Visit: Yes Status: Chronic Continue antihypertensives --Physical debility Current Visit: Yes Status: Acute Patient unable to get out of bed supportive care -- DVT prophylaxis Current Visit: Yes Status: Acute On Eliquis and GI prophylaxis -- Discharge planning issues Current Visit: Yes Status: Acute Patient agreed to go to a friend's home tomorrow Had a long discussion about his morbid obesity and the need for bariatric surgery as outpatient Patient is willing to go home tomorrow Patient to be discharged on Lasix and antihypertensives and potassium Brief history 50-year-old male who is morbidly obese comes in for severe depression and shortness of breath at rest. Patient lives alone and takes care of himself. Of late patient is not able to take care of himself because of his increased weight and unable to get out of bed for activities of daily living. Patient states he was lying in his feces for several days. He was able to take all his prescriptions and and possibly from overdose. Only suicidal thoughts were no attempt. Patient has class IV NYHA symptoms and has severe orthopnea. Also has rash on the legs and the back. Erythema of the back present. Patient has erythema of his skin back legs and scrotum. The areas are moderately painful, especially to touch. Patient also has chest pain which is intermittent. No diaphoresis. Shortness of breath present. No radiation. 07/18/2020 Patient much improved Medically cleared for discharge Patient is willing to go to friends home tomorrow Patient to be discharged tomorrow Stable for discharge 07/19/2020; patient was initially discharged Due to social reasons could not leave the hospital Awaiting for friend to pick him up today History Interval history: Patient was initially discharged home However due to social issues could not leave the hospital Patient has no new complaints Vital signs noted Hospitalist Physical - Constitutional Vitals: Temp Pulse Resp BP Pulse Ox 97.7 F 87 20 129/70 97 07/19/20 16:00 07/19/20 16:00 07/19/20 16:00 07/19/20 16:00 07/19/20 16:00 General appearance: Present: no acute distress, well-nourished, obese (Morbidly obese) - EENT Eyes: Present: PERRL, EOM intact - Neck Neck: Present: supple, normal ROM - Respiratory Respiratory effort: normal Respiratory: bilateral: diminished, negative: rales, rhonchi, wheezing - Cardiovascular Rhythm: regular Heart Sounds: Present: S1 & S2 - Extremities Extremities: no ischemia, No edema - Abdominal General gastrointestinal: soft, non-tender, non-distended, normal bowel sounds - Integumentary Integumentary: Present: clear, warm - Psychiatric Psychiatric: appropriate mood/affect, cooperative - Neurologic Neurologic: CNII-XII intact HEART Score - HEART Score EKG: Normal Age: 45-65 Risk factors: 1-2 risk factors Troponin: Troponin T < 0.010 ng/mL (0.00-0.029) 07/09/20 06:14 Troponin: < normal limit - Critical Actions Critical Actions: 4-6 pts:12-16.6% risk of adverse cardiac event. Should be admitted Results - Labs CBC & Chem 7: 07/10/20 07:37 07/10/20 07:37 Labs: Laboratory Last Values WBC 10.8 K/mm3 (4.5-11.0) 07/10/20 07:37 RBC 4.13 M/mm3 (3.65-5.03) 07/10/20 07:37 Hgb 12.7 gm/dl (11.8-15.2) 07/10/20 07:37 Hct 38.3 % (35.5-45.6) D 07/10/20 07:37 MCV 93 fl (84-94) 07/10/20 07:37 MCH 31 pg (28-32) 07/10/20 07:37 MCHC 33 % (32-34) 07/10/20 07:37 RDW 17.1 % (13.2-15.2) H 07/10/20 07:37 Plt Count 473 K/mm3 (140-440) H 07/10/20 07:37 Lymph % (Auto) 11.5 % (13.4-35.0) L 07/10/20 07:37 [place] % (Auto) 7.0 % (0.0-7.3) 07/10/20 07:37 Eos % (Auto) 6.2 % (0.0-4.3) H 07/10/20 07:37 Baso % (Auto) 0.4 % (0.0-1.8) 07/10/20 07:37 Lymph # (Auto) 1.2 K/mm3 (1.2-5.4) 07/10/20 07:37 [place] # (Auto) 0.8 K/mm3 (0.0-0.8) 07/10/20 07:37 Eos # (Auto) 0.7 K/mm3 (0.0-0.4) H 07/10/20 07:37 Baso # (Auto) 0.0 K/mm3 (0.0-0.1) 07/10/20 07:37 Add Manual Diff Complete 07/08/20 17:26 Total Counted 100 07/08/20 17:26 Seg Neutrophils % 74.9 % (40.0-70.0) H 07/10/20 07:37 Seg Neuts % (Manual) 92.0 % (40.0-70.0) H 07/08/20 17:26 Lymphocytes % (Manual) 4.0 % (13.4-35.0) L 07/08/20 17:26 Monocytes % (Manual) 3.0 % (0.0-7.3) 07/08/20 17:26 Eosinophils % (Manual) 1.0 % (0.0-4.3) 07/08/20 17:26 Nucleated RBC % Not Reportable 07/08/20 17:26 Seg Neutrophils # 8.1 K/mm3 (1.8-7.7) H 07/10/20 07:37 Seg Neutrophils # Man 14.3 K/mm3 (1.8-7.7) H 07/08/20 17:26 Band Neutrophils # 0.0 K/mm3 07/08/20 17:26 Lymphocytes # (Manual) 0.6 K/mm3 (1.2-5.4) L 07/08/20 17:26 Abs React Lymphs (Man) 0.0 K/mm3 07/08/20 17:26 Monocytes # (Manual) 0.5 K/mm3 (0.0-0.8) 07/08/20 17:26 Eosinophils # (Manual) 0.2 K/mm3 (0.0-0.4) 07/08/20 17: Basophils # (Manual) 0.0 K/mm3 (0.0-0.1) 07/08/20 17:26 Metamyelocytes # 0.0 K/mm3 07/08/20 17:26 Myelocytes # 0.0 K/mm3 07/08/20 17: Promyelocytes # 0.0 K/mm3 07/08/20 17:26 Blast Cells # 0.0 K/mm3 07/08/20 17:26 WBC Morphology Not Reportable 07/08/20 17:26 Hypersegmented Neuts Not Reportable 07/08/20 17:26 Hyposegmented Neuts Not Reportable 07/08/20 17:26 Hypogranular Neuts Not Reportable 07/08/20 17:26 Smudge Cells Not Reportable 07/08/20 17:26 Toxic Granulation Not Reportable 07/08/20 17:26 Toxic Vacuolation Not Reportable 07/08/20 17:26 Dohle Bodies Not Reportable 07/08/20 17:26 Pelger-Huet Anomaly Not Reportable 07/08/20 17:26 Alexandro Rods Not Reportable 07/08/20 17:26 Platelet Estimate Consistent w auto 07/08/20 17:26 Clumped Platelets Not Reportable 07/08/20 17:26 Plt Clumps, EDTA Not Reportable 07/08/20 17:26 Large Platelets Not Reportable 07/08/20 17:26 Giant Platelets Not Reportable 07/08/20 17:26 Platelet Satelliting Not Reportable 07/08/20 17:26 Plt Morphology Comment Not Reportable 07/08/20 17:26 RBC Morphology Normal 07/08/20 17:26 Dimorphic RBCs Not Reportable 07/08/20 17:26 Polychromasia Not Reportable 07/08/20 17:26 Hypochromasia Not Reportable 07/08/20 17:26 Poikilocytosis Not Reportable 07/08/20 17:26 Anisocytosis Not Reportable 07/08/20 17:26 Microcytosis Not Reportable 07/08/20 17:26 Macrocytosis Not Reportable 07/08/20 17:26 Spherocytes Not Reportable 07/08/20 17:26 Pappenheimer Bodies Not Reportable 07/08/20 17:26 Sickle Cells Not Reportable 07/08/20 17:26 Target Cells Not Reportable 07/08/20 17:26 Tear Drop Cells Not Reportable 07/08/20 17:26 Ovalocytes Not Reportable 07/08/20 17:26 Helmet Cells Not Reportable 07/08/20 17:26 Al[place] Bodies Not Reportable 07/08/20 17:26 Hoyt Rings Not Reportable 07/08/20 17:26 Frandy Cells Not Reportable 07/08/20 17:26 Bite Cells Not Reportable 07/08/20 17:26 Crenated Cell Not Reportable 07/08/20 17:26 Elliptocytes Not Reportable 07/08/20 17:26 Acanthocytes (Spur) Not Reportable 07/08/20 17:26 Rouleaux Not Reportable 07/08/20 17:26 Hemoglobin C Crystals Not Reportable 07/08/20 17:26 Schistocytes Not Reportable 07/08/20 17:26 Malaria parasites Not Reportable 07/08/20 17:26 Mauri Bodies Not Reportable 07/08/20 17:26 Hem Pathologist Commnt No 07/08/20 17:26 D-Dimer 781.59 ng/mlDDU (0-234) H 07/11/20 13:54 Sodium 136 mmol/L (137-145) L 07/10/20 07:37 Potassium 4.4 mmol/L (3.6-5.0) 07/10/20 07:37 Chloride 98.2 mmol/L (98-107) 07/10/20 07:37 Carbon Dioxide 31 mmol/L (22-30) H 07/10/20 07:37 Anion Gap 11 mmol/L 07/10/20 07:37 BUN 21 mg/dL (9-20) H 07/10/20 07:37 Creatinine 1.0 mg/dL (0.8-1.3) D 07/10/20 07:37 Estimated GFR > 60 ml/min 07/10/20 07:37 BUN/Creatinine Ratio 21 % 07/10/20 07:37 Glucose 106 mg/dL (75-100) H 07/10/20 07:37 POC Glucose 87 mg/dL (70-105) 07/18/20 11:56 Hemoglobin A1c 5.5 % (4-6) 07/09/20 09:06 Lactic Acid 3.00 mmol/L (0.7-2.0) H* 07/08/20 17:26 Calcium 8.5 mg/dL (8.4-10.2) 07/10/20 07:37 Total Bilirubin 0.30 mg/dL (0.1-1.2) 07/09/20 06:14 AST 10 units/L (5-40) 07/09/20 06:14 ALT 12 units/L (7-56) 07/09/20 06:14 Alkaline Phosphatase 68 units/L (35-129) 07/09/20 06:14 Troponin T < 0.010 ng/mL (0.00-0.029) 07/09/20 06:14 NT-Pro-B Natriuret Pep 51.33 pg/mL (0-900) 07/08/20 17:26 Total Protein 5.8 g/dL (6.3-8.2) L 07/09/20 06:14 Albumin 3.1 g/dL (3.9-5) L 07/09/20 06:14 Albumin/Globulin Ratio 1.1 % 07/09/20 06:14 Nasal Screen MRSA (PCR) Negative (Negative) 07/09/20 15:50 Salicylates < 0.3 mg/dL (2.8-20.0) L 07/08/20 17:26 Acetaminophen 5.0 ug/mL (10.0-30.0) L 07/08/20 17:26 Plasma/Serum Alcohol < 0.01 % (0-0.07) 07/08/20 17:26 Peralta/IV: Voiding Method Bedpan Active Medications - Current Medications Current Medications: Generic Name Dose Route Start Last Admin Trade Name Freq PRN Reason Stop Dose Admin Acetaminophen 650 mg 07/08/20 23:17 07/09/20 04:12 Acetaminophen 325 Mg Tab PO 650 mg Q4H PRN Administration Pain MILD(1-3)/Fever >100.5/LUIS Aripiprazole 15 mg 07/09/20 10:00 07/19/20 09:18 Aripiprazole 15 Mg Tab PO 15 mg QDAY MICHAEL Administration Doxepin HCl 25 mg 07/10/20 22:00 07/18/20 21:52 Doxepin 25 Mg Cap PO 25 mg QHS MICHAEL Administration Famotidine 20 mg 07/09/20 10:00 07/19/20 09:19 Famotidine 20 Mg Tab PO 20 mg BID MICHAEL Administration Furosemide 40 mg 07/09/20 06:00 07/19/20 18:32 Furosemide 40 Mg/4 Ml Inj IV 40 mg 0600,1800 MICHAEL Administration Hydromorphone HCl 0.5 mg 07/08/20 23:17 07/18/20 18:46 Hydromorphone 1 Mg/1 Ml Inj IV 0.5 mg Q3H PRN Administration Pain , Severe (7-10) Lisinopril 40 mg 07/09/20 10:00 07/19/20 09:20 Lisinopril 40 Mg Tab PO 40 mg DAILY MICHAEL Administration Melatonin 5 mg 07/09/20 22:00 Melatonin 5 Mg Tab PO QHS PRN Sleep Metoclopramide HCl 10 mg 07/08/20 23:17 Metoclopramide 10 Mg/2 Ml Inj IV Q6H PRN Nausea And Vomiting Ondansetron HCl 4 mg 07/08/20 23:17 07/09/20 11:40 Ondansetron 4 Mg/2 Ml Inj IV 4 mg Q8H PRN Administration Nausea And Vomiting Oxycodone/Acetaminophen 1 tab 07/08/20 23:17 07/19/20 12:43 Oxycodone /Acetaminophen 5-325mg Tab PO 1 tab Q6H PRN Administration Pain, Moderate (4-6) Potassium Chloride 20 meq 07/09/20 10:00 07/19/20 09:19 Potassium Chloride Er 20 Meq Tab PO 20 meq Q12HR MICHAEL Administration Sertraline HCl 50 mg 07/09/20 10:00 07/19/20 09:20 Sertraline 50 Mg Tab PO 50 mg QDAY MICHAEL Administration Sodium Chloride 10 ml 07/09/20 10:00 07/19/20 12:45 Sodium Chloride 0.9% 10 Ml Flush Syringe IV 10 ml BID MICHAEL Administration Sodium Chloride 10 ml 07/08/20 23:17 07/19/20 05:17 Sodium Chloride 0.9% 10 Ml Flush Syringe IV 10 ml PRN PRN Administration LINE FLUSH Tramadol HCl 50 mg 07/09/20 18:35 07/19/20 18:39 Tramadol 50 Mg Tab PO 50 mg Q8H PRN Administration Pain, Moderate (4-6) Nutrition/Malnutrition Assess - Dietary Evaluation Nutrition/Malnutrition Findings: Nutrition Notes Start: 07/15/20 10:41 Freq: Status: Active Protocol: Document 07/15/20 10:41 CW (Rec: 07/15/20 10:52 CW [id number]) Nutrition Notes Need for Assessment generated from: LOS Initial or Follow up Brief Note Current Diagnosis Heart Failure Current Diet Cardiac Height 6 ft Weight 213.188 kg Strong Body Weight (kg) 80.90 BMI 63.7 Weight Status Morbidly Obese Subjective/Other Information Screen for LOS. Pt has a good PO intake of 75 - 100% of meals. Pt states having a good appetite. Skin not of concern at this time d/t skin issues being rashes. Labs upon intake do not present concern. Percent of energy/protein needs met: 100%/72% Is patient on ventilator? No Is Patient Ambulatory and/or Out of Bed No REE-([facility]-confined to bed) 3626.292 Kcal/Kg value to use for calculation 12 Approximate Energy Requirements Using 2558 kcal/Kg Calculation Used for Recommendations Kcal/kg Additional Notes protein needs: 118 - 147g (0.8 - 1 g/kgAdjBW 147kg) Nutrition Intervention Change Diet Order: Continue Cardiac diet Goal #1 Continue to meet at least 70% of kcal and protein needs Anticipated Discharge Needs: Cardiac Diet Revisit per MD consult or patient Sign Off request: Additional Comments S/O good PO intake
[2020-07-19] MEDS: DOXEPIN 25 MG CAP PO SCH (22:33)
[2020-07-20] MEDS: FUROSEMIDE 40 MG/4 ML INJ IV SCH ×2 (06:21→18:22)
[2020-07-20] MEDS: SERTRALINE 50 MG TAB PO SCH (10:26)
[2020-07-20] MEDS: LISINOPRIL 40 MG TAB PO SCH (10:26)
[2020-07-20] MEDS: POTASSIUM CHLORIDE ER 20 MEQ TAB PO SCH ×2 (10:26→22:09)
[2020-07-20] MEDS: FAMOTIDINE 20 MG TAB PO SCH ×2 (10:26→22:09)
[2020-07-20] MEDS: ARIPiprazole 15 MG TAB PO SCH ×2 (10:26→22:10)
[2020-07-20] MEDS: ACETAMINOPHEN 325 MG TAB PO PRN (13:42)
--- NOTE | 2020-07-20 17:00 | Progress Note ---
Assessment and Plan Assessment and plan: --Acute exacerbation of CHF (congestive heart failure) Current Visit: Yes Status: Acute Patient probably has pulmonary hypertension Continue current management --History of suicidal thoughts Current Visit: Yes Status: Acute Patient was on 1013, psych evaluated Started on Zoloft, Patient symptom improved 1013 discontinued --Diffuse cellulitis Current Visit: Yes Status: Acute Patient received Unasyn and vancomycin and Diflucan Improved --History of major depression Current Visit: Yes Status: Acute LDL mental health evaluated Medications optimized consult requested Cleared for discharge --Hypertension Current Visit: Yes Status: Chronic Continue antihypertensives --Physical debility Current Visit: Yes Status: Acute Patient unable to get out of bed supportive care -- DVT prophylaxis Current Visit: Yes Status: Acute On Eliquis and GI prophylaxis -- Discharge planning issues Current Visit: Yes Status: Acute Patient agreed to go to a friend's home tomorrow Had a long discussion about his morbid obesity and the need for bariatric hinkle rgery as outpatient Patient is willing to go home tomorrow Patient to be discharged on Lasix and antihypertensives and potassium Brief history 50-year-old male who is morbidly obese comes in for severe depression and shortness of breath at rest. Patient lives alone and takes care of himself. Of late patient is not able to take care of himself because of his increased weight and unable to get out of bed for activities of daily living. Patient states he was lying in his feces for several days. He was able to take all his prescriptions and and possibly from overdose. Only suicidal thoughts were no attempt. Patient has class IV NYHA symptoms and has severe orthopnea. Also has rash on the legs and the back. Erythema of the back present. Patient has erythema of his skin back legs and scrotum. The areas are moderately painful, especially to touch. Patient also has chest pain which is intermittent. No diaphoresis. Shortness of breath present. No radiation. 07/18/2020 Patient much improved Medically cleared for discharge Patient is willing to go to friends home tomorrow Patient to be discharged tomorrow Stable for discharge 07/19/2020; patient was initially discharged Due to social reasons could not leave the hospital Awaiting for friend to pick him up today Hospitalist Physical - Constitutional Vitals: Temp Pulse Resp BP Pulse Ox 97.9 F 78 24 112/53 92 07/20/20 15:32 07/20/20 15:32 07/20/20 15:32 07/20/20 15:32 07/20/20 15:32 General appearance: Present: no acute distress, well-nourished, obese (Morbidly obese) HEART Score - HEART Score EKG: Normal Age: 45-65 Risk factors: 1-2 risk factors Troponin: Troponin T < 0.010 ng/mL (0.00-0.029) 07/09/20 06:14 Troponin: < normal limit - Critical Actions Critical Actions: 4-6 pts:12-16.6% risk of adverse cardiac event. Should be admitted Results - Labs CBC & Chem 7: 07/10/20 07:37 07/10/20 07:37 Labs: Laboratory Last Values WBC 10.8 K/mm3 (4.5-11.0) 07/10/20 07:37 RBC 4.13 M/mm3 (3.65-5.03) 07/10/20 07:37 Hgb 12.7 gm/dl (11.8-15.2) 07/10/20 07:37 Hct 38.3 % (35.5-45.6) D 07/10/20 07:37 MCV 93 fl (84-94) 07/10/20 07:37 MCH 31 pg (28-32) 07/10/20 07:37 MCHC 33 % (32-34) 07/10/20 07:37 RDW 17.1 % (13.2-15.2) H 07/10/20 07:37 Plt Count 473 K/mm3 (140-440) H 07/10/20 07:37 Lymph % (Auto) 11.5 % (13.4-35.0) L 07/10/20 07:37 [place] % (Auto) 7.0 % (0.0-7.3) 07/10/20 07:37 Eos % (Auto) 6.2 % (0.0-4.3) H 07/10/20 07:37 Baso % (Auto) 0.4 % (0.0-1.8) 07/10/20 07:37 Lymph # (Auto) 1.2 K/mm3 (1.2-5.4) 07/10/20 07:37 [place] # (Auto) 0.8 K/mm3 (0.0-0.8) 07/10/20 07:37 Eos # (Auto) 0.7 K/mm3 (0.0-0.4) H 07/10/20 07:37 Baso # (Auto) 0.0 K/mm3 (0.0-0.1) 07/10/20 07:37 Add Manual Diff Complete 07/08/20 17:26 Total Counted 100 07/08/20 17:26 Seg Neutrophils % 74.9 % (40.0-70.0) H 07/10/20 07:37 Seg Neuts % (Manual) 92.0 % (40.0-70.0) H 07/08/20 17:26 Lymphocytes % (Manual) 4.0 % (13.4-35.0) L 07/08/20 17:26 Monocytes % (Manual) 3.0 % (0.0-7.3) 07/08/20 17:26 Eosinophils % (Manual) 1.0 % (0.0-4.3) 07/08/20 17:26 Nucleated RBC % Not Reportable 07/08/20 17:26 Seg Neutrophils # 8.1 K/mm3 (1.8-7.7) H 07/10/20 07:37 Seg Neutrophils # Man 14.3 K/mm3 (1.8-7.7) H 07/08/20 17:26 Band Neutrophils # 0.0 K/mm3 07/08/20 17:26 Lymphocytes # (Manual) 0.6 K/mm3 (1.2-5.4) L 07/08/20 17:26 Abs React Lymphs (Man) 0.0 K/mm3 07/08/20 17:26 Monocytes # (Manual) 0.5 K/mm3 (0.0-0.8) 07/08/20 17:26 Eosinophils # (Manual) 0.2 K/mm3 (0.0-0.4) 07/08/20 17:26 Basophils # (Manual) 0.0 K/mm3 (0.0-0.1) 07/08/20 17:26 Metamyelocytes # 0.0 K/mm3 07/08/20 17:26 Myelocytes # 0.0 K/mm3 07/08/20 17: Promyelocytes # 0.0 K/mm3 07/08/20 17:26 Blast Cells # 0.0 K/mm3 07/08/20 17:26 WBC Morphology Not Reportable 07/08/20 17:26 Hypersegmented Neuts Not Reportable 07/08/20 17:26 Hyposegmented Neuts Not Reportable 07/08/20 17:26 Hypogranular Neuts Not Reportable 07/08/20 17:26 Smudge Cells Not Reportable 07/08/20 17:26 Toxic Granulation Not Reportable 07/08/20 17:26 Toxic Vacuolation Not Reportable 07/08/20 17:26 Dohle Bodies Not Reportable 07/08/20 17:26 Pelger-Huet Anomaly Not Reportable 07/08/20 17:26 Alexandro Rods Not Reportable 07/08/20 17:26 Platelet Estimate Consistent w auto 07/08/20 17:26 Clumped Platelets Not Reportable 07/08/20 17:26 Plt Clumps, EDTA Not Reportable 07/08/20 17:26 Large Platelets Not Reportable 07/08/20 17:26 Giant Platelets Not Reportable 07/08/20 17:26 Platelet Satelliting Not Reportable 07/08/20 17:26 Plt Morphology Comment Not Reportable 07/08/20 17:26 RBC Morphology Normal 07/08/20 17:26 Dimorphic RBCs Not Reportable 07/08/20 17:26 Polychromasia Not Reportable 07/08/20 17:26 Hypochromasia Not Reportable 07/08/20 17:26 Poikilocytosis Not Reportable 07/08/20 17:26 Anisocytosis Not Reportable 07/08/20 17:26 Microcytosis Not Reportable 07/08/20 17:26 Macrocytosis Not Reportable 07/08/20 17:26 Spherocytes Not Reportable 07/08/20 17:26 Pappenheimer Bodies Not Reportable 07/08/20 17:26 Sickle Cells Not Reportable 07/08/20 17:26 Target Cells Not Reportable 07/08/20 17:26 Tear Drop Cells Not Reportable 07/08/20 17:26 Ovalocytes Not Reportable 07/08/20 17:26 Helmet Cells Not Reportable 07/08/20 17:26 Alonso-North Bodies Not Reportable 07/08/20 17:26 [place] Rings Not Reportable 07/08/20 17:26 Frandy Cells Not Reportable 07/08/20 17:26 Bite Cells Not Reportable 07/08/20 17:26 Crenated Cell Not Reportable 07/08/20 17:26 Elliptocytes Not Reportable 07/08/20 17:26 Acanthocytes (Spur) Not Reportable 07/08/20 17:26 Rouleaux Not Reportable 07/08/20 17:26 Hemoglobin C Crystals Not Reportable 07/08/20 17:26 Schistocytes Not Reportable 07/08/20 17:26 Malaria parasites Not Reportable 07/08/20 17:26 Mauri Bodies Not Reportable 07/08/20 17:26 Hem Pathologist Commnt No 07/08/20 17:26 D-Dimer 781.59 ng/mlDDU (0-234) H 07/11/20 13:54 Sodium 136 mmol/L (137-145) L 07/10/20 07:37 Potassium 4.4 mmol/L (3.6-5.0) 07/10/20 07:37 Chloride 98.2 mmol/L (98-107) 07/10/20 07:37 Carbon Dioxide 31 mmol/L (22-30) H 07/10/20 07:37 Anion Gap 11 mmol/L 07/10/20 07:37 BUN 21 mg/dL (9-20) H 07/10/20 07:37 Creatinine 1.0 mg/dL (0.8-1.3) D 07/10/20 07:37 Estimated GFR > 60 ml/min 07/10/20 07:37 BUN/Creatinine Ratio 21 % 07/10/20 07:37 Glucose 106 mg/dL (75-100) H 07/10/20 07:37 POC Glucose 87 mg/dL (70-105) 07/18/20 11:56 Hemoglobin A1c 5.5 % (4-6) 07/09/20 09:06 Lactic Acid 3.00 mmol/L (0.7-2.0) H* 07/08/20 17:26 Calcium 8.5 mg/dL (8.4-10.2) 07/10/20 07:37 Total Bilirubin 0.30 mg/dL (0.1-1.2) 07/09/20 06:14 AST 10 units/L (5-40) 07/09/20 06:14 ALT 12 units/L (7-56) 07/09/20 06:14 Alkaline Phosphatase 68 units/L (35-129) 07/09/20 06:14 Troponin T < 0.010 ng/mL (0.00-0.029) 07/09/20 06:14 NT-Pro-B Natriuret Pep 51.33 pg/mL (0-900) 07/08/20 17:26 Total Protein 5.8 g/dL (6.3-8.2) L 07/09/20 06:14 Albumin 3.1 g/dL (3.9-5) L 07/09/20 06:14 Albumin/Globulin Ratio 1.1 % 07/09/20 06:14 Nasal Screen MRSA (PCR) Negative (Negative) 07/09/20 15:50 Salicylates < 0.3 mg/dL (2.8-20.0) L 07/08/20 17:26 Acetaminophen 5.0 ug/mL (10.0-30.0) L 07/08/20 17:26 Plasma/Serum Alcohol < 0.01 % (0-0.07) 07/08/20 17:26 Peralta/IV: Voiding Method External Female Catheter Active Medications - Current Medications Current Medications: Generic Name Dose Route Start Last Admin Trade Name Freq PRN Reason Stop Dose Admin Acetaminophen 650 mg 07/08/20 23:17 07/20/20 13:42 Acetaminophen 325 Mg Tab PO 650 mg Q4H PRN Administration Pain MILD(1-3)/Fever >100.5/LUIS Aripiprazole 15 mg 07/09/20 10:00 07/20/20 10:26 Aripiprazole 15 Mg Tab PO 15 mg QDAY MICHAEL Administration Doxepin HCl 25 mg 07/10/20 22:00 07/19/20 22:33 Doxepin 25 Mg Cap PO 25 mg QHS MICHAEL Administration Famotidine 20 mg 07/09/20 10:00 07/20/20 10:26 Famotidine 20 Mg Tab PO 20 mg BID MICHAEL Administration Furosemide 40 mg 07/09/20 06:00 07/20/20 06:21 Furosemide 40 Mg/4 Ml Inj IV 40 mg 0600,1800 MICHAEL Administration Hydromorphone HCl 0.5 mg 07/08/20 23:17 07/18/20 18:46 Hydromorphone 1 Mg/1 Ml Inj IV 0.5 mg Q3H PRN Administration Pain , Severe (7-10) Lisinopril 40 mg 07/09/20 10:00 07/20/20 10:26 Lisinopril 40 Mg Tab PO 40 mg DAILY MICHAEL Administration Melatonin 5 mg 07/09/20 22:00 Melatonin 5 Mg Tab PO QHS PRN Sleep Metoclopramide HCl 10 mg 07/08/20 23:17 Metoclopramide 10 Mg/2 Ml Inj IV Q6H PRN Nausea And Vomiting Ondansetron HCl 4 mg 07/08/20 23:17 07/09/20 11:40 Ondansetron 4 Mg/2 Ml Inj IV 4 mg Q8H PRN Administration Nausea And Vomiting Oxycodone/Acetaminophen 1 tab 07/08/20 23:17 07/19/20 12:43 Oxycodone /Acetaminophen 5-325mg Tab PO 1 tab Q6H PRN Administration Pain, Moderate (4-6) Potassium Chloride 20 meq 07/09/20 10:00 07/20/20 10:26 Potassium Chloride Er 20 Meq Tab PO 20 meq Q12HR MICHAEL Administration Sertraline HCl 50 mg 07/09/20 10:00 07/20/20 10:26 Sertraline 50 Mg Tab PO 50 mg QDAY MICHAEL Administration Sodium Chloride 10 ml 07/09/20 10:00 07/20/20 10:27 Sodium Chloride 0.9% 10 Ml Flush Syringe IV 10 ml BID MICHAEL Administration Sodium Chloride 10 ml 07/08/20 23:17 07/20/20 06:23 Sodium Chloride 0.9% 10 Ml Flush Syringe IV 10 ml PRN PRN Administration LINE FLUSH Tramadol HCl 50 mg 07/09/20 18:35 07/19/20 18:39 Tramadol 50 Mg Tab PO 50 mg Q8H PRN Administration Pain, Moderate (4-6) Nutrition/Malnutrition Assess - Dietary Evaluation Nutrition/Malnutrition Findings: Nutrition Notes Start: 07/15/20 10:41 Freq: Status: Active Protocol: Document 07/15/20 10:41 CW (Rec: 07/15/20 10:52 CW [id number]) Nutrition Notes Need for Assessment generated from: LOS Initial or Follow up Brief Note Current Diagnosis Heart Failure Current Diet Cardiac Height 6 ft Weight 213.188 kg Cisco Body Weight (kg) 80.90 BMI 63.7 Weight Status Morbidly Obese Subjective/Other Information Screen for LOS. Pt has a good PO intake of 75 - 100% of meals. Pt states having a good appetite. Skin not of concern at this time d/t skin issues being rashes. Labs upon intake do not present concern. Percent of energy/protein needs met: 100%/72% Is patient on ventilator? No Is Patient Ambulatory and/or Out of Bed No REE-([facility]-confined to bed) 3626.292 Kcal/Kg value to use for calculation 12 Approximate Energy Requirements Using 2558 kcal/Kg Calculation Used for Recommendations Kcal/kg Additional Notes protein needs: 118 - 147g (0.8 - 1 g/kgAdjBW 147kg) Nutrition Intervention Change Diet Order: Continue Cardiac diet Goal #1 Continue to meet at least 70% of kcal and protein needs Anticipated Discharge Needs: Cardiac Diet Revisit per MD consult or patient Sign Off request: Additional Comments S/O good PO intake
[2020-07-20 20:57] VITALS: BP 132/60
[2020-07-20] MEDS: DOXEPIN 25 MG CAP PO SCH (22:09)
[2020-07-20] MEDS: oxyCODONE /ACETAMINOPHEN 5-325MG TAB PO PRN (22:10)
== END 2020-07-20 22:00 | disposition home or self-care (01) | DRG 292 ==
LOC: ED 15:12 → 4A 18:51 → OBSVTOIN 07-10 10:40
PROVIDERS: ADMIT Internal Medicine; ATTEND Internal Medicine
DX: I11.0 Hypertensive heart disease with heart failure (principal); L03.90 Cellulitis, unspecified; Z68.44 Body mass index [BMI] 60.0-69.9, adult; F32.9 Major depressive disorder, single episode, unspecified; E66.01 Morbid (severe) obesity due to excess calories; Z79.899 Other long term (current) drug therapy; Z79.891 Long term (current) use of opiate analgesic; Z79.01 Long term (current) use of anticoagulants; I50.813 Acute on chronic right heart failure
CPT/HCPCS: 36415; 71045; 80048; 80053; 80320; 82140; 82962; 83036; 83880; 84484; 85007; 85025; 85379; 87040; 87641; 93970; 96374; G0378; G0480; J0295; J1170; J1450; J1940; J2405

== ENCOUNTER 2020-07-20 23:55 | Emergency (ER) | payer SELFPAY ==
--- NOTE | 2020-07-21 00:21 | Emergency Department Report ---
Chief Complaint: Medical Clearance Stated Complaint: case managment. Time Seen by Provider: 07/21/20 00:17 - HPI History of Present Illness: Patient is a 50-year-old male that was discharged from our hospital 1 hour prior to coming back to the emergency room. Patient states he arrived at his hotel room and the muffler hand of the hotel said he could not come in because he is being dropped off by an ambulance. Patient states he takes an ambulance because of his weight. Patient states he is amatory with a walker. Patient states he is feeling fine. Patient states he was discharged from the hospital and was ready to go home but is having housing issues. Patient was returned to the emergency room by EMS and the patient was checked back into the emergency room and is a case management case. Patient does not have any complaints. Patient denies shortness of breath. Patient denies chest pain. Patient denies injury. Patient denies any new symptoms. - ROS Review of Systems: 11 point review of systems done and review of systems is negative. ROS: Stated complaint: Housing issues Other details as noted in HPI Constitutional: denies: chills, fever Eyes: denies: eye pain, eye discharge, vision change ENT: denies: ear pain, throat pain Respiratory: no symptoms reported. denies: cough, shortness of breath, SOB with exertion, SOB at rest, wheezing Cardiovascular: denies: chest pain, palpitations, dyspnea on exertion Endocrine: no symptoms reported Gastrointestinal: denies: abdominal pain, nausea, diarrhea Genitourinary: denies: urgency, dysuria, discharge Musculoskeletal: denies: back pain, joint swelling, arthralgia Skin: denies: rash, lesions Neurological: denies: headache, weakness, paresthesias Psychiatric: denies: anxiety, depression Hematological/Lymphatic: denies: easy bleeding, easy bruising - Exam Physical Exam: - General Limitations: Language Barrier General appearance: alert, in no apparent distress, obese - Head Head exam: Present: atraumatic, normocephalic - Eye Eye exam: Present: normal appearance - ENT ENT exam: Present: mucous membranes moist - Neck Neck exam: Present: normal inspection - Respiratory Respiratory exam: Present: normal lung sounds bilaterally, chest wall tenderness. Absent: respiratory distress, wheezes, rales - Cardiovascular Cardiovascular Exam: Present: regular rate, normal rhythm. Absent: systolic murmur, diastolic murmur, rubs, gallop - GI/Abdominal GI/Abdominal exam: Present: soft, normal bowel sounds - Extremities Exam Extremities exam: Present: normal inspection - Back Exam Back exam: Present: normal inspection - Neurological Exam Neurological exam: Present: alert, oriented X3 - Psychiatric Psychiatric exam: Present: normal affect, normal mood - Skin Skin exam: Present: warm, dry, intact, normal color. Absent: rash MSE screening note: Focused history and physical exam performed. Patient not require any further evaluation in the ER. Patient is a case management case. Case management will be ordered. ED Medical Decision Making - Medical Decision Making Patient is a 50-year-old male who presents back to emergency room after being just discharged from the hospital housing issues. Patient's does not require further emergency medical services. Patient has no complaints. Patient had full medical clearance exam. Patient is medically clear. Case management consult placed in the system. - Differential Diagnosis Case management ED Disposition for MSE Clinical Impression: Case management patient, Discharge planning issues, Physical debility, Severe obesity Disposition: DC-01 TO HOME OR SELFCARE Is pt being admited?: No Does the pt Need Aspirin: No Condition: Stable Additional Instructions: Patient to follow-up with primary care in 2 to 3 days. Patient to resume previous discharge instructions from his admissions. Patient to wait in the ER until a case management consult has been completed. Patient to take meds as directed. Patient to return to the ER if condition worsens, changes or new symptoms arise. Time of Disposition: 00:26
[2020-07-21] MEDS ORDERED: ACETAMINOPHEN 500 MG TAB PO ONE (00:53)
[2020-07-21 18:23] VITALS: BP 129/65
== END 2020-07-21 19:27 | disposition home or self-care (01) ==
LOC: ED 23:55
DX: E66.01 Morbid (severe) obesity due to excess calories (principal); R53.81 Other malaise; Z75.1 Person awaiting admission to adequate facility elsewhere; Z71.89 Other specified counseling